=== PATIENT | female | born 1960 | race Caucasian/White ===

== ENCOUNTER 2020-09-12 10:58 | Outpatient (REF) | payer OTHER, SELFPAY | END 2020-09-12 10:59 | disposition home or self-care (01) | LOC: HO.LAB 10:58 | PROVIDERS: Visit Provider Internal Medicine | DX: Z20.828 Contact with and (suspected) exposure to other viral communicable diseases (principal) | CPT/HCPCS: C9803; U0003 ==

== ENCOUNTER 2020-09-26 13:41 | Outpatient (REF) | payer OTHER, SELFPAY | END 2020-09-26 13:42 | disposition home or self-care (01) | LOC: HO.LAB 13:41 | PROVIDERS: Visit Provider Internal Medicine | DX: Z20.828 Contact with and (suspected) exposure to other viral communicable diseases (principal) | CPT/HCPCS: C9803; U0003 ==

== ENCOUNTER 2020-10-09 17:27 | Outpatient (REF) | payer OTHER, SELFPAY | END 2020-10-09 17:28 | disposition home or self-care (01) | LOC: HO.LAB 17:27 | PROVIDERS: Visit Provider Internal Medicine | DX: Z20.822 Contact with and (suspected) exposure to COVID-19 (principal) | CPT/HCPCS: 36415; C9803; U0003 ==

== ENCOUNTER 2020-10-30 10:47 | Outpatient (REF) | payer OTHER, SELFPAY | END 2020-10-30 10:48 | disposition home or self-care (01) | LOC: HO.LAB 10:47 | PROVIDERS: Visit Provider Internal Medicine | DX: Z20.822 Contact with and (suspected) exposure to COVID-19 (principal) | CPT/HCPCS: 36415; C9803; U0003; U0005 ==

== ENCOUNTER 2020-11-17 10:07 | Outpatient (REF) | payer OTHER, SELFPAY | END 2020-11-17 10:08 | disposition home or self-care (01) | LOC: HO.LAB 10:07 | PROVIDERS: Visit Provider Internal Medicine | DX: Z20.822 Contact with and (suspected) exposure to COVID-19 (principal) | CPT/HCPCS: 36415; C9803; U0003; U0005 ==

== ENCOUNTER 2020-12-07 10:21 | Outpatient (REF) | payer OTHER, SELFPAY | END 2020-12-07 10:22 | disposition home or self-care (01) | LOC: HO.LAB 10:21 | PROVIDERS: Visit Provider Internal Medicine | DX: Z20.822 Contact with and (suspected) exposure to COVID-19 (principal) | CPT/HCPCS: 36415; C9803; U0003; U0005 ==

== ENCOUNTER 2021-01-11 13:22 | Outpatient (REF) | payer OTHER, SELFPAY ==
[2021-01-11 14:26] LABS: COVID-19 Test Negative (Negative)
== END 2021-01-11 13:23 | disposition home or self-care (01) ==
LOC: HO.LAB 13:22
PROVIDERS: Visit Provider Internal Medicine
DX: Z20.822 Contact with and (suspected) exposure to COVID-19 (principal)
CPT/HCPCS: 36415; 87635; C9803

== ENCOUNTER 2021-01-23 11:52 | Outpatient (REF) | payer OTHER, SELFPAY ==
[2021-01-23 12:12] LABS: COVID-19 Test Negative (Negative)
== END 2021-01-23 11:53 | disposition home or self-care (01) ==
LOC: HO.LAB 11:52
PROVIDERS: Visit Provider Internal Medicine
DX: Z20.822 Contact with and (suspected) exposure to COVID-19 (principal)
CPT/HCPCS: 36415; 87635; C9803

== ENCOUNTER 2021-01-29 10:30 | Outpatient (REF) | payer OTHER, SELFPAY | END 2021-01-29 10:31 | disposition home or self-care (01) | LOC: HO.LAB 10:30 | PROVIDERS: Visit Provider Internal Medicine | DX: Z20.822 Contact with and (suspected) exposure to COVID-19 (principal) | CPT/HCPCS: C9803; U0003; U0005 ==

== ENCOUNTER 2021-02-22 08:28 | Outpatient (REF) | payer OTHER, SELFPAY ==
[2021-02-22 08:48] LABS: COVID-19 Test Negative (Negative)
== END 2021-02-22 08:29 | disposition home or self-care (01) ==
LOC: HO.LAB 08:28
PROVIDERS: Visit Provider Internal Medicine
DX: Z20.822 Contact with and (suspected) exposure to COVID-19 (principal)
CPT/HCPCS: 36415; 87635; C9803

== ENCOUNTER 2021-07-06 11:14 | Outpatient (REF) | payer MEDICAID, SELFPAY ==
[2021-07-06 11:39] LABS: COVID-19 Test Negative (Negative)
== END 2021-07-06 11:15 | disposition home or self-care (01) ==
LOC: HO.LAB 11:14
PROVIDERS: PCP Internal Medicine Geriatric Medicine; Visit Provider Internal Medicine
DX: Z20.822 Contact with and (suspected) exposure to COVID-19 (principal)
CPT/HCPCS: 36415; 87635; C9803

== ENCOUNTER 2021-08-09 14:43 | Outpatient (REF) | payer MEDICAID, SELFPAY | END 2021-08-09 14:44 | disposition home or self-care (01) | LOC: HO.LAB 14:43 | PROVIDERS: PCP Internal Medicine Geriatric Medicine; Visit Provider Internal Medicine | DX: Z20.822 Contact with and (suspected) exposure to COVID-19 (principal) | CPT/HCPCS: C9803; U0003; U0005 ==

== ENCOUNTER 2021-08-10 08:12 | Emergency (ER) | payer MEDICAID, SELFPAY ==
[2021-08-10 08:15] VITALS: BP 173/75; PULSE 85; RESP 18; TEMP 36.8; O2SAT 97; BMI 38.1
--- NOTE | 2021-08-10 08:41 | ED_ITS ---
HPI - Female Genitourinary General Chief complaint: Urogenital-Female Stated complaint: ?uti Time Seen by Provider: 08/10/21 08:41 Source: patient Mode of arrival: ambulatory Limitations: no limitations History of Present Illness HPI Narrative: Dysuria starting yesterday, has frequency, with pain MD elicited complaint: dysuria and UTI Pertinent past history: recurrent UTIs and pyelonephritis Onset (ago): day(s) Severity: mild Quality of pain: sharp Consistency: intermittent Urinary symptoms: Dysuria, Urgency and Frequency Associated symptoms: denies other symptoms Related Data Previous Rx's Medication Instructions Recorded nitrofurantoin 100 mg PO BID #10 cap 08/10/21 monohydrate/macrocrystals 100 mg capsule (Macrobid) phenazopyridine 100 mg tablet 100 mg PO TID #6 tab 08/10/21 (Pyridium) Allergies Allergy/AdvReac Type Severity Reaction Status Date / Time No Known Allergies Allergy Unverified 06/15/20 14:57 [No Known Allergies*] Review of Systems Constitutional: Constitutional: Reports no additional constitutional complaints Eyes: Eyes: Reports no additional eye complaints ENT: Denies dizziness Cardiovascular: Cardiovascular: Reports no additional cardiovascular complaints Respiratory: Respiratory: Reports as per HPI Gastrointestinal: Gastrointestinal: Reports no additional gastrointestinal complaints Genitourinary: Genitourinary: Reports no additional female genitourinary complaints Musculoskeletal: Musculoskeletal: Reports no additional musculoskeletal complaints Integumentary/Breasts: Skin/Breast: Denies rash Neurologic: Reports system reviewed and no additional complaints, except as documented, Denies dizziness and Denies Sensory deficit (Neuro) Psychiatric: Psychiatric: Denies anxiety [facility] Social History Social History Advance Directives: No Physical Exam Vital Signs: Vital Signs: Last Vital Signs Temp 98.2 F 08/10/21 08:15 Pulse 85 08/10/21 08:15 Resp 18 08/10/21 08:15 BP 173/75 H 08/10/21 08:15 Pulse Ox 97 08/10/21 08:15 Body Mass Index 38.1 Const: General: healthy appearing Nutritional Appearance: obese Orientation/consciousness: oriented to person and patient oriented x3 Limitations: no limitations HENMT: Head: Yes normal to inspection Ears: external ears normal General nose exam: Normal external nose present Mouth: Normal oral and palatal mucosa present and oropharynx normal Throat: Yes posterior oropharynx normal Eyes: General: appearance normal, both eyes and all related structures Neck: Other: supple Neck: Yes normal visual inspection Chest: Chest palpation & inspection: normal inspection of the chest Resp: Auscultation: clear to auscultation bilaterally Cardio: Jugular venous distension: no JVD Rate: regular rate Rhythm: regular rhythm Heart sounds: S1 normal heart sound present and S2 normal heart sound present GI: Inspection: Yes normal to inspection Palpation (GI): Soft to palpation, nontender and No hepatosplenomegaly present Auscultation: normal bowel sounds : General: Yes no CVA tenderness Back/Spine/Pelvis: Back: no CVA tenderness Skin: General skin exam: no rashes or lesions noted Neuro: General: oriented to person and patient oriented x3 Cranial nerves: Yes CN's II-XII intact bilaterally Motor exam (neuro): 5/5 motor strength present throughout Sensory Exam: No Sensory deficit (Neuro) Extrem: General: Yes normal to inspection Psych: Appearance: grossly normal Course Reevaluation(s) Reevaluation #1: Patient with UTI will start macrobid and pyridium Time: 09:25 [facility] - Female Genitourinary Lab Data Labs: Lab Results 08/10/21 Range/Units 08:48 Urine Color YELLOW Urine Appearance CLOUDY Urine pH 6.0 (5.0-8.0) Ur Specific [place] >= 1.030 H (1.005-1.025) Urine Protein 2+ H (NEG-TRACE) MG/DL Urine Glucose (UA) NEG (NEG) MG/DL Urine Ketones NEG (NEG) MG/DL Urine Blood 3+ H (NEG) Urine Nitrite NEG (NEG) Ur Leukocyte Esterase 2+ H (NEG) Urine RBC 10-14 H (0) /HPF Urine WBC 50-75 H (0-4) /HPF Ur Squamous Epith Cells TRACE /LPF Urine Bacteria TRACE /LPF Discharge Plan Discharge Clinical Impression: Urinary tract infection Patient Disposition: Home, Self-Care Instructions: Urinary Tract Infection in Women (ED) Prescriptions: New nitrofurantoin monohyd/m-cryst [Macrobid] 100 mg capsule 100 mg PO BID Qty: 10 RF: 0 phenazopyridine [Pyridium] 100 mg tablet 100 mg PO TID Qty: 6 RF: 0 Referrals: Fausto Bangura MD [Primary Care Provider] - 1 week
[2021-08-10 08:58] LABS: Appearance Urine CLOUDY; Color Urine YELLOW; Glucose Urine UA NEG (NEG); Leukocyte Esterase Urine 2+ (NEG); Nitrite Urine NEG (NEG); Specific Gravity - Urine >= 1.030 (1.005-1.025); UACC Culture Trigger YES; Urine Blood 3+ (NEG); Urine Ketones NEG (NEG); Urine Protein 2+ MG/DL (NEG-TRACE)
[2021-08-10 09:12] LABS: Bacteria Urine TRACE /LPF; Squamous Epithelial Cell Urine TRACE /LPF; UACC CULT YES; WBC Urine 50-75 /HPF (0-4)
[2021-08-10] MEDS: Nitrofurantoin Monohyd/M-Cryst 100 MG CAPSULE PO (09:34)
[2021-08-10] MEDS: Phenazopyridine HCL 100 MG TABLET PO (09:34)
== END 2021-08-10 09:39 | disposition home or self-care (01) ==
PROVIDERS: Emergency Provider Emergency Medicine; PCP Internal Medicine Geriatric Medicine
DX: N39.0 Urinary tract infection, site not specified (principal)
CPT/HCPCS: 81001; 87086; 99283; 99284

== ENCOUNTER 2021-08-25 06:37 | Emergency (ER) | payer MEDICAID, SELFPAY ==
[2021-08-25 06:55] VITALS: BP 144/53; PULSE 72; RESP 16; TEMP 36.7; O2SAT 99; BMI 36.6
--- NOTE | 2021-08-25 06:57 | ED.URI ---
HPI - URI/Sore Throat General Chief Complaint: Upper Respiratory Symptoms Stated Complaint: body pain, nausea Time Seen by Provider: 08/25/21 06:57 Source: patient Mode of arrival: ambulatory Limitations: no limitations History of Present Illness HPI Narrative: she is vaccinated MD elicited complaint: cough and rhinorrhea Onset (ago): day(s) (3) Consistency: constant Severity: mild Description of mucous: clear Able to tolerate fluids by mouth: Yes Exacerbating factors: nothing Relieving factors: nothing Context: sick contacts (neighbor has COVID) Associated symptoms: myalgias and rhinorrhea Treatments prior to arrival: none Related Data Previous Rx's Medication Instructions Recorded nitrofurantoin 100 mg PO BID #10 cap 08/10/21 monohydrate/macrocrystals 100 mg capsule (Macrobid) phenazopyridine 100 mg tablet 100 mg PO TID #6 tab 08/10/21 (Pyridium) Allergies Allergy/AdvReac Type Severity Reaction Status Date / Time No Known Allergies Allergy Unverified 06/15/20 14:57 [No Known Allergies*] Review of Systems Review of Systems: Constitutional : no Fever, positive Chills, positive fatigue, positive Malaise ENT/Mouth : no sore throat, positive runny nose Eyes: No Discharge Cardiovascular : No Chest Pain, No SOB Respiratory : pos Cough, No Sputum Gastrointestinal : No Nausea, No Vomiting, No Diarrhea Genitourinary : No Dysuria, No Urinary Frequency Musculoskeletal : positive Myalgia Skin : No rash Neuro : No Headache PMFSH Past Medical History Attestation statement: The following information was validated with the patient. Medical History Diabetes HTN (hypertension) Social History Social History (Updated 08/25/21 @ 07:01 by Maggie Sepulveda DO) Patient Tobacco Use Status: Never used Tobacco Advance Directives: No Advance Directives Information Provided: No Patient : No Physical Exam Vital Signs: Vital Signs: Last Vital Signs Temp 98.1 F 08/25/21 06:55 Pulse 72 08/25/21 06:55 Resp 16 08/25/21 06:55 BP 144/53 H 08/25/21 06:55 Pulse Ox 99 08/25/21 06:55 Body Mass Index 36.6 Appearance: Alert. Oriented X3. No acute distress. Eyes: Pupils equal, round and reactive to light. ENT: Pharynx normal. Neck: Normal inspection. Neck supple. CVS: Normal heart rate and rhythm. Pulses normal. Respiratory: No respiratory distress. Breath sounds normal. Abdomen: Soft and non-tender. Skin: Skin warm and dry. Normal skin color. Normal skin turgor. Extremities: No lower extremity edema. Neuro: Oriented X 3. No motor deficit. No sensory deficit. MDM - URI/Sore Throat MDM Narrative Medical decision making narrative: 61 yo female with URI symptoms no hypoxia clear lungs not toxic appearing - vaccinated at this time will test for COVID I do not suspect pneumonia Lab Data Labs: Lab Results 08/25/21 Range/Units 07:11 COVID-19 (ANTHONY) Negative (Negative) COVID-19 Clin Com See Note Discharge Plan Discharge Clinical Impression: Viral infection Patient Disposition: Home, Self-Care Instructions: Viral Syndrome (ED) Additional Instructions: return to ED for any worsening symptoms or concerns NEGATIVE FOR COVID Prescriptions: No Action nitrofurantoin monohyd/m-cryst [Macrobid] 100 mg capsule 100 mg PO BID Qty: 10 RF: 0 phenazopyridine [Pyridium] 100 mg tablet 100 mg PO TID Qty: 6 RF: 0 Referrals: [facility] [Primary Care Provider] - 3 days (IF NOT BETTER) Print Language: Tanzanian
[2021-08-25 07:33] LABS: COVID-19 Test Negative (Negative)
== END 2021-08-25 07:49 | disposition home or self-care (01) ==
PROVIDERS: Emergency Provider Emergency Medicine
DX: B34.9 Viral infection, unspecified (principal); I10 Essential (primary) hypertension; E11.9 Type 2 diabetes mellitus without complications; Z20.822 Contact with and (suspected) exposure to COVID-19
CPT/HCPCS: 36415; 87635; 99282; 99283

== ENCOUNTER 2021-09-10 10:47 | Outpatient (REF) | payer MEDICAID, SELFPAY ==
[2021-09-10 11:24] LABS: COVID-19 Test Negative (Negative); IDNOW Serial# 16C4AD1C
== END 2021-09-10 10:48 | disposition home or self-care (01) ==
LOC: HO.LAB 10:47
PROVIDERS: Visit Provider Internal Medicine
DX: Z20.822 Contact with and (suspected) exposure to COVID-19 (principal)
CPT/HCPCS: 36415; 87635; C9803

== ENCOUNTER 2021-09-18 12:16 | Outpatient (REF) | payer MEDICAID, SELFPAY | END 2021-09-18 12:17 | disposition home or self-care (01) | LOC: HO.LAB 12:16 | PROVIDERS: Visit Provider Internal Medicine | DX: Z20.822 Contact with and (suspected) exposure to COVID-19 (principal) | CPT/HCPCS: C9803; U0003; U0005 ==

== ENCOUNTER → 2021-10-10 08:15 | Outpatient (BNVA) | payer MEDICAID, SELFPAY | PROVIDERS: Visit Provider Nurse Practitioner Family | DX: M47.27 Other spondylosis with radiculopathy, lumbosacral region (principal); E11.9 Type 2 diabetes mellitus without complications | CPT/HCPCS: 99202 ==

== ENCOUNTER → 2021-12-04 13:07 | Outpatient (BNVA) | payer MEDICAID, SELFPAY | PROVIDERS: PCP Pediatrics; Visit Provider Nurse Practitioner Family | DX: R40.0 Somnolence (principal); R06.83 Snoring; R06.81 Apnea, not elsewhere classified | CPT/HCPCS: 99202 ==

== ENCOUNTER 2021-12-24 04:33 | Emergency (ER) | payer MEDICAID, SELFPAY ==
[2021-12-24 04:44] VITALS: BP 187/85; PULSE 89; RESP 16; TEMP 36.8; O2SAT 95; BMI 38.6
[2021-12-24 05:56] VITALS: BP 180/80; PULSE 102; RESP 14; TEMP 37.3; O2SAT 96
--- NOTE | 2021-12-24 06:48 | ED_ITS ---
HPI - Dental/Oral General Chief complaint: Dental/Oral Stated complaint: migraine, dental pain Time Seen by Provider: 12/24/21 06:42 Source: patient and family Mode of arrival: ambulatory Limitations: no limitations History of Present Illness MD Complaint: tooth pain Teeth map: 1. Onset (ago): day(s) (2) Duration: constant Severity: moderate Relieving factors: nothing Exacerbating factors: chewing, drinking fluids and swallowing Context: history of dental caries Associated symptoms: gum swelling and pain with swallowing Treatment prior to arrival: none Related Data Home Medications Medication Instructions Recorded Confirmed albuterol sulfate 90 mcg/actuation 1 - 2 puff PO Q4-6H PRN 10/10/21 12/04/21 aerosol inhaler (ProAir HFA) buspirone 5 mg tablet 5 mg PO TID 10/10/21 12/04/21 estradiol 1 g VAGINAL QWEEK 10/10/21 12/04/21 gabapentin 300 mg capsule 0 mg PO 10/10/21 12/04/21 oxycodone 10 mg tablet 10 mg PO TID 10/10/21 12/04/21 zolpidem 10 mg tablet 10 mg PO BEDTIME 10/10/21 12/04/21 levothyroxine 125 mcg capsule 125 mcg PO DAILY 12/04/21 12/04/21 lisinopril 5 mg tablet 5 mg PO DAILY 12/04/21 12/04/21 lovastatin 40 mg tablet 40 mg PO DAILY 12/04/21 12/04/21 Previous Rx's Medication Instructions Recorded nitrofurantoin 100 mg PO BID #10 cap 08/10/21 monohydrate/macrocrystals 100 mg capsule (Macrobid) phenazopyridine 100 mg tablet 100 mg PO TID #6 tab 08/10/21 (Pyridium) amoxicillin 500 mg tablet 500 mg PO TID 7 Days #21 tab 12/24/21 oxycodone 5 mg tablet 5 mg PO Q6H PRN #10 tab 12/24/21 Allergies Allergy/AdvReac Type Severity Reaction Status Date / Time No Known Allergies Allergy Unverified 06/15/20 14:57 [No Known Allergies*] Review of Systems Review of Systems: Constitutional : No Fever, No Chills ENT/Mouth : No swallowing difficulty, no change in voice, positive dental pain, positive jaw pain, positive facial swelling Eyes: No Eye Pain, No Swelling Cardiovascular : No Chest Pain, No SOB Respiratory : No Cough, No Sputum Gastrointestinal : No Nausea, No Vomiting, No Diarrhea Genitourinary : No Dysuria Musculoskeletal : No Myalgias Skin : No rash Neuro : No Weakness, No Numbness, No Headache PMF Past Medical History Attestation statement: The following information was validated with the patient. Medical History Diabetes HTN (hypertension) Social History Social History Alcohol intake: never Patient Tobacco Use Status: Never used Tobacco Use of substances other than those prescribed or required for medical reasons: No Advance Directives: No Advance Directives Information Provided: Yes Physical Exam Vital Signs: Vital Signs: Last Vital Signs Temp 99.1 F 12/24/21 05:56 Pulse 102 H 12/24/21 05:56 Resp 14 12/24/21 05:56 BP 180/80 H 12/24/21 05:56 Pulse Ox 96 12/24/21 05:56 BMI result Body Mass Index 38.6 Appearance: Alert. Oriented X3. No acute distress. Eyes: Pupils equal, round and reactive to light. ENT: R upper tooth 1st molar area mild fluctuance no abscess felt, gum erythema mild, no trismus tooth intact, no deeper infections noted, mild swelling over R cheek area but very mild no other swelling noted under tongue or submandibular Neck: Normal inspection. Neck supple. CVS: Normal heart rate and rhythm. Pulses normal. Respiratory: No respiratory distress. Breath sounds normal. Abdomen: Soft and nontender. Skin: Skin warm and dry. Normal skin color. Normal skin turgor. Extremities: No lower extremity edema. No calf ttp Neuro: Oriented X 3. No motor deficit. No sensory deficit. Course Course Course Narrative: called by pharmacy already on scheduled oxycodone - new Rx stopped MDM - Dental/Oral MDM Narrative Medical decision making narrative: 61 yo female with DM, HTN here with c/o dental pain with erythema and gingiva inflammation at this time will need pain medications and oral antibiotics, overall not toxic, no signs of deeper space infection - plans to see her dentist. Discharge Plan Discharge Clinical Impression: Toothache Patient Disposition: Home, Self-Care Instructions: Toothache (ED) Additional Instructions: return to ED for any worsening symptoms or concerns see dentist in 3 days Prescriptions: New amoxicillin 500 mg tablet 500 mg PO TID 7 Days Qty: 21 0RF oxycodone 5 mg tablet 5 mg PO Q6H PRN (Reason: pain) Qty: 10 0RF No Action nitrofurantoin monohyd/m-cryst [Macrobid] 100 mg capsule 100 mg PO BID Qty: 10 0RF Rx Instructions: must administer with a meal/food phenazopyridine [Pyridium] 100 mg tablet 100 mg PO TID Qty: 6 0RF levothyroxine 125 mcg capsule 125 mcg PO DAILY 0RF lisinopril 5 mg tablet 5 mg PO DAILY 0RF lovastatin 40 mg tablet 40 mg PO DAILY 0RF oxycodone 10 mg tablet 10 mg PO TID 0RF albuterol sulfate [ProAir HFA] 90 mcg/actuation HFA aerosol inhaler 1 - 2 puff PO Q4-6H PRN0RF zolpidem 10 mg tablet 10 mg PO BEDTIME 0RF gabapentin 300 mg capsule 0 mg PO 0RF buspirone 5 mg tablet 5 mg PO TID 0RF estradiol 0.01 % (0.1 mg/gram) cream 1 g vaginal QWEEK 0RF Interventions: ED Discharge Assessment Last Done: 12/24/21 07:09 Discharge Date/Time: 12/24/21 07:09 Print Language: Citizen [place]
[2021-12-24] MEDS: oxyCODONE HCl Immed Release 5 MG TABLET 10 MG PO (06:56)
[2021-12-24] MEDS: Amoxicillin 500 MG CAPSULE PO (06:56)
== END 2021-12-24 07:09 | disposition home or self-care (01) ==
PROVIDERS: Emergency Provider Emergency Medicine
DX: K08.89 Other specified disorders of teeth and supporting structures (principal); E11.9 Type 2 diabetes mellitus without complications; I10 Essential (primary) hypertension; Z79.899 Other long term (current) drug therapy
CPT/HCPCS: 99283; 99284

== ENCOUNTER → 2022-01-15 11:05 | Outpatient (REF) | payer MEDICAID, SELFPAY | LOC: HO.SL 11:05 | PROVIDERS: PCP Nurse Practitioner Family; Visit Provider Nurse Practitioner Family | DX: G47.00 Insomnia, unspecified (principal); R06.83 Snoring; R40.0 Somnolence; R06.81 Apnea, not elsewhere classified | CPT/HCPCS: 95806 ==

== ENCOUNTER → 2022-01-29 13:13 | Outpatient (BNVA) | payer MEDICAID, SELFPAY | PROVIDERS: PCP Nurse Practitioner Family; Visit Provider Nurse Practitioner Family | DX: R40.0 Somnolence (principal); R06.81 Apnea, not elsewhere classified; R06.83 Snoring | CPT/HCPCS: 99212 ==

== ENCOUNTER → 2022-05-17 08:24 | Outpatient (BNVA) | payer MEDICAID, SELFPAY | PROVIDERS: PCP Nurse Practitioner Family; Visit Provider Nurse Practitioner Family | DX: E66.9 Obesity, unspecified (principal); R40.0 Somnolence; R06.81 Apnea, not elsewhere classified; R06.83 Snoring; Z68.38 Body mass index [BMI] 38.0-38.9, adult | CPT/HCPCS: 99212 ==

== ENCOUNTER 2022-06-28 11:58 | Outpatient (REF) | payer MEDICAID, SELFPAY ==
[2022-06-28 13:18] LABS: Alanine Aminotransferase 48 U/L (0-31); Albumin Level 4.3 g/dL (3.5-5.0); Alkaline Phosphatase 74 U/L (39-117); Anion Gap 13 (12-20); Aspartate Amino Transferase 37 U/L (5-31); Bilirubin Total 0.3 mg/dL (0.0-1.0); Blood Urea Nitrogen 12 mg/dL (9-16); Calcium 9.8 mg/dL (8.4-10.2); Carbon Dioxide 30 mmol/L (22-29); Chloride 99 mmol/L (96-108); Estimated Glomerular Filt Rate > 60; Glucose Random 122 mg/dL (60-115); Potassium 4.3 mmol/L (3.3-5.1); Sodium 138 mmol/L (135-145); Total Protein 7.2 g/dL (6.5-8.0)
[2022-06-28 13:39] LABS: TSH reflex Free T4 0.14 uIU/mL (0.32-4.0)
[2022-06-28 14:16] LABS: Free T4 (Free Thyroxine) 1.28 ng/dL (0.71-1.85)
== END 2022-06-28 11:59 | disposition home or self-care (01) ==
LOC: HO.LAB 11:58
PROVIDERS: PCP Nurse Practitioner Family; Visit Provider Nurse Practitioner Family
DX: K59.04 Chronic idiopathic constipation (principal); K21.9 Gastro-esophageal reflux disease without esophagitis; R14.0 Abdominal distension (gaseous); Z79.899 Other long term (current) drug therapy
CPT/HCPCS: 36415; 80053; 84439; 84443; 99202

== ENCOUNTER 2022-07-21 02:10 | Emergency (ER) | payer MEDICAID, SELFPAY ==
[2022-07-21 02:30] VITALS: BP 155/75; PULSE 73; RESP 16; TEMP 36.6; O2SAT 95; BMI 39.2
[2022-07-21 02:57] LABS: Appearance Urine Clear; Color Urine Yellow; Glucose Urine UA Negative (Negative); Leukocyte Esterase Urine Large (3+) (Negative); Nitrite Urine Negative (Negative); Specific Gravity - Urine <= 1.005 (1.005-1.025); UMIC TRIGGER UACC YES; Urine Blood Moderate (2+) (Negative); Urine Ketones Negative (Negative); Urine Protein Negative (Neg-Trace)
[2022-07-21 03:15] LABS: Bacteria Urine None Seen (None Seen); Hyaline Casts Urine 0-2 /LPF (0-2); RBC Urine 0-2 /HPF (0-2); UACC Culture Trigger YES; WBC Urine >50 /HPF (0-5)
[2022-07-21 06:15] VITALS: BP 112/76; PULSE 67; RESP 16; O2SAT 97
[2022-07-21 06:16] LABS: MANUAL DIFF FLAG NO
[2022-07-21 06:31] LABS: Basophils Absolute Auto 0.1 X10*3/uL (0.0-0.2); Basophils Percent Auto 0.8 % (0-2); Eosinophils Absolute Auto 0.4 X10*3/uL (0.0-0.4); Eosinophils Percent Auto 4.3 % (0-4); Hematocrit 39.4 % (37.0-47.0); Hemoglobin 13.1 g/dl (12.0-16.0); Imm Gran Abs Auto 0.05 X10*3/uL (0.00-0.03); Imm Gran Pct Auto 0.6 % (0.0-0.4); Lymphocytes Percent Auto 33.9 % (20-40); Mean Corpuscular HGB Conc 33.2 g/dl (31.0-35.0); Mean Corpuscular Hemoglobin 28.8 pg (27.0-33.0); Mean Corpuscular Volume 86.6 fL (80.0-98.0); Mean Platelet Volume 9.4 fL (9.4-12.3); Monocytes Absolute Auto 0.7 X10*3/uL (0.1-1.2); Monocytes Percent Auto 7.8 % (2-11); Neutrophils Absolute Auto 4.7 x10*3/uL (2.0-8.3); Neutrophils Percent Auto 52.6 % (45-73); Platelet Count 316 X10*3/uL (160-400); Red Blood Count 4.55 X10*6/uL (4.20-5.50); Red Cell Distribution Width 13.2 % (11.0-16.0)
[2022-07-21 06:37] LABS: Alanine Aminotransferase 41 U/L (0-31); Albumin Level 4.5 g/dL (3.5-5.0); Alkaline Phosphatase 82 U/L (39-117); Anion Gap 18 (12-20); Aspartate Amino Transferase 35 U/L (5-31); Bilirubin Total 0.3 mg/dL (0.0-1.0); Blood Urea Nitrogen 9 mg/dL (9-16); Calcium 9.6 mg/dL (8.4-10.2); Carbon Dioxide 24 mmol/L (22-29); Chloride 101 mmol/L (96-108); Creatinine Clr Calc Pharmacy 81.3; Estimated Glomerular Filt Rate > 60; Glucose Random 147 mg/dL (60-115); Potassium 4.1 mmol/L (3.3-5.1); Sodium 139 mmol/L (135-145); Total Protein 7.9 g/dL (6.5-8.0)
--- NOTE | 2022-07-21 07:56 | ED_ITS ---
HPI - Female Genitourinary General Chief complaint: Urogenital-Female Stated complaint: pain in lower abd, cannot urinate Time Seen by Provider: 07/21/22 07:52 Source: patient and translator interpreter Mode of arrival: ambulatory Limitations: no limitations History of Present Illness MD elicited complaint: dysuria and UTI Pertinent past history: recurrent UTIs Onset (ago): day(s) (3) Location of symptoms: suprapubic Severity: mild Quality of pain: burning Consistency: intermittent Vaginal discharge: none Vaginal bleeding: none Urinary symptoms: Dysuria, Urgency, Frequency and Foul Smelling Urine Exacerbating factors: urination Relieving factors: none Associated symptoms: denies other symptoms Treatment prior to arrival: none Related Data Home Medications Medication Instructions Recorded Confirmed albuterol sulfate 90 mcg/actuation 1 - 2 puff PO Q4-6H PRN 10/10/21 01/29/22 aerosol inhaler (ProAir HFA) estradiol 0.01% (0.1 mg/gram) 1 g vaginal QWEEK 10/10/21 01/29/22 vaginal cream gabapentin 300 mg capsule 0 mg PO 10/10/21 01/29/22 oxycodone 10 mg tablet 10 mg PO TID 10/10/21 01/29/22 zolpidem 10 mg tablet 10 mg PO BEDTIME 10/10/21 01/29/22 levothyroxine 125 mcg capsule 125 mcg PO DAILY 12/04/21 01/29/22 lisinopril 5 mg tablet 5 mg PO DAILY 12/04/21 01/29/22 lovastatin 40 mg tablet 40 mg PO DAILY 12/04/21 01/29/22 metformin 500 mg tablet 500 mg PO BID 01/29/22 01/29/22 paroxetine HCl 10 mg tablet 10 mg PO DAILY 01/29/22 01/29/22 Previous Rx's Medication Instructions Recorded docusate sodium 100 mg capsule 100 mg PO BEDTIME #90 caps 06/28/22 sennosides 8.6 mg tablet (Natural 17.2 mg PO BEDTIME constipation 06/28/22 Senna Laxative) #180 tabs cefuroxime axetil 250 mg tablet 250 mg PO BID 7 days #14 tabs 07/21/22 fluconazole 150 mg tablet 150 mg PO Q3D 2 doses #2 tabs 07/21/22 (Diflucan) Allergies Allergy/AdvReac Type Severity Reaction Status Date / Time No Known Allergies Allergy Verified 07/21/22 02:30 [No Known Allergies*] Review of Systems Review of Systems: Constitutional : No Weight loss, No Fever, No Chills ENT/Mouth : No sore throat, No Rhinorrhea Eyes: No Swelling, No Redness Cardiovascular : No Chest Pain, No SOB, NoEdema Respiratory : No Cough, No Sputum, No Wheezing Gastrointestinal : no Nausea, no Vomiting, no Diarrhea, positive abdominal Pain, No Hematochezia, No Melena Genitourinary : pos Dysuria, pos Urinary Frequency, No Hematuria, pos Urgency Musculoskeletal : No joint pain, No Myalgias, No Joint Swelling Skin : No Skin Lesions, No rash Neuro : No Weakness, No Numbness, No Dizziness, No Headache Psych : No Anxiety/Panic, No Depression Heme/Lymph: No Bruising, No Lymphadenopathy Endocrine : No Polyuria, No Polydipsia All other systems reviewed and are negative. [facility] Past Medical History Attestation statement: The following information was validated with the patient. Medical History Diabetes HTN (hypertension) Surgical History Hx of tubal ligation Family History Family History (Updated 06/28/22 @ 11:18 by Dave George) Mother HTN (hypertension) Diabetes High cholesterol Father Heart disease Social History Social History Household Members: Significant Other Alcohol intake: never Patient Tobacco Use Status: Never used Tobacco Physical Exam Vital Signs: Vital Signs: Last Vital Signs Temp 97.9 F 07/21/22 02:30 Pulse 67 07/21/22 06:15 Resp 16 07/21/22 06:15 BP 112/76 07/21/22 06:15 Pulse Ox 97 07/21/22 06:15 O2 Del Method 07/21/22 06:15 BMI result Body Mass Index 39.2 Appearance: Alert. Oriented X3. No acute distress. Eyes: Pupils equal, round and reactive to light. ENT: Pharynx normal. Neck: Normal inspection. Neck supple. CVS: Normal heart rate and rhythm. Pulses normal. Respiratory: No respiratory distress. Breath sounds normal. Abdomen: Soft and nontender. Back: no CVA ttp Skin: Skin warm and dry. Normal skin color. Normal skin turgor. Extremities: No lower extremity edema. No calf ttp Neuro: Oriented X 3. No motor deficit. No sensory deficit. MDM - Female Genitourinary MDM Narrative Medical decision making narrative: 62 yo female with hx of UTI, hypothyroidism, back pain, DM here with 3 days of dysuria but no flank pain, fevers, vomiting - at this time will start on cefuroxime and send home with precautions. No prior kidney stones. not toxic. stable for DC Lab Data Result diagrams: 07/21/22 06:01 07/21/22 06:01 Labs: Lab Results 07/21/22 07/21/22 07/21/22 Range/Units 02:49 06:01 06:01 WBC 9.0 (4.8-10.8) X10*3/uL RBC 4.55 (4.20-5.50) X10*6/uL Hgb 13.1 (12.0-16.0) g/dl Hct 39.4 (37.0-47.0) % MCV 86.6 (80.0-98.0) fL MCH 28.8 (27.0-33.0) pg MCHC 33.2 (31.0-35.0) g/dl RDW 13.2 (11.0-16.0) % Plt Count 316 (160-400) X10*3/uL MPV 9.4 (9.4-12.3) fL Immature Gran % (Auto) 0.6 H (0.0-0.4) % Neut % (Auto) 52.6 (45-73) % Lymph % (Auto) 33.9 (20-40) % [place] % (Auto) 7.8 (2-11) % Eos % (Auto) 4.3 H (0-4) % Baso % (Auto) 0.8 (0-2) % Lymph # (Auto) 3.0 (1.2-4.9) X10*3/uL [place] # (Auto) 0.7 (0.1-1.2) X10*3/uL Eos # (Auto) 0.4 (0.0-0.4) X10*3/uL Baso # (Auto) 0.1 (0.0-0.2) X10*3/uL Abs Immat Gran (auto) 0.05 H (0.00-0.03) X10*3/uL Absolute Neuts (auto) 4.7 (2.0-8.3) x10*3/uL Absolute Nucleated RBC 0.000 (0.0-0.012) X10*3/uL Nucleated RBC % (auto) 0.0 (0.0-0.2) /100WBC Sodium 139 (135-145) mmol/L Potassium 4.1 (3.3-5.1) mmol/L Chloride 101 (96-108) mmol/L Carbon Dioxide 24 (22-29) mmol/L Anion Gap 18 (12-20) BUN 9 (9-16) mg/dL Creatinine 0.82 (0.5-1.4) mg/dL Estim Creat Clear Calc 81.3 Estimated GFR > 60 Random Glucose 147 H (60-115) mg/dL Calcium 9.6 (8.4-10.2) mg/dL Total Bilirubin 0.3 (0.0-1.0) mg/dL AST 35 H (5-31) U/L ALT 41 H (0-31) U/L Alkaline Phosphatase 82 (39-117) U/L Total Protein 7.9 (6.5-8.0) g/dL Albumin 4.5 (3.5-5.0) g/dL Urine Color Yellow Urine Appearance Clear Urine pH 6.0 (5.0-9.0) Ur Specific [place] <= 1.005 (1.005-1.025) Urine Protein Negative (Neg-Trace) mg/dL Urine Glucose (UA) Negative (Negative) mg/dL Urine Ketones Negative (Negative) mg/dL Urine Blood Moderate (2+) H (Negative) Urine Nitrite Negative (Negative) Ur Leukocyte Esterase Large (3+) H (Negative) Urine RBC 0-2 (0-2) /HPF Urine WBC >50 H (0-5) /HPF Ur Squamous Epith Cells 3-5 (0-2) /HPF Urine Bacteria None Seen (None Seen) Hyaline Casts 0-2 (0-2) /LPF Discharge Plan Discharge Clinical Impression: Acute UTI Patient Disposition: Home, Self-Care Instructions: Urinary Tract Infection in Women (ED) Additional Instructions: return to ED for any worsening symptoms or concerns Prescriptions: New cefuroxime axetil 250 mg tablet 250 mg PO BID 7 Days Qty: 14 0RF fluconazole [Diflucan] 150 mg tablet 150 mg PO Q3D Qty: 2 0RF Rx Instructions: may repeat second dose 72 hrs after first dose if symptoms persist No Action levothyroxine 125 mcg capsule 125 mcg PO DAILY lisinopril 5 mg tablet 5 mg PO DAILY lovastatin 40 mg tablet 40 mg PO DAILY metformin 500 mg tablet 500 mg PO BID paroxetine HCl 10 mg tablet 10 mg PO DAILY docusate sodium 100 mg capsule 100 mg PO BEDTIME Qty: 90 3RF sennosides [Natural Senna Laxative] 8.6 mg tablet 17.2 mg PO BEDTIME Qty: 180 3RF oxycodone 10 mg tablet 10 mg PO TID albuterol sulfate [ProAir HFA] 90 mcg/actuation HFA aerosol inhaler 1 - 2 puff PO Q4-6H PRN zolpidem 10 mg tablet 10 mg PO BEDTIME gabapentin 300 mg capsule 0 mg PO estradiol 0.01 % (0.1 mg/gram) cream 1 g vaginal QWEEK Referrals: Physician,Unknown J [Primary Care Provider] - (PCP 3 days if not better) Print Language: Burmese
--- OUTSIDE RECORDS SUMMARY | 2022-07-21 08:10 | XMS_ITS | Continuity of Care Document ---
:1960 Author Organization [facility] Address [address] [place] [address], [address] [place] [address]- Care Team Providers Name Role Phone Daryn Luong MD Primary Care Phys[id number] - [facility]07/21 [facility] [address] [place] [address], [address] [place] [id number] Attending Physician: Delia Deluca MD Admitting Physician: Delia Deluca MD Referring Physician: Daryn Luong MD Allergies, Adverse Reactions, Alerts Substance Reaction Severity Status NKA Active Medications Acidophilus Probiotic Blend oral capsule 1 capsule, By Mouth, Daily, # 30 capsule, 11 Refills, Maintenance, 12/04/20 9:52:00 EST, [facility]/pharmacy #[id number], Partial fill upon patient request if the prescription is for a schedule II opioid drug., 1 capsule By Mouth Daily, 161, cm, 12/04/20 9:26:00 E... Start Date: 12/04/20 Status: OrderedAlbuterol 0.083% Inhalation Solution Refills 0, Maintenance, 12/04/20 9:30:00 EST Start Date: 12/04/20 Status: OrderedAmbien 10 mg oral tablet 1 tablet = 10 mg, By Mouth, Daily at bedtime, PRN for sleep, 0 Refills, Maintenance, 12/30/17 15:18:04 EDT, Tablet Start Date: 12/30/17 Status: OrderedclonazePAM 0.5 mg oral tablet = 0.5 mg, By Mouth, 2 times a day, 0 Refills, Maintenance, 05/29/16 8:39:21, Tablet Start Date: 05/29/16 Status: Ordereddocusate sodium 0 Refills, Maintenance, 08/12/19 10:00:40 EST Start Date: 08/12/19 Status: Orderedestradiol 0.1 mg/g vaginal cream = 1 Gm, Vaginally, Daily at bedtime, take every night for two weeks then twice weekly, # 30 Gm, 11 Refills, Maintenance, 12/04/20 9:51:00 EST, [facility]/pharmacy #[id number], Partial fill upon patient request if the prescription is for a schedule II opioid drug.,... Start Date: 12/04/20 Status: Orderedhydrochlorothiazide 25 mg oral tablet 12.5 mg, By Mouth, Daily, Refills 0, Maintenance, 05/29/16 8:39:26 Start Date: 05/29/16 Status: Orderedlevothyroxine 0.125 mg oral tablet 0 Refills, Maintenance, 08/12/19 9:59:35 EST Start Date: 08/12/19 Status: Orderedlisinopril 10 mg oral tablet 1 tablet = 10 mg, By Mouth, Daily, 0 Refills, Maintenance, 05/15/15 8:47:39 Start Date: 05/15/15 Status: Orderedloratadine 10 mg oral tablet 10 mg, 1, tablet, By Mouth, Daily, # 30 tablet, Refills 0, Maintenance, 12/30/17 15:16:29 EDT Start Date: 12/30/17 Status: Orderedlovastatin 20 mg oral tablet 1 tablet = 20 mg, By Mouth, Daily, 0 Refills, Maintenance, 12/04/20 9:29:00 EST, Partial fill upon patient request if the prescription is for a schedule II opioid drug. Start Date: 12/04/20 Status: OrderedMovantik 25 mg oral tablet 1 tablet = 25 mg, By Mouth, Daily in AM, 0 Refills, Maintenance, 12/04/20 9:30:00 EST, Partial fill upon patient request if the prescription is for a schedule II opioid drug. Start Date: 12/04/20 Status: OrderedoxyCODONE 10 mg oral tablet 1 tablet = 10 mg, By Mouth, Every 4 hours, 0 Refills, Maintenance, 08/12/19 10:01:20 EST, Tablet, Partial fill upon patient request Start Date: 08/12/19 Status: OrderedPARoxetine 20 mg oral tablet 20 mg, 1, tablet, By Mouth, Daily, # 30 tablet, Refills 0, Maintenance, 08/12/19 10:00:22 EST Start Date: 08/12/19 Status: Orderedtrimethoprim 100 mg oral tablet 1 tablet = 100 mg, By Mouth, Daily, For daily suppression of frequent UTIs. Start taking after finishing course of treatment for acute UTI, # 28 tablet, 5 Refills, Maintenance, 10/05/20 9:11:00 EST, [id number], 162.5, cm, 08/12/19 9:50:00 EST,... Start Date: 10/05/20 Status: OrderedVitamin C 500 mg oral tablet, chewable 1 tablet = 500 mg, By Mouth, 2 times a day, # 60 tablet, 9 Refills, Maintenance, 12/04/20 9:51:00 EST, [id number], Partial fill upon patient request if the prescription is for a schedule II opioid drug., 161, cm, 12/04/20 9:26:00 EST, Height,... Start Date: 12/04/20 Status: Ordered Problem List Condition Effective Dates Status Health Status Informant Anxiety(Confirmed) Active Atrophic vaginitis(Confirmed) Active Last pap smear 05/09/16 negative with Active negative HPV(Confirmed) Depression(Confirmed) Active Diabetes - patient denies it but Active multiple hemoglobin A1c levels have been above the cutoff(Confirmed) Dyspareunia, female(Confirmed) Active Hyperlipidemia - high total Active cholesterol and triglycerides(Confirmed) Chronic hypertension(Confirmed) Active Hypothyroid. Last TSH 05/15/2018 Active elevated at 4.82 mIU/mL. 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
--- OUTSIDE RECORDS SUMMARY | 2022-07-21 08:10 | XMS_ITS | Continuity of Care Document ---
:1960 Author Organization [facility] Address [address] [place] [address]- Care Team Providers Name Role Phone Daryn Luong MD Primary Care Physician [phone] [facility] Date(s): 10/12/21 - 10/19/21 [facility] [address] [place] [address]- Encounter Diagnosis Acute cystitis (Discharge Diagnosis) - 10/12/21 Attending Physician: Chelle Hummel MD Referring Physician: Daryn Luong MD Allergies, Adverse Reactions, Alerts No Known Allergies Medications Acidophilus Probiotic Blend oral capsule 1 capsule, By Mouth, Daily, # 30 capsule, 11 Refills, Maintenance, 12/04/20 9:52:00 EST, [facility]/pharmacy #[id number], Partial fill upon patient request if [...] Gm, 11 Refills, Maintenance, 12/04/20 9:51:00 EST, [facility]/pharmacy #[id number], Partial fill upon patient request if [...] II opioid drug. Start Date: 12/04/20 Status: Orderedmirabegron 25 mg oral tablet, extended release 1 tablet = 25 mg, By Mouth, Daily, # 30 tablet, 11 Refills, Maintenance, 05/07/21 11:06:00 EDT, [facility]/pharmacy #[id number], Partial fill upon patient request if the prescription is for a schedule II opioid drug., 161, cm, 12/04/20 9:26:00 EST, Height, 100.7,... Start Date: 05/07/21 Status: OrderedMovantik 25 mg oral tablet 1 [...] tablet = 100 mg, By Mouth, Daily, for 30 days, # 30 tablet, 11 Refills, Acute 10/12/22 13:50:00 EST, 10/17/21 13:50:00 EST, Tablet, [facility]/pharmacy #[id number], Partial fill upon patient request if the prescription is for a schedule II opioid drug., 161, cm,... Start Date: 10/17/21 Stop Date: 10/12/22 Status: Orderedtrimethoprim 100 mg oral tablet 1 tablet = 100 mg, By Mouth, Daily, For daily suppression of frequent UTIs. Start taking after finishing course of treatment for acute UTI, # 28 tablet, 5 Refills, Maintenance, 10/05/20 9:11:00 EST, [id number], 162.5, cm, 08/12/19 9:50:00 EST,... Start Date: 10/05/20 Status: OrderedVitamin C 500 mg oral tablet, chewable 1 tablet = 500 mg, Chew, 2 times a day, # 60 tablet, 11 Refills, Maintenance, 10/17/21 13:50:00 EST,[id number], Partial fill upon patient request if the prescription is for a schedule II opioid drug., 161, cm, 10/17/21 13:43:00 EST, Height, 1... Start Date: 10/17/21 Status: OrderedVitamin C 500 mg oral tablet, [...] mIU/mL. 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) Does not have regular dental Active care(Confirmed) Obese class II(Confirmed) Active Obesity(Confirmed) Active Poor historian(Confirmed) Active Frequent UTI(Confirmed) Active Urinary tract infections(Confirmed) Active Diagnosis Diagnosis Type Effective Dates Health Status Clinical In formant Service Acute cystitis Discharge 10/12/21 Diagnosis Vital Signs Most recent to oldest [Reference Range]: 1 Height 161.0 cm (10/12/21 6:19 PM) Oxygen Saturation [94-100 %] 99 % (10/12/21 6:19 PM) Pulse Rate [55-90 bpm] 81 bpm (10/12/21 6:19 PM) Blood Pressure [90-138/55-84 mm Hg] 131/60 mm Hg (10/12/21 6:19 PM) Respiratory Rate [16-30 br/min] 20 br/min (10/12/21 6:19 PM) Temperature [96.8-100.4 DegF] 97.2 DegF (10/12/21 6:19 PM) Mode of Delivery (Oxygen) Room air (10/12/21 6:19 PM) Blood pressure sites Arm, left (10/12/21 6:19 PM) Temperature Route Temporal (10/12/21 6:19 PM) Social History Social History Type Response Smoking Status Former smoker; Tobacco user in household: No; Other: Quit 36 years ago; entered on: 04/14/18 Sex
--- OUTSIDE RECORDS SUMMARY | 2022-07-21 08:10 | XMS_ITS | Continuity of Care Document ---
:1960 Author Organization [facility] Address [address] [place] [address]- Care Team Providers Name Role Phone Daryn Luong MD Primary Care Physician Encounter [facility] [facility] Date(s): 01/28/22 - 03/22/[address] [address] Attending Physician: Delia Deluca MD Admitting Physician: Delia Deluca MD Referring Physician: Delia Deluca MD Allergies, Adverse Reactions, Alerts No Known Allergies Medications Acidophilus Probiotic Blend oral capsule 1 capsule, By Mouth, Daily, # 30 capsule, 11 Refills, Maintenance, 12/04/20 9:52:00 EST, [facility]/pharmacy #[id number], Partial fill upon patient request if [...] weekly, # 30 Gm, 11 Refills, Maintenance, 01/25/22 11:50:00 EDT, [facility]/pharmacy #[id number], Partial fill upon patient request if the prescription is for a schedule II opioid drug.... Start Date: 01/25/22 Status: Orderedestradiol 0.1 mg/g vaginal cream = 1 Gm, Vaginally, Daily at bedtime, take every night for two weeks then twice weekly, # 30 Gm, 11 Refills, Maintenance, 12/04/20 9:51:00 EST, [facility]/pharmacy #[id number], Partial fill upon patient request if [...] tablet, 11 Refills, Maintenance, 05/07/21 11:06:00 EDT, [facility]/pharmacy #[id number], Partial fill upon patient request if the prescription is for a schedule II opioid drug., 161, cm, 12/04/20 9:26:00 EST, Height, 100.7,... Start Date: 05/07/21 Status: Orderedmirabegron 25 mg oral tablet, extended release 1 tablet = 25 mg, By Mouth, Daily at bedtime, # 30 tablet, 11 Refills, Maintenance, 01/25/22 11:50:00 EDT, [facility]/pharmacy #[id number], Partial fill upon patient request if the prescription is for a schedule IIopioid drug., 161, cm, 01/25/22 11:07:00 EDT, Hei... Start Date: 01/25/22 Status: OrderedMovantik 25 mg oral tablet 1 [...] 10/12/22 13:50:00 EST, 10/17/21 13:50:00 EST, Tablet, [facility]/pharmacy #[id number], Partial fill upon patient request if [...] 60 tablet, 11 Refills, Maintenance, 10/17/21 13:50:00 EST,[facility]/pharmacy #[id number], Partial fill upon patient request if the prescription is for a schedule II opioid drug., 161, cm, 10/17/21 13:43:00 EST, Height, 1... Start Date: 10/17/21 Status: OrderedVitamin C 500 mg oral tablet, chewable 1 tablet = 500 mg, By Mouth, 2 times a day, # 60 tablet, 9 Refills, Maintenance, 12/04/20 9:51:00 EST, [facility]/pharmacy #[id number], Partial fill upon patient request if [...] mIU/mL. 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
--- OUTSIDE RECORDS SUMMARY | 2022-07-21 08:10 | XMS_ITS | Continuity of Care Document ---
:1960 Author Organization [facility] Address [address] [place] [address]- Care Team Providers Name Role Phone Daryn Luong MD Primary Care Physician [place] [facility] 02/27/20 - 03/28/20 [facility] [address] [place] [address]- [facility] Attending Physician: Julissa Castillo Admitting Physician: Admtr, Julissa Referring Physician: Admtr, Ar8 Allergies, Adverse Reactions, Alerts Substance Reaction Severity Status NKA Active Medications Ambien 10 mg oral tablet 1 tablet = [...] 08/12/19 10:00:40 EST Start Date: 08/12/19 Status: Orderedhydrochlorothiazide 25 mg oral tablet 12.5 [...] 12/30/17 15:16:29 EDT Start Date: 12/30/17 Status: OrderedoxyCODONE 10 mg oral tablet 1 [...] Mouth, Daily, For daily suppression of frequent UTIs, # 28 tablet, 5 Refills, Maintenance, 03/07/20 10:38:00 EDT, [facility]/pharmacy #[id number], 162.5, cm, 08/12/19 9:50:00 EST, Height Start Date: 03/07/20 Status: Ordered Problem List Condition Effective Dates [...] mIU/mL. 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
--- OUTSIDE RECORDS SUMMARY | 2022-07-21 08:10 | XMS_ITS | Continuity of Care Document ---
:1960 Author Organization [facility] Address [address] [place] [address], [address] [place] [address]- Care Team Providers Name Role Phone Ag VEGAS, Daryn John Primary Care Physician En[place] [facility] [place] [place] Date(s): 10/04/20 - 11/03/20 [facility] [place] [facility] [address] [place] [address], [address] [place] [id number] Allergies, Adverse Reactions, Alerts Substance Reaction Severity [...] tablet, 5 Refills, Maintenance, 10/05/20 9:11:00 EST, [facility]/pharmacy #[id number], 162.5, cm, 08/12/19 9:50:00 EST,... Start Date: 10/05/20 Status: Ordered Problem List Condition Effective Dates [...] mIU/mL. 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
--- OUTSIDE RECORDS SUMMARY | 2022-07-21 08:10 | XMS_ITS | Continuity of Care Document ---
:1960 Author [facility] Address [address] [place] [address], [address] [place] [address]- Care Team Providers Name Role Phone Ag VEGAS, Daryn John Primary Care Physician Encounter [facility] [place] Date(s): 10/17/21 - 02/06/22 [facility] [address] [place] [address], [address] [place] [id number] Attending Physician: Delia Deluca MD Admitting Physician: Delia Deluca MD Referring Physician: Daryn Luong MD Allergies, Adverse Reactions, Alerts No Known Allergies Medications Acidophilus Probiotic Blend oral capsule 1 capsule, By Mouth, Daily, # 30 capsule, 11 Refills, Maintenance, 12/04/20 9:52:00 EST, [facility]/pharmacy #[id number], Partial fill upon patient request if [...] Gm, 11 Refills, Maintenance, 01/25/22 11:50:00 EDT, [facility]/pharmacy #[id number], Partial fill upon patient request if the prescription is for a schedule II opioid drug.... Start Date: 01/25/22 Status: Orderedestradiol 0.1 mg/g vaginal cream = 1 Gm, Vaginally, Daily at bedtime, take every night for two weeks then twice weekly, # 30 Gm, 11 Refills, Maintenance, 12/04/20 9:51:00 EST, [facility]/pharmacy #[id number], Partial fill upon patient request if [...] tablet, 11 Refills, Maintenance, 05/07/21 11:06:00 EDT, [facility]/pharmacy #[id number], Partial fill upon patient request if the prescription is for a schedule II opioid drug., 161, cm, 12/04/20 9:26:00 EST, Height, 100.7,... Start Date: 05/07/21 Status: Orderedmirabegron 25 mg oral tablet, extended release 1 tablet = 25 mg, By Mouth, Daily at bedtime, # 30 tablet, 11 Refills, Maintenance, 01/25/22 11:50:00 EDT, [facility]/pharmacy #[id number], Partial fill upon patient request if [...] 10/12/22 13:50:00 EST, 10/17/21 13:50:00 EST, Tablet, [id number], Partial fill upon patient request [...] 60 tablet, 11 Refills, Maintenance, 10/17/21 13:50:00 EST,[facility]/pharmacy #[id number], Partial fill upon patient request if the prescription is for a schedule II opioid drug., 161, cm, 10/17/21 13:43:00 EST, Height, 1... Start Date: 10/17/21 Status: OrderedVitamin C 500 mg oral tablet, chewable 1 tablet = 500 mg, By Mouth, 2 times a day, # 60 tablet, 9 Refills, Maintenance, 12/04/20 9:51:00 EST, [facility]/pharmacy #[id number], Partial fill upon patient request if [...] mIU/mL. 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
--- OUTSIDE RECORDS SUMMARY | 2022-07-21 08:10 | XMS_ITS | Continuity of Care Document ---
:1960 Author Organization [facility] [employer] [facility] Address [address] [place] [address], [address] [place] [address]- Care Team Providers Name Role Phone Daryn Luong MD Primary Care Physician [phone] [id number] Date(s): 12/04/20 - 02/21/21 [facility] [address] [facility], [address] [place] [id number] [[email or web address]] Attending Physician: Delia Deluca MD Admitting Physician: Delia Deluca MD Referring Physician: Daryn Luong MD Allergies, Adverse Reactions, Alerts Substance Reaction Severity Status NKA Active Medications Acidophilus Probiotic Blend oral capsule 1 capsule, By Mouth, Daily, # 30 capsule, 11 Refills, Maintenance, 12/04/20 9:52:00 EST, [facility]/pharmacy #[id number], Partial fill upon patient request [...] Gm, 11 Refills, Maintenance, 12/04/20 9:51:00 EST, [facility]/pharmacy #[id number], Partial fill upon patient request [...] mIU/mL. Normal free T3 and total T3(Confirmed) Upper Sorbian speaking patient - japanese interpreter Active required(Confirmed) Menopausal state, LMP was [...]
--- OUTSIDE RECORDS SUMMARY | 2022-07-21 08:10 | XMS_ITS | Continuity of Care Document ---
:1960 Author Organization [facility] Address [address] [place] [address], [address] [place] [address]- Care Team Providers Name Role Phone Ag VEGAS, Daryn John Primary Care Physician En[place] [facility] [place] Date(s): 03/07/20 - 03/14/20 [facility] [employer] [address], [address] [place] [address] [facility] Attending Physician: Aric Jones MD Allergies, Adverse Reactions, Alerts Substance Reaction [...] tablet, 5 Refills, Maintenance, 03/07/20 10:38:00 EDT, [facility]/pharmacy #[id number], 162.5, cm, 08/12/19 9:50:00 EST, Height [...] mIU/mL. 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
--- OUTSIDE RECORDS SUMMARY | 2022-07-21 08:10 | XMS_ITS | Continuity of Care Document ---
:1960 Author Organization [facility] Address [address] [place] [address], [address] [place] [address]- Care Team Providers Name Role Phone Daryn Luong MD Primary Care Physician [id number] Date(s): 04/22/22 - 05/22/22 [facility] [address] [facility], [address] [place] [id number] Attending Physician: Julissa Castillo Admitting Physician: AdmJulissa ibanez Referring Physician: AdmtrJulissa Allergies, Adverse Reactions, Alerts No Known Allergies Medications Acidophilus Probiotic Blend oral capsule 1 capsule, By Mouth, Daily, # 30 capsule, 11 Refills, Maintenance, 12/04/20 9:52:00 EST, [facility]/pharmacy #[id number], Partial fill upon patient request [...] Gm, 11 Refills, Maintenance, 01/25/22 11:50:00 EDT, [facility]/pharmacy #[id number], Partial fill upon patient request if the prescription is for a schedule II opioid drug.... Start Date: 01/25/22 Status: Orderedestradiol 0.1 mg/g vaginal cream = 1 Gm, Vaginally, Daily at bedtime, take every night for two weeks then twice weekly, # 30 Gm, 11 Refills, Maintenance, 12/04/20 9:51:00 EST, [facility]/pharmacy #[id number], Partial fill upon patient request [...] tablet, 11 Refills, Maintenance, 05/07/21 11:06:00 EDT, [facility]/pharmacy #[id number], Partial fill upon patient request if the prescription is for a schedule II opioid drug., 161, cm, 12/04/20 9:26:00 EST, Height, 100.7,... Start Date: 05/07/21 Status: Orderedmirabegron 25 mg oral tablet, extended release 1 tablet = 25 mg, By Mouth, Daily at bedtime, # 30 tablet, 11 Refills, Maintenance, 01/25/22 11:50:00 EDT, [facility]/pharmacy #[id number], Partial fill upon patient request [...] 10/12/22 13:50:00 EST, 10/17/21 13:50:00 EST, Tablet, [facility]/pharmacy #[id number], Partial fill upon patient request [...] tablet, 9 Refills, Maintenance, 12/04/20 9:51:00 EST, [facility]/pharmacy #[id number], Partial fill upon patient request [...] mIU/mL. 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
--- OUTSIDE RECORDS SUMMARY | 2022-07-21 08:10 | XMS_ITS | Continuity of Care Document ---
:1960 Author Organization [facility] Address [address] [place] [address], [address] [place] [address]- Care Team Providers Name Role Phone Ag VEGAS, Daryn John Primary Care Physician Encounter [facility] [place] Date(s): 10/05/20 - 11/04/20 [facility] [address] [place] [address], [address] [place] [id number] Allergies, Adverse Reactions, Alerts Substance [...] tablet, 5 Refills, Maintenance, 10/05/20 9:11:00 EST, [facility]/pharmacy #[id number], 162.5, cm, 08/12/19 9:50:00 EST,... Start [...] mIU/mL. 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
--- OUTSIDE RECORDS SUMMARY | 2022-07-21 08:10 | XMS_ITS | Continuity of Care Document ---
:1960 Author Organization [facility] Address [address] [place] [address], [address] [place] [address]- Care Team Providers Name Role Phone Daryn Luong MD Primary Care Physician Encounter [facility] [place] Date(s): 03/07/20 - 04/06/20 [facility] [address] [place] [address], [address] [place] [address] [facility] Attending Physician: Julissa Castillo Admitting Physician: Julissa Castillo Referring Physician: AdmtrJulissa Allergies, Adverse Reactions, Alerts Substance Reaction Severity [...] tablet, 5 Refills, Maintenance, 03/07/20 10:38:00 EDT, [facility]/pharmacy #[id number], 162.5, cm, 08/12/19 9:50:00 [...] mIU/mL. 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
--- OUTSIDE RECORDS SUMMARY | 2022-07-21 08:10 | XMS_ITS | Continuity of Care Document ---
:1960 Author Organization [facility] [employer] [facility] Address [address] [place] [address], [address] [place] [address]- Care Team Providers Name Role Phone Ag VEGAS, Daryn John Primary Care Physician [phone] [place] [facility] [place]): 10[place]16/21 - 11/15/21 [facility] [facility] [address] [place] [address], [address] [place] [id number] Allergies, Adverse Reactions, Alerts No Known Allergies Medications Acidophilus Probiotic Blend oral capsule 1 capsule, By Mouth, Daily, # 30 capsule, 11 Refills, Maintenance, 12/04/20 9:52:00 EST, [facility]/pharmacy #[id number], Partial fill upon patient request [...] Gm, 11 Refills, Maintenance, 12/04/20 9:51:00 EST, [facility]/pharmacy #[id number], Partial fill upon patient request [...] tablet, 11 Refills, Maintenance, 05/07/21 11:06:00 EDT, [facility]/pharmacy #[id number], Partial fill upon patient request [...] 10/12/22 13:50:00 EST, 10/17/21 13:50:00 EST, Tablet, [facility]/pharmacy #[id number], Partial fill upon patient request [...] mIU/mL. 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
--- OUTSIDE RECORDS SUMMARY | 2022-07-21 08:10 | XMS_ITS | Continuity of Care Document ---
:1960 Author Organization [facility] [employer] [facility] Address [address] [place] [address], [address] [place] [id number]- Care Team Providers Name Role Phone Daryn Luong MD Primary Care Physician [phone] [id number] Date[facility]s): 02/06/21 - 06/06/21 [facility] [employer] [facility] [address] [facility], [address] [place] [id number] Attending Physician: Delia Deluca MD Admitting Physician: Delia Deluca MD Referring Physician: Job VEGAS , Fallon Allergies, Adverse Reactions, Alerts Substance Reaction Severity Status NKA Active Medications Acidophilus Probiotic Blend oral capsule 1 capsule, By Mouth, Daily, # 30 capsule, 11 Refills, Maintenance, 12/04/20 9:52:00 EST, [facility]/pharmacy #[id number], Partial fill upon patient request [...] Gm, 11 Refills, Maintenance, 12/04/20 9:51:00 EST, [facility]/pharmacy #[id number], Partial fill upon patient request [...] tablet, 11 Refills, Maintenance, 05/07/21 11:06:00 EDT, [facility]/pharmacy #[id number], Partial fill upon patient request [...] mIU/mL. 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
--- OUTSIDE RECORDS SUMMARY | 2022-07-21 08:10 | XMS_ITS | Continuity of Care Document ---
:1960 Author Organization [facility] [employer] [facility] Address [address] [place] [address], [address] [place] [address]- Care Team Providers Name Role Phone Daryn Luong MD Primary Care Physician [id number] Date(s): 05/07/21 - 06/06/21 [facility] [employer] [facility] [address] [facility], [address] [place] [id number] Attending Physician: Julissa Castillo Admitting Physician: Julissa Castillo Referring Physician: AdmtrJulissa Allergies, Adverse Reactions, Alerts Substance Reaction Severity Status NKA Active Medications Acidophilus Probiotic Blend oral capsule 1 capsule, By Mouth, Daily, # 30 capsule, 11 Refills, Maintenance, 12/04/20 9:52:00 EST, [facility]/pharmacy #[id number], Partial fill upon patient request [...] Gm, 11 Refills, Maintenance, 12/04/20 9:51:00 EST, [facility]/pharmacy #[id number], Partial fill upon patient request [...] tablet, 11 Refills, Maintenance, 05/07/21 11:06:00 EDT, 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
--- OUTSIDE RECORDS SUMMARY | 2022-07-21 08:10 | XMS_ITS | Continuity of Care Document ---
:1960 Author Organization [facility] Address [address] [place] [id number]- Care Team Providers Name Role Phone Daryn Luong MD Primary Care Physician [place] [facility] [place] Date(s): 02/14/20 - 03/18/20 [facility] [address] [address] [facility] Attending Physician: Aric Jones MD Referring Physician: Daryn Luong MD Allergies, [...] tablet, 5 Refills, Maintenance, 03/07/20 10:38:00 EDT, [facility]/pharmacy #[id number], 162.5, cm, 08/12/19 9:50:00 [...] mIU/mL. 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
--- OUTSIDE RECORDS SUMMARY | 2022-07-21 08:10 | XMS_ITS | Continuity of Care Document ---
:1960 Author Organization [facility] [employer] [facility] Address [address] [place] [address], [address] [place] [address]- Care Team Providers Name Role Phone Ag VEGAS, Daryn John Primary Care Physician [id number] Date[facility]s): 12/04/20 - 02/17/21 [facility] [place] [employer] [facility] [address] [facility], [address] [place] [id number] Attending Physician: Delia Deluca MD Admitting Physician: Delia Deluca MD Referring Physician: Daryn Luong MD Allergies, Adverse Reactions, Alerts Substance Reaction Severity Status NKA Active Medications Acidophilus Probiotic Blend oral capsule 1 capsule, By Mouth, Daily, # 30 capsule, 11 Refills, Maintenance, 12/04/20 9:52:00 EST, [facility]/pharmacy #[id number], Partial fill upon patient request [...] Gm, 11 Refills, Maintenance, 12/04/20 9:51:00 EST, [facility]/pharmacy #[id number], Partial fill upon patient request [...] tablet, 5 Refills, Maintenance, 10/05/20 9:11:00 EST, [facility]/pharmacy #[id number], 162.5, cm, 08/12/19 9:50:00 EST,... Start Date: 10/05/20 Status: OrderedVitamin C 500 mg oral tablet, chewable 1 tablet = 500 mg, By Mouth, 2 times a day, # 60 tablet, 9 Refills, Maintenance, 12/04/20 9:51:00 EST, [facility]/pharmacy #[id number], Partial fill upon patient request [...] mIU/mL. 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
--- OUTSIDE RECORDS SUMMARY | 2022-07-21 08:10 | XMS_ITS | Continuity of Care Document ---
:1960 Author Organization [facility] Address [address] [place] [address]- Care Team Providers Name Role Phone Daryn Luong MD Primary Care Physician [phone] [id number] Date(s): 11/05/19 - 11/05/[address] [address]- [facility] Attending Physician: Daryn Luong MD Allergies, Adverse Reactions, [...] 08/12/19 10:00:22 EST Start Date: 08/12/19 Status: Ordered Problem List Condition Effective Dates [...] mIU/mL. 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
--- OUTSIDE RECORDS SUMMARY | 2022-07-21 08:11 | XMS_ITS | Continuity of Care Document ---
:1960 Author Organization [facility] Address [address] [place] [address]- Care Team Providers Name Role Phone Daryn Luong MD Primary Care Physician [phone] Encounter [facility] Date(s): 10/12/21 - 11/11/21 [facility] [address] [place] [address]- Attending Physician: Julissa Castillo Admitting Physician: AdmJulissa ibanez Referring Physician: Admtr, Julissa Allergies, Adverse Reactions, Alerts No Known Allergies Medications Acidophilus Probiotic Blend oral capsule 1 capsule, By Mouth, Daily, # 30 capsule, 11 Refills, Maintenance, 12/04/20 9:52:00 EST, [facility]/pharmacy #[id number], Partial fill upon patient request [...] Gm, 11 Refills, Maintenance, 12/04/20 9:51:00 EST, [facility]/pharmacy #[id number], Partial fill upon patient request [...] tablet, 11 Refills, Maintenance, 05/07/21 11:06:00 EDT, [facility]/pharmacy #[id number], Partial fill upon patient request [...] 10/12/22 13:50:00 EST, 10/17/21 13:50:00 EST, Tablet, [facility]/pharmacy #[id number], Partial fill upon patient request [...] mIU/mL. 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
--- OUTSIDE RECORDS SUMMARY | 2022-07-21 08:11 | XMS_ITS | Continuity of Care Document ---
:1960 Author Organization [facility] [employer] [facility] Address [address] [place] [address], [address] [place] [address]- Care Team Providers Name Role Phone Daryn Luong MD Primary Care Physician [phone] [id number] Date(s): 01/25/22 - 05/22/22 [facility] [employer] [facility] [address] [place] [address], [address] [place] [id number] Attending Physician: Delia Deluca MD Admitting [...] Gm, 11 Refills, Maintenance, 01/25/22 11:50:00 EDT, [facility]/pharmacy #[id number], [...] tablet, 11 Refills, Maintenance, 01/25/22 11:50:00 EDT, [facility]/pharmacy #[id number], [...] 10/12/22 13:50:00 EST, 10/17/21 13:50:00 EST, Tablet, [facility]/pharmacy #[id number], Partial [...] 60 tablet, 11 Refills, Maintenance, 10/17/21 13:50:00 EST,[facility]/pharmacy #[id number], Partial fill upon patient request if the prescription is for a schedule II opioid drug., 161, cm, 10/17/21 13:43:00 EST, Height, 1... Start Date: 10/17/21 Status: OrderedVitamin C 500 mg oral tablet, chewable 1 tablet = 500 mg, By Mouth, 2 times a day, # 60 tablet, 9 Refills, Maintenance, 12/04/20 [facility]00 [facility] mIU/mL. 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
== END 2022-07-21 08:30 | disposition home or self-care (01) ==
LOC: HO.ED 08:08
PROVIDERS: Emergency Provider Emergency Medicine
DX: N39.0 Urinary tract infection, site not specified (principal); R30.0 Dysuria; R35.0 Frequency of micturition; Z79.899 Other long term (current) drug therapy
CPT/HCPCS: 36415; 80053; 81001; 81003; 85025; 87086; 99282; 99284

== ENCOUNTER → 2022-08-08 09:34 | Outpatient (BNVA) | payer MEDICAID, SELFPAY | PROVIDERS: PCP Internal Medicine; Visit Provider Nurse Practitioner Family | DX: Z12.11 Encounter for screening for malignant neoplasm of colon (principal); K58.1 Irritable bowel syndrome with constipation; K59.01 Slow transit constipation | CPT/HCPCS: 99212 ==

== ENCOUNTER 2022-09-25 21:11 | Emergency (ER) | payer MEDICAID, SELFPAY ==
--- NOTE | ~2022-09-25 | CT_ITS ---
EXAMINATION: CT ABDOMEN AND PELVIS WITHOUT CONTRAST CLINICAL INFORMATION: Bilateral flank pain COMPARISON: None TECHNIQUE: Multidetector volumetric imaging was performed from the superior aspect of the liver through the pubic symphysis. Sagittal and coronal reformatted images were obtained on the technologist's workstation. This CT examination was performed using dose optimization techniques as appropriate, variously including the following: *Automated exposure control *Adjustment of mA and/or kV according to patient size (this includes techniques or standardized protocols for targeted exams where dose is matched to indication/reason for exam; i.e. extremities or head) *Use of iterative reconstruction technique DLP: 841 mGy-cm FINDINGS: LUNG BASES: The visualized lung bases are unremarkable. LIVER, GALLBLADDER, AND BILIARY TREE: Mild hepatomegaly. Right liver lobe measures 18.3 cm in craniocaudal length. Mild hepatic hypoattenuation consistent with steatosis. Small areas of fatty sparing in the left liver lobe and about the gallbladder. No liver lesion. No biliary ductal dilation. The gallbladder is unremarkable with no evidence of radiopaque gallstones, gallbladder wall thickening, or obvious pericholecystic inflammatory changes. PANCREAS: Unremarkable. SPLEEN: Unremarkable. ADRENAL GLANDS: Unremarkable. KIDNEYS AND URETERS: The kidneys are normal in size, shape, and attenuation. No hydronephrosis, hydroureter, or calculi seen. No perinephric stranding. BLADDER: Unremarkable. GASTROINTESTINAL TRACT: Mild sigmoid diverticulosis. No evidence of acute diverticulitis. No dilated bowel loops. No bowel thickening. Normal appendix. No ascites or free air. ABDOMINAL WALL: Small fat-containing umbilical hernia. LYMPH NODES: No lymphadenopathy. VASCULAR: Normal caliber abdominal aorta. Mild scattered vascular calcifications. PELVIC VISCERA: 1.6 cm left cervical region low-density probable nabothian cyst. Gynecologic structures otherwise unremarkable. No free pelvic fluid. OSSEOUS STRUCTURES: No acute fracture or suspicious osseous lesion. Multilevel degenerative disc disease most advanced at L5-S1 with lower lumbar facet arthrosis. 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 CT/CT abdomen pelvis wo IV con IMPRESSION: 1. No renal or ureteral calculi. No hydronephrosis. 2. Mild hepatomegaly and hepatic steatosis. 3. Mild sigmoid diverticulosis. No evidence of acute diverticulitis.
[2022-09-25 21:22] VITALS: BP 148/67; PULSE 74; RESP 18; TEMP 36.6; O2SAT 97; BMI 39.8
[2022-09-25 22:04] LABS: MANUAL DIFF FLAG NO
[2022-09-25 22:05] LABS: Basophils Absolute Auto 0.1 X10*3/uL (0.0-0.2); Basophils Percent Auto 0.6 % (0-2); Eosinophils Absolute Auto 0.2 X10*3/uL (0.0-0.4); Eosinophils Percent Auto 2.3 % (0-4); Hematocrit 37.5 % (37.0-47.0); Hemoglobin 12.6 g/dl (12.0-16.0); Imm Gran Abs Auto 0.02 X10*3/uL (0.00-0.03); Imm Gran Pct Auto 0.2 % (0.0-0.4); Lymphocytes Absolute Auto 3.6 X10*3/uL (1.2-4.9); Lymphocytes Percent Auto 35.9 % (20-40); Mean Corpuscular HGB Conc 33.6 g/dl (31.0-35.0); Mean Corpuscular Hemoglobin 28.8 pg (27.0-33.0); Mean Corpuscular Volume 85.6 fL (80.0-98.0); Mean Platelet Volume 9.3 fL (9.4-12.3); Monocytes Absolute Auto 0.8 X10*3/uL (0.1-1.2); Monocytes Percent Auto 7.9 % (2-11); Neutrophils Absolute Auto 5.3 x10*3/uL (2.0-8.3); Neutrophils Percent Auto 53.1 % (45-73); Platelet Count 310 X10*3/uL (160-400); Red Blood Count 4.38 X10*6/uL (4.20-5.50); Red Cell Distribution Width 13.2 % (11.0-16.0); White Blood Count 9.9 X10*3/uL (4.8-10.8)
[2022-09-25 22:06] LABS: Appearance Urine Clear; Color Urine Yellow; Glucose Urine UA Negative (Negative); Leukocyte Esterase Urine Negative (Negative); Nitrite Urine Negative (Negative); Specific Gravity - Urine 1.025 (1.005-1.025); Urine Blood Negative (Negative); Urine Ketones Trace mg/dL (Negative); Urine Protein Negative (Neg-Trace)
[2022-09-25 22:24] LABS: Alanine Aminotransferase 38 U/L (0-31); Albumin Level 4.3 g/dL (3.5-5.0); Alkaline Phosphatase 75 U/L (39-117); Anion Gap 12 (12-20); Aspartate Amino Transferase 35 U/L (5-31); Bilirubin Direct < 0.2 mg/dL (0.0-0.5); Bilirubin Total 0.3 mg/dL (0.0-1.0); Blood Urea Nitrogen 15 mg/dL (9-16); Calcium 9.5 mg/dL (8.4-10.2); Carbon Dioxide 30 mmol/L (22-29); Chloride 101 mmol/L (96-108); Creatinine Clr Calc Pharmacy 56.4; Estimated Glomerular Filt Rate 48; Glucose Random 201 mg/dL (60-115); Lipase 50 U/L (8-78); Potassium 3.6 mmol/L (3.3-5.1); Sodium 139 mmol/L (135-145); Total Protein 7.4 g/dL (6.5-8.0)
--- NOTE | 2022-09-25 23:38 | ED.ABDPAIN ---
HPI - Abdominal Pain General Chief Complaint: Abdominal Pain Stated Complaint: Flank pain Time Seen by Provider: 09/25/22 23:27 Source: patient Mode of arrival: ambulatory Limitations: no limitations History of Present Illness HPI narrative: This is a 62-year-old female presenting to the emergency department complaints of right upper abdominal pain that radiates into right flank. Patient tells me that pain is worse with certain at patient reports pain started suddenly. She tells me the pain is intermittent sharp in nature, she tells me that the pain was so strong once that she fell out of breath. She denies any trauma to the area. Denies any previous back issues. Patient denies chest pain, shortness of breath, lower extremity swelling, fevers, chills, nausea, vomiting, abdominal pain, headache, vision changes, dizziness, weakness, urinary or bowel symptoms, numbness, tingling, saddle paresthesias. Related Data Home Medications Medication Instructions Recorded Confirmed albuterol sulfate 90 mcg/actuation 1 - 2 puff PO Q4-6H PRN 10/10/21 01/29/22 aerosol inhaler (ProAir HFA) estradiol 0.01% (0.1 mg/gram) 1 g vaginal QWEEK 10/10/21 01/29/22 vaginal cream gabapentin 300 mg capsule 0 mg PO 10/10/21 01/29/22 oxycodone 10 mg tablet 10 mg PO TID 10/10/21 01/29/22 zolpidem 10 mg tablet 10 mg PO BEDTIME 10/10/21 01/29/22 levothyroxine 125 mcg capsule 125 mcg PO DAILY 12/04/21 01/29/22 lisinopril 5 mg tablet 5 mg PO DAILY 12/04/21 01/29/22 lovastatin 40 mg tablet 40 mg PO DAILY 12/04/21 01/29/22 metformin 500 mg tablet 500 mg PO BID 01/29/22 01/29/22 paroxetine HCl 10 mg tablet 10 mg PO DAILY 01/29/22 01/29/22 Previous Rx's Medication Instructions Recorded docusate sodium 100 mg capsule 100 mg PO BEDTIME #90 caps 06/28/22 sennosides 8.6 mg tablet (Natural 17.2 mg PO BEDTIME constipation 06/28/22 Senna Laxative) #180 tabs cefuroxime axetil 250 mg tablet 250 mg PO BID 7 days #14 tabs 07/21/22 fluconazole 150 mg tablet 150 mg PO Q3D 2 doses #2 tabs 07/21/22 (Diflucan) bisacodyl 5 mg tablet,delayed 10 mg PO ONCE 1 day #2 tabs 08/08/22 release (Dulcolax (bisacodyl)) polyethylene glycol 3350 17 238 g PO ONCE #238 grams 08/08/22 gram/dose oral powder (Miralax) cyclobenzaprine 10 mg tablet 10 mg PO BEDTIME PRN muscle spasm 09/25/22 #7 tabs lidocaine 5 % topical patch 1 patch topical DAILY PRN pain #15 09/25/22 ea Allergies Allergy/AdvReac Type Severity Reaction Status Date / Time No Known Allergies Allergy Verified 08/08/22 09:55 [No Known Allergies*] Review of Systems Review of Systems Constitutional : No Weight loss, No Fever, No Chills, No Fatigue, No Malaise ENT/Mouth : No sore throat, No Rhinorrhea Eyes: No Eye Pain, No Swelling, No Redness Cardiovascular : No Chest Pain, No SOB, No Dyspnea on Exertion, No Orthopnea, No Edema, No Palpitations Respiratory : No Cough, No Sputum, No Wheezing Gastrointestinal : No Nausea, No Vomiting, No Diarrhea, No Constipation, + abdominal Pain, No Hematochezia, No Melena Genitourinary : No Dysuria, No Urinary Frequency, No Hematuria, Musculoskeletal : No joint pain, No Myalgias, No Joint Swelling, + flank pain Skin : No Skin Lesions, No rash Neuro : No Weakness, No Numbness, No Dizziness, No Headache Psych : No Anxiety/Panic, No Depression All other systems reviewed and are negative Yes all other systems are reviewed and are negative [facility] Past Medical History Attestation statement: The following information was validated with the patient. Source: old records reviewed and nursing notes reviewed Medical History Diabetes HTN (hypertension) Surgical History Hx of tubal ligation Family History Family History Mother HTN (hypertension) Diabetes High cholesterol Father Heart disease Social History Social History Household Members: Significant Other Alcohol intake: never Patient Tobacco Use Status: Never used Tobacco Smoked in Last 30 Days: No Use of substances other than those prescribed or required for medical reasons: No Advance Directives: No Advance Directives Information Provided: Yes Physical Exam ED Vital Signs: Vital Signs - 24 hr 09/25/22 21:22 Temperature 97.9 F Pulse Rate 74 Respiratory Rate 18 Blood Pressure 148/67 H Pulse Oximetry 97 Oxygen Delivery Method Room Air BMI result Body Mass Index 39.8 Vital signs stable Appearance: Alert.? Oriented X3.? No acute distress.? Head: Normocephalic, atraumatic, no step-offs or deformities Eyes: Pupils equal, round and reactive to light.? ENT: Pharynx normal.? Neck: Normal inspection.? Neck supple.? CVS: Normal heart rate and rhythm.? Pulses normal.? Respiratory: No respiratory distress.? Breath sounds normal.? Abdomen: Soft and nontender.? Negative Villalpando's, Rovsing, McBurney's point. Skin: Skin warm and dry.? Normal skin color.? Normal skin turgor.? Extremities: No lower extremity edema.? No calf ttp. 5/5 strength to bilateral upper and lower extremities Back: No CVA tenderness bilaterally + pain with palpation of right lumbar paraspinous muscle/right flank area. No midline tenderness. Neuro: Oriented X 3.? No motor deficit.? No sensory deficit. CN 2-12 intact Course Reevaluation(s) Reevaluation #1: CBC appears to be within normal limits. Chemistry with no acute electrolyte abnormalities requiring intervention. Patient's lipase within normal limits. Urine clean without infection. CT of the abdomen and pelvis with no renal or ureteral calculi. No hydronephrosis. Mild hepatomegaly and hepatic steatosis. Mild sigmoid diverticulosis however no signs of diverticulitis. Normal appendix. Patient will be given Toradol for symptoms. Explained to her that if pain continues or persists then she should return for re-evaluation, gave her strict return precautions pertaining to appendicitis. Patient tolerating p.o. at time of discharge. Educated patient on diagnosis and treatment plan, answered all question, patient verbalizes understanding. At this time patient will be discharged home, advised to return with new or worsening symptoms. Educated on worrisome signs and symptoms and when to return. At this time I feel comfortable discharge home. Time: 23:41 Medical Decision Making Medical Decision Making [facility] Narrative: [id number] 62-year-old female presents with right lower quadrant pain that started suddenly. Denies urinary symptoms, nausea vomiting, fevers and chills. Physical examination with pain with palpation of right lumbar paraspinous muscle/right flank area. Concerns for possible kidney stones, urinary tract infection or musle strain or spasm. Unlikely pyelo or appendicitis/cholecystitis. No signs of acute abdomen. History and physical exam not consistent with AAA, cauda equina, epidural abscess. Plan imaging, urine, basic labs Lab Data Result Diagrams: 09/25/22 21:58 09/25/22 21:58 Labs: Lab Results 09/25/22 09/25/22 09/25/22 Range/Units 21:58 21:58 21:58 WBC 9.9 (4.8-10.8) X10*3/uL RBC 4.38 (4.20-5.50) X10*6/uL Hgb 12.6 (12.0-16.0) g/dl Hct 37.5 (37.0-47.0) % MCV 85.6 (80.0-98.0) fL MCH 28.8 (27.0-33.0) pg MCHC 33.6 (31.0-35.0) g/dl RDW 13.2 (11.0-16.0) % Plt Count 310 (160-400) X10*3/uL MPV 9.3 L (9.4-12.3) fL Immature Gran % (Auto) 0.2 (0.0-0.4) % Neut % (Auto) 53.1 (45-73) % Lymph % (Auto) 35.9 (20-40) % Coos % (Auto) 7.9 (2-11) % Eos % (Auto) 2.3 (0-4) % Baso % (Auto) 0.6 (0-2) % Lymph # (Auto) 3.6 (1.2-4.9) X10*3/uL [place] # (Auto) 0.8 (0.1-1.2) X10*3/uL Eos # (Auto) 0.2 (0.0-0.4) X10*3/uL Baso # (Auto) 0.1 (0.0-0.2) X10*3/uL Abs Immat Gran (auto) 0.02 (0.00-0.03) X10*3/uL Absolute Neuts (auto) 5.3 (2.0-8.3) x10*3/uL Absolute Nucleated RBC 0.000 (0.0-0.012) X10*3/uL Nucleated RBC % (auto) 0.0 (0.0-0.2) /100WBC Sodium 139 (135-145) mmol/L Potassium 3.6 (3.3-5.1) mmol/L Chloride 101 (96-108) mmol/L Carbon Dioxide 30 H (22-29) mmol/L Anion Gap 12 (12-20) BUN 15 D (9-16) mg/dL Creatinine 1.15 (0.5-1.4) mg/dL Estim Creat Clear Calc 56.4 Estimated GFR 48 Random Glucose 201 H (60-115) mg/dL Calcium 9.5 (8.4-10.2) mg/dL Total Bilirubin 0.3 (0.0-1.0) mg/dL Direct Bilirubin < 0.2 (0.0-0.5) mg/dL AST 35 H (5-31) U/L ALT 38 H (0-31) U/L Alkaline Phosphatase 75 (39-117) U/L Total Protein 7.4 (6.5-8.0) g/dL Albumin 4.3 (3.5-5.0) g/dL Lipase 50 (8-78) U/L Urine Color Yellow Urine Appearance Clear Urine pH 7.0 (5.0-9.0) Ur Specific [place] 1.025 (1.005-1.025) Urine Protein Negative (Neg-Trace) mg/dL Urine Glucose (UA) Negative (Negative) mg/dL Urine Ketones Trace (Negative) mg/dL Urine Blood Negative (Negative) Urine Nitrite Negative (Negative) Ur Leukocyte Esterase Negative (Negative) Critical Care Time Critical Care Time Critical Care Time: No Discharge Plan Discharge Clinical Impression: Abdominal pain, Lumbar paraspinal muscle spasm Patient Disposition: Home, Self-Care Instructions: Abdominal Pain (ED) Additional Instructions: Take your medications as prescribed. If you were prescribed antibiotics today, it is important that you take your medication to their entirety, do not skip any doses, do not finish them early. Follow-up with your primary care provider this week. Follow-up with gastroenterology if pain persists Return to the emergency department with new or worsening symptoms. Such as fevers, chills, chest pain, shortness of breath, nausea, vomiting, dizziness, headache, vision changes, lethargy In case of emergency call 911 You can take ibuprofen every 6 hours, Tylenol every 4 hours as needed for pain or discomfort. Kennedy danita medicamentos seg?n lo prescrito. Si le recetaron antibi?ticos hoy, es importante que tome kay medicamento en kay totalidad, no se salte ninguna dosis, no los termine antes de tiempo. Seguimiento con kay proveedor de atenci?n primaria esta semana. Seguimiento con gastroenterolog?a si el dolor persiste Regrese al departamento de emergencias con s?ntomas nuevos o que empeoran. Mode fiebre, escalofr?os, dolor de pecho, dificultad para respirar, n?useas, v?mitos, mareos, dolor de sandhya, cambios en la visi?n, letargo En graciela de emergencia llama al 911 Puede thiago ibuprofeno cada 6 horas, Tylenol cada 4 horas seg?n sea necesario para el dolor o la incomodidad. CT/CT abdomen pelvis wo IV con IMPRESSION: 1.? No renal or ureteral calculi. No hydronephrosis. 2.? Mild hepatomegaly and hepatic steatosis. 3.? Mild sigmoid diverticulosis. No evidence of acute diverticulitis. Prescriptions: New cyclobenzaprine 10 mg tablet 10 mg PO BEDTIME PRN (Reason: muscle spasm) Qty: 7 0RF lidocaine 5 % adhesive patch,medicated 1 patch topical DAILY PRN (Reason: pain) Qty: 15 0RF Rx Instructions: leave on most painful area for up to 12 hrs No Action cefuroxime axetil 250 mg tablet 250 mg PO BID 7 Days Qty: 14 0RF fluconazole [Diflucan] 150 mg tablet 150 mg PO Q3D Qty: 2 0RF Rx Instructions: may repeat second dose 72 hrs after first dose if symptoms persist levothyroxine 125 mcg capsule 125 mcg PO DAILY lisinopril 5 mg tablet 5 mg PO DAILY lovastatin 40 mg tablet 40 mg PO DAILY metformin 500 mg tablet 500 mg PO BID paroxetine HCl 10 mg tablet 10 mg PO DAILY docusate sodium 100 mg capsule 100 mg PO BEDTIME Qty: 90 3RF sennosides [Natural Senna Laxative] 8.6 mg tablet 17.2 mg PO BEDTIME Qty: 180 3RF bisacodyl [Dulcolax (bisacodyl)] 5 mg tablet,delayed release (DR/EC) 10 mg PO ONCE 1 Days Qty: 2 0RF Rx Instructions: take 2 tabs at noon the day before your colonoscopy polyethylene glycol 3350 [Miralax] 17 gram/dose powder 238 g PO ONCE Qty: 238 0RF Rx Instructions: As directed by gastroenterology department at [facility] oxycodone 10 mg tablet 10 mg PO TID albuterol sulfate [ProAir HFA] 90 mcg/actuation HFA aerosol inhaler 1 - 2 puff PO Q4-6H PRN zolpidem 10 mg tablet 10 mg PO BEDTIME gabapentin 300 mg capsule 0 mg PO estradiol 0.01 % (0.1 mg/gram) cream 1 g vaginal QWEEK Ref[place] [facility] [place] [facility] [Provider Group] - 1 week ED [facility] [Emergency Provider] - 2 days [facility] [Primary Care Provider] - Stand Alone Forms: Work/School Release
[2022-09-25 23:41] VITALS: BP 130/70; PULSE 72; RESP 18; TEMP 36.6; O2SAT 96
[2022-09-25] MEDS: Ketorolac Tromethamine 30 MG/ML VIAL IM (23:48)
== END 2022-09-26 00:01 | disposition home or self-care (01) ==
PROVIDERS: Emergency Provider Emergency Medicine
DX: R10.11 Right upper quadrant pain (principal); R06.02 Shortness of breath; M62.838 Other muscle spasm; Z79.899 Other long term (current) drug therapy
CPT/HCPCS: 36415; 74176; 80048; 80076; 81003; 83690; 85025; 96372; 99284; J1885

== ENCOUNTER 2023-05-14 11:19 | Outpatient (REF) | payer MEDICAID, SELFPAY ==
[2023-05-14 13:45] LABS: Alanine Aminotransferase 32 U/L (0-31); Alkaline Phosphatase 69 U/L (39-117); Anion Gap 11 (12-20); Aspartate Amino Transferase 28 U/L (5-31); Bilirubin Total 0.3 mg/dL (0.0-1.0); Blood Urea Nitrogen 11 mg/dL (9-16); Calcium 9.6 mg/dL (8.4-10.2); Carbon Dioxide 30 mmol/L (22-29); Chloride 102 mmol/L (96-108); Estimated Glomerular Filt Rate > 60; Glucose Random 140 mg/dL (60-115); Potassium 3.7 mmol/L (3.3-5.1); Sodium 139 mmol/L (135-145); Total Protein 7.3 g/dL (6.5-8.0)
[2023-05-14 14:03] LABS: TSH reflex Free T4 0.28 uIU/mL (0.32-4.0)
[2023-05-14 14:55] LABS: Free T4 (Free Thyroxine) 1.22 ng/dL (0.71-1.85)
== END 2023-05-14 11:20 | disposition home or self-care (01) ==
LOC: HO.HHCL 11:19
PROVIDERS: Visit Provider Internal Medicine
DX: E11.65 Type 2 diabetes mellitus with hyperglycemia (principal); E03.9 Hypothyroidism, unspecified
CPT/HCPCS: 36415; 80053; 84439; 84443

== ENCOUNTER 2023-06-25 10:25 | Outpatient (REF) | payer MEDICAID, SELFPAY ==
--- NOTE | ~2023-06-25 | MM_ITS ---
EXAMINATION: MM SCREENING DIGITAL BREAST TOMOSYNTHESIS, BILATERAL CLINICAL INFORMATION: Screening. Asymptomatic. COMPARISON: Mammography: This study is compared with prior exams dating back to 2009. TECHNIQUE: Digital breast tomosynthesis is performed in both the craniocaudal and mediolateral oblique views along with computer-aided detection (CAD). Synthesized 2D images are generated from the tomosynthesis. FINDINGS: There are scattered areas of fibroglandular density (ACR BI-RADS breast composition Category b). There are no significant masses, abnormal calcifications, or other abnormalities. MM/MM tomosynthesis screening BI IMPRESSION: No mammographic evidence of malignancy. ASSESSMENT: BI-RADS BI-RADS 1 - Negative RECOMMENDATION: Routine annual mammography screening. 1 year F/U This examination should not preclude the clinical evaluation of a suspicious palpable abnormality. This patient's information was entered into a reminder system with a target due date for their next mammogram.
== END 2023-06-25 10:26 | disposition home or self-care (01) ==
LOC: HO.MAMMO 10:25
PROVIDERS: Visit Provider Internal Medicine
DX: Z12.31 Encounter for screening mammogram for malignant neoplasm of breast (principal)
CPT/HCPCS: 77063; 77067

== ENCOUNTER → 2023-06-25 11:15 | Outpatient (BNV) | payer MEDICAID, SELFPAY | PROVIDERS: Visit Provider Radiology Diagnostic Radiology | DX: Z12.31 Encounter for screening mammogram for malignant neoplasm of breast (principal) | CPT/HCPCS: 77063; 77067 ==

== ENCOUNTER 2023-08-08 11:33 | Emergency (ER) | payer OTHER, SELFPAY ==
--- NOTE | ~2023-08-08 | XR_ITS ---
EXAMINATION: XR CHEST CLINICAL INFORMATION: Shortness of breath COMPARISON: None available. TECHNIQUE: 2 views of the chest were obtained. FINDINGS: No significant abnormality is noted involving the heart, lungs, mediastinum, or soft tissues. Multilevel flowing osteophytes. XR/XR chest 2V IMPRESSION: No acute cardiopulmonary disease.
--- NOTE | ~2023-08-08 | XR_ITS ---
EXAMINATION: XR LUMBOSACRAL SPINE CLINICAL INFORMATION: Left SI and sciatic pain COMPARISON: None available. TECHNIQUE: Three views of the lumbosacral spine. FINDINGS: The vertebral bodies and posterior elements are normal. The disc spaces are preserved and the vertebral 5 lumbar type vertebral bodies are identified. Only mild loss of L5 otherwise vertebral body heights are maintained. Multilevel spurring. Moderately severe to severe L5-S1 disc space narrowing, sclerosis and spurring. L5 pedicles are obscured, remaining pedicles are intact. SI joints within normal limits. Left hip joint narrowing and acetabular spurring with possible impingement. Patient only partially visualized. XR/XR lumbar spine 2-3V IMPRESSION: Degenerative type changes, most pronounced L5-S1.
--- NOTE | 2023-08-08 11:37 | ED_ITS ---
HPI - Back Pain/Injury General Chief Complaint: Abdominal Pain Stated Complaint: back pain going down leg Time Seen by Provider: 08/08/23 12:29 Source: patient Mode of arrival: ambulatory History of Present Illness HPI Narrative: Patient with left sided low abdominal pain radiating down her leg, she also describes cough and shortness of breath MD elicited complaint: back pain Pertinent past history: prior back pain Onset (ago): day(s) Timing: intermittent Quality: sharp Related Data Home Medications Medication Instructions Recorded Confirmed albuterol sulfate 90 mcg/actuation 1 - 2 puff PO Q4-6H PRN 10/10/21 01/29/22 aerosol inhaler (ProAir HFA) estradiol 0.01% (0.1 mg/gram) 1 g vaginal QWEEK 10/10/21 01/29/22 vaginal cream gabapentin 300 mg capsule 0 mg PO 10/10/21 01/29/22 oxycodone 10 mg tablet 10 mg PO TID 10/10/21 01/29/22 zolpidem 10 mg tablet 10 mg PO BEDTIME 10/10/21 01/29/22 levothyroxine 125 mcg capsule 125 mcg PO DAILY 12/04/21 01/29/22 lisinopril 5 mg tablet 5 mg PO DAILY 12/04/21 01/29/22 lovastatin 40 mg tablet 40 mg PO DAILY 12/04/21 01/29/22 metformin 500 mg tablet 500 mg PO BID 01/29/22 01/29/22 paroxetine HCl 10 mg tablet 10 mg PO DAILY 01/29/22 01/29/22 Previous Rx's Medication Instructions Recorded docusate sodium 100 mg capsule 100 mg PO BEDTIME #90 caps 06/28/22 sennosides 8.6 mg tablet (Natural 17.2 mg (2 x 8.6 mg) PO BEDTIME 06/28/22 Senna Laxative) constipation #180 tabs cefuroxime axetil 250 mg tablet 250 mg PO BID 7 days #14 tabs 07/21/22 fluconazole 150 mg tablet 150 mg PO Q3D 2 doses #2 tabs 07/21/22 (Diflucan) bisacodyl 5 mg tablet,delayed 10 mg (2 x 5 mg) PO ONCE 1 day #2 08/08/22 release (Dulcolax (bisacodyl)) tabs polyethylene glycol 3350 17 238 g PO ONCE #238 grams 08/08/22 gram/dose oral powder (Miralax) cyclobenzaprine 10 mg tablet 10 mg PO BEDTIME PRN muscle spasm 09/25/22 #7 tabs lidocaine 5 % topical patch 1 patch topical DAILY PRN pain #15 09/25/22 ea cyclobenzaprine 10 mg tablet 10 mg PO TID #10 tabs 08/08/23 naproxen 500 mg tablet (Naprosyn) 500 mg PO BID #20 tabs 08/08/23 Allergies Allergy/AdvReac Type Severity Reaction Status Date / Time No Known Allergies Allergy Verified 08/08/23 11:40 [No Known Allergies*] Review of Systems 2 Review of Systems: Yes all other systems are reviewed and are negative Neurologic: Denies Sensory deficit (Neuro) [facility] Past Medical History Medical History HTN (hypertension) Diabetes Surgical History Hx of tubal ligation Family History Family History Mother HTN (hypertension) Diabetes High cholesterol Father Heart disease Social History Social History Household Members: Significant Other Alcohol intake: never Patient Tobacco Use Status: Never used Tobacco Smoked in Last 30 Days: No Use of substances other than those prescribed or required for medical reasons: No Advance Directives: No Physical Exam 2 Vital Signs: Vital Signs: Last Vital Signs Temp 97.8 F 08/08/23 12:46 Pulse 62 08/08/23 14:00 Resp 18 08/08/23 14:00 BP 144/60 H 08/08/23 14:00 Pulse Ox 95 08/08/23 14:00 O2 Del Method Room Air 08/08/23 14:00 BMI result Body Mass Index 38.6 Const: Nutritional Appearance: obese Orientation/consciousness: oriented to person and patient oriented x3 Limitations: no limitations HEENT: Head: Yes normal to inspection Ears: external ears normal General nose exam: Normal external nose present Mouth: Normal oral and palatal mucosa present and oropharynx normal Throat: Yes posterior oropharynx normal Eyes: General: appearance normal, both eyes and all related structures Neck: Other: supple Neck: Yes normal visual inspection Chest: Chest palpation & inspection: normal inspection of the chest Resp: Auscultation: clear to auscultation bilaterally Cardio: Jugular venous distension: no JVD Rate: regular rate Rhythm: r egular rhythm Heart sounds: S1 normal heart sound present and S2 normal heart sound present GI: Inspection: Yes normal to inspection Palpation (GI): Soft to palpation, nontender and No hepatosplenomegaly present Auscultation: normal bowel sounds Back/Spine/Pelvis: Other: left lumbar, left SI joint, left sciatic pain Skin: General skin exam: no rashes or lesions noted Neuro: General: oriented to person and patient oriented x3 Cranial nerves: Yes CN's II-XII intact bilaterally Motor exam (neuro): 5/5 motor strength present throughout Sensory Exam: No Sensory deficit (Neuro) Extrem: General: Yes normal to inspection Psych: Appearance: grossly normal Course Course Course Narrative: This is an RME: Additional HPI, ROS, PE not included below will be deferred to primary provider. Patient is a 63-year-old male presents to the evaluation of pain. Awoke at 10:00 with left lung pain , cough, without CP. Also having left lower back pain radiating into the left leg and left lower abdomen. Normal BM this morning. Denies symptoms. Denies bladder or bowel dysfunction. Plan: labs, EKG, CXR Reevaluation(s) Reevaluation #1: Course patient with radicular back pain with djd on xray, CXR negative no infiltrate patient has covid will dc on Nsaids and flexeril Time: 15:14 Medications Administered Discontinued Medications Generic Name Dose Route Start Last Admin Trade Name Freq PRN Reason Stop Dose Admin Ketorolac Tromethamine 30 mg 08/08/23 12:34 08/08/23 12:43 Ketorolac Tromethamine 30 Mg/Ml Vial IVPUSH 08/08/23 12:35 30 mg ONCE ONE Administration Medical Decision Making Differential Diagnosis Differential Diagnoses: The differential diagnosis associated with the presentation includes (pyelonephritis, UTI, diverticulitis, radicular back pain, sciatica, pneumonia, covid were all considered) Admission/Observation Consideration of admission/observation: Escalation of care including admission/observation considered (upon arrival patient considered for admission) Lab Data MDM Lab Attestation statement: I reviewed the patient's lab results. (normal labs except for positive covid) 08/08/23 12:30 08/08/23 12:30 Labs: Lab Results 08/08/23 08/08/23 08/08/23 Range/Units 12:30 15:11 16:02 WBC 7.2 (4.8-10.8) X10*3/uL RBC 4.41 (4.20-5.50) X10*6/uL Hgb 12.8 (12.0-16.0) g/dl Hct 39.0 (37.0-47.0) % MCV 88.4 (80.0-98.0) fL MCH 29.0 (27.0-33.0) pg MCHC 32.8 (31.0-35.0) g/dl RDW 13.7 (11.0-16.0) % Plt Count 287 (160-400) X10*3/uL MPV 9.3 L (9.4-12.3) fL Immature Gran % (Auto) 0.4 (0.0-0.4) % Neut % (Auto) 57.6 (45-73) % Lymph % (Auto) 31.1 (20-40) % [place] % (Auto) 7.7 (2-11) % Eos % (Auto) 2.4 (0-4) % Baso % (Auto) 0.8 (0-2) % Lymph # (Auto) 2.3 (1.2-4.9) X10*3/uL [place] # (Auto) 0.6 (0.1-1.2) X10*3/uL Eos # (Auto) 0.2 (0.0-0.4) X10*3/uL Baso # (Auto) 0.1 (0.0-0.2) X10*3/uL Abs Immat Gran (auto) 0.03 (0.00-0.03) X10*3/uL Absolute Neuts (auto) 4.2 (2.0-8.3) x10*3/uL Absolute Nucleated RBC 0.000 (0.0-0.012) X10*3/uL Nucleated RBC % (auto) 0.0 (0.0-0.2) /100WBC PT 11.3 (11.1-13.3) SEC INR 0.9 (0.9-1.1) Sodium 141 (135-145) mmol/L Potassium 4.2 (3.3-5.1) mmol/L Chloride 103 (96-108) mmol/L Carbon Dioxide 33 H (22-29) mmol/L Anion Gap 9 L (12-20) BUN 10 (9-16) mg/dL Creatinine 0.78 (0.5-1.4) mg/dL Estim Creat Clear Calc 83.6 Estimated GFR > 60 POC Glucose 94 (60-115) mg/dL Random Glucose 111 (60-115) mg/dL Calcium 9.6 (8.4-10.2) mg/dL Total Bilirubin 0.5 (0.0-1.0) mg/dL AST 32 H (5-31) U/L ALT 30 (0-31) U/L Alkaline Phosphatase 73 (39-117) U/L Troponin I High Sens < 2.7 (<3.5-17.0) ng/L Total Protein 7.4 (6.5-8.0) g/dL Albumin 4.1 (3.5-5.0) g/dL Lipase 14 (8-78) U/L Urine Color Yellow Urine Appearance Clear Urine pH 8.5 (5.0-9.0) Ur Specific [place] 1.020 (1.005-1.025) Urine Protein Trace (Neg-Trace) mg/dL Urine Glucose (UA) Negative (Negative) mg/dL Urine Ketones Negative (Negative) mg/dL Urine Blood Negative (Negative) Urine Nitrite Negative (Negative) Ur Leukocyte Esterase Trace H (Negative) Urine RBC 0-2 (0-2) /HPF Urine WBC 0-5 (0-5) /HPF Ur Squamous Epith Cells 0-2 (0-2) /HPF Urine Bacteria None Seen (None Seen) Hyaline Casts 0-2 (0-2) /LPF COVID-19 (ANTHONY) Positive A (Negative) COVID-19 Clin Com See Note Influenza Type A (ISABEL) Negative (Negative) Influenza Type B (ISABEL) Negative (Negative) Influenza A & B Note See Note Independent Interpretation I performed an independent interpretation of an: EKG (sinus [address] or twave changes) and Plain X-Ray (CXR no infiltrate, Lumbar moderate DJD) Independent Historian Clinical information obtained from an independent historian. History obtained from or confirmed by: Spouse Tests considered The following testing was considered but not selected: CT of abd/pelvis were considered but patient with point tenderness to SI and sciatica area Prescription Management I considered prescription management with: Pain Medication (Narcotics considered but patient with radicular pain will place on NSAIDs and flexeril) Chronic Conditions Patient?s care impacted by: Hypertension Discharge Plan Discharge Clinical Impression: Spondylosis of lumbosacral spine with radiculopathy, Lumbar back pain, COVID-19 Patient Disposition: Home, Self-Care Instructions: Acute Low Back Pain (ED) Prescriptions: New cyclobenzaprine 10 mg tablet 10 mg PO TID Qty: 10 0RF naproxen [Naprosyn] 500 mg tablet 500 mg PO BID Qty: 20 0RF No Action cefuroxime axetil 250 mg tablet 250 mg PO BID 7 Days Qty: 14 0RF fluconazole [Diflucan] 150 mg tablet 150 mg PO Q3D Qty: 2 0RF Rx Instructions: may repeat second dose 72 hrs after first dose if symptoms persist cyclobenzaprine 10 mg tablet 10 mg PO BEDTIME PRN (Reason: muscle spasm) Qty: 7 0RF lidocaine 5 % adhesive patch,medicated 1 patch topical DAILY PRN (Reason: pain) Qty: 15 0RF Rx Instructions: leave on most painful area for up to 12 hrs levothyroxine 125 mcg capsule 125 mcg PO DAILY lisinopril 5 mg tablet 5 mg PO DAILY lovastatin 40 mg tablet 40 mg PO DAILY metformin 500 mg tablet 500 mg PO BID paroxetine HCl 10 mg tablet 10 mg PO DAILY docusate sodium 100 mg capsule 100 mg PO BEDTIME Qty: 90 3RF sennosides [Natural Senna Laxative] 8.6 mg tablet 17.2 mg PO BEDTIME Qty: 180 3RF bisacodyl [Dulcolax (bisacodyl)] 5 mg tablet,delayed release (DR/EC) 10 mg PO ONCE 1 Days Qty: 2 0RF Rx Instructions: take 2 tabs at noon the day before your colonoscopy polyethylene glycol 3350 [Miralax] 17 gram/dose powder 238 g PO ONCE Qty: 238 0RF Rx Instructions: As directed by gastroenterology department at [facility] oxycodone 10 mg tablet 10 mg PO TID albuterol sulfate [ProAir HFA] 90 mcg/actuation HFA aerosol inhaler 1 - 2 puff PO Q4-6H PRN zolpidem 10 mg tablet 10 mg PO BEDTIME gabapentin 300 mg capsule 0 mg PO estradiol 0.01 % (0.1 mg/gram) cream 1 g vaginal QWEEK Referrals: Physician,Unknown J [Primary Care Provider] - 5 days
[2023-08-08 11:40] VITALS: BP 152/74; PULSE 69; RESP 18; TEMP 36.3; O2SAT 97; BMI 38.6
--- NOTE | 2023-08-08 11:44 | ECG_ITS ---
Test Reason : SOB Blood Pressure : / mmHG Vent. Rate : 065 BPM Atrial Rate : 065 BPM P-R Int : 142 ms QRS Dur : 082 ms QT Int : 404 ms P-R-T Axes : 027 064 071 degrees QTc Int : 420 ms Normal sinus rhythm Normal ECG Heart rate has decreased Referred By: Edilia Chau Electronically Signed By:REN TAY MD
--- NOTE | 2023-08-08 11:57 | MHC.EDTECH ---
wrong time documented on EKG 1151
[2023-08-08 12:38] LABS: MANUAL DIFF FLAG NO
[2023-08-08 12:41] LABS: Basophils Absolute Auto 0.1 X10*3/uL (0.0-0.2); Basophils Percent Auto 0.8 % (0-2); Eosinophils Absolute Auto 0.2 X10*3/uL (0.0-0.4); Eosinophils Percent Auto 2.4 % (0-4); Hemoglobin 12.8 g/dl (12.0-16.0); Imm Gran Abs Auto 0.03 X10*3/uL (0.00-0.03); Imm Gran Pct Auto 0.4 % (0.0-0.4); Lymphocytes Absolute Auto 2.3 X10*3/uL (1.2-4.9); Lymphocytes Percent Auto 31.1 % (20-40); Mean Corpuscular HGB Conc 32.8 g/dl (31.0-35.0); Mean Corpuscular Volume 88.4 fL (80.0-98.0); Mean Platelet Volume 9.3 fL (9.4-12.3); Monocytes Absolute Auto 0.6 X10*3/uL (0.1-1.2); Monocytes Percent Auto 7.7 % (2-11); Neutrophils Absolute Auto 4.2 x10*3/uL (2.0-8.3); Neutrophils Percent Auto 57.6 % (45-73); Platelet Count 287 X10*3/uL (160-400); Red Blood Count 4.41 X10*6/uL (4.20-5.50); Red Cell Distribution Width 13.7 % (11.0-16.0); White Blood Count 7.2 X10*3/uL (4.8-10.8)
[2023-08-08] MEDS: Ketorolac Tromethamine 30 MG/ML VIAL IVPUSH (12:43)
[2023-08-08 12:46] VITALS: BP 142/62; PULSE 60; RESP 15; TEMP 36.6; O2SAT 97
[2023-08-08 12:46] LABS: INTERNATIONAL NORM RATIO 0.9 (0.9-1.1); Prothrombin Time 11.3 SEC (11.1-13.3)
[2023-08-08 12:55] LABS: Alanine Aminotransferase 30 U/L (0-31); Albumin Level 4.1 g/dL (3.5-5.0); Alkaline Phosphatase 73 U/L (39-117); Anion Gap 9 (12-20); Aspartate Amino Transferase 32 U/L (5-31); Bilirubin Total 0.5 mg/dL (0.0-1.0); Blood Urea Nitrogen 10 mg/dL (9-16); Calcium 9.6 mg/dL (8.4-10.2); Carbon Dioxide 33 mmol/L (22-29); Chloride 103 mmol/L (96-108); Creatinine Clr Calc Pharmacy 83.6; Estimated Glomerular Filt Rate > 60; Glucose Random 111 mg/dL (60-115); Lipase 14 U/L (8-78); Potassium 4.2 mmol/L (3.3-5.1); Sodium 141 mmol/L (135-145); Total Protein 7.4 g/dL (6.5-8.0)
[2023-08-08 13:00] LABS: IDNOW Serial# 6674DD1D
[2023-08-08 13:01] LABS: COVID-19 Test Positive (Negative); IDNOW Serial# 08D9AD1C; Influenza A Negative (Negative); Influenza B2 Negative (Negative)
[2023-08-08 13:02] LABS: Troponin-I High Sensitivity < 2.7 ng/L (<3.5-17.0)
[2023-08-08 14:00] VITALS: BP 144/60; PULSE 62; RESP 18; O2SAT 95
[2023-08-08 15:22] LABS: Appearance Urine Clear; Color Urine Yellow; Glucose Urine UA Negative (Negative); Leukocyte Esterase Urine Trace (Negative); Nitrite Urine Negative (Negative); PH 8.5 (5.0-9.0); UMIC TRIGGER UACC YES; Urine Blood Negative (Negative); Urine Ketones Negative (Negative); Urine Protein Trace mg/dL (Neg-Trace)
[2023-08-08 16:00] VITALS: RESP 18
[2023-08-08 16:01] LABS: Bacteria Urine None Seen (None Seen); Hyaline Casts Urine 0-2 /LPF (0-2); RBC Urine 0-2 /HPF (0-2); Squamous Epithelial Cell Urine 0-2 /HPF (0-2); WBC Urine 0-5 /HPF (0-5)
[2023-08-08 16:10] LABS: Glucose, Whole Blood 94 mg/dL (60-115)
[2023-08-08 17:25] VITALS: BP 139/51; PULSE 68; RESP 16; TEMP 36.6; O2SAT 97
== END 2023-08-08 18:15 | disposition home or self-care (01) ==
PROVIDERS: Nurse Practitioner Family; Emergency Provider Emergency Medicine
DX: M47.27 Other spondylosis with radiculopathy, lumbosacral region (principal); U07.1 COVID-19; M54.50 Low back pain, unspecified; R05.9 Cough, unspecified; R06.02 Shortness of breath; Z79.899 Other long term (current) drug therapy
CPT/HCPCS: 71046; 72100; 80053; 81001; 82947; 83690; 84484; 85025; 85610; 87502; 87635; 93005; 96374; 99284; 99285; J1885

== ENCOUNTER 2023-09-30 11:26 | Outpatient (AMB) | payer MEDICARE, MEDICAID, SELFPAY ==
--- NOTE | 2023-09-30 11:33 | A.OFFVIS_ITS ---
Intake Vital Signs 09/30/23 11:41 Height 5 ft 5 in Weight 211 lb 10.3 oz BMI 35.2 BP 112/49 L Blood Pressure Location Lt radial Position Sitting Pulse 74 Intake Visit Reasons: pt req appointment Intake Note: abhilash presents in the office today as a follow up. cc: She is here today because she wants to know if she can do both the egd and colo. She is having pains in her stomach and in her back. They were going to do the colonoscopy but they are not sure what happened. 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 Continue low FODMAP diet. Avoid dietary triggers. Constipation Continued Colace and Senokot. Patient was encouraged to take it every day in order for her to move her bowels better. Screen for colon cancer Discussed with patient to prep for colonoscopy. What to expect before during and after the procedure. The importance of good bowel prep and clear liquid diet day before procedure discussed with patient. Patient denies any ill effects from anesthesia in the past. No history of sleep apnea. Not on any anticoagulation medication. Patient denies any infectious diseases in the past or present. History of abdominal bloating postprandially and constipation. Patient was encouraged to continue taking Senokot and Colace. I will see patient after the procedure, sooner on as needed basis. She is agreeable to plan of care and verbalizes understanding of instructions. She was given the opportunity to ask questions and all questions answered. ? Thank you for allowing me to participate in her care Plan Medications New bisacodyl (Dulcolax (bisacodyl)) take 2 tabs at noon the day before your colonoscopy 10 mg (2 x 5 mg) PO ONCE 2 tabs 0RF 1 day Z12.11 polyethylene glycol 3350 (Miralax) As directed by gastroenterology department at [facility] 238 grams PO ONCE 238 grams 0RF Z12.11 TODAY'S VISIT Patient is here today for follow-up and for request visit. Patient was seen last year and was supposed to be scheduled for colonoscopy. Patient reports that she never received phone call. Patient continues to have constipation despite taking Senokot. Patient states that she is unable to move her bowels daily and if she does she feels like she does not empty them completely. Sometimes no bowel movements for 2-3 days. Patient also reports left upper quadrant discomfort. Feels like there is a bowel and left upper quadrant. Patient denies any nausea or vomiting. Denies any melena, hematochezia, unintentional weight loss or ribbon like stools. Patient denies any diarrhea. Reports dyspepsia postprandially without dysphagia or odynophagia. Patient also reports epigastric discomfort and postprandial abdominal bloating. [facility] Medical History HTN (hypertension) Diabetes Surgical History Hx of tubal ligation Family History Mother HTN (hypertension) Diabetes High cholesterol Father Heart disease Social History Household Members: Significant Other Alcohol intake: never Patient Tobacco Use Status: Never used Tobacco Review of Systems Const Denies weight gain and Denies weight loss ENT Reports no additional complaints, Denies dysphagia and Denies odynophagia Card Reports no additional complaints Resp Reports no additional complaints GI Reports abdominal pain (LUQ), Denies belching, Denies melena, Reports bloating, Reports constipation, Denies dysphagia, Denies excessive flatus, Denies dyspepsia, Reports heartburn, Denies diarrhea, Denies loose stools, Denies nausea, Denies odynophagia and Denies vomiting Reports no additional complaints Musc Reports no additional complaints Neuro Reports no additional complaints Psych Reports no additional complaints Endo Reports no additional complaints Physical Exam Vital Signs: Last Vital Signs Pulse 74 09/30/23 11:41 BP 112/49 L 09/30/23 11:41 BMI result Body Mass Index 35.2 Const General: healthy appearing, no acute distress and well developed Nutritional Appearance: obese Orientation/consciousness: patient oriented x3 HEENT Head: Yes normal to inspection, Yes normocephalic and Yes atraumatic Face and sinus: Yes normal facial exam Mouth: Normal oral and palatal mucosa present Throat: Yes posterior oropharynx normal, Yes tonsils normal and Yes uvula midline Eyes General: appearance normal, both eyes and all related structures Neck Neck: Yes normal visual inspection, Yes full ROM and Yes trachea midline Thyroid: Thyroid normal Resp Effort & Inspection: normal respiratory effort, able to speak in complete sentences, no tracheal deviation and symmetric chest movement Auscultation: clear to auscultation bilaterally Cardio Rate: regular rate GI Inspection: Yes normal to inspection, No distended and Yes obesity Palpation (GI): Soft to palpation, not firm, nontender and No hepatosplenomegaly present Auscultation: normal bowel sounds General: Yes no CVA tenderness Back/Spine/Pelvis Back: no CVA tenderness Skin General skin exam: elasticity normal, turgor normal and dry skin Neuro General: patient oriented x3 Psych Appearance: grossly normal Mental Status: mental status grossly normal Assessment & Plan Assessment & Plan (1) IBS (irritable bowel syndrome): Code(s): K58.9 - Irritable bowel syndrome without diarrhea Qualifiers: Irritable bowel syndrome type: without diarrhea Qualified Code(s): K58.9 - Irritable bowel syndrome without diarrhea (2) Constipation: Code(s): K59.00 - Constipation, unspecified Qualifiers: Constipation type: slow transit constipation Qualified Code(s): K59.01 - Slow transit constipation (3) Screen for colon cancer: Code(s): Z12.11 - Encounter for screening for malignant neoplasm of colon (4) LUQ abdominal pain: Code(s): R10.12 - Left upper quadrant pain Plan Patient will continue taking Senokot daily and will start taking MiraLax in the morning. Patient reports that she is not emptying her bowels completely and sometimes still feels constipated.. Discussed with patient increasing fluid intake and activity to promote better bowel motility. Patient reports dyspepsia postprandially, will start her on omeprazole. Discussed with patient avoiding dietary triggers and like and snacking. Staying upright for a minimum 3 hours after meals discussed with patient. Patient reports left upper quadrant pain mild tenderness to left upper quadrant no significant hernias found on exam in left upper quadrant. Will send patient for CT scan to rule out diverticulitis, pancreatitis. Patient will return in 5 weeks we will discuss going for colonoscopy and possible upper endoscopy if her symptoms are still present. Both patient and her house from our agreeable to plan of care and verbalizes understanding of instructions for mg the opportunity to ask questions and all questions answered. Thank you for allowing me to participate in her care Orders: Orders CT abdomen pelvis w IV con Today R10.9 - Unspecified abdominal pain Creatinine Today R10.11 - Right upper quadrant pain Blood Urea Nitrogen Today R10.11 - Right upper quadrant pain Medications: New polyethylene glycol 3350 (Miralax) 17 grams PO DAILY 510 grams 2RF omeprazole 40 mg PO DAILY 90 caps 3RF K21.9 - Gastro-esophageal reflux disease without esophagitis Refilled sennosides (Natural Senna Laxative) 17.2 mg (2 x 8.6 mg) PO BEDTIME 180 tabs 3RF constipation K59.00 - Constipation, unspecified Discontinued cefuroxime axetil Discontinued Reason: Patient Completed Course 250 mg PO BID 7 days 14 tabs 0RF lidocaine 5% leave on most painful area for up to 12 hrs Discontinued Reason: Patient Completed Course 1 patch topical DAILY PRN 15 ea 0RF pain cyclobenzaprine Discontinued Reason: Patient Completed Course 10 mg PO TID 10 tabs 0RF Coding Level of Care Code Est Pt Level 4 (94307) Diagnoses Irritable bowel syndrome without diarrhea K58.9 Irritable bowel syndrome type: without diarrhea Slow transit constipation K59.01 Constipation type: slow transit constipation Screen for colon cancer Z12.11 LUQ abdominal pain R10.12 Time Spent (min) 35 Comment 25 minutes spent with patient and additional 10 minutes spent reviewing her records
[2023-09-30 11:41] VITALS: BP 112/49; PULSE 74; BMI 35.2
== END 2023-09-30 14:07 | disposition home or self-care (01) ==
PROVIDERS: Visit Provider Nurse Practitioner Family
DX: K58.9 Irritable bowel syndrome, unspecified (principal); K59.01 Slow transit constipation; Z12.11 Encounter for screening for malignant neoplasm of colon; R10.12 Left upper quadrant pain
CPT/HCPCS: 99214

== ENCOUNTER → 2023-09-30 11:26 | Outpatient (BNVA) | payer MEDICARE, MEDICAID, SELFPAY | PROVIDERS: Visit Provider Nurse Practitioner Family | DX: K58.9 Irritable bowel syndrome, unspecified (principal); K59.01 Slow transit constipation; R10.12 Left upper quadrant pain; Z79.899 Other long term (current) drug therapy | CPT/HCPCS: 99212 ==

== ENCOUNTER 2023-11-04 10:38 | Outpatient (AMB) | payer MEDICARE, MEDICAID, SELFPAY ==
--- NOTE | 2023-11-04 10:45 | MHC.OFFVIS ---
Intake Vital Signs 11/04/23 10:52 Height 5 ft 5 in Weight 208 lb BMI 34.6 BP 131/63 Blood Pressure Location Lt brachial Position Sitting Pulse 77 Intake Visit Reasons: S/P f/u Intake Note: Patient follow up for abdominal pain. Patient cc: abdominal pain with bloating, acid reflex with constipation. Lead Relay Tester Required: No Lead Relay Tester [place] [facility] [place] Accompanied by: Spouse Allergies No Known Allergies [No Known Allergies*] Allergy (Verified 11/04/23 10:48) HPI S/P f/u HPI Details LAST VISIT: IBS (irritable bowel syndrome) Constipation Screen for colon cancer LUQ abdominal pain Plan Patient will continue taking Senokot daily and will start taking MiraLax in the morning. Patient reports that she is not emptying her bowels completely and sometimes still feels constipated.. Discussed with patient increasing fluid intake and activity to promote better bowel motility. Patient reports dyspepsia postprandially, will start her on omeprazole. Discussed with patient avoiding dietary triggers and like and snacking. Staying upright for a minimum 3 hours after meals discussed with patient. Patient reports left upper quadrant pain mild tenderness to left upper quadrant no significant hernias found on exam in left upper quadrant. Will send patient for CT scan to rule out diverticulitis, pancreatitis. Patient will return in 5 weeks we will discuss going for colonoscopy and possible upper endoscopy if her symptoms are still present. Both patient and her house from our agreeable to plan of care and verbalizes understanding of instructions for mg the opportunity to ask questions and all questions answered. ? Thank you for allowing me to participate in her care Orders Medications New polyethylene glycol 3350 (Miralax) 17 grams PO DAILY 510 grams 2RF omeprazole 40 mg PO DAILY 90 caps 3RF K21.9 Refilled sennosides (Natural Senna Laxative) 17.2 mg (2 x 8.6 mg) PO BEDTIME 180 tabs 3RF constipation K59.00 TODAY'S VISIT Patient is here today for follow-up. Patient reports that she is moving her bowels better now that she is taking Senokot. Patient is not taking MiraLax as she states that often she forgets to take it. Patient is on oxycodone 10 mg 3 times a day for sciatica. Continues with left upper quadrant discomfort despite moving her bowels better. Patient does admit that she does not feel like she and eliminates them completely. Patient is not taking stool softeners anymore. Patient is scheduled for CT scan on the of this month. Patient never had colonoscopy as mentioned above and she will be booked for the procedure today. Patient denies any dyspepsia, dysphagia or odynophagia. Patient is taking omeprazole daily and her symptoms are suppressed. Patient denies any nausea or vomiting. Patient denies melena,, unintentional weight loss or ribbon like stools. Patient reports postprandial abdominal bloating. [facility] Medical History HTN (hypertension) Diabetes Surgical History (Updated 11/04/23 @ 11:12 by Rosanne Fuller) Hx of tubal ligation Family History Mother HTN (hypertension) Diabetes High cholesterol Father Heart disease Social History Household Members: Significant Other Alcohol intake: never Patient Tobacco Use Status: Never used Tobacco Review of Systems Const Denies weight gain and Denies weight loss ENT Reports no additional complaints, Denies dysphagia and Denies odynophagia Card Reports no additional complaints Resp Reports no additional complaints GI Denies abdominal pain, Denies belching, Denies melena, Reports bloating, Denies change in bowel habits, Reports constipation, Denies dysphagia, Denies excessive flatus, Denies dyspepsia, Reports heartburn (occasional), Denies diarrhea, Denies loose stools, Denies nausea, Denies odynophagia and Denies vomiting Reports no additional complaints Musc Reports no additional complaints Neuro Reports no additional complaints Psych Reports no additional complaints Endo Reports no additional complaints Physical Exam Vital Signs: Last Vital Signs Pulse 77 11/04/23 10:52 BP 131/63 11/04/23 10:52 BMI result Body Mass Index 34.6 Const General: healthy appearing, no acute distress and well developed Nutritional Appearance: obese Orientation/consciousness: patient oriented x3 Resp Effort & Inspection: normal respiratory effort, able to speak in complete sentences, no tracheal deviation and symmetric chest movement Auscultation: clear to auscultation bilaterally Cardio Rate: regular rate GI Inspection: Yes normal to inspection, No distended and Yes obesity Palpation (GI): Soft to palpation, not firm, nontender and No hepatosplenomegaly present Auscultation: normal bowel sounds General: Yes no CVA tenderness Back/Spine/Pelvis Back: no CVA tenderness Skin General skin exam: elasticity normal, turgor normal and dry skin Neuro General: patient oriented x3 Psych Appearance: grossly normal Mental Status: mental status grossly normal Assessment & Plan Assessment & Plan (1) IBS (irritable bowel syndrome): Code(s): K58.9 - Irritable bowel syndrome without diarrhea Qualifiers: Irritable bowel syndrome type: with constipation Qualified Code(s): K58.1 - Irritable bowel syndrome with constipation (2) Constipation: Code(s): K59.00 - Constipation, unspecified Qualifiers: Constipation type: drug induced constipation Qualified Code(s): K59.03 - Drug induced constipation (3) LUQ abdominal pain: Code(s): R10.12 - Left upper quadrant pain Plan Patient will add stool softener, continue Senokot. Patient was encouraged to increase fluid intake and activity to promote better bowel motility. CT scan scheduled for the 14 of this month will review it. Patient will return in 5 weeks to go over results and to discuss prep before going for colonoscopy. Patient is agreeable to this plan and verbalizes understanding of instructions. She was given the opportunity to ask questions and all questions answered. Thank you for allowing me to participate in her care Medications: Changed From docusate sodium 100 mg PO BEDTIME 90 caps 3RF K59.00 - Constipation, unspecified To docusate sodium 200 mg (2 x 100 mg) PO BEDTIME 180 caps 3RF K59.00 - Constipation, unspecified Discontinued naproxen (Naprosyn) Discontinued Reason: Patient no longer taking 500 mg PO BID 20 tabs 0RF Coding Level of Care Code Est Pt Level 3 (62777) Diagnoses Irritable bowel syndrome with constipation K58.1 Irritable bowel syndrome type: with constipation Drug-induced constipation K59.03 Constipation type: drug induced constipation LUQ abdominal pain R10.12 Time Spent (min) 30 Comment 20 minutes spent with patient and additional 10 minutes spent reviewing her records
[2023-11-04 10:52] VITALS: BP 131/63; PULSE 77; BMI 34.6
== END 2023-11-04 12:44 | disposition home or self-care (01) ==
PROVIDERS: Visit Provider Nurse Practitioner Family
DX: K58.1 Irritable bowel syndrome with constipation (principal); K59.03 Drug induced constipation; R10.12 Left upper quadrant pain
CPT/HCPCS: 99213

== ENCOUNTER → 2023-11-04 10:38 | Outpatient (BNVA) | payer MEDICARE, MEDICAID, SELFPAY | PROVIDERS: Visit Provider Nurse Practitioner Family | DX: K58.1 Irritable bowel syndrome with constipation (principal); K59.03 Drug induced constipation; R10.12 Left upper quadrant pain | CPT/HCPCS: 99212 ==

== ENCOUNTER 2023-11-12 11:01 | Outpatient (REF) | payer MEDICARE, MEDICAID, SELFPAY ==
--- NOTE | ~2023-11-12 | CT_ITS ---
EXAMINATION: CT ABDOMEN AND PELVIS WITH CONTRAST CLINICAL INFORMATION: Abdominal pain COMPARISON: Previous CT August 2022 TECHNIQUE: Multidetector volumetric images were obtained from the superior aspect of the liver through the pubic symphysis following administration 85 mL of Omnipaque 350 intravenous contrast. Sagittal and coronal reformatted images were obtained on the technologist's workstation. Oral contrast: Yes This CT examination was performed using dose optimization techniques as appropriate, variously including the following: *Automated exposure control *Adjustment of mA and/or kV according to patient size (this includes techniques or standardized protocols for targeted exams where dose is matched to indication/reason for exam; i.e. extremities or head) *Use of iterative reconstruction technique DLP: 758 mGy-cm FINDINGS: LUNG BASES: The visualized lung bases are unremarkable. LIVER, GALLBLADDER, AND BILIARY TREE: Slightly enlarged fatty liver.. No focal hepatic lesion or biliary ductal dilatation is present. The gallbladder is unremarkable with no evidence of radiopaque gallstones, gallbladder wall thickening, or obvious pericholecystic inflammatory changes. PANCREAS: Mild fatty infiltration of the uncinate process of the head of the pancreas and small calcification. Pancreas is otherwise unremarkable. SPLEEN: Unremarkable. ADRENAL GLANDS: Unremarkable. KIDNEYS AND URETERS: The kidneys are normal in size, shape, and attenuation. No hydronephrosis, hydroureter, or calculi seen. No perinephric stranding. BLADDER: Unremarkable. GASTROINTESTINAL TRACT: The small and large bowel are unremarkable. The appendix is not seen. No inflammatory changes right lower quadrant. ABDOMINAL WALL: Small umbilical LYMPH NODES: Normal. VASCULAR: Unremarkable. PELVIC VISCERA: Stable 1 cm low-attenuation cystic structure in the left lower uterine segment or cervix probably representing a fibroid or nabothian cyst. Uterus and adnexa are otherwise unremarkable. OSSEOUS STRUCTURES: Degenerative changes of the spine and hip joints. CT/CT abdomen pelvis w IV con IMPRESSION: No acute findings. Slightly enlarged fatty liver. Small umbilical hernia containing fat. Fleischner guidelines were followed.
[2023-11-12] MEDS: iohexoL 350 MG/ML 100 ML INFUS..BTL IV (11:35)
[2023-11-13 08:54] LABS: Creatinine POC 0.6 mg/dL (0.5-1.4); GFR POC > 60
== END 2023-11-12 11:02 | disposition home or self-care (01) ==
LOC: HO.CT 11:01
PROVIDERS: PCP Internal Medicine; Visit Provider Nurse Practitioner Family
DX: R10.9 Unspecified abdominal pain (principal)
CPT/HCPCS: 74177; 82565; Q9967

== ENCOUNTER 2024-02-16 09:19 | Outpatient (REF) | payer MEDICARE, MEDICAID, SELFPAY ==
--- NOTE | ~2024-02-16 | XR_ITS ---
EXAMINATION: Right knee: Left knee: CLINICAL INFORMATION: Pain in left knee COMPARISON: None available. TECHNIQUE: AP upright views of both knees. Lateral and patellofemoral view of the left knee. FINDINGS: Left knee: The bones and joints are normal. Small joint effusion. Right knee limited AP upright: The medial lateral compartments are normal. Bone normal. XR/XR knee LT 3V IMPRESSION: Left knee Small joint effusion. Otherwise unremarkable. Right knee limited: Normal.
== END 2024-02-16 09:20 | disposition home or self-care (01) ==
LOC: HO.HOSX 09:19
PROVIDERS: Visit Provider Orthopaedic Surgery
DX: M17.12 Unilateral primary osteoarthritis, left knee (principal)
CPT/HCPCS: 20610; 73562; 99202; J0665; J1100

== ENCOUNTER 2024-02-16 10:14 | Outpatient (AMB) | payer MEDICARE, MEDICAID, SELFPAY ==
[2024-02-16 10:36] VITALS: BMI 34.6
--- NOTE | 2024-02-16 10:36 | MHC.OFFVIS ---
Vital Signs 02/16/24 10:36 Height 5 ft 5 in Weight 208 lb BMI 34.6 Intake Visit Reasons: New Pt - Left Knee Pain Allergies No Known Allergies [No Known Allergies*] Allergy (Verified 02/16/24 10:52) HPI HPI New Pt - Left Knee Pain: Details: Stephanie is a 63 year old female who presents today as a new patient with complaints of left knee pain. Patient reports that she had pain in the left knee for about 3-4 years now, she was being seen in [place] - they no longer were able to treat her due to insurance eligibility. She has received injections in the right knee, the most recent done about May of 2023. Injections were helpful. [facility] Medical History HTN (hypertension) Diabetes Surgical History Hx of tubal ligation Family History Mother HTN (hypertension) Diabetes High cholesterol Father Heart disease Social History Household Members: Significant Other Alcohol intake: never Patient Tobacco Use Status: Never used Tobacco Physical Exam Vital Signs: BMI result Body Mass Index 34.6 Extrem Other: TTP medial and lateral joint line mild effusion lateral retropatellar ttp Office Procedures Joint Injection/Drain Joint Injection/Drain Details: Injected 1 mL of Decadron and 3 mL 1% lidocaine and 3 mL of 0.25% Marcaine. Site was prepped using aseptic technique. Patient tolerated the procedure well. Primary Site: left knee Approach Used: anterolateral Coding 04989 - Large joint Procedure code (CPT) selection complete Results Reviewed Results Reviewed: I personally reviewed relevant radiographs. moderate left knee tricompartmental OA Assessment & Plan Assessment & Plan (1) Localized osteoarthritis of left knee: Code(s): M17.12 - Unilateral primary osteoarthritis, left knee Category: Medical Plan: 63 yo with left knee OA. I discussed treatment options. She has benefitted from injections in the past and I injected her left knee today. Orders: Orders XR knee LT 3V 02/16/24 M25.562 - Pain in left knee Coding Level of Care Code New Pt Level 3 (37328) Diagnoses Localized osteoarthritis of left knee M17.12 CPT Codes Coding - 08230 Large joint: 57190 - Large joint ([id number])
== END 2024-02-16 11:30 | disposition home or self-care (01) ==
PROVIDERS: PCP Internal Medicine; Visit Provider Orthopaedic Surgery
DX: M17.12 Unilateral primary osteoarthritis, left knee (principal)
CPT/HCPCS: 20610; 99203

== ENCOUNTER 2024-03-01 11:11 | Day surgery (SDC) | payer OTHER, SELFPAY ==
--- NOTE | 2024-03-01 09:25 | HO.ANESPROP2 ---
[facility] Active Problems Active Problems: All Active Problems Localized osteoarthritis of left knee (Acute) COVID-19 (Acute) Obese (Acute) Daytime sleepiness (Acute) Witnessed episode of apnea (Acute) Snoring (Acute) Spondylosis of lumbosacral spine with radiculopathy (Acute) Past Medical History Medical History HTN (hypertension) Diabetes Family History Family History Mother HTN (hypertension) Diabetes High cholesterol Father Heart disease Family history of problems with anesthesia: No Surgical History Surgical History Hx of tubal ligation History of Problems with Anesthesia: No Social History Social History Household Members: Significant Other Alcohol intake: never Patient Tobacco Use Status: Never used Tobacco Use of substances other than those prescribed or required for medical reasons: No Are you DNR?: No Advance Directives: No Advance Directives Information Provided: Yes Meds Allergies Allergy/AdvReac Type Severity Reaction Status Date / Time No Known Allergies Allergy Verified 02/16/24 10:52 [No Known Allergies*] Home Medications ?Medication ?Instructions ?Recorded ?Confirmed ?Last Taken ?Type albuterol sulfate 90 mcg/actuation 1 - 2 puff PO Q4-6H PRN shortness 10/10/21 03/01/24 Unknown History aerosol inhaler (ProAir HFA) of breath or wheeze estradiol 0.01% (0.1 mg/gram) 1 g vaginal QWEEK 10/10/21 03/01/24 Unknown History vaginal cream oxycodone 10 mg tablet 10 mg PO TID 10/10/21 03/01/24 Unknown History lisinopril 5 mg tablet 5 mg PO DAILY 12/04/21 03/01/24 Unknown History lovastatin 40 mg tablet 40 mg PO DAILY 12/04/21 03/01/24 Unknown History metformin 500 mg tablet 500 mg PO BID 01/29/22 03/01/24 Unknown History alpha lipoic acid 100 mg capsule 100 mg PO DAILY 09/30/23 03/01/24 Unknown History gabapentin 600 mg tablet 600 mg PO TID 09/30/23 03/01/24 Unknown History hydrochlorothiazide 25 mg tablet 25 mg PO DAILY 09/30/23 03/01/24 Unknown History levothyroxine 125 mcg tablet 125 mcg PO QAM 09/30/23 03/01/24 Unknown History mirabegron 50 mg tablet,extended 50 mg PO DAILY 09/30/23 03/01/24 Unknown History release 24 hr (Myrbetriq) paroxetine HCl 40 mg tablet (Paxil) 40 mg PO DAILY 09/30/23 03/01/24 Unknown History trazodone 50 mg tablet 50 mg PO BEDTIME PRN Insomnia 09/30/23 03/01/24 Unknown History Exam Airway Mallampati Class: II (missing a couple) TM Dist: >3cm Neck ROM: Full Heart: rrr Lungs: cta Assessment and Plan Assessment Anesthesia Assessment: Anesthesia Plan Discussed and Chart Reviewed Final Anesthetic Review Family History of Problems with Anesthesia: No History of Problems with Anesthesia: No NPO: Yes ASA Class: III Final Preanesthetic Review: No Changes in Pt Med Stat, Meds/Allgs Chart Reviewed and Consent Obtained/Reviewed Patient Risk: Low Procedure Risk: Low Anesthetic Plan Anesthetic Plan: MAC: Disposition: Standard PACU
[2024-03-01 12:03] VITALS: BMI 35.8
[2024-03-01 12:06] VITALS: BP 166/78; PULSE 77; RESP 18; TEMP 36.1; O2SAT 95
--- NOTE | 2024-03-01 12:10 | P.HPSUR_ITS ---
Pre-Procedural Eval Section A - 24 Hr Update-Section A only Date of Service: 03/01/24 Section B - Complete if H&P > 30 days Chief Complaint: Constipation, unspecified Relevant Family History (Specify if Yes): No Relevant Social History: None Present Medications: see Short Stay Collaborative assessment Medical History: Significant History (HTN (hypertension) Diabetes) History of Previous Operations: Relevant previous surgery/procedure and date(s) (tubal ligation ) Allergies: Allergies Allergy/AdvReac Type Severity Reaction Status Date / Time No Known Allergies Allergy Verified 02/16/24 10:52 [No Known Allergies*] Review of Systems Sugical H&P ROS: Negative: Constitution, Cardiovascular, Respiratory, Neurological, Psychiatric, Hem-Onc, Allergic/Immunologic, Gastrointestinal, Genitourinary, Musculoskeletal, Integumentary, Endocrine and Eyes/Ear s/Nose/Throat Exam Surgical H&P Exam: Normal: HEENT, Normal: Heart, Normal: Lungs, Normal: Extremities, Normal: Abdomen, Normal: Skin and Normal: Neurological Plan Diagnosis/Plan: Unchanged I have reviewed the history and physical and performed a pertinent physical examination on my patient. No changes have occurred unless specified. Time Spent With Patient Time: Total time managing care of this patient today ____ minutes.
--- NOTE | 2024-03-01 12:11 | HO.OPN-COLON ---
Colonoscopy Operative Note Operative Note Date of Service: 03/01/24 Narrative: Operative Information Procedure Description: Colonoscopy Indication: screening Anesthesia: MAC COLONOSCOPY Instrument: Olympus variable stiffness pediatric scope 190L Colonoscopy Monitoring: Vital signs and clinical assessment, continuous EKG monitoring, Pulse oximetry, Carbon Dioxide monitoring and blood pressure monitoring were done throughout the procedure. Colon withdrawal time was 9 minutes. Procedure: The patient was placed in the left lateral decubitis position and pre-procedure medications were administered. After a digital rectal examination of the ano-rectum, the video colonoscope was inserted into the rectum and advanced through the colon to the cecum/TI. The colonoscope was slowly withdrawn in a retrograde panoramic fashion and the colon mucosa was carefully examined including a retroflexed view of the rectum. Findings and interventions are described below. Procedure Difficulty: moderate, pressure applied Findings: Terminal Ileum-normal Cecum:normal Ascending Colon: 6-7 mm sessile polyp removed with cold sanre Transverse Colon -normal Descending Colon:normal Sigmoid Colon: moderate diverticulosis Rectum: Retroflexion with medium sized internal hemorrhoids seen, grade I Anorectum - normal Intervention: cold snare Colon preparation: [place] Bowel Preparation Scale Right colon; 2 Transverse colon: 2 Left colon; 2 (0 = Unprepared colon segment with mucosa not seen due to solid stool that cannot be cleared. 1 = Portion of mucosa of the colon segment seen, but other areas of the colon segment not well seen due to staining, residual stool and/or opaque liquid. 2 = Minor amount of residual staining, small fragments of stool and/or opaque liquid, but mucosa of colon segment seen well. 3 = Entire mucosa of colon segment seen well with no residual staining, small fragments of stool or opaque liquid) Impression and Post Procedure Diagnosis: diverticulosis colon polyp internal hemorrhoids Plan: High fiber diet leaflet Avoid straining at stool, epsom salts and sitz bath, anusol supps or cream Repeat Colonoscopy in 5-7 years if adenomatous polyp, 10 yrs if hyperplastic or earlier if clinically indicated Above findings were reviewed with the patient and relevant handouts were provided if indicated.
[2024-03-01] MEDS: Lactated Ringers 1,000 ML 50 ML IVCONT (12:22)
[2024-03-01 12:38] LABS: Glucose, Whole Blood 135 mg/dL (60-115)
[2024-03-01 12:50] VITALS: BP 120/67; PULSE 71; RESP 16; TEMP 36.7; O2SAT 96
[2024-03-01 13:05] VITALS: BP 126/71; PULSE 65; RESP 18; O2SAT 96
[2024-03-01 13:20] VITALS: BP 140/80; PULSE 59; RESP 18; TEMP 36.8; O2SAT 97
--- OUTSIDE RECORDS SUMMARY | 2024-03-05 09:21 | XMS_ITS | Continuity of Care Document ---
Author Organization [facility] Address [address], [address] [place] [address]- Care Team Providers Care Quick Service Technician Name Role Phone Ag VEGAS, Daryn John Primary Care Physicia n Encounter [facility] Date(s): 03/11/23 - 04/10/23 [facility] [address], [address] [place] [address]- Allergies, Adverse Reactions, Alerts No Known Allergies Medications Acidophilus Probiotic Blend oral capsule 1 capsule, By Mouth, Daily, # 30 capsule, 11 Refills, Maintenance, 07/29/22 14:21:00 EDT, [facility]/pharmacy #[id number], Partial fill upon patient request if the prescription is for a schedule II opioid drug., 1 capsule By Mouth Daily, 161, cm, 07/29/22 14:17:00... Start Date: 07/29/22 Status: Ordered Albuterol 0.083% Inhalation Solution Refills 0, Maintenance, 12/04/20 9:30:00 EST Start Date: 12/04/20 Status: Ordered Ambien 10 mg oral tablet 1 tablet = 10 mg, By Mouth, Daily at bedtime, PRN for sleep, 0 Refills, Maintenance, 12/30/17 15:18:04 EDT, Tablet Start Date: 12/30/17 Status: Ordered clonazePAM 0.5 mg oral tablet = 0.5 mg, By Mouth, 2 times a day, 0 Refills, Maintenance, 05/29/16 8:39:21, Tablet Start Date: 05/29/16 Status: Ordered docusate sodium 0 Refills, Maintenance, 08/12/19 10:00:40 EST Start Date: 08/12/19 Status: Ordered estradiol 0.1 mg/g vaginal cream = 1 Gm, Vaginally, Daily at bedtime, take every night for two weeks then twice weekly, # 42.5 Gm, 11 Refills, Maintenance, 07/29/22 14:20:00 EDT, [facility]/pharmacy #[id number], Partial fill upon patient requestif the prescription is for a schedule II opioid kitty... Start Date: 07/29/22 Status: Ordered estradiol 0.1 mg/g vaginal cream = 1 Gm, Vaginally, Daily at bedtime, take every night for two weeks then twice weekly, # 30 Gm, 11 Refills, Maintenance, 01/25/22 11:50:00 EDT, [facility]/pharmacy #[id number], Partial fill upon patient request if the prescription is for a schedule II opioid drug.... Start Date: 01/25/22 Status: Ordered hydrochlorothiazide 25 mg oral tablet 12.5 mg, By Mouth, Daily, Refills 0, Maintenance, 05/29/16 8:39:26 Start Date: 05/29/16 Status: Ordered levothyroxine 0.125 mg oral tablet 0 Refills, Maintenance, 08/12/19 9:59:35 EST Start Date: 08/12/19 Status: Ordered lisinopril 10 mg oral tablet 1 tablet = 10 mg, By Mouth, Daily, 0 Refills, Maintenance, 05/15/15 8:47:39 Start Date: 05/15/15 Status: Ordered loratadine 10 mg oral tablet 10 mg, 1, tablet, By Mouth, Daily, # 30 tablet, Refills 0, Maintenance, 12/30/17 15:16:29 EDT Start Date: 12/30/17 Status: Ordered lovastatin 20 mg oral tablet 1 tablet = 20 mg, By Mouth, Daily, 0 Refills, Maintenance, 12/04/20 9:29:00 EST, Partial fill upon patient request if the prescription is for a schedule II opioid drug. Start Date: 12/04/20 Status: Ordered mirabegron 25 mg oral tablet, extended release 1 tablet = 25 mg, By Mouth, Daily, # 30 tablet, 11 Refills, Maintenance, 05/07/21 11:06:00 EDT, [facility]/pharmacy #[id number], Partial fill upon patient request if the prescription is for a schedule II opioid drug., 161, cm, 12/04/20 9:26:00 EST, Height, 100.7,... Start Date: 05/07/21 Status: Ordered mirabegron 25 mg oral tablet, extended release 1 tablet = 25 mg, By Mouth, Daily at bedtime, # 30 tablet, 11 Refills, Maintenance, 01/25/22 11:50:00 EDT, [facility]/pharmacy #[id number], Partial fill upon patient request if the prescription is for a schedule II opioid drug., 161, cm, 01/25/22 11:07:00 EDT, [facility]... Start Date: 01/25/22 Status: Ordered mirabegron 50 mg oral tablet, extended release 1 tablet = 50 mg, By Mouth, Daily, # 30 tablet, 11 Refills, Maintenance, 07/29/22 14:21:00 EDT, [facility]/pharmacy #[id number], Partial fill upon patient request if the prescription is for a schedule II opioid drug., 161, cm, 07/29/22 14:17:00 EDT, Height, 102.5,... Start Date: 07/29/22 Status: Ordered Movantik 25 mg oral tablet 1 tablet = 25 mg, By Mouth, Daily in AM, 0 Refills, Maintenance, 12/04/20 9:30:00 EST, Partial fillupon patient request if the prescription is for a schedule II opioid drug. Start Date: 12/04/20 Status: Ordered oxyCODONE 10 mg oral tablet 1 tablet = 10 mg, By Mouth, Every 4 hours, 0 Refills, Maintenance, 08/12/19 10:01:20 EST, Tablet, Partial fill upon patient request Start Date: 08/12/19 Status: Ordered PARoxetine 20 mg oral tablet 20 mg, 1, tablet, By Mouth, Daily, # 30 tablet, Refills 0, Maintenance, 08/12/19 10:00:22 EST Start Date: 08/12/19 Status: Ordered trimethoprim 100 mg oral tablet 1 tablet = 100 mg, By Mouth, Daily, For daily suppression of frequent UTIs. Start taking after finishing course of treatment for acute UTI, # 28 tablet, 5 Refills, Maintenance, 10/05/20 9:11:00 EST, [facility]/pharmacy #[id number], 162.5, cm, 08/12/19 9:50:00 EST,... Start Date: 10/05/20 Status: Ordered Vitamin C 500 mg oral tablet, chewable 1 tablet = 500 mg, Chew, 2 times a day, # 60 tablet, 11 Refills, Maintenance, 07/29/22 14:20:00 EDT, [facility]/pharmacy #[id number], Partial fill upon patient request if the prescription is for a schedule II opioid drug., 161, cm, 07/29/22 14:17:00 EDT, Height, 1... Start Date: 07/29/22 Status: Ordered Vitamin C 500 mg oral tablet, chewable 1 tablet = 500 mg, By Mouth, 2 times a day, # 60 tablet, 9 Refills, Maintenance, 12/04/20 9:51:00 EST, [facility]/pharmacy #[id number], Partial fill upon patient request if the prescription is for a schedule II opioid drug., 161, cm, 12/04/20 9:26:00 EST, Height,... Start Date: 12/04/20 Status: Ordered Problem List Condition Confirmation Course Effective Dates Status H ealth Status Informant Anxiety Confirmed Active Atrophic vaginitis Confirmed Active Last pap smear 05/09/16 negative with negative HPV Confirmed Active Depression Confirmed Active Diabetes - patient denies it but multiple hemoglobin A1c levels have been above the cutoff Confirmed Active Dyspareunia, female Confirmed Active Hyperlipidemia - high total cholesterol and triglycerides Confirmed Active Chronic hypertension Confirmed Active Hypothyroid. Last TSH 05/15/2018 elevated at 4.82 mIU/mL. 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 Active Does not have regular dental care Confirmed Active Obese class II Confirmed Active Obesity Confirmed Active Poor historian Confirmed Active Frequent UTI Confirmed Active Urinary tract infections Confirmed Active Social History Social History Type Response Smoking Status Former smoker; Tobac co user in household: No; Other: Quit 36 years ago; entered on: 04/14/18 Sex Patient Care team information Care Team Personnel Name: Daryn Luong MD Position: Reference Physician Member Role: PCP Address: Address: [address] [place] [address] [place] [address]- Care Team Related Persons Name: NE JONES Name: MARLA ENG Address: home [address] [place] [id number] Name: MYRIAM CULVERIX Address: home [address] [place] [address]
--- OUTSIDE RECORDS SUMMARY | 2024-03-05 09:21 | XMS_ITS | Continuity of Care Document ---
[facility] Address [address], [address] [place] [address]- Care Team Providers Care Judicial Administrative Assistant Name Role Phone Ag VEGAS, Daryn John Primary Care Physicia n Encounter [facility] R [id number] Date(s): 07/29/22 - [facility] [address], [address] [place] [address]- Attending Physician: Julissa Castillo Admitting Physician: AdmtrJulissa Referring Physician: Admtr, ArRenny Allergies, Adverse Reactions, Alerts No Known Allergies Medications Acidophilus Probiotic Blend oral capsule 1 capsule, By Mouth, Daily, # 30 capsule, 11 Refills, Maintenance, 07/29/22 14:21:00 EDT, [facility]/pharmacy #[id number], Partial fill upon patient request if the [...] Gm, 11 Refills, Maintenance, 07/29/22 14:20:00 EDT, [facility]/pharmacy #[id number], Partial fill upon patient requestif the prescription is for a schedule II opioid kitty... Start Date: 07/29/22 Status: Ordered estradiol 0.1 mg/g vaginal cream = 1 Gm, Vaginally, Daily at bedtime, take every night for two weeks then twice weekly, # 30 Gm, 11 Refills, Maintenance, 01/25/22 11:50:00 EDT, [facility]/pharmacy #[id number], Partial fill upon patient request if [...] tablet, 11 Refills, Maintenance, 05/07/21 11:06:00 EDT, [facility]/pharmacy #[id number], Partial fill upon patient request if the prescription is for a schedule II opioid drug., 161, cm, 12/04/20 9:26:00 EST, Height, 100.7,... Start Date: 05/07/21 Status: Ordered mirabegron 25 mg oral tablet, extended release 1 tablet = 25 mg, By Mouth, Daily at bedtime, # 30 tablet, 11 Refills, Maintenance, 01/25/22 11:50:00 EDT, [facility]/pharmacy #[id number], Partial fill upon patient request if the prescription is for a schedule II opioid drug., 161, cm, 01/25/22 11:07:00 EDT, Hei... Start Date: 01/25/22 Status: Ordered mirabegron 50 mg oral tablet, extended release 1 tablet = 50 mg, By Mouth, Daily, # 30 tablet, 11 Refills, Maintenance, 07/29/22 14:21:00 EDT, [facility]/pharmacy #[id number], Partial fill upon patient request if [...] 10/12/22 13:50:00 EST, 10/17/21 13:50:00 EST, Tablet, [facility]/pharmacy #[id number], Partial fill upon patient request if the prescription is for a schedule II opioid drug., 161, cm,... 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
--- OUTSIDE RECORDS SUMMARY | 2024-03-05 09:22 | XMS_ITS | Continuity of Care Document ---
Author Organization [facility] Address [address], [address] [place] [address]- Care Team Providers Care Mri Technician Name Role Phone Ag VEGAS, Daryn John Primary Care Physicia n Encounter [facility] Date(s): 02/21/23 - [facility] [address] [place] [address]- Allergies, Adverse Reactions, Alerts No Known Allergies Medications Acidophilus Probiotic Blend oral capsule 1 capsule, By Mouth, Daily, # 30 capsule, 11 Refills, Maintenance, 07/29/22 14:21:00 EDT, [facility]/pharmacy #[id number], Partial fill upon patient request if the [...] Gm, 11 Refills, Maintenance, 07/29/22 14:20:00 EDT, [facility]/pharmacy #[id number], Partial fill upon patient requestif the prescription is for a schedule II opioid kitty... Start Date: 07/29/22 Status: Ordered estradiol 0.1 mg/g vaginal cream = 1 Gm, Vaginally, Daily at bedtime, take every night for two weeks then twice weekly, # 30 Gm, 11 Refills, Maintenance, 01/25/22 11:50:00 EDT, [facility]/pharmacy #[id number], Partial fill upon patient request [...] tablet, 11 Refills, Maintenance, 05/07/21 11:06:00 EDT, [facility]/pharmacy #[id number], Partial fill upon patient request if the prescription is for a schedule II opioid drug., 161, cm, 12/04/20 9:26:00 EST, Height, 100.7,... Start Date: 05/07/21 Status: Ordered mirabegron 25 mg oral tablet, extended release 1 tablet = 25 mg, By Mouth, Daily at bedtime, # 30 tablet, 11 Refills, Maintenance, 01/25/22 11:50:00 EDT, [facility]/pharmacy #[id number], Partial fill upon patient request if the prescription is for a schedule II opioid drug., 161, cm, 01/25/22 11:07:00 EDT, Hei... Start Date: 01/25/22 Status: Ordered mirabegron 50 mg oral tablet, extended release 1 tablet = 50 mg, By Mouth, Daily, # 30 tablet, 11 Refills, Maintenance, 07/29/22 14:21:00 EDT, [facility]/pharmacy #[id number], Partial fill upon patient request [...] tablet, 11 Refills, Maintenance, 07/29/22 14:20:00 EDT, [facility]/pharmacy #[id number], Partial fill upon patient request if the prescription is for a schedule II opioid drug., 161, cm, 07/29/22 14:17:00 EDT, Height, 1... Start Date: 07/29/22 Status: Ordered Vitamin C 500 mg oral tablet, chewable 1 tablet = 500 mg, By Mouth, 2 times a day, # 60 tablet, 9 Refills, Maintenance, 12/04/20 9:51:00 EST, [facility]/pharmacy #[id number], Partial fill upon patient request [...] free T3 and total T3 Confirmed Active Italian speaking patient - parts interpreter required Confirmed Active Menopausal state, LMP was [...] Physician Member Role: PCP Address: Address: [address] [place] [address] [place] [address]- Care Team Related Persons Name: NE JONES Name: MARLA ENG Address: home [address] [place] [id number] Name: MYRIAM CULVERIX Address: home [address] [place] [address]
== END 2024-03-01 13:55 | disposition home or self-care (01) ==
PROVIDERS: PCP Internal Medicine; Visit Provider Internal Medicine Gastroenterology
PROC: 0DJD8ZZ Inspection of Lower Intestinal Tract, Via Natural or Artificial Opening Endoscopic (ICD-10-PCS; CPT 45378; principal; 2024-03-01 14:00)
DX: Z12.11 Encounter for screening for malignant neoplasm of colon (principal); K63.5 Polyp of colon; K57.30 Diverticulosis of large intestine without perforation or abscess without bleeding; K64.0 First degree hemorrhoids; I10 Essential (primary) hypertension; E11.9 Type 2 diabetes mellitus without complications
CPT/HCPCS: 45385; 82947; 88305; J2704

== ENCOUNTER → 2024-03-01 11:11 | Outpatient (BNV) | payer OTHER, SELFPAY | PROVIDERS: PCP Internal Medicine; Visit Provider Internal Medicine Gastroenterology | DX: Z12.11 Encounter for screening for malignant neoplasm of colon (principal); K63.5 Polyp of colon; K57.90 Diverticulosis of intestine, part unspecified, without perforation or abscess without bleeding; K64.0 First degree hemorrhoids | CPT/HCPCS: 45385 ==

== ENCOUNTER 2024-03-16 10:50 | Outpatient (AMB) | payer OTHER, SELFPAY ==
--- NOTE | 2024-03-16 10:51 | MHC.OFFVIS ---
Vital Signs 03/16/24 11:00 Height 5 ft 5 in Weight 214 lb 4.629 oz BMI 35.7 BP 132/68 Blood Pressure Location Lt brachial Position Sitting Pulse 76 Pulse Source Pulse Oximeter Pulse Oximetry (%) 95 Oxygen Delivery Method Room Air Intake Visit Reasons: S/P [place]; Dr. Macias Intake Note: Stephanie presents in office today for a scheduled post colo FUV. CC: Pt denies any post op complications. Pt does report still having LLQ abd pain which they had pre op. Transaction Advisory Services Manager Required: Yes Transaction Advisory Services Manager Name: [id number] Pacheco Allergies No Known Allergies [No Known Allergies*] Allergy (Verified 03/16/24 10:59) HPI HPI S/P [place]; Dr. Macias: Details: LAST VISIT IBS (irritable bowel syndrome) Constipation LUQ abdominal pain Plan Patient will add stool softener, continue Senokot. Patient was encouraged to increase fluid intake and activity to promote better bowel motility. CT scan scheduled for the of this month will review it. Patient will return in 5 weeks to go over results and to discuss prep before going for colonoscopy. Patient is agreeable to this plan and verbalizes understanding of instructions. She was given the opportunity to ask questions and all questions answered. ? Thank you for allowing me to participate in her care Medications Changed Changed From docusate sodium 100 mg PO BEDTIME 90 caps 3RF K59.00 Changed To docusate sodium 200 mg (2 x 100 mg) PO BEDTIME 180 caps 3RF K59.00 Discontinued naproxen (Naprosyn) Discontinued Reason: Patient no longer taking 500 mg PO BID 20 tabs 0RF COLONOSCOPY Findings: Terminal Ileum-normal Cecum:normal Ascending Colon: 6-7 mm sessile polyp removed with cold sanre Transverse Colon -normal Descending Colon:normal Sigmoid Colon: moderate diverticulosis Rectum: Retroflexion with medium sized internal hemorrhoids seen, grade I Anorectum - normal Intervention: cold snare Colon preparation: [place] Bowel Preparation Scale Right colon; 2 Transverse colon: 2 Left colon; 2 (0 = Unprepared colon segment with mucosa not seen due to solid stool that cannot be cleared. 1 = Portion of mucosa of the colon segment seen, but other areas of the colon segment not well seen due to staining, residual stool and/or opaque liquid. 2 = Minor amount of residual staining, small fragments of stool and/or opaque liquid, but mucosa of colon segment seen well. 3 = Entire mucosa of colon segment seen well with no residual staining, small fragments of stool or opaque liquid) Impression and Post Procedure Diagnosis: diverticulosis colon polyp internal hemorrhoids Plan: High fiber diet leaflet Avoid straining at stool, epsom salts and sitz bath, anusol supps or cream Repeat Colonoscopy in 5-7 years if adenomatous polyp, 10 yrs if hyperplastic or earlier if clinically indicated PATHOLOGY RESULTS Diagnosis Colon, ascending polyp, biopsy: Polypoid colonic mucosa within normal limits; negative for a hyperplastic or neoplastic process TODAY'S VISIT Patient is here today for follow-up and to discuss colonoscopy results. Patient denies any ill effects from the prep, anesthesia or procedure itself. Patient had 1 polyp that showed polypoid colonic mucosa within normal limits negative for hyperplastic or neoplastic processes. Patient reports that she has been doing well. Continues with abdominal cramping on the right and left lower quadrant. Patient does admit that she is constipated. Is not using senna or docusate sodium on a daily basis. Patient was also diagnosed with moderate diverticulosis to sigmoid colon. Patient denies melena, hematochezia. Patient denies dyspepsia, dysphagia or odynophagia. Patient denies acid reflux. No longer is using omeprazole. FORMERLY [facility], 1928–1983 Medical History (Updated 03/16/24 @ 11:25 by Vania Perez [facility]) Transaminitis HTN (hypertension) Diabetes Surgical History (Updated 03/16/24 @ 10:59 by TANNER Kay) H/O colonoscopy Hx of tubal ligation Family History Mother HTN (hypertension) Diabetes High cholesterol Father Heart disease Social History Household Members: Significant Other Alcohol intake: never Patient Tobacco Use Status: Never used Tobacco Physical Exam Const General: healthy appearing and no acute distress Nutritional Appearance: obese Orientation/consciousness: patient oriented x3 Resp Effort & Inspection: normal respiratory effort, able to speak in complete sentences, no tracheal deviation and symmetric chest movement Auscultation: clear to auscultation bilaterally Cardio Rate: regular rate GI Inspection: Yes normal to inspection, No distended and Yes obesity Palpation (GI): Soft to palpation, not firm, nontender and No hepatosplenomegaly present Auscultation: normal bowel sounds General: Yes no CVA tenderness Back/Spine/Pelvis Back: no CVA tenderness Skin General skin exam: elasticity normal, turgor normal and dry skin Neuro General: patient oriented x3 Psych Appearance: grossly normal Mental Status: mental status grossly normal Assessment & Plan Assessment & Plan (1) Transaminitis: Code(s): R74.01 - Elevation of levels of liver transaminase levels Category: Medical (2) Status post colonoscopy: Code(s): Z98.890 - Other specified postprocedural states (3) Diverticulosis: Code(s): K57.90 - Diverticulosis of intestine, part unspecified, without perforation or abscess without bleeding Plan Increase fluid intake and activity to promote better bowel motility. Patient will continue taking stool softeners and senna daily. High-fiber diet encouraged. Patient was found to have a moderate diverticulosis in sigmoid colon. Colonoscopy in 10 years, sooner if clinically necessary. Continue avoiding dietary triggers in late night snacking. Staying upright for minimal 3 hours after meals discussed with patient. Liver enzymes elevated last year, will repeat liver enzymes today. Patient was encouraged to lose weight. Eat food low in fat, increase protein intake, avoid carbs. Patient will follow-up in 6 months, sooner on as needed basis. She is agreeable to this plan and verbalizes understanding of instructions. She was given the opportunity to ask questions and all questions answered. Thank you for allowing me to participate in her care Orders: Orders Liver Panel Today R74.01 - Elevation of levels of liver transaminase levels Medications: Refilled sennosides (Natural Senna Laxative) 17.2 mg (2 x 8.6 mg) PO BEDTIME 180 tabs 3RF constipation K59.00 - Constipation, unspecified docusate sodium 200 mg (2 x 100 mg) PO BEDTIME 180 caps 3RF K59.00 - Constipation, unspecified Discontinued omeprazole Discontinued Reason: Doctor's Order 40 mg PO DAILY 90 caps 3RF K21.9 - Gastro-esophageal reflux disease without esophagitis Coding Level of Care Code Est Pt Level 3 (06315) Diagnoses Transaminitis R74.01 Status post colonoscopy Z98.890 Diverticulosis K57.90 Time Spent (min) 30 Comment 20 minutes spent with patient and additional 10 minutes spent reviewing her records
[2024-03-16 11:00] VITALS: BP 132/68; PULSE 76; O2SAT 95; BMI 35.7
== END 2024-03-16 11:19 | disposition home or self-care (01) ==
PROVIDERS: PCP Internal Medicine; Visit Provider Nurse Practitioner Family
DX: R74.01 Elevation of levels of liver transaminase levels (principal); Z98.890 Other specified postprocedural states; K57.90 Diverticulosis of intestine, part unspecified, without perforation or abscess without bleeding
CPT/HCPCS: 99213

== ENCOUNTER 2024-03-16 10:50 | Outpatient (REF) | payer OTHER, SELFPAY ==
[2024-03-16 12:56] LABS: Alanine Aminotransferase 46 U/L (0-31); Albumin Level 4.1 g/dL (3.5-5.0); Alkaline Phosphatase 64 U/L (39-117); Aspartate Amino Transferase 44 U/L (5-31); Bilirubin Direct 0.2 mg/dL (0.0-0.5); Bilirubin Total 0.5 mg/dL (0.0-1.0); Blood Urea Nitrogen 10 mg/dL (9-16); Estimated Glomerular Filt Rate > 60
== END 2024-03-16 10:51 | disposition home or self-care (01) ==
LOC: HO.LAB 10:50
PROVIDERS: PCP Internal Medicine; Visit Provider Nurse Practitioner Family
DX: K57.90 Diverticulosis of intestine, part unspecified, without perforation or abscess without bleeding (principal); K21.9 Gastro-esophageal reflux disease without esophagitis; K58.1 Irritable bowel syndrome with constipation; R10.32 Left lower quadrant pain; R10.31 Right lower quadrant pain; R74.01 Elevation of levels of liver transaminase levels; Z98.890 Other specified postprocedural states
CPT/HCPCS: 36415; 80076; 82565; 84520; 99212

== ENCOUNTER 2024-04-06 16:03 | Outpatient (REF) | payer OTHER, SELFPAY ==
[2024-04-06 18:25] LABS: Anion Gap 13 (12-20); Blood Urea Nitrogen 8 mg/dL (9-16); Calcium 9.9 mg/dL (8.4-10.2); Carbon Dioxide 30 mmol/L (22-29); Chloride 102 mmol/L (96-108); Estimated Glomerular Filt Rate > 60; Glucose Random 97 mg/dL (60-115); Potassium 3.5 mmol/L (3.3-5.1); Sodium 141 mmol/L (135-145)
[2024-04-06 18:36] LABS: TSH reflex Free T4 2.75 uIU/mL (0.32-4.0)
[2024-04-06 18:38] LABS: Creatinine Urine 350.09 mg/dL; Microalbum/Creatinine Ratio Ur 8.2 ug/mg cr (<30)
== END 2024-04-06 16:04 | disposition home or self-care (01) ==
LOC: HO.HHCL 16:03
PROVIDERS: Visit Provider Internal Medicine Geriatric Medicine
DX: E11.65 Type 2 diabetes mellitus with hyperglycemia (principal); E03.9 Hypothyroidism, unspecified
CPT/HCPCS: 36415; 80048; 82043; 82570; 84443

== ENCOUNTER 2024-04-20 12:27 | Outpatient (REF) | payer OTHER, SELFPAY ==
--- NOTE | ~2024-04-20 | XR_ITS ---
EXAMINATION: XR SACRUM AND COCCYX CLINICAL INFORMATION: Fell on 6 coccyx/sacrum 4 days ago. Persistent pain. COMPARISON: None available. TECHNIQUE: 2 views of the sacrum and 2 views of the coccyx were obtained. FINDINGS: No fracture is identified. No lytic or sclerotic bony lesion is seen. Degenerative changes of the lower lumbar spine and hips. Soft tissues appear unremarkable. XR/XR sacrum coccyx min 2V IMPRESSION: No acute finding.
== END 2024-04-20 12:28 | disposition home or self-care (01) ==
LOC: HO.HHCX 12:27
PROVIDERS: Visit Provider Emergency Medicine
DX: S39.92XA Unspecified injury of lower back, initial encounter (principal); R30.0 Dysuria
CPT/HCPCS: 72220; 87086; 87088; 87186

== ENCOUNTER 2024-05-13 14:17 | Outpatient (REF) | payer OTHER, SELFPAY ==
[2024-05-13 16:20] LABS: Anion Gap 13 (12-20); Blood Urea Nitrogen 11 mg/dL (9-16); Calcium 10.1 mg/dL (8.4-10.2); Carbon Dioxide 27 mmol/L (22-29); Chloride 100 mmol/L (96-108); Estimated Glomerular Filt Rate > 60; Glucose Random 128 mg/dL (60-115); Potassium 3.3 mmol/L (3.3-5.1); Sodium 137 mmol/L (135-145)
[2024-05-13 16:24] LABS: Appearance Urine Turbid; Color Urine Yellow; Glucose Urine UA Negative (Negative); Leukocyte Esterase Urine Large (3+) (Negative); Nitrite Urine Negative (Negative); PH 5.5 (5.0-9.0); UMIC TRIGGER UACC YES; Urine Blood Large (3+) (Negative); Urine Ketones Negative (Negative); Urine Protein 30 (1+) mg/dL (Neg-Trace)
[2024-05-13 16:27] LABS: Bacteria Urine 1+ (None Seen); Hyaline Casts Urine 0-2 /LPF (0-2); UACC Culture Trigger YES; WBC Urine >50 /HPF (0-5)
== END 2024-05-13 14:18 | disposition home or self-care (01) ==
LOC: HO.HHCL 14:17
PROVIDERS: Student in an Organized Health Care Education/Training Program; Visit Provider Internal Medicine Geriatric Medicine
DX: I10 Essential (primary) hypertension (principal); R39.9 Unspecified symptoms and signs involving the genitourinary system; J02.9 Acute pharyngitis, unspecified
CPT/HCPCS: 36415; 80048; 81001; 87086

== ENCOUNTER 2024-05-17 09:54 | Outpatient (AMB) | payer MEDICARE, MEDICAID, SELFPAY ==
--- NOTE | 2024-05-17 10:06 | A.OFFVIS_ITS ---
Vital Signs 05/17/24 10:31 Height 5 ft 5 in Weight 214 lb BMI 35.6 Intake Visit Reasons: OV- Left Knee Pain-follow up Intake Note: Stephanie is a 63 year old female who presents today for a follow up of her left knee OA. Last Injection was administered on 02/16/24 Allergies No Known Allergies [No Known Allergies*] Allergy (Verified 05/17/24 10:23) HPI HPI OV- Left Knee Pain-follow up: Details: Stephanie is a 63 year old female who presents today for a follow up of her left knee OA. Last Injection was administered on 02/16/24. This injection was helpful for a few weeks but her pain has returned. She limps when she walks and she has done so for years. She would like to be more active and be able to walk comfortably but she can not. She has losing weight and is frustrated by her current condition as she feels quality of her life is diminished. PENDING SALE TO [facility] Medical History Transaminitis HTN (hypertension) Diabetes Surgical History H/O colonoscopy Hx of tubal ligation Family History Mother HTN (hypertension) Diabetes High cholesterol Father Heart disease Social History Household Members: Significant Other Alcohol intake: never Patient Tobacco Use Status: Never used Tobacco Physical Exam Vital Signs: BMI result Body Mass Index 35.6 Extrem Other: TTP medial and lateral joint line mild effusion lateral retropatellar ttp Valgus malalignment left greater than right Results Reviewed Results Reviewed: I personally reviewed relevant radiographs. Valgus left knee with [id number] arthritic changes Assessment & Plan Assessment & Plan (1) Localized osteoarthritis of left knee: Code(s): M17.12 - Unilateral primary osteoarthritis, left knee Category: Medical Plan: This is a 63-year-old woman that I have been seeing for about a year. She has a valgus gait and lateral knee pain consistent with osteoarthritis. I reviewed treatment options with her. She is unable to walk comfortably at all and limps while she walks. She is diabetic and does not want more injections and I think her moderate arthritis in conjunction with her valgus alignment and poor mechanics result in a inability to ambulate comfortably. I therefore recommend total knee replacement on the left. I had a long discussion with her and her regarding treatment options as well as the risks, benefits and alternatives to arthroplasty. I explained the procedure in detail and the expected recovery time. I explained the risk of infection, stiffness as well as potential medical complications. She states her diabetes is well controlled and she is trying to lose weight wants to be more active. I think she is a good candidate for the surgery. She will speak with our nurse navigator and begin the preoperative clearance process. (2) Valgus deformity, not elsewhere classified, left knee: Code(s): M21.062 - Valgus deformity, not elsewhere classified, left knee Category: Medical Plan: Coding Level of Care Code Est Pt Level 4 (43470) Diagnoses Localized osteoarthritis of left knee M17.12 Valgus deformity, not elsewhere classified, left knee M21.062
[2024-05-17 10:31] VITALS: BMI 35.6
== END 2024-05-17 11:04 | disposition home or self-care (01) ==
PROVIDERS: PCP Internal Medicine; Visit Provider Orthopaedic Surgery
DX: M17.12 Unilateral primary osteoarthritis, left knee (principal); M21.062 Valgus deformity, not elsewhere classified, left knee; E11.9 Type 2 diabetes mellitus without complications
CPT/HCPCS: 99214

== ENCOUNTER → 2024-05-17 09:54 | Outpatient (BNVA) | payer MEDICARE, MEDICAID, SELFPAY | PROVIDERS: PCP Internal Medicine; Visit Provider Orthopaedic Surgery | DX: Z13.89 Encounter for screening for other disorder (principal) | CPT/HCPCS: 99212 ==

== ENCOUNTER 2024-05-17 16:16 | Outpatient (REF) | payer MEDICARE, MEDICAID, SELFPAY | END 2024-05-17 16:17 | disposition home or self-care (01) | LOC: HO.HHCLNP 16:16 | PROVIDERS: Visit Provider Internal Medicine | DX: M17.12 Unilateral primary osteoarthritis, left knee (principal); M21.062 Valgus deformity, not elsewhere classified, left knee; R39.9 Unspecified symptoms and signs involving the genitourinary system | CPT/HCPCS: 87070; 99212 ==

== ENCOUNTER 2024-06-30 10:17 | Outpatient (REF) | payer OTHER, SELFPAY ==
--- NOTE | ~2024-06-30 | MM_ITS ---
EXAMINATION: MM SCREENING DIGITAL BREAST TOMOSYNTHESIS, BILATERAL CLINICAL INFORMATION: Screening. Asymptomatic. COMPARISON: Mammography: Comparison is made with available priors TECHNIQUE: Digital breast mammography with tomosynthesis is performed in both the craniocaudal and mediolateral oblique views along with computer-aided detection (CAD). FINDINGS: There are scattered areas of fibroglandular density (ACR BI-RADS breast composition Category b). There are no significant masses, abnormal calcifications, or other abnormalities. MM/MM tomosynthesis screening BI IMPRESSION: No mammographic evidence of malignancy. Patient describes intermittent bilateral breast pain. Patient had no pain today of screening exam. Recommend clinical evaluation and if there is focal pain or if deemed clinically significant a diagnostic workup can be ordered and performed. ASSESSMENT: BI-RADS BI-RADS 1 - Negative RECOMMENDATION: Routine annual mammography screening. 1 year F/U This examination should not preclude the clinical evaluation of a suspicious palpable abnormality. This patient's information was entered into a reminder system with a target due date for their next mammogram. Electronically signed by: Magaly Parks DO 07/12/2024 12:42 PM EDT
== END 2024-06-30 10:18 | disposition home or self-care (01) ==
LOC: HO.MAMMO 10:17
PROVIDERS: PCP Internal Medicine Geriatric Medicine; Visit Provider Internal Medicine
DX: Z12.31 Encounter for screening mammogram for malignant neoplasm of breast (principal)
CPT/HCPCS: 77063; 77067

== ENCOUNTER → 2024-06-30 10:45 | Outpatient (BNV) | payer OTHER, SELFPAY | PROVIDERS: PCP Internal Medicine Geriatric Medicine; Visit Provider Internal Medicine | DX: Z12.31 Encounter for screening mammogram for malignant neoplasm of breast (principal) | CPT/HCPCS: 77063; 77067 ==

== ENCOUNTER → 2024-07-02 08:58 | Outpatient (BNVA) | payer OTHER, SELFPAY | PROVIDERS: PCP Internal Medicine | DX: Z01.818 Encounter for other preprocedural examination (principal) ==

== ENCOUNTER 2024-07-30 08:43 | Outpatient (REF) | payer OTHER, SELFPAY ==
[2024-07-30 11:36] LABS: Hematocrit 35.5 % (37.0-47.0); Hemoglobin 11.9 g/dl (12.0-16.0)
[2024-07-30 11:39] LABS: INTERNATIONAL NORM RATIO 0.9 (0.9-1.1); Prothrombin Time 10.7 SEC (10.9-12.4)
[2024-07-30 12:21] LABS: Anion Gap 15 (12-20); Blood Urea Nitrogen 10 mg/dL (9-16); Calcium 9.5 mg/dL (8.4-10.2); Carbon Dioxide 27 mmol/L (22-29); Chloride 101 mmol/L (96-108); Estimated Glomerular Filt Rate > 60; Glucose Random 180 mg/dL (60-115); Potassium 3.7 mmol/L (3.3-5.1); Sodium 139 mmol/L (135-145)
== END 2024-07-30 08:44 | disposition home or self-care (01) ==
LOC: HO.HHCL 08:43
PROVIDERS: Visit Provider Nurse Practitioner Primary Care
DX: Z01.818 Encounter for other preprocedural examination (principal)
CPT/HCPCS: 36415; 80048; 85014; 85018; 85610; 85730

== ENCOUNTER 2024-08-24 08:22 | Outpatient (AMB) | payer OTHER, SELFPAY ==
[2024-08-24 08:27] VITALS: BMI 35.6
--- NOTE | 2024-08-24 08:27 | MHC.OFFVIS ---
Vital Signs 08/24/24 08:27 Height 5 ft 5 in Weight 214 lb BMI 35.6 Intake Visit Reasons: Pre-Op: L TKA w/NE 08/31/24 Intake Note: Stephanie a 64 year old female who presents today for a preoperative left TKA, DOS:08/31/24. Pain management agreement reviewed and signed. Dna Sequencing Associate Required: Yes Dna Sequencing Associate Services: Dna Sequencing Associate Offered & Declined Accompanied by: Spouse Allergies egg Allergy (Intermediate, Verified 08/24/24 08:54) Vomiting Medication List - Last Reconciled 08/24/24 by Rashida Mccormick PA-C albuterol sulfate 90 mcg/actuation (ProAir HFA) 1 - 2 puffs PO Q4-6H PRN amlodipine 2.5 mg PO DAILY docusate sodium 200 mg (2 x 100 mg) PO BEDTIME fluticasone furoate 100 mcg/actuation (Arnuity Ellipta) 1 inh inhalation DAILY gabapentin 600 mg PO TID levothyroxine 125 mcg PO QAM lisinopril-hydrochlorothiazide 20-25 mg 1 tab PO DAILY lovastatin 40 mg PO DAILY metformin 500 mg PO BID omeprazole 40 mg PO DAILY PRN oxycodone 10 mg PO QID paroxetine HCl (Paxil) 40 mg PO DAILY polyethylene glycol 3350 (Miralax) 17 grams PO DAILY sennosides (Natural Senna Laxative) 17.2 mg (2 x 8.6 mg) PO BEDTIME trazodone 50 mg PO BEDTIME PRN walker Folding Front wheeled walker HPI Comments Details: Ms Dodd presents to the office today for preop visit. She is scheduled for left total knee arthroplasty with Dr. Garcia. She continues to have ongoing pain and difficulty with ambulation in the left knee, which is affecting her quality of life; therefore, she has elected to move forward with surgery. Of note, she does take 40mg Oxycodoge daily due to sciatica PFSH Medical History (Updated 07/30/24 @ 12:27 by Elly Garcia RN) GERD (gastroesophageal reflux disease) Depression Asthma Osteoarthritis Hypothyroid Transaminitis HTN (hypertension) Diabetes Surgical History H/O colonoscopy Hx of tubal ligation Family History Mother HTN (hypertension) Diabetes High cholesterol Father Heart disease Social History (Reviewed 08/24/24 @ 08:55 by Deborah Pedro [facility]) Household Members: Significant Other Household Members Other:: son hetal Are you a primary livestock caretaker to a significant other at home: No Do you presently have visiting nurse or other home services: Yes (STREET CAR [employer]CH[employer]IC-son Hetal) Alcohol intake: never Patient Tobacco Use Status: Former Tobacco user Tobacco use type: Cigarette Years Smoked: 10 Review of Systems Const All systems reviewed & are unremarkable except as noted in HPI and below Physical Exam Vital Signs: BMI result Body Mass Index 35.6 Const General: cooperative and no acute distress Orientation/consciousness: patient oriented x3 Neck Neck: Yes normal visual inspection and Yes no lymphadenopathy Resp Effort & Inspection: normal respiratory effort and able to speak in complete sentences Cardio Peripheral pulses: Peripheral pulses 2+ throughout GI Inspection: Yes normal to inspection Palpation (GI): Soft to palpation Skin General skin exam: no rashes or lesions noted Neuro General: patient oriented x3 Extrem Other: Skin intact, no open wounds. TTP medial and lateral joint line mild effusion lateral retropatellar ttp Valgus malalignment left greater than right Results Reviewed Results Reviewed: Xrays were obtained in the office today and personally reviewed by me of the left knee for pre op planning Assessment & Plan Assessment & Plan (1) Localized osteoarthritis of left knee: Code(s): M17.12 - Unilateral primary osteoarthritis, left knee Category: Medical (2) Valgus deformity, not elsewhere classified, left knee: Code(s): M21.062 - Valgus deformity, not elsewhere classified, left knee Category: Medical Plan I discussed in detail the procedure and what to expect pre and post operatively. We discussed the risks, benefits and alternatives to the surgery as well as the rehabilitation course. The risks; which include, but are not limited to infection, bleeding, nerve injury, ongoing pain, swelling, and stiffness, perioperative risk of injury to bones and soft tissues, and blood clots. I?ve answered all questions and with their understanding they have consented to move forward with Left total knee arthroplasty with Dr. Garcia PT order placed - [facility] Orders: Orders XR knee LT 3V Today M25.562 - Pain in left knee XR knee RT 1V Today M25.561 - Pain in right knee Type and Screen Today Z01.818 - Encounter for other preprocedural examination PT Evaluation and Treatment Today Z96.652 - Presence of left artificial knee joint UA ClnCatch+Micro w/rflx Cult Today R30.0 - Dysuria Patient Instructions: Scribed for Rashida Mccormick PA-C, by Perez Wang emergency medicine medical director, on 08/24/2024 at 8:30 AM EST.? I, Rashida Mccormick PA-C, have personally reviewed and agree with the information entered by the scribe. Coding Level of Care Code Est Pt Level 3 (70641) Complex EM visit Add On G2211 Diagnoses Localized osteoarthritis of left knee M17.12 Valgus deformity, not elsewhere classified, left knee M21.062
== END 2024-08-24 10:31 | disposition home or self-care (01) ==
PROVIDERS: PCP Internal Medicine Geriatric Medicine; Visit Provider Physician Assistant
DX: M17.12 Unilateral primary osteoarthritis, left knee (principal); M21.062 Valgus deformity, not elsewhere classified, left knee
CPT/HCPCS: 99213; G2211

== ENCOUNTER 2024-08-24 08:39 | Outpatient (REF) | payer OTHER, SELFPAY ==
--- NOTE | ~2024-08-24 | XR_ITS ---
EXAMINATION: 3 views of the left knee. Single view right knee CLINICAL INFORMATION: Pain in left knee. Preop COMPARISON: Bilateral knee series January 2024 TECHNIQUE: 3 views of left knee including AP upright. Single AP view of the right knee FINDINGS: Left knee: The bones joints and soft tissues are normal. No effusion. Right knee: The bone and visualized joints are normal. XR/XR knee LT 3V IMPRESSION: Normal x-ray series of both knees Electronically signed by: Juan A Art MD 08/28/2024 10:33 PM EST
--- NOTE | ~2024-08-24 | XR_ITS ---
EXAMINATION: 3 views of the left knee. Single view right knee CLINICAL INFORMATION: Pain in left knee. Preop COMPARISON: Bilateral knee series January 2024 TECHNIQUE: 3 views of left knee including AP upright. Single AP view of the right knee FINDINGS: Left knee: The bones joints and soft tissues are normal. No effusion. Right knee: The bone and visualized joints are normal. XR/XR knee RT 1V IMPRESSION: Normal x-ray series of both knees Electronically signed by: Juan A Art MD 08/28/2024 10:33 PM EST
== END 2024-08-24 08:40 | disposition home or self-care (01) ==
LOC: HO.HOSX 08:39
PROVIDERS: Visit Provider Physician Assistant
DX: M25.512 Pain in left shoulder (principal); M25.561 Pain in right knee; M17.12 Unilateral primary osteoarthritis, left knee; M21.062 Valgus deformity, not elsewhere classified, left knee
CPT/HCPCS: 73560; 73562; 99212

== ENCOUNTER 2024-08-31 09:27 | Day surgery (SDC) | payer OTHER, SELFPAY ==
[2024-07-30 12:28] VITALS: BP 121/56; PULSE 69; RESP 20; O2SAT 98; BMI 35.4
[2024-07-30 14:59] LABS: MRSA Nasal PCR NEGATIVE (Negative); SA Nasal PCR NEGATIVE (Negative)
--- NOTE | 2024-08-04 14:32 | P.CONAN_ITS ---
Documented by User: Daksha Rubio NP 08/17/24 13:30 HPI - Anesthesia Eval Consult details Narrative: 64yo F for Left Knee Replacement Total, 08/31/24 PAT 07/30/[address] Albert Medically optimized PMFSH Active Problems Active Problems: All Active Problems Valgus deformity, not elsewhere classified, left knee (Acute) Localized osteoarthritis of left knee (Acute) COVID-19 (Acute) Obese (Acute) Daytime sleepiness (Acute) Witnessed episode of apnea (Acute) Snoring (Acute) Spondylosis of lumbosacral spine with radiculopathy (Acute) Transaminitis (Acute) Past Medical History Medical History GERD (gastroesophageal reflux disease) Depression Asthma Osteoarthritis Hypothyroid Transaminitis HTN (hypertension) Diabetes Family History Family History Mother HTN (hypertension) Diabetes High cholesterol Father Heart disease Family history of problems with anesthesia: No Surgical History Surgical History H/O colonoscopy Hx of tubal ligation History of Problems with Anesthesia: No Social History Social History Household Members: Significant Other Household Members Other:: jenifer agarwal Are you a primary caretaker resort to a significant other at home: No Do you presently have visiting nurse or other home services: Yes ([employer]-jenifer Agarwal) Alcohol intake: never Patient Tobacco Use Status: Former Tobacco user Tobacco use type: Cigarette Years Smoked: 10 Use of substances other than those prescribed or required for medical reasons: No Have you been hit, kicked, punched, or otherwise hurt by someone within the past year? If so, by whom?: No Spiritual Healthcare Practices: none Sabianist Healthcare Practices: Faith Cultural Healthcare Practices: none Are you DNR?: No Advance Directives: No (son is primary contact) Advance Directives Information Provided: Yes (as above noted) Advance Directives on File: No Recently lost weight without trying: No Eating poorly because of decreased appetite: No Nutrition Risks: No Nutritional Risk Patient : No FDLMP: n/a Poor oral hygiene: No Meds Allergies Allergy/AdvReac Type Severity Reaction Status Date / Time egg Allergy Intermediate Vomiting Verified 08/24/24 08:54 Home Medications ?Medication ?Instructions ?Recorded ?Confirmed ?Last Taken ?Type albuterol sulfate 90 mcg/actuation 1 - 2 puff PO Q4-6H PRN shortness 10/10/21 08/24/24 Unknown History aerosol inhaler (ProAir HFA) of breath or wheeze oxycodone 10 mg tablet 10 mg PO QID 10/10/21 08/24/24 Unknown History lovastatin 40 mg tablet 40 mg PO DAILY 12/04/21 08/24/24 Unknown History metformin 500 mg tablet 500 mg PO BID 01/29/22 08/24/24 Unknown History gabapentin 600 mg tablet 600 mg PO TID 09/30/23 08/24/24 Unknown History levothyroxine 125 mcg tablet 125 mcg PO QAM 09/30/23 08/24/24 08/31/24 History paroxetine HCl 40 mg tablet (Paxil) 40 mg PO DAILY 09/30/23 08/24/24 Unknown History trazodone 50 mg tablet 50 mg PO BEDTIME PRN Insomnia 09/30/23 08/24/24 Unknown History fluticasone furoate 100 1 inh inhalation DAILY 03/16/24 08/24/24 Unknown History mcg/actuation blister powder for inhalation (Arnuity Ellipta) amlodipine 2.5 mg tablet 2.5 mg PO DAILY 07/30/24 08/24/24 08/31/24 History lisinopril 20 1 tab PO DAILY 07/30/24 08/24/24 Unknown History mg-hydrochlorothiazide 25 mg tablet omeprazole 40 mg capsule,delayed 40 mg PO DAILY PRN Acid Reflux 07/30/24 08/24/24 Unknown History release Exam Height,Weight and Vital Signs: Height 5 ft 5 in Weight 96.615 kg Last Vital Signs Pulse 69 07/30/24 12:28 Resp 20 07/30/24 12:28 BP 121/56 L 07/30/24 12:28 Pulse Ox 98 07/30/24 12:28 O2 Del Method Room Air 07/30/24 12:28 Pertinent Lab Results Pertinent Lab Results: Laboratory Tests 07/30/24 07/30/24 12:45 13:10 Nasal Screen MRSA (PCR) NEGATIVE Nasal S. aureus Screen NEGATIVE Nasal MRSA/S.aureus Interp SEE NOTE Blood Type A Positive Antibody Screen NEGATIVE CBC and BMP 07/29/2024 from outside facility [place], but H&H mild low Narrative Narrative: EKG 07/29/24 NSR @ 72 Assessment and Plan Assessment Anesthesia Assessment: Chart Reviewed Final Anesthetic Review Family History of Problems with Anesthesia: No History of Problems with Anesthesia: No Documented by User: Sasha Stoddard MD 08/31/24 10:33 [facility] Past Medical History Medical History GERD (gastroesophageal reflux disease) Depression Asthma Osteoarthritis Hypothyroid Transaminitis HTN (hypertension) Diabetes Family History Family History Mother HTN (hypertension) Diabetes High cholesterol Father Heart disease Surgical History Surgical History H/O colonoscopy Hx of tubal ligation Social History Social History Household Members: Significant Other Household Members Other:: jenifer agarwal Are you a primary caretaker resort to a significant other at home: No Do you presently have visiting nurse or other home services: Yes ([employer]-jenifer Agarwal) Alcohol intake: never Patient Tobacco Use Status: Former Tobacco user Tobacco use type: Cigarette Years Smoked: 10 Use of substances other than those prescribed or required for medical reasons: No Have you been hit, kicked, punched, or otherwise hurt by someone within the past year? If so, by whom?: No Spiritual Healthcare Practices: none Sabianist Healthcare Practices: Faith Cultural Healthcare Practices: none Are you DNR?: No Advance Directives: No (son is primary contact) Advance Directives Information Provided: Yes (as above noted) Advance Directives on File: No Recently lost weight without trying: No Eating poorly because of decreased appetite: No Nutrition Risks: No Nutritional Risk Patient : No FDLMP: n/a Poor oral hygiene: No Meds Allergies Allergy/AdvReac Type Severity Reaction Status Date / Time egg Allergy Intermediate Vomiting Verified 08/24/24 08:54 Home Medications ?Medication ?Instructions ?Recorded ?Confirmed ?Last Taken ?Type albuterol sulfate 90 mcg/actuation 1 - 2 puff PO Q4-6H PRN shortness 10/10/21 08/24/24 Unknown History aerosol inhaler (ProAir HFA) of breath or wheeze oxycodone 10 mg tablet 10 mg PO QID 10/10/21 08/24/24 Unknown History lovastatin 40 mg tablet 40 mg PO DAILY 12/04/21 08/24/24 Unknown History metformin 500 mg tablet 500 mg PO BID 01/29/22 08/24/24 Unknown History gabapentin 600 mg tablet 600 mg PO TID 09/30/23 08/24/24 Unknown History levothyroxine 125 mcg tablet 125 mcg PO QAM 09/30/23 08/24/24 08/31/24 History paroxetine HCl 40 mg tablet (Paxil) 40 mg PO DAILY 09/30/23 08/24/24 Unknown History trazodone 50 mg tablet 50 mg PO BEDTIME PRN Insomnia 09/30/23 08/24/24 Unknown History fluticasone furoate 100 1 inh inhalation DAILY 03/16/24 08/24/24 Unknown History mcg/actuation blister powder for inhalation (Arnuity Ellipta) amlodipine 2.5 mg tablet 2.5 mg PO DAILY 07/30/24 08/24/24 08/31/24 History lisinopril 20 1 tab PO DAILY 07/30/24 08/24/24 Unknown History mg-hydrochlorothiazide 25 mg tablet omeprazole 40 mg capsule,delayed 40 mg PO DAILY PRN Acid Reflux 07/30/24 08/24/24 Unknown History release Exam Airway Mallampati Class: II TM Dist: >3cm Neck ROM: Full Heart: rrr Lungs: cta Assessment and Plan Assessment Anesthesia Assessment: Anesthesia Plan Discussed Final Anesthetic Review NPO: Yes ASA Class: III Final Preanesthetic Review: No Changes in Pt Med Stat (took amlodepine and levithyroxine), Meds/Allgs Chart Reviewed, Consent Obtained/Reviewed and Anes Risks/Benef Reviewed Patient Risk: Intermediate Procedure Risk: Intermediate Anesthetic Plan Anesthetic Plan: MAC:, Spinal and Regional Block Disposition: Standard PACU
[2024-08-24 11:44] LABS: Appearance Urine Clear; Color Urine Yellow; Glucose Urine UA Negative (Negative); Leukocyte Esterase Urine Moderate (2+) (Negative); Nitrite Urine Negative (Negative); UMIC TRIGGER UACC YES; Urine Blood Negative (Negative); Urine Ketones Negative (Negative); Urine Protein Negative (Neg-Trace)
[2024-08-24 11:51] LABS: Bacteria Urine 1+ (None Seen); Hyaline Casts Urine 0-2 /LPF (0-2); RBC Urine 0-2 /HPF (0-2); UACC Culture Trigger YES
[2024-08-31] VITALS (25 sets, daily range): BP systolic 120–175; BP diastolic 61–94; PULSE 68–87; RESP 14–20; TEMP 36–36.6; O2SAT 94–99; BMI 34.8
--- NOTE | ~2024-08-31 | XR_ITS ---
EXAMINATION: XR KNEE, LEFT CLINICAL INFORMATION: LT TKA COMPARISON: 08/24/2024 TECHNIQUE: 3 views of the left knee. FINDINGS: Status post total knee arthroplasty. Hardware appears intact. Joint effusion with soft tissue swelling, anterior surgical jose and lucencies characteristic of postoperative air. There is an ossific fragment along the inferior posterior aspect of the patella, possibly postoperative change versus fracture. Tiny ring-shaped radiodensities inferior to patella of uncertain significance. XR/XR knee LT 2V IMPRESSION: 1. Status post total knee arthroplasty. Hardware appears intact. 2. Ossific fragment along the inferior posterior aspect of the patella, possibly postoperative change versus fracture. This study was presented today September 01, 2024 for interpretation. Stat results provided at this time as requested by referring provider. Electronically signed by: Patito Peter MD 09/01/2024 08:01 AM ABDOULAYE YOUNG
--- NOTE | 2024-08-31 09:43 | MHC.SHP ---
Pre-Procedural Eval Section A - 24 Hr Update-Section A only Date of Service: 08/31/24 The patient is an INPATIENT: No Changes since office visit: No Cold of Flu in the past 2 weeks, No New Medical Problems, No Changes in Medication and No Patient answered all questions The patient has been examined within 24 hours of the surgical procedure. The History & Physical has been completed within 30 days and I have reviewed it.: Yes Section B - Complete if H&P > 30 days Chief Complaint: LT TKA Allergies: Allergies Allergy/AdvReac Type Severity Reaction Status Date / Time egg Allergy Intermediate Vomiting Verified 08/24/24 08:54 Plan I have reviewed the history and physical and performed a pertinent physical examination on my patient. No changes have occurred unless specified. Time Spent With Patient Time: Total time managing care of this patient today ____ minutes.
[2024-08-31 09:47] LABS: Hematocrit 36.2 % (37.0-47.0); Hemoglobin 12.2 g/dl (12.0-16.0)
[2024-08-31 10:25] LABS: Glucose, Whole Blood 152 mg/dL (60-115)
[2024-08-31] MEDS: Lactated Ringers 1,000 ML 100 ML IVCONT ×2 (10:30→16:53)
--- NOTE | 2024-08-31 12:34 | PM.DS ---
DS: Providers Provider Date of Service: 09/02/24 Primary care physician: Fausto Bangura MD DS: Summary Hospital Course Hospital Course: The patient underwent a successful right total knee arthroplasty, they were transferred to PACU and then to the floor to recover. During their stay, their vitals were stable, afebrile at 97.1. Labs were unremarkable, H/H 11.3/32.9. POD 1 they were started on Aspirin 325mg po bid for DVT ppx, they also received Physical Therapy services twice a day. Prior to discharge, their dressing was clean dry and intact, and the plan was to be discharged home with VNA services. Time Attestation Discharge Coordination Time (in mins): 30 Quality: Safe Use of Opioids Does Pt have an Active Cancer Diagnosis on the Problem List?: No Quality: Stroke Does the patient have a stroke diagnosis?: No Physical Exam Vital Signs: Vital Signs: Last Vital Signs Temp 97.9 F 08/31/24 10:07 Pulse 80 08/31/24 10:07 Resp 16 08/31/24 10:07 BP 128/78 08/31/24 10:07 Pulse Ox 98 08/31/24 10:07 O2 Del Method Room Air 08/31/24 10:07 BMI result Body Mass Index 34.8 Const: General: cooperative, healthy appearing and no acute distress Resp: Effort & Inspection: normal respiratory effort and able to speak in complete sentences Cardio: Rate: regular rate Peripheral pulses: Peripheral pulses 2+ throughout GI: Palpation (GI): Soft to palpation Skin: Lesions: no lesions Rashes: no rashes Extrem: Other: right knee dressing is c/d/i. Able to dorsi/plantar flex. Calf is supple and nontender. Sensation intact. Pedal pulse intact. DS: Data Data Completed and Pending Pending studies at discharge: Pending at discharge 08/31/24 11:44 Surgical [PTH] Routine Labs on day of discharge: Laboratory Results - last 24 hr 08/31/24 08/31/24 09:39 10:21 Hgb 12.2 Hct 36.2 L POC Glucose 152 H Discharge Plan Discharge Patient Disposition: Home, Self-Care Referrals: Rashida Mccormick PA-C [Physician Locomotive Repairer [employer]el] - 09/16/24 12:45 pm Discharge Medications: New celecoxib 200 mg Capsule 200 mg PO BID 30 Days Qty: 60 0RF acetaminophen 325 mg Tablet 325 mg PO Q4H PRN (Reason: Pain, Moderate(Pain Scale 4-6)) 30 Days Qty: 240 0RF enoxaparin 40 mg/0.4 mL Syringe 40 mg subcut Q24H 42 Days Qty: 16.8 0RF oxycodone 10 mg tablet 10 mg PO Q4H PRN (Reason: Pain, Moderate(Pain Scale 4-6)) 7 Days Qty: 42 0RF Rx Instructions: Partial Fill upon patient request. Continued amlodipine 2.5 mg tablet 2.5 mg PO DAILY lisinopril-hydrochlorothiazide 20-25 mg tablet 1 tab PO DAILY omeprazole 40 mg capsule,delayed release(DR/EC) 40 mg PO DAILY@0630 ammonium lactate 12 % cream 1 appl topical BID PRN (Reason: Rash) estradiol 0.01 % (0.1 mg/gram) cream 1 g vaginal MO albuterol sulfate 90 mcg/actuation HFA aerosol inhaler 1 - 2 puff inhalation Q4-6H PRN (Reason: Shortness Of Breath Or Wheezing) lovastatin 40 mg tablet 40 mg PO DAILY metformin 500 mg tablet 1,000 mg PO BIDWM oxycodone 10 mg tablet 10 mg PO QID PRN (Reason: Pain (Scale Score 4-6)) gabapentin 600 mg tablet 600 mg PO BID paroxetine HCl [Paxil] 40 mg tablet 40 mg PO DAILY levothyroxine 125 mcg tablet 125 mcg PO QAM trazodone 50 mg tablet 100 mg PO BEDTIME PRN (Reason: Insomnia) polyethylene glycol 3350 [Miralax] 17 gram/dose powder 17 g PO DAILY Qty: 510 2RF (DME) walker Misc See Rx Instructions .MEDSUPPLY Qty: 1 0RF Rx Instructions: Folding Front wheeled walker Arnuity Ellipta 100 mcg/actuation blister with device 1 inh inhalation DAILY sennosides [Natural Senna Laxative] 8.6 mg tablet 17.2 mg PO BEDTIME Qty: 180 3RF docusate sodium 100 mg capsule 200 mg PO BEDTIME Qty: 180 3RF Discharge Orders: Discharge Order (Routine); Ordered 09/02/24 Ordered By: Cherelle River Diet: Advance to usual diet Activity on Discharge: Use cane or walker Activity Restrictions/Additional Instructions: Physical Therapy for ROM 0-120, quad strength, gait training. Use walker for ambulation Limit stair climbing, No shower, No tub bath, No driving Continue anticoagulant x 6 weeks Keep Aquacel dressing clean, dry and intact. Follow up with orthopedics in 2 weeks Print Language: Mohawk
--- NOTE | 2024-08-31 12:35 | P.F2F_ITS ---
Service Date Service Date: 08/31/24 Encounter Date of encounter: 09/01/24 Reasons for Services Signs and symptoms assessed: s/p RTKA Pt. is considered homebound due to recent surgery. Unable to drive, poor balance, poor gait mechanics. Reason for physical therapy: home safety and mobility, therapeutic exercises, restore joint function, gait/transfer training and ADL training Homebound: Leaving the home is medically contraindicated at this time without the asist of a device and/or another person due th the listed conditions above and below. Reason homebound: unsteady gait / fall risk, leg weakness, pain with ambulation, pain with transfers, poor balance / fall risk and unable to drive Certification: Based on the above findings, I certify that this patient is confined to the home and needs intermittent long-term care, physical therapy and/or speech th erapy, or continues to need occupational therapy. The patient is under my care, and I have initiated the establishment of the plan of care. The patient will be followed by a physician who will periodically review the plan of care. Time Spent With Patient Time: Total time managing care of this patient today ____ minutes.
--- NOTE | 2024-08-31 13:06 | P.OP_ITS ---
Operative Note Operative Note Date of Service: 08/31/24 Narrative: Date of Service: 08/31/24 Pre-op diagnosis: Left Knee OA Post-op diagnosis: same Procedure: Left TKA Implants: Triathlon cemented posterior stabilzed 10/31/12 Surgeon: Mike Garcia MD Anesthesia: GETA Was an Medical Sales Associate used for this Procedure?: Yes Medical Sales Associate: Rashida Mccormick Estimated blood loss (mL): 50 Tourniquet time (min): 83 IV fluids (mL): 1,000 Pathology: other Condition: stable Disposition: PACU Procedure in detail: The patient was brought to the operating room and prepped and draped in standard sterile fashion. A time-out was called to identify proper site proper procedure proper surgeon and IV antibiotics were administered. 1 g of IV tranexamic acid was administered. I began by making a midline incision to the retinaculum and performed a medial parapatellar arthrotomy. The patella was translated laterally and the knee was flexed up. brad anterior and medial compartment were normal. I performed a small medial peel and resected the infrapatellar fat pad. Arlington's line was then used to drill my intramedullary femoral guide and my distal femur cut of 10mm was made in 5 degrees of valgus while protecting the soft tissues. I then measured a # 2 femur and placed my cutting guide and made my anterior posterior and chamfer cuts protecting the soft tissues at all times. I then made my box but removing the PCL. Once I was satisfied with my cuts I turned my attention to the tibia. I removed the meniscus medially and laterally. There was a focal area of depressed and eburnated bone in the anterior half of the lateral tibial plateua. This bone was necrotic. I placed the external cutting in line with the tibial crest and the third ray, I made my distal tibial cut in 0 deg slope of while protecting the posterior soft tissues at all times. An extension block was used to confirm appropriate amount of bony resection. I then sized a # 2 tibia and once I was satisfied that there was complete tibial coverage I placed my trial and with the trial femur in place took the knee through range of motion. The lateral capsule was tight and so I pie crusted the lateral capsule with a 15 blade and then releasee it with a andrade elevator. I re-trialed with a 13 and was satisfied with the extension and flexion as well as the balance at 0, 30 and 90 degrees. I then turned my attention to the patella where I removed 1 cm from the undersurface of the patella and then trialed a 2a patellar button. Again the knee was taken through range of motion I was satisfied with the tracking. I then prepared the tibia with a drill and punch. A femoral bone plug was placed and the knee was irrigated copiously. I then cemented the patella, tibia and femur in standard fashion. Axial compression adn a clamp were used while the cement dried. Once the cement was hard on the back table all excess cement was removed and I trialed different inserts until I selected a #13TS insert. The final insert was placed and local TXA was administered. The knee was then closed with a running Quill suture, a 3 0 Vicryl and jose on the skin. Patient was then placed in sterile dressing and brought to recovery room in stable condition there were no known complications.
[2024-08-31] MEDS: HYDROmorphone HCl 0.5 MG/0.5 ML SYRINGE 0.25 MG IVPUSH ×5 (14:53→23:39)
--- NOTE | 2024-08-31 16:22 | P.CONHOSP_ITS ---
History of Present Illness Data of Consult Service Date: 08/31/24 Primary Care Provider: Fausto Bangura MD HPI 64-year-old woman with a history of hypertension, diabetes mellitus type 2, osteoarthritis admitted by Orthopedic surgeon and is status post left total knee arthroplasty. Surgery was unremarkable. The patient denies any nausea or vomiting. She just report a moderate amount pain. She is currently hemodynamically stable. Review of Systems 2 Review of Systems: Denies any recent fever chills or decrease in appetite respiratory denies any shortness of breath or cough cardiovascular denies chest pain gastrointestinal denies any dysphagia abdominal pain nausea vomiting or diarrhea genitourinary denies any dysuria frequency or hematuria musculoskeletal see HPI neuropsych denies any weakness or seizures all other systems reviewed are negative [facility] Medical History GERD (gastroesophageal reflux disease) Depression Asthma Osteoarthritis Hypothyroid Transaminitis HTN (hypertension) Diabetes Family History Mother HTN (hypertension) Diabetes High cholesterol Father Heart disease Surgical History H/O colonoscopy Hx of tubal ligation Social History Household Members: Children Household Members Other:: jenifer fong Are you a primary director day care center to a significant other at home: No Do you presently have visiting nurse or other home services: Yes (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 If so, by whom?: No Do you feel safe in your current relationship?: No Current Relationship Is there a partner from a previous relationship who is making you feel unsafe now?: No Are you made to feel afraid or neglected: No Spiritual Healthcare Practices: none Oriental Orthodox Healthcare Practices: Scientologist Cultural Healthcare Practices: none Are you DNR?: No Advance Directives: No (son is primary contact) Advance Directives Information Provided: Yes (as above noted) Advance Directives on File: No Do you have a plan to hurt others: No Plan Recently lost weight without trying: No How much weight loss: Unsure Eating poorly because of decreased appetite: No Nutrition screen score: 2 Nutrition Risks: No Nutritional Risk Patient : No FDLMP: n/a : No Poor oral hygiene: No Meds Allergies Allergy/AdvReac Type Severity Reaction Status Date / Time egg Allergy Intermediate Vomiting Verified 08/24/24 08:54 Active Medications: Current Medications Albuterol Sulfate (Albuterol Sulfate 90 Mcg 8 Gm Inhaler) 2 puff INHALE Q4H PRN PRN Reason: shortness of breath or wheeze Celecoxib (Celecoxib 200 Mg Capsule) 200 mg PO BID VIKI Docusate Sodium (Docusate Sodium 100 Mg Capsule) 100 mg PO BID VIKI Enoxaparin Sodium (Enoxaparin Sodium 40 Mg/0.4 Ml Syringe) 40 mg SUBCUT Q24H VIKI Fluticasone Propionate (Fluticasone Propionate 100 Mcg Blst.W.Dev) 1 puff INHALE RBID VIKI Gabapentin (Gabapentin 600 Mg Tablet) 600 mg PO TID VIKI Hydromorphone HCl (Hydromorphone Hcl 0.5 Mg/0.5 Ml Syringe) 0.25 mg IVPUSH Q4H PRN; Protocol PRN Reason: Pain, Severe (Pain Scale 7-10) Lactated Ringer's (Lr) 1,000 mls @ 100 mls/hr IVCONT .Q10H VIKI Stop: 09/01/24 10:28 Cefazolin Sodium/Dextrose (Ancef) 2 gm in 50 mls @ 100 mls/hr IV POSTOP ONE Stop: 08/31/24 16:37 Acetaminophen (Ofirmev) 1,000 mg in 100 mls @ 400 mls/hr IV Q6H VIKI Stop: 09/01/24 10:22 Levothyroxine Sodium (Levothyroxine Sodium 125 Mcg Tablet) 125 mcg PO DAILY@0600 [facility] Omeprazole (Omeprazole 40 Mg Capsule.Dr) 40 mg PO DAILY PRN PRN Reason: Acid Reflux Ondansetron HCl (Ondansetron Hcl 4 Mg/2 Ml Vial) 4 mg IVPUSH Q8H PRN PRN Reason: Nausea and Vomiting Oxycodone HCl (Oxycodone Hcl Immed Release 5 Mg Tablet) 10 mg PO Q4H PRN PRN Reason: Pain, Moderate(Pain Scale 4-6) Oxycodone HCl (Oxycodone Hcl Er 10 Mg Tab.Er.12h) 10 mg PO BID VIKI Paroxetine HCl (Paroxetine Hcl 40 Mg Tablet) 40 mg PO DAILY VIKI Sodium Chloride (0.9 % Sodium Chloride Flush 3 Ml Syringe) 3 ml IVFLUSH QSHIFT VIKI Trazodone HCl (Trazodone Hcl 50 Mg Tablet) 50 mg PO BEDTIME PRN PRN Reason: Insomnia Home Medications ?Medication ?Instructions ?Recorded ?Confirmed ?Last Taken ?Type oxycodone 10 mg tablet 10 mg PO QID PRN Pain (Scale Score 10/10/21 08/24/24 Unknown History 4-6) lovastatin 40 mg tablet 40 mg PO DAILY 12/04/21 08/24/24 Unknown History metformin 500 mg tablet 1,000 mg PO BIDWM 01/29/22 08/31/24 Unknown History gabapentin 600 mg tablet 600 mg PO BID 09/30/23 08/31/24 Unknown History levothyroxine 125 mcg tablet 125 mcg PO QAM 09/30/23 08/24/24 08/31/24 History paroxetine HCl 40 mg tablet (Paxil) 40 mg PO DAILY 09/30/23 08/24/24 Unknown History trazodone 50 mg tablet 100 mg PO BEDTIME PRN Insomnia 09/30/23 08/31/24 Unknown History fluticasone furoate 100 1 inh inhalation DAILY 03/16/24 08/24/24 Unknown History mcg/actuation blister powder for inhalation (Arnuity Ellipta) amlodipine 2.5 mg tablet 2.5 mg PO DAILY 07/30/24 08/24/24 08/31/24 History lisinopril 20 1 tab PO DAILY 07/30/24 08/24/24 Unknown History mg-hydrochlorothiazide 25 mg tablet omeprazole 40 mg capsule,delayed 40 mg PO DAILY@0630 07/30/24 08/31/24 Unknown History release albuterol sulfate 90 mcg/actuation 1 - 2 puff inhalation Q4-6H PRN 08/31/24 08/31/24 Unknown History aerosol inhaler Shortness Of Breath Or Wheezing ammonium lactate 12 % topical cream 1 appl topical BID PRN Rash 08/31/24 08/31/24 Unknown History estradiol 0.01% (0.1 mg/gram) 1 g vaginal MO 08/31/24 08/31/24 08/30/24 History vaginal cream Physical Exam 2 Vital Signs and Narrative: Vital Signs: Last Vital Signs Temp 97.1 F 08/31/24 16:04 Pulse 73 08/31/24 16:04 Resp 20 08/31/24 16:04 BP 151/84 H 08/31/24 16:04 Pulse Ox 94 08/31/24 16:04 O2 Del Method Room Air 08/31/24 16:04 O2 Flow Rate 2 08/31/24 13:35 BMI result Body Mass Index 34.8 Appearing in no acute distress head is normocephalic atraumatic eyes pupils are PERRLA sclera is anicteric mouth throat mucous membranes are intact and moist neck is supple no lymphadenopathy, no JVD noted lung sounds are clear to auscultation heart regular rate rhythm, clear S1, S2 positive bowel sounds, abdomen is soft, nontender neuro patient is alert x3, no focal deficits Surgical dressing to left knee intact, surgical incision not visualized Results Labs 09/01/24 05:29 09/01/24 05:29 Labs: Laboratory Results - last 24 hr 08/31/24 10:21 POC Glucose 152 H Assessment and Plan (1) Transaminitis: Status: Acute Plan 64-year-old woman status post left total knee arthroplasty Left total knee arthroplasty Management as per surgical team Pain management Diabetes mellitus type 2 Sliding scale, ADA diet Hypertension Stable blood pressure Continue amlodipine Obesity class 1. BMI 34.8 Discussed importance of weight management as this may be contributing to worsening of other comorbidities Hypothyroidism Continue levothyroxine Hyperlipidemia Hold statin for now GERD Continue PPI Asthma No exacerbation Inhalers as needed Mental health Continue home medications DVT prophylaxis as per surgical team Full code Medical consultation complete. Will sign off
--- NOTE | 2024-08-31 16:37 | PHA.MEDREC ---
Pharmacy Consult ? Medication Reconciliation Pharmacy has reviewed the medication reconciliation done by nursing. Spoke to patient to confirm med list. Patient states she no longer takes Vitamin C 500 mg. Patient confirm she uses Estradiol 1 Gm Vag cream every Mondays even though she should be using twice a week. Patient states she take Trazadone 100 mg at bedtime.
[2024-08-31 16:38] LABS: Glucose, Whole Blood 177 mg/dL (60-115)
[2024-08-31] MEDS: 0.9 % Sodium Chloride Flush 3 ML SYRINGE IVFLUSH (16:53)
[2024-08-31] MEDS: Gabapentin 600 MG TABLET PO ×2 (16:53→21:49)
[2024-08-31] MEDS: oxyCODONE HCl Immed Release 5 MG TABLET 10 MG PO (16:57)
[2024-08-31] MEDS: ceFAZolin Sodium/Dextrose,Iso 2 GM/50 ML PIGGYBACK IV (17:06)
[2024-08-31] MEDS: Acetaminophen 1,000 MG/100 ML PIGGYBACK 400 MG IV (18:05)
[2024-08-31 20:31] LABS: Glucose, Whole Blood 262 mg/dL (60-115)
[2024-08-31] MEDS: Fluticasone Propionate 100 MCG BLST.W.DEV 1 PUFF INHALE (20:55)
[2024-08-31] MEDS: Sennosides 8.6 MG TABLET 17.2 MG PO (21:48)
[2024-08-31] MEDS: oxyCODONE HCl ER 10 MG TAB.ER.12H PO (21:48)
[2024-08-31] MEDS: Docusate Sodium 100 MG CAPSULE PO (21:49)
--- NOTE | 2024-08-31 21:52 | PC.NURSE ---
patients bedtime POC was 262 but she is declining insulin
[2024-09-01] VITALS (9 sets, daily range): BP systolic 133–177; BP diastolic 63–91; PULSE 81–104; RESP 12–20; TEMP 36.1–36.6; O2SAT 93–97
[2024-09-01] MEDS: Acetaminophen 1,000 MG/100 ML PIGGYBACK 400 MG IV ×3 (01:01→12:32)
[2024-09-01] MEDS: oxyCODONE HCl Immed Release 5 MG TABLET 10 MG PO ×4 (04:09→17:18)
[2024-09-01] MEDS: Levothyroxine Sodium 125 MCG TABLET PO (06:17)
[2024-09-01 06:35] LABS: MANUAL DIFF FLAG NO
[2024-09-01 06:49] LABS: Basophils Percent Auto 0.2 % (0-2); Hematocrit 35.9 % (37.0-47.0); Hemoglobin 12.2 g/dl (12.0-16.0); Imm Gran Abs Auto 0.08 X10*3/uL (0.00-0.03); Imm Gran Pct Auto 0.6 % (0.0-0.4); Lymphocytes Absolute Auto 2.1 X10*3/uL (1.2-4.9); Lymphocytes Percent Auto 14.8 % (20-40); Mean Corpuscular Hemoglobin 29.5 pg (27.0-33.0); Mean Corpuscular Volume 86.9 fL (80.0-98.0); Mean Platelet Volume 9.5 fL (9.4-12.3); Monocytes Absolute Auto 1.2 X10*3/uL (0.1-1.2); Monocytes Percent Auto 8.1 % (2-11); Neutrophils Absolute Auto 10.9 x10*3/uL (2.0-8.3); Neutrophils Percent Auto 76.3 % (45-73); Platelet Count 325 X10*3/uL (160-400); Red Blood Count 4.13 X10*6/uL (4.20-5.50); Red Cell Distribution Width 13.1 % (11.0-16.0); White Blood Count 14.3 X10*3/uL (4.8-10.8)
[2024-09-01 07:01] LABS: Anion Gap 13 (12-20); Blood Urea Nitrogen 11 mg/dL (9-16); Calcium 9.4 mg/dL (8.4-10.2); Carbon Dioxide 28 mmol/L (22-29); Chloride 100 mmol/L (96-108); Estimated Glomerular Filt Rate > 60; Glucose Fasting 153 mg/dL (60-99); Potassium 4.1 mmol/L (3.3-5.1); Sodium 137 mmol/L (135-145)
[2024-09-01 07:27] LABS: Glucose, Whole Blood 156 mg/dL (60-115)
[2024-09-01] MEDS: oxyCODONE HCl ER 10 MG TAB.ER.12H PO ×2 (07:39→20:26)
[2024-09-01] MEDS: Docusate Sodium 100 MG CAPSULE PO ×2 (07:39→20:27)
[2024-09-01] MEDS: amLODIPine Besylate 2.5 MG TABLET PO (07:39)
[2024-09-01] MEDS: Gabapentin 600 MG TABLET PO ×3 (07:40→20:26)
[2024-09-01] MEDS: Celecoxib 200 MG CAPSULE PO ×2 (07:40→20:26)
[2024-09-01] MEDS: PARoxetine HCL 40 MG TABLET PO (07:40)
--- NOTE | 2024-09-01 07:52 | PM.PNORT ---
Subjective Subjective Date of Service: 09/01/24 Interval history: POD1 s/p LTKA Patient is resting in bed comfortably No overnight events Pain is reportedly poorly managed No additional complaints Physical Exam Vital Signs: Vital Signs: Last Vital Signs Temp 97.8 F 09/01/24 07:15 Pulse 93 09/01/24 07:15 Resp 16 09/01/24 07:15 BP 177/82 H 09/01/24 07:15 Pulse Ox 93 09/01/24 07:15 O2 Del Method Room Air 09/01/24 07:15 O2 Flow Rate 2 08/31/24 13:35 BMI result Body Mass Index 34.8 Const: General: cooperative, healthy appearing and no acute distress Resp: Effort & Inspection: normal respiratory effort and able to speak in complete sentences Cardio: Rate: regular rate Peripheral pulses: Peripheral pulses 2+ throughout GI: Palpation (GI): Soft to palpation Skin: Lesions: no lesions Rashes: no rashes Extrem: Other: left knee dressing is c/d/i. Able to dorsi/plantar flex. Calf is supple and nontender. Sensation intact. Pedal pulse intact. Procedures Date of Service Date of Service: 09/01/24 Progress Note: A&P Assessment and plan (1) Status post total knee replacement, left: Status: Acute Plan Continue pain mgmnt Begin Lovenox for dvt ppx begin PT for LTKA Dispo planning-Pending PT eval, pain mgmnt Patient needs ongoing admission for pain management. Time Spent With Patient Time: Total time managing care of this patient today ____ minutes. Quality Stroke Does the patient have a stroke diagnosis?: No VTE Prior VTE?: No VTE Risk Level:: Medical - moderate - high VTE Device Contraindication: N/A - Device Ordered VTE Drug Contraindication: N/A - Med Ordered
[2024-09-01] MEDS: Fluticasone Propionate 100 MCG BLST.W.DEV 1 PUFF INHALE ×2 (07:57→20:13)
--- NOTE | 2024-09-01 09:38 | HO.POSTANES ---
Post Anesthesia Evaluation Post Anesthesia Evaluation Date of Service: 09/01/24 Vital Signs: Vital Signs Temp Pulse Resp BP Pulse Ox O2 Del Method 09/01/24 07:58 93 16 09/01/24 07:15 97.8 F 93 16 177/82 H 93 Room Air 09/01/24 03:30 97.0 F 81 16 154/71 H 95 Room Air 08/31/24 23:30 96.8 F 87 16 148/67 H 94 Room Air Anesthesia: Spinal Mental Status: Awake Pain Control: Satisfactory Nausea/Vomiting: None Hydration: Adequate Anesthesia-Related Issues: No Anes. Related Issues
[2024-09-01] MEDS: lisinopriL 20 MG TABLET PO (10:24)
--- NOTE | 2024-09-01 10:46 | MHC.CM.PN ---
PT LIVES WITH SON WHO IS ALSO HER ANIMAL CARETAKER PT HAS OWN RIDE HOME DC PLAN HOME WITH FAMILY AND A VNA
[2024-09-01] MEDS: HYDROmorphone HCl 0.5 MG/0.5 ML SYRINGE 0.25 MG IVPUSH (11:05)
[2024-09-01 11:55] LABS: Glucose, Whole Blood 210 mg/dL (60-115)
[2024-09-01] MEDS: Enoxaparin Sodium 40 MG/0.4 ML SYRINGE SUBCUT (12:32)
[2024-09-01 16:16] LABS: Glucose, Whole Blood 163 mg/dL (60-115)
[2024-09-01 19:30] LABS: Glucose, Whole Blood 201 mg/dL (60-115)
[2024-09-01] MEDS: Sennosides 8.6 MG TABLET 17.2 MG PO (20:27)
[2024-09-01] MEDS: 0.9 % Sodium Chloride Flush 3 ML SYRINGE IVFLUSH (20:27)
[2024-09-02 03:11] VITALS: BP 160/69; PULSE 92; RESP 16; TEMP 36.3; O2SAT 93
[2024-09-02] MEDS: Levothyroxine Sodium 125 MCG TABLET PO (06:08)
[2024-09-02 07:13] VITALS: BP 140/68; PULSE 95; RESP 18; TEMP 36.2; O2SAT 93
[2024-09-02 07:30] LABS: Glucose, Whole Blood 182 mg/dL (60-115)
[2024-09-02 07:38] LABS: MANUAL DIFF FLAG NO
[2024-09-02 07:58] LABS: Basophils Absolute Auto 0.1 X10*3/uL (0.0-0.2); Basophils Percent Auto 0.5 % (0-2); Eosinophils Absolute Auto 0.2 X10*3/uL (0.0-0.4); Eosinophils Percent Auto 1.6 % (0-4); Hematocrit 32.9 % (37.0-47.0); Hemoglobin 11.3 g/dl (12.0-16.0); Imm Gran Abs Auto 0.08 X10*3/uL (0.00-0.03); Imm Gran Pct Auto 0.6 % (0.0-0.4); Lymphocytes Absolute Auto 2.3 X10*3/uL (1.2-4.9); Lymphocytes Percent Auto 18.8 % (20-40); Mean Corpuscular HGB Conc 34.3 g/dl (31.0-35.0); Mean Corpuscular Hemoglobin 29.9 pg (27.0-33.0); Mean Platelet Volume 9.5 fL (9.4-12.3); Monocytes Absolute Auto 1.2 X10*3/uL (0.1-1.2); Neutrophils Absolute Auto 8.5 x10*3/uL (2.0-8.3); Neutrophils Percent Auto 68.5 % (45-73); Platelet Count 267 X10*3/uL (160-400); Red Blood Count 3.78 X10*6/uL (4.20-5.50); Red Cell Distribution Width 13.3 % (11.0-16.0); White Blood Count 12.4 X10*3/uL (4.8-10.8)
[2024-09-02 08:17] LABS: Anion Gap 12 (12-20); Blood Urea Nitrogen 7 mg/dL (9-16); Calcium 9.2 mg/dL (8.4-10.2); Carbon Dioxide 27 mmol/L (22-29); Chloride 100 mmol/L (96-108); Estimated Glomerular Filt Rate > 60; Glucose Fasting 172 mg/dL (60-99); Potassium 3.7 mmol/L (3.3-5.1); Sodium 135 mmol/L (135-145)
[2024-09-02] MEDS: Celecoxib 200 MG CAPSULE PO (09:24)
[2024-09-02] MEDS: Docusate Sodium 100 MG CAPSULE PO (09:24)
[2024-09-02 09:25] VITALS: BP 164/72
[2024-09-02] MEDS: 0.9 % Sodium Chloride Flush 3 ML SYRINGE IVFLUSH (09:25)
[2024-09-02] MEDS: amLODIPine Besylate 2.5 MG TABLET PO (09:25)
[2024-09-02] MEDS: PARoxetine HCL 40 MG TABLET PO ×2 (09:26)
[2024-09-02] MEDS: oxyCODONE HCl ER 10 MG TAB.ER.12H PO (09:26)
[2024-09-02] MEDS: Gabapentin 600 MG TABLET PO (09:26)
[2024-09-02] MEDS: lisinopriL 20 MG TABLET PO (09:27)
[2024-09-02] MEDS: oxyCODONE HCl Immed Release 5 MG TABLET 10 MG PO (09:39)
--- NOTE | 2024-09-02 10:10 | MHC.CM.PN ---
Addendum entered by Joslyn Gilbert 09/02/24 13:08: PT WILL ALSO HAVE SERVICES FROM [facility] Original Note: PT WILL DC HOME TODAY WITH [facility]UMPTION OF [employer] VIA PRIVATE TRANSPORT
== END 2024-09-02 11:45 | disposition home health service (06) ==
LOC: HO.SSS 12:33 → HO.S3 15:07
PROVIDERS: Orthopaedic Surgery; PCP Internal Medicine Geriatric Medicine; Visit Provider Physician Assistant
PROC: (CPT 27447; principal; 2024-08-31 10:50)
DX: M17.12 Unilateral primary osteoarthritis, left knee (principal); M25.562 Pain in left knee; R26.2 Difficulty in walking, not elsewhere classified; M54.30 Sciatica, unspecified side; M21.062 Valgus deformity, not elsewhere classified, left knee; G89.29 Other chronic pain; M54.50 Low back pain, unspecified; J45.40 Moderate persistent asthma, uncomplicated; I10 Essential (primary) hypertension; E11.9 Type 2 diabetes mellitus without complications; E78.5 Hyperlipidemia, unspecified; E03.9 Hypothyroidism, unspecified; R30.0 Dysuria; R74.01 Elevation of levels of liver transaminase levels; K21.9 Gastro-esophageal reflux disease without esophagitis; Z79.84 Long term (current) use of oral hypoglycemic drugs; Z79.51 Long term (current) use of inhaled steroids; Z79.899 Other long term (current) drug therapy; Z91.012 Allergy to eggs; Z87.891 Personal history of nicotine dependence
CPT/HCPCS: 27447; 36415; 73560; 80048; 81001; 82947; 85014; 85018; 85025; 86850; 86900; 86901; 87086; 87640; 87641; 88305; 88311; 94640; 97110; 97116; 97161; C1713; C1776; J0131; J0665; J0690; J1100; J1171; J1650; J2003; J2250; J2704; J7120

== ENCOUNTER → 2024-08-31 09:27 | Outpatient (BNV) | payer OTHER, SELFPAY | PROVIDERS: PCP Internal Medicine Geriatric Medicine; Visit Provider Orthopaedic Surgery | DX: Z47.1 Aftercare following joint replacement surgery (principal); Z96.651 Presence of right artificial knee joint | CPT/HCPCS: 27447; 99024; G0180 ==

== ENCOUNTER → 2024-08-31 09:27 | Outpatient (BNV) | payer OTHER, SELFPAY | PROVIDERS: PCP Internal Medicine Geriatric Medicine; Visit Provider Nurse Practitioner Acute Care | DX: R74.01 Elevation of levels of liver transaminase levels (principal) | CPT/HCPCS: 99203 ==

== ENCOUNTER 2024-09-09 17:56 | Outpatient (REF) | payer OTHER, SELFPAY ==
--- OUTSIDE RECORDS SUMMARY | 2024-09-09 17:58 | XMS_ITS | Continuity of Care Document ---
Author Organization [employer] Address [address] [place] [address] Care Team Providers Care Director Of Public Health Name Role Phone HIM [facility] OTHER NAME, KALEE Primary Care Provider [facility] OTHER Assessment Encounter Date Assessment Date Assessment LastModified by Organization Details LastModified Time 09/07/2024 09/07/2024 I provided real -time medical direction via phone for this encounter, and was available for additional phone based assistance as needed. I have reviewed and agree with the Assessment and Plan as documented by the Modeling Instructor. We discussed the diagnostic uncertainty of home visits and the risk associated with this. The patient given the opportunity to ask questions. Advised patient I do not know what is causing her dyspnea and although she is on enoxaparin-canno t rule out a PE. Also the upper lip numbness is concerning for neurologic event although she has no other symptoms. Advised the need for imaging, lab work which we cannot do in the home to rule out potentially life-threatening causes of her symptoms. 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 Risks of avoiding workup explained and she verbalized understanding of the risks. She said she would go to the emergency room if her symptoms worsened I also advised close follow-up with her PCP as soon as possible as well as her orthopedic surgeon. We reviewed the red flags and advised if develops CP/severe SOB/turning blue/uncontrolle d n/v/d or black/bloody emesis or stool/ AMS/ syncope/severe headache/visual or speech changes or focal new numbness or weakness/hi fever unresponsive to APAP to call 911- verbalized understanding of instruction [email or web address] Not available 09/07/2024 19:03:29 Plan of Treatment Reminders Order Date Submit Date Provider Last Modified By Organization Details Last Modified Time Details Appointments Urgent Care 2023 12:50P M Hayden Huggins MD Not available Not available Not available Lab culture, urine 2023 [place] [facility], [address], [place], [address], 09/08/2024 18:05:48 urinalysi s, dipstick 2023 024 [email or web address] [facility], [address] [place] [address], [phone], 09/07/2024 13:27:08 glucose, fingersti ck, blood 2023 024 [email or web address] [facility], [address] [place] [address], [phone], 09/07/2024 19:02:51 Referral None recorded. Procedures None recorded. Surgeries None recorded. Imaging electroca rdiogram 2023 024 [email or web address] [facility], [address] [place] [address], [phone], 09/07/2024 19:02:51 Medication Orders None recorded. Patient TargetsNo targets recorded. Patient InstructionsNo instructions recorded. Reason for Referral None Reported. Results Created Date Observation Date Name Description Value Unit Range Abnormal Flag Note LastModifiedBy Organization Detail LastModifiedTime 09/07/2009/07/2024 gluco se, finge rstic k, blood Blood Glucose: mg/dl 256 Not Available [facility] [address] [place] [address], [phone], 09/07/2024 13:28:28 09/07/20 24 09/07/2024 urina lysis , dipst ick Appearance clear Not Available [facility] [address] [place] [address], [phone], 09/07/2024 13:21:44 09/07/20 24 09/07/2024 urina lysis , dipst ick Color yellow Not Available [facility] [address] [place] [address], [phone], 09/07/2024 13:21:44 09/07/20 24 09/07/2024 alex espinoza am No observ ation record ed. [email or web address] [facility] [address] [place] [address], [phone], 09/07/2024 19:02:30 Result Notes None recorded. Procedures Surgical History None recorded. Imaging Results Imaging Date Name Status LastModified by Organization Details LastModified Time 09/07/2024 electrocardiogram completed [email or web address] [facility] [address] [place] [address], [phone], 09/07/2024 19:02:30 Procedure Notes None recorded. Medical Equipment None Reported. Allergies No known drug allergies Medications Name Sig Start Date Stop Date Status Note LastModified by Organization Details LastModified Time celecoxib 200 mg capsule TAKE 1 CAPSULE BY MOUTH TWICE A DAY FOR 30 DAYS active Not Available Not Available No t Available metformin 500 mg tablet TAKE 2 TABLETS BY MOUTH WITH BREAKFAST AND EVENING MEAL active Not Available Not Available No t Available acetaminophe n 325 mg tablet TAKE 1 TABLET BY MOUTH EVERY 4 HOURS NEEDED FOR PAIN FOR PAIN 4 TO 6 ON PAIN SCALE FOR 30 DAYS active Not Available Not Available No t Available gabapentin 600 mg tablet TAKE 1 TABLET BY MOUTH TWICE A DAY active Not Available Not Available No t Available albuterol sulfate 2.5 mg/3 mL (0.083 %) solution for nebulization INHALE 3 ML BY NEBULIZATIO N ROUTE EVERY 6 HOURS NEEDED active Not Available Not Available No t Available trazodone 50 mg tablet TAKE 2 TABLETS BY MOUTH AT BEDTIME NEEDED active Not Available Not Available No t Available senna 8.6 mg tablet TAKE 2 TABLETS BY MOUTH AT BEDTIME FOR CONSTIPATIO N active Not Available Not Available No t Available phenazopyrid ine 200 mg tablet TAKE 1 TAB BY MOUTH IF NEEDED IN THE MORNING, AT NOON, AND AT BEDTIME FOR BLADDER SPASMS FOR 4 DAYS active Not Available Not Available No t Available polyvinyl alcohol 1.4 % eye drops INSTILL 1 DROP IN EACH EYE THREE TIMES DAILY IN THE MORNING, AT NOON, AND AT BEDTIME NEEDED FOR DRY EYES active Not Available Not Available No t Available lovastatin 40 mg tablet TAKE 1 TABLET BY MOUTH EVERY DAY WITH EVENING MEAL active Not Available Not Available No t Available amlodipine 2.5 mg tablet TAKE 1 TABLET (2.5 MG) BY MOUTH ONCE PER DAY. active Not Available Not Available No t Available Vitamin C 500 mg chewable tablet CHEW 1 TABLET BY MOUTH TWICE A DAY FOR 30 DAYS active Not Available Not Available No t Available omeprazole 40 mg capsule,aminata yed release TAKE 1 CAPSULE BY MOUTH EVERY DAY active Not Available Not Available No t Available acetaminophe n 500 mg tablet PLEASE SEE ATTACHED FOR DETAILED DIRECTIONS active Not Available Not Available N ot Available cefadroxil 500 mg capsule TAKE 1 CAPSULE BY MOUTH 2 TIMES DAILY FOR 7 DAYS. active Not Available Not Available Not Available hydrocortiso ne-acetic acid 1 %-2 % ear drops ADMINISTER 3 DROPS INTO THE LEFT EAR 3 TIMES DAILY FOR 5 DAYS. active Not Available Not Available Not Available levothyroxin e 125 mcg tablet TAKE 1 TABLET BY MOUTH EVERY DAY BEFORE BREAKFAST active Not Available Not Available No t Available nitrofuranto in macrocrystal 100 mg capsule Take 1 capsule every 12 hours by oral route for 5 days. 2023 active Not Available Not Available Not Avai lable lidocaine 5 % topical patch APPLY 1 PATCH TOPICALLY ONCE PER DAY. REMOVE & DISCARD PATCH WITHIN 12 HOURS OR DIRECTED BY MD. active Not Available Not Available No t Available methenamine mandelate 1 gram tablet TAKE 1 TABLET BYMOUTH 2 TIMES A DAY FOR 30 DAYS. TAKE WITH 500 MG VITAMIN C active Not Available Not Available No t Available docusate sodium 100 mg capsule TAKE 2 CAPSULES BY MOUTH AT BEDTIME active Not Available Not Available No t Available lisinopril 20 mg-hydrochlo rothiazide 25 mg tablet TAKE 1 TABLET BY MOUTH EVERY DAY active Not Available Not Available No t Available hydroxyzine HCl 25 mg tablet TAKE 1 TABLET (25 MG) BY MOUTH IF NEEDED IN THE MORNING, AT NOON, AND AT BEDTIME FOR ITCHING. active Not Available Not Available No t Available ammonium lactate 12 % topical cream APPLY THIN LAYER TO PLANTAR SURFACE OF FEET DAILY active Not Available Not Available N ot Available lisinopril 5 mg tablet TAKE 1 TABLET BY MOUTH EVERY DAY active Not Available Not Available No t Available hydrochlorot hiazide 25 mg tablet TAKE 1 TABLET BY MOUTH EVERY DAY active Not Available Not Available No t Available lisinopril 10 mg-hydrochlo rothiazide 12.5 mg tablet TAKE 1 TABLET BY MOUTH EVERY DAY active Not Available Not Available No t Available estradiol 0.01% (0.1 mg/gram) vaginal cream USE 1 GRAM VAGINALLY DAILY AT BEDTIME FOR TWO WEEKS THEN TWICE WEEKLY active Not Available Not Available No t Available albuterol sulfate HFA 90 mcg/actuatio n aerosol inhaler INHALE 1 TO 2 PUFFS BY MOUTH EVERY 4 TO 6 HOURS NEEDED active Not Available Not Available No t Available paroxetine 40 mg tablet TAKE 1 TABLET BY MOUTH EVERY DAY active Not Available Not Available No t Available fluticasone propionate 110 mcg/actuatio n HFA aerosol inhaler PLEASE SEE ATTACHED FOR DETAILED DIRECTIONS active Not Available Not Available N ot Available amoxicillin 875 mg-potassium clavulanate 125 mg tablet TAKE 1 TABLET BY MOUTH TWICE A DAY FOR 7 DAYS active Not Available Not Available No t Available enoxaparin 40 mg/0.4 mL subcutaneous syringe INJECT 1 SYRINGE (40 MG) SUBCUTANEOU SLY EVERY 24 HOURS FOR 42 DAYS active Not Available Not Available Not Available nitrofuranto in monohydrate/ macrocrystal s 100 mg capsule TAKE 1 CAPSULE BY MOUTH TWICE A DAY FOR 7 DAYS active Not Available Not Available No t Available fluocinolone acetonide oil 0.01 % ear drops INSTILL 3 TO 4 DROPS IN BOTH EARS EVERY DAY active Not Available Not Available No t Available oxycodone 10 mg tablet TAKE 1 TABLET (10 MG) BY MOUTH EVERY 6 (SIX) HOURS IF NEEDED FOR SEVERE PAIN FOR UP TO 28 DAYS. active Not Available Not Available No t Available Gavilax 17 gram/dose oral powder 17 G BY MOUTH DAILY active Not Available Not Available Not Available mirabegron ER 50 mg tablet,exten ded release 24 hr TAKE 1 TABLET BY MOUTH EVERY DAY active Not Available Not Available No t Available TRUEplus Lancets 33 gauge USE TO TEST BLOOD SUGAR ONCE A DAY active Not Available Not Available N ot Available Arnuity Ellipta 100 mcg/actuatio n powder for inhalation INHALE 1 PUFF BY MOUTH EVERY DAY active Not Available Not Available No t Available naloxone 4 mg/actuation nasal spray PLEASE SEE ATTACHED FOR DETAILED DIRECTIONS active Not Available Not Available N ot Available Vitals Date Recorded Respiratory rate Body temperature Body weight Body height Oxygen saturation Oxygen saturation in Arterial blood by Pulse oximetry Heart rate Systolic blood pressure Diastolic blood pressure Provider Name and Address Organization Details Last Updated DateTime 4 18 /min 98.7 [degF] 72725.1 76 g 165.1 cm 98 % 98 % 97 /min 168 mm[Hg] 98 mm[Hg] Not Available [facility] - production 13:09:53 Social History None recorded. Functional Status None recorded. Mental Status None recorded. Family History Nothing Reported. Medical History No medical history recorded. Gynecological HistoryNo gynecological history recorded. Obstetrics History GPAL:G 0 P 0 0 0 0 Past Encounters Encounter ID Performer Location Encounter Start Date Encounter Closed Date Diagnosis/Indication Diagnosis SNOMED-CT Code Diagnosis ICD10 Code [id number] Whitney Prescott MD [facility] [address] [place] [address] 09/07/2024 13:09:49 09/07/2024 19:21:21 Urinary symptoms 257116665 R39.9 Dyspnea on exertion 6084 5006 R06.09 Health Concerns Section Related Observation LastModified by Organization Detai ls LastModified Time None Recorded Concern Status LastModified by Organization Details LastModified Time None Recorded Payers Encounter Date Sequence Insurance Name Policy Number Policy Mcgrath Covered Member ID Mcgrath Member ID Guarantor Name 09/07/2024 1 [facility] - DOS ON OR AFTER 2022 - DUAL ELIGIBLE - HALF-WAY OPTIONS AND ONE CARE (MEDICARE REPLACEMENT/ADV ANTAGE - HMO) Stephanie Dodd [id number] Stephanie Dodd Notes Date Note Type Note Provider Name and Address Organization Details Recorded Time 09/07/2024 text/html HPI: 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 She had a total knee replacement a week ago. She is immobile at this time. She woke up this am with abd pain with burning urination and decreased stream. She possibly had a solano during her admission. She denies any fever/ chills/ nausea or vomiting. She may need a straight cath to get a sample. PMH degenerated disc / hashimotos .................. .................. .................. .................. .................. .................. .................. ............... [facility] Nurse Triage Notes (Parul Thapa): Reason For Request: Patient woke up with stomach pain, and it collier when the patient urinates, hx of knee surgery 1 week ago. Chief Complaints: Urinary symptoms PMH: Asthma, Hypertension, Diabetes Mellitus Type 2 Modeling Instructor Organization Information for [facility] Business Legal Name: [employer]? ? Address: [address] [place] [address], Warehouse Shift Supervisor: David Carter MD CLIA No.: [id number] Modeling Instructor POC Test Results from [facility] Urine Dipstick (13:11:21) Urine leukocytes: - RACHAEL Urine nitrites: - NIT Urine urobilinogen: 0.3-3.5 URO Urine protein: 15+-15 PRO Urine pH: 6.0 pH Urine blood: - BLO Urine specific gravity: 1.020 SG Urine ketones: - KET Urine bilirubin: - DUYEN Urine glucose: 250+15 GLU Attachments uploaded as part of this test result can be found under Documents section. EKG (13:43:17) EKG test performed. Attachments uploaded as part of this test result can be found under Documents section. Blood Glucose Measurement (14:07:06) Blood Glucose: 256 mg/dL .................. .................. .................. .................. .................. .................. .................. ............... Modeling Instructor Note From [facility]: [facility] makes pt contact after being admitted to the apartment where the pt is staying under the care of her son, who is her DISPLAY AND BANNER DESIGNER. She is conscious and alert and standing w/ her walker. She is well-appearing, not in acute distress. No facial droop or one-sided weakness are noted, no stridor or sonorous respirations are present, and she is not bleeding anywhere. Pt's son assists w/ translation. Pt is endorsing a feeling of pressure, burning sensation, and decreased flow of urine for the past day. She had a total knee replacement x7 days ago and a previous UTI about two weeks prior for s=which she was placed on a sulfa medication. She denies having a solano placed for surgery. She is concerned she may be starting another infection. Son informs [facility] the nurse and PT involved w/ pt's at home care are pleased w/ her progress and the condition of the surgical sight itself. She is denying cp, [place], n/v/d, fever/chills, cough and sore throat at this time. She does endorse some mild sob and lip numbness. She describes it as though her upper lip is asleep . She does not sleep propped up and she denies exertional sob. Pt consents to evaluation and treatment today.[facility] gathers pt consent, vital signs, and provides castile soap and urinary cup for clean catch urine sample. After collecting urine sample, pt is assessed. Nothing remarkable is noted upon physical exam. [facility] contacts [facility] and discusses the above findings and pt complaint. [facility] is concerned about the pt's c/o sob and orders a 12-lead EKG. [facility] performs EKG and uploads findings for [facility] evaluation. [facility] and [facility] find EKG to be unremarkable at this time. [facility] orders urine be sent for culture and instructs [facility] to perform Eli's test, which [facility] finds negative. [facility] is concerned for PE since pt is post-surgical and recommends pt be transported via ambulance to the ED for further workup. [facility] informs pt and son and pt decides she will monitor her s&s and call 911 if she gets worse or feels she needs to go in. [facility] and [facility] inform pt of red flags including severe sob, lip cyanosis, severe cp, n/v/d that is uncontrollable, focal weakness, AMS, and syncope and advises immediate call to 911 if they occur. Pt and son both state they understand and thank [facility] for coming.[facility] is clear. Report completed by KEMAR Ann [id number]. [facility] Lab Orders: culture, urine: Performed .................. .................. .................. .................. .................. .................. .................. ............... [facility] Consulted: Whitney Prescott .................. .................. .................. .................. .................. .................. .................. ............... Disposition: Fulfilled Whitney Prescott MD [address] [facility], [place], [address], [employer] 09/07/2024 19:03:38 OBGyn Episode No OBEpisode recorded.
--- OUTSIDE RECORDS SUMMARY | 2024-09-09 17:58 | XMS_ITS | Data Portability ---
Author Organization [employer] [employer] Address [address] [place] [address] Care Team Providers Care Direct Sales Professional Name Role Phone HIM CCA OTHER NAME, KALEE Primary Care Provider [facility] OTHER [phone] Assessment Encounter Date Assessment Date Assessment LastModified by Organization Details LastModified Time 09/07/2024 09/07/2024 I provided real -time medical direction via phone for this encounter, and was available for additional phone based assistance as needed. I have reviewed and agree with the Assessment and Plan as documented by the Shop Clerk. We discussed the diagnostic uncertainty of home [...] her symptoms. Patient verbalizes understanding, via the home energy auditor but states she feels okay and is [...] to call 911- verbalized understanding of instruction Not available 09/07/2024 19:03:29 Plan of Treatment Reminders Order Date Submit Date Provider Last Modified By Organization Details Last Modified Time Details Appointments Urgent Care 2023 12:50P M Hayden Huggins MD Not available Not available Not available Lab culture, urine 2023 [facility], [address] [facility], [place], [address], 09/08/2024 18:05:48 urinalysi s, dipstick 2023 024 [email or web address] [facility], [address] [place] [address], [phone], 09/07/2024 13:27:08 glucose, fingersti ck, blood [email or web address] [facility], [address] [place] [address], [phone], 09/07/2024 19:02:51 Referral None recorded. Procedures None recorded. Surgeries None recorded. Imaging electroca rdiogram [email or web address] [facility], [address] [place] [address], [phone], 09/07/2024 19:02:51 Medication Orders None recorded. Patient TargetsNo targets recorded. Patient InstructionsNo instructions recorded. Reason for Referral None Reported. Results Created Date Observation Date Name Description Value Unit Range Abnormal Flag Note LastModifiedBy Organization Detail LastModifiedTime 09/07/2009/09/2024 URINE CULTU RE,CO MPREH ENSIV E urine culture,comp rehensive Final report abnormal Not Available [facility] ([facility]) [address] [facility], [place], [address], 09/09/2024 10:06:04 09/07/2009/09/2024 URINE CULTU RE,CO MPREH ENSIV E result 1 Escher ichia coli abnormal 25,00 0-50, 000 colon y formi ng units per mL Cefaz walker <=4 ug/mL Cefaz walker with an LEO <=16 predi cts susce ptibi lity to the oral agent s cefac hernan, cefdi mikael, cefpo doxim e, cefpr ozil, cefur oxime , cepha lexin , and lorac arbef when used for thera py of uncom plica disha urina ry tract infec tions due to E. coli, Klebs iella pneum oniae , and Prote us mirab ilis. Not Available [facility] ([facility]) [address] [facility], [place], [address], 09/09/2024 10:06:04 09/07/20 24 09/09/2024 URINE CULTU RE,CO MPREH ENSIV E result 2 Entero coccus faecal is abnormal 50,00 0-100 ,000 colon y formi ng units per mL For Enter ococc us speci es, amino glyco sides (exce pt for high- level resis tance scree fatoumata) , cepha lospo rins, clind amyci n, and trime thopr im-daniel lfame thoxa zole are not effec tive clini rickey . (CLSI , M100- S26, 2016) Not Available [facility] ([facility]) [address] [facility], [place], [address], 09/09/2024 10:06:04 09/07/20 24 09/09/2024 URINE CULTU RE,CO MPREH ENSIV E antimicrobia l susceptibili ty Commen t S = Susce ptibl e; I = Inter media te; R = Resis tant P = Posit lisandro; N = Negat lisandro MICS are expre ssed in micro grams per mL Antib iotic RSLT# 1 RSLT# 2 RSLT# 3 RSLT# 4 Amoxi cilli n/Cla vulan ic Acid S Ampic illin S Cefep gucci S Ceftr iaxon e S Cefur oxime S Cipro floxa serjio S S Ertap enem S Genta micin S Imipe nem S Levof loxac in S S Merop enem S Nitro furan toin S S Penic illin S Piper acill in/Ta zobac chavez S Tetra cycli ne S R Tobra mycin S Trime thopr im/Daniel lfa S Vanco mycin S Not Available [facility] ([facility]) [address] [facility], [place], [address], 09/09/2024 10:06:04 09/07/2009/07/2024 gluco sevon rstic k, blood Blood Glucose: mg/dl 256 Not Available [facility] - [facility] [address] [place] [address], [phone], 09/07/2024 13:28:28 09/07/20 24 09/07/2024 urina lysis , dipst ick Appearance clear Not Available [facility] - [facility] [address] [place] [address], [phone], 09/07/2024 13:21:44 09/07/20 24 09/07/2024 urina lysis , dipst ick Color yellow Not Available [facility] - [facility] [address] [place] [address], [phone], 09/07/2024 13:21:44 09/07/20 24 09/07/2024 elect an espinoza am No observ ation record ed. [email or web address] [facility] [address] [place] [address], [phone], 09/07/2024 19:02:30 Result Notes None recorded. Procedures Surgical History None recorded. Imaging Results Imaging Date Name Status LastModified by Organization Details LastModified Time 09/07/2024 electrocardiogram completed [email or web address] [facility] [address] [place] [address], [phone], 09/07/2024 19:02:30 Procedure Notes None recorded. Medical [...] mandelate 1 gram tablet TAKE 1 TABLET BYMSUTH 2 TIMES A DAY FOR 30 DAYS. [...] Updated DateTime 4 18 /min 98.7 [degF] 75985.1 76 g 165.1 cm 98 % 98 % 97 /min 168 mm[Hg] 98 mm[Hg] Not Available [facility] - production 4 13:09:53 Social History None recorded. Functional Status None recorded. Mental Status None recorded. Family History Nothing Reported. Medical History No medical history recorded. Gynecological HistoryNo gynecological history recorded. Obstetrics History GPAL:G 0 P 0 0 0 0 Past Encounters Encounter ID Performer Location Encounter Start Date Encounter Closed Date Diagnosis/Indication Diagnosis SNOMED-CT Code Diagnosis ICD10 Code [id number] Whitney Prescott MD Main - [facility] [address] [place] [phone] 09/07/2024 13:09:49 09/07/2024 19:21:21 Urinary symptoms 342344062 R39.9 Dyspnea on exertion 6084 5006 R06.09 Health Concerns Section Related Observation LastModified by Organization Detai ls LastModified Time None Recorded Concern Status LastModified by Organization Details LastModified Time None Recorded Advance Directives Directive None Recorded Payers Encounter Date Sequence Insurance Name Policy Number Policy Mcgrath Covered Member ID Mcgrath Member ID Guarantor Name 09/07/2024 1 [facility] - DOS ON OR AFTER 2022 - DUAL ELIGIBLE - USP OPTIONS AND ONE CARE (MEDICARE REPLACEMENT/ADV ANTAGE - HMO) Stephanie Dodd [id number] Stephanie Dodd Notes Date Note Type Note Provider Name and Address Organization Details Recorded Time 09/07/2024 text/html HPI: RN calling from [facility] . She had a total knee replacement [...] PMH: Asthma, Hypertension, Diabetes Mellitus Type 2 Shop Clerk Organization Information for [employer] Business Legal Name: [employer]? ? Address: [address] [place] [address], Electric Blasting Cap Assembler: David Carter MD CLIA No.: [id number] Shop Clerk POC Test Results from [employer] Urine Dipstick (13:11:21) Urine leukocytes: - RACHAEL [...] .................. .................. .................. .................. .................. .................. ............... Shop Clerk Note From Pilar Ann: [facility] makes pt contact after being admitted to the apartment where the pt is staying under the care of her son, who is her ENTRY LEVEL WEB DEVELOPER. She is conscious and alert and standing [...] may be starting another infection. Son informs [facility] the nurse and PT involved w/ pt's [...] sob. Pt consents to evaluation and treatment today.[facility] gathers pt consent, vital signs, and provides castile soap and urinary cup for clean catch urine sample. After collecting urine sample, pt is assessed. Nothing remarkable is noted upon physical exam. [facility] contacts [facility] and discusses the above findings and pt complaint. [facility] is concerned about the pt's c/o sob and orders a 12-lead EKG. [facility] performs EKG and uploads findings for [facility] evaluation. [facility] and [facility] find EKG to be unremarkable at this time. [facility] orders urine be sent for culture and instructs [facility] to perform Eli's test, which [facility] finds negative. [facility] is concerned for PE since pt is post-surgical and recommends pt be transported via ambulance to the ED for further workup. [facility] informs pt and son and pt decides she will monitor her s&s and call 911 if she gets worse or feels she needs to go in. [facility] and [facility] inform pt of red flags including severe sob, lip cyanosis, severe cp, n/v/d that is uncontrollable, focal weakness, AMS, and syncope and advises immediate call to 911 if they occur. Pt and son both state they understand and thank [facility] for coming.[facility] is clear. Report completed by KEMAR Ann [id number]. [facility] Lab Orders: culture, urine: Performed .................. .................. .................. .................. .................. .................. .................. ............... [facility] Consulted: Whitney Prescott .................. .................. .................. .................. .................. .................. .................. ............... Disposition: Fulfilled Whitney Prescott MD [address] [place] [address],[address] [facility], [place], [phone], [employer] 09/07/2024 19:03:38 OBGyn Episode No OBEpisode recorded.
== END 2024-09-09 17:57 | disposition home or self-care (01) ==
LOC: HO.HHCLNP 17:56
PROVIDERS: Visit Provider Family Medicine
DX: N39.0 Urinary tract infection, site not specified (principal)
CPT/HCPCS: 87086

== ENCOUNTER 2024-09-16 12:37 | Outpatient (AMB) | payer OTHER, SELFPAY ==
--- OUTSIDE RECORDS SUMMARY | 2024-09-16 12:39 | XMS_ITS | Data Portability ---
Author Organization [employer] Address [address] [place] [address] Care Team Providers Care Foundation Drill Operator Helper Name Role Phone HIM CCA OTHER NAME, KALEE Primary Care Provider [facility] OTHER Assessment Encounter Date Assessment Date Assessment LastModified by Organization Details LastModified Time 09/07/2024 09/07/2024 I provided real -time medical direction via phone for this encounter, and was available for additional phone based assistance as needed. I have reviewed and agree with the Assessment and Plan as documented by the Estate And Trust Tax Principal. We discussed the diagnostic uncertainty of home [...] her symptoms. Patient verbalizes understanding, via the seismic interpreter but states she feels okay and is [...] to call 911- verbalized understanding of instruction [email or web address] Not available 09/07/2024 19:03:29 Plan of Treatment Reminders Order Date Submit Date Provider Last Modified By Organization Details Last Modified Time Details Appointments None recorded. Lab culture, urine 12/10/ 2024 12/10/2 024 [facility], [address] [facility], [place], [address], 18:05:48 urinalysis, dipstick 2023 [email or web address] 0 [facility] - [facility], [address] [place] [address], [phone], 4 13:27:08 glucose, fingerstick , blood 2023 [email or web address] [facility] - [facility], [address] [place] [address], [phone], 4 19:02:51 Referral None recorded. Procedures None recorded. Surgeries None recorded. Imaging electrocard iogram 2023 [email or web address] 0 [facility] - [facility], [address] [place] [address], [phone], 4 19:02:51 Medication Orders nitrofurant oin macrocrysta l 100 mg capsule 2023 [id number], [address] [place], [address], 12:52:08 Patient TargetsNo targets recorded. Patient InstructionsNo instructions recorded. Reason for Referral None Reported. Results Created Date Observation Date Name Description Value Unit Range Abnormal Flag Note LastModifiedBy Organization Detail LastModifiedTime 09/07/20 24 09/09/2024 URINE CULTU RE,CO MPREH ENSIV E urine culture,comp rehensive Final report abnormal Not Available [facility] ([facility]) [address] [facility], [place], [address], 09/09/2024 10:06:04 09/07/20 24 09/09/2024 URINE CULTU [...] Prote us mirab ilis. Not Available [facility] ([facility]) [address] [facility], [place], [address], 09/09/2024 10:06:04 09/07/20 24 09/09/2024 URINE CULTU [...] , M100- S26, 2016) Not Available [facility] ([facility]) [address] [facility], [place], [address], 09/09/2024 10:06:04 09/07/20 24 09/09/2024 URINE CULTU [...] S Vanco mycin S Not Available [facility] ([facility]) [address], [place], [address], 09/09/2024 10:06:04 09/07/20 24 09/07/2024 gluco se, finge rstic k, blood Blood Glucose: mg/dl 256 Not Available [facility] - [facility] [address] [place] [address], [phone], 09/07/2024 13:28:28 09/07/2009/07/2024 urina lysis , dipst ick Appearance clear Not Available [facility] - [facility] [address] [place] [address], [phone], 09/07/2024 13:21:44 09/07/20 24 09/07/2024 urina lysis , dipst ick Color yellow Not Available [facility] - [facility] [address] [place] [address], [phone], 09/07/2024 13:21:44 09/07/20 24 09/07/2024 alex espinoza am No observ ation record ed. [email or web address] [facility] [address] [place] [address], [phone], 09/07/2024 19:02:30 Result Notes None recorded. Procedures Surgical History None recorded. Imaging Results Imaging Date Name Status LastModified by Organization Details LastModified Time 09/07/2024 electrocardiogram completed [email or web address] [facility] - [facility] [address] [place] [address], [phone], 09/07/2024 19:02:30 Procedure Notes None recorded. Medical [...] Updated DateTime 4 18 /min 98.7 [degF] 12948.1 76 g 165.1 cm 98 % 98 [...] Diagnosis/Indication Diagnosis SNOMED-CT Code Diagnosis ICD10 Code [id number] Whitney Prescott MD Main - [facility] [address] [place] [phone] 09/07/2024 13:09:49 09/07/2024 19:21:21 Urinary symptoms 768308159 R39.9 Dyspnea on exertion 6084 5006 R06.09 [id number] Hayden Huggins MD Main - [facility] [address] [place] [phone] 09/09/2024 12:50:55 09/13/2024 11:30:56 Urinary symptoms 133959206 R39.9 Health Concerns Section Related Observation LastModified by Organization Detai ls LastModified Time None Recorded Concern Status LastModified by Organization Details LastModified Time None Recorded Advance Directives Directive None Recorded Payers Encounter Date Sequence Insurance Name Policy Number Policy Mcgrath Covered Member ID Mcgrath Member ID Guarantor Name 09/07/2024 1 [facility] - DOS ON OR AFTER 2022 - DUAL ELIGIBLE - [facility] OPTIONS AND ONE CARE (MEDICARE REPLACEMENT/ADV ANTAGE - HMO) Stephanie Dodd [id number] Stephanie Dodd 09/09/2024 1 [facility] - DOS ON OR AFTER 2022 - DUAL ELIGIBLE - [facility] OPTIONS AND ONE CARE (MEDICARE REPLACEMENT/ADV ANTAGE - HMO) Stephanie Dodd [id number] Stephanie Dodd Notes Date Note Type Note Provider Name and Address Organization Details Recorded Time 09/07/2024 text/html 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 She had a total knee replacement [...] PMH: Asthma, Hypertension, Diabetes Mellitus Type 2 Estate And Trust Tax Principal Organization Information for Pilar Ann Business Legal Name: [employer]? ? Address: [address] [place] [address], [place] [address], Subwarehouse Supervisor: David TEJADA No.: [id number] Estate And Trust Tax Principal POC Test Results from Pilar Ann - ALS Urine Dipstick (13:11:21) Urine leukocytes: - RACHAEL [...] .................. .................. .................. .................. .................. .................. ............... Estate And Trust Tax Principal Note From Pliar Ann: [facility] makes pt contact after being admitted to the apartment where the pt is staying under the care of her son, who is her SHEET METAL ASSEMBLER AND RIVETER. She is conscious and alert and standing [...] may be starting another infection. Son informs [facility] the nurse and PT involved w/ [...] sob. Pt consents to evaluation and treatment today.[facility] gathers pt consent, vital signs, and provides castile soap and urinary cup for clean catch urine sample. After collecting urine sample, pt is assessed. Nothing remarkable is noted upon physical exam. [facility] contacts [facility] and discusses the above findings and pt complaint. [facility] is concerned about the pt's c/o sob and orders a 12-lead EKG. [facility] performs EKG and uploads findings for [facility] evaluation. [facility] and [facility] find EKG to be unremarkable at this time. [facility] orders urine be sent for culture and instructs [facility] to perform Eli's test, which [facility] finds negative. [facility] is concerned for PE since pt is post-surgical and recommends pt be transported via ambulance to the ED for further workup. [facility] informs pt and son and pt decides she will monitor her s&s and call 911 if she gets worse or feels she needs to go in. [facility] and [facility] inform pt of red flags including severe sob, lip cyanosis, severe cp, n/v/d that is uncontrollable, focal weakness, AMS, and syncope and advises immediate call to 911 if they occur. Pt and son both state they understand and thank [facility] for coming.[facility] is clear. Report completed by KEMAR Ann [id number]. [facility] Lab Orders: culture, urine: Performed .................. .................. .................. .................. .................. .................. .................. ............... [facility] Consulted: Whitney Prescott .................. .................. .................. .................. .................. .................. .................. ............... Disposition: Fulfilled Whitney Prescott MD [address] [facility], [place], [phone], [employer] 09/07/2024 19:03:38 OBGyn Episode No OBEpisode recorded.
--- OUTSIDE RECORDS SUMMARY | 2024-09-16 12:39 | XMS_ITS | Continuity of Care Document ---
Author Organization [employer], [employer] [facility] - [employer] Address [address] [place] [address] Care Team Providers Care Restaurant Maintenance Technician Name Role Phone HIM CCA OTHER NAME, KALEE Primary Care Provider [phone] [facility] OTHER [phone] Assessment Encounter Date Assessment Date Assessment LastModified by Organization Details LastModified Time 09/07/2024 09/07/2024 I provided real -time medical direction via phone for this encounter, and was available for additional phone based assistance as needed. I have reviewed and agree with the Assessment and Plan as documented by the Freelance Writer. We discussed the diagnostic uncertainty of home [...] her symptoms. Patient verbalizes understanding, via the attacher but states she feels okay and is [...] to call 911- verbalized understanding of instruction [email or web address] Not available 09/07/2024 19:03:29 Plan of Treatment Reminders Order Date Submit Date Provider Last Modified By Organization Details Last Modified Time Details Appointments None recorded. Lab culture, urine 2023 [place] [facility], [address] [facility], [place], [address], 18:05:48 urinalysis, dipstick 2023 [email or web address] [facility], [address] [place] [address], [phone], 13:27:08 glucose, fingerstick , blood 2023 024 [email or web address] 0 [facility], [address] [place] [address], [phone], 19:02:51 Referral None recorded. Procedures None recorded. Surgeries None recorded. Imaging electrocard iogram 2023 [email or web address] 0 [facility], [address] [place] [address], [phone], 19:02:51 Medication Orders None recorded. Patient TargetsNo targets recorded. Patient InstructionsNo instructions recorded. Reason for Referral None Reported. Results Created Date Observation Date Name Description Value Unit Range Abnormal Flag Note LastModifiedBy Organization Detail LastModifiedTime 09/07/2009/07/2024 gluco se, finge rstic k, blood Blood Glucose: mg/dl 256 Not Available [facility] [address] [place] [address], [address], 09/07/2024 13:28:28 09/07/2009/07/2024 urina lysis , dipst ick Appearance clear Not Available [facility] [address] [place] [address], [address], 09/07/2024 13:21:44 09/07/2009/07/2024 urina lysis , dipst ick Color yellow Not Available [facility] [address] [place] [address], [address], 09/07/2024 13:21:44 12/10/20 24 09/07/2024 alex espinoza am No observ ation record ed. [email or web address] [facility] [address] [place] [address], [address], 09/07/2024 19:02:30 Result Notes None recorded. Procedures Surgical History None recorded. Imaging Results Imaging Date Name Status LastModified by Organization Details LastModified Time 09/07/2024 electrocardiogram completed [email or web address] [facility] [address] [place] [address], [address], 09/07/2024 19:02:30 Procedure Notes None recorded. Medical [...] Updated DateTime 4 18 /min 98.7 [degF] 74738.1 76 g 165.1 cm 98 % 98 [...] Diagnosis/Indication Diagnosis SNOMED-CT Code Diagnosis ICD10 Code [id number] Whitney Prescott MD [facility] [address] [place] [phone] 09/07/2024 13:09:49 09/07/2024 19:21:21 Urinary symptoms 058855498 R39.9 Dyspnea on exertion 6084 5006 R06.09 Health Concerns Section Related Observation LastModified by Organization Detai ls LastModified Time None Recorded Concern Status LastModified by Organization Details LastModified Time None Recorded Payers Encounter Date Sequence Insurance Name Policy Number Policy Mcgrath Covered Member ID Mcgrath Member ID Guarantor Name 09/07/2024 1 [facility] - DOS ON OR AFTER 2022 - DUAL ELIGIBLE - HALFWAY OPTIONS AND ONE CARE (MEDICARE REPLACEMENT/ADV ANTAGE - HMO) Stephanie Dodd [id number] Stephanie Dodd Notes Date Note Type Note Provider Name and Address Organization Details Recorded Time 09/07/2024 text/html HPI: RN 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 She had a total knee replacement [...] PMH: Asthma, Hypertension, Diabetes Mellitus Type 2 Freelance Writer Organization Information for Pilar Ann Business Legal Name: [employer]? ? Address: [address] [place] [address], Belt Sander Stone: David NAQVIIA No.: [id number] Freelance Writer POC Test Results from [facility] Urine [...] .................. .................. .................. .................. .................. .................. ............... Freelance Writer Note From Pilar Ann: [facility] makes pt contact after being admitted to the apartment where the pt is staying under the care of her son, who is her MIXER OPERATOR RAW [employer]ALT. She is conscious and alert and standing [...] may be starting another infection. Son informs [facility] the nurse and PT involved w/ [...] sob. Pt consents to evaluation and treatment today.[facility] gathers pt consent, vital signs, and provides castile soap and urinary cup for clean catch urine sample. After collecting urine sample, pt is assessed. Nothing remarkable is noted upon physical exam. [facility] contacts [facility] and discusses the above findings and pt complaint. [facility] is concerned about the pt's c/o sob and orders a 12-lead EKG. [facility] performs EKG and uploads findings for [facility] evaluation. [facility] and [facility] find EKG to be unremarkable at this time. [facility] orders urine be sent for culture and instructs [facility] to perform Eli's test, which [facility] finds negative. [facility] is concerned for PE since pt is post-surgical and recommends pt be transported via ambulance to the ED for further workup. [facility] informs pt and son and pt decides she will monitor her s&s and call 911 if she gets worse or feels she needs to go in. [facility] and [facility] inform pt of red flags including severe sob, lip cyanosis, severe cp, n/v/d that is uncontrollable, focal weakness, AMS, and syncope and advises immediate call to 911 if they occur. Pt and son both state they understand and thank [facility] for coming.[facility] is clear. Report completed by KEMAR Ann [id number]. [facility] Lab Orders: culture, urine: Performed .................. .................. .................. .................. .................. .................. .................. ............... [facility] Consulted: Whitney Prescott .................. .................. .................. .................. .................. .................. .................. ............... Disposition: Fulfilled Whitney Prescott MD [address] [place] [address],[address], [place], [address], [email or web address] [facility] [facility] 09/07/2024 19:03:38 OBGyn Episode No OBEpisode recorded.
--- OUTSIDE RECORDS SUMMARY | 2024-09-16 12:39 | XMS_ITS | Continuity of Care Document ---
Author Organization [facility] [employer], [place] - [facility] Address [address] [place] [address] Care Team Providers Care Staffing Executive Name Role Phone HIM CCA OTHER NAME, KALEE Primary Care Provider [facility] OTHER Assessment No assessment recorded. Plan of Treatment Reminders Order Date Submit Date Provider Last Modified By Organization Details Last Modified Time Details Appointments None recorded. Lab None recorded. Referral None recorded. Procedures None recorded. Surgeries None recorded. Imaging None recorded. Medication Orders nitrofurant oin macrocrysta l 100 mg capsule 2023 024 [facility] #[id number], [address] [place], [address], 12:52:08 Patient TargetsNo targets recorded. Patient InstructionsNo instructions recorded. Reason for Referral None Reported. Results Created Date Observation Date Name Description Value Unit Range Abnormal Flag Note LastModifiedBy Organization Detail LastModifiedTime 09/07/20 24 09/07/2024 elect an [email or web address] am No observ ation record ed. [email or web address] [address], [address], 09/07/2024 19:02:30 Result Notes None recorded. Medical Equipment None Reported. [...] Available Not Available N ot Available Vitals None Recorded Social History None recorded. Functional Status None recorded. Mental Status None recorded. Family History Nothing Reported. Medical History No medical history recorded. Gynecological HistoryNo gynecological history recorded. Obstetrics History GPAL:G 0 P 0 0 0 0 Past Encounters Encounter ID Performer Location Encounter Start Date Encounter Closed Date Diagnosis/Indication Diagnosis SNOMED-CT Code Diagnosis ICD10 Code [id number] Whitney Prescott MD [facility] [address] [place] [phone] 09/07/2024 13:09:49 09/07/2024 19:21:21 Urinary symptoms 814676060 R39.9 Dyspnea on exertion 6084 5006 R06.09 [id number] Hayden Huggins MD [facility] [address] [place] [address] 09/09/2024 12:50:55 09/13/2024 11:30:56 Urinary symptoms 590148338 R39.9 Health Concerns Section Related Observation LastModified by Organization Detai ls LastModified Time None Recorded Concern Status LastModified by Organization Details LastModified Time None Recorded Payers Encounter Date Sequence Insurance Name Policy Number Policy Mcgarth Covered Member ID Mcgrath Member ID Guarantor Name 09/09/[address] [facility] - DOS ON OR AFTER 2022 - DUAL ELIGIBLE - LONG TERM OPTIONS AND ONE CARE (MEDICARE REPLACEMENT/ADV ANTAGE - HMO) Stephanie Dodd [id number] Stephanie Dodd OBGyn Episode No OBEpisode recorded.
--- NOTE | 2024-09-16 12:47 | MHC.OFFVIS ---
Intake Visit Reasons: 2WK PO: L TKA w/NE 08/31/24 Intake Note: Stephanie a 64 year old female who presents today for a post operative left TKA, DOS:08/31/24. Patient reports she is doing well, states mild swelling beneath kneecap. She continues to work with PT at home. Promotions Team Leader Required: Yes Promotions Team Leader Services: Promotions Team Leader Present Promotions Team Leader Name: Ivette ID#[id number] Accompanied by: Spouse Allergies egg Allergy (Intermediate, Verified 09/16/24 12:50) Vomiting Medication List - Last Reconciled 09/16/24 by Rashida Mccormick PA-C acetaminophen 325 mg PO Q4H PRN 30 days albuterol sulfate 90 mcg/actuation 1 - 2 puffs inhalation Q4-6H PRN amlodipine 2.5 mg PO DAILY ammonium lactate 12% 1 appl topical BID PRN celecoxib 200 mg PO BID 30 days docusate sodium 200 mg (2 x 100 mg) PO BEDTIME enoxaparin 40 mg (0.4 mL) subcut Q24H 42 days estradiol 0.01%(0.1mg/gram) 1 g vaginal MO fluticasone furoate 100 mcg/actuation (Arnuity Ellipta) 1 inh inhalation DAILY gabapentin 600 mg PO BID levothyroxine 125 mcg PO QAM lisinopril-hydrochlorothiazide 20-25 mg 1 tab PO DAILY lovastatin 40 mg PO DAILY metformin 1,000 mg PO BIDWM omeprazole 40 mg PO DAILY@0630 oxycodone 10 mg PO Q4H PRN 7 days oxycodone 10 mg PO QID PRN paroxetine HCl (Paxil) 40 mg PO DAILY polyethylene glycol 3350 (Miralax) 17 grams PO DAILY sennosides (Natural Senna Laxative) 17.2 mg (2 x 8.6 mg) PO BEDTIME trazodone 100 mg PO BEDTIME PRN walker Folding Front wheeled walker HPI HPI 2WK PO: L TKA w/NE 08/31/24: Details: 64-year-old female who returns to the office today with an sound person for post-op left TKA, 08/31/[address] Garcia. She continues to have mild swelling beneath her kneecap however she is doing well otherwise. She has been working on home physical therapy as instructed. She has no other concerns today. [facility] Medical History GERD (gastroesophageal reflux disease) Depression Asthma Osteoarthritis Hypothyroid Transaminitis HTN (hypertension) Diabetes Surgical History H/O colonoscopy Hx of tubal ligation Family History Mother HTN (hypertension) Diabetes High cholesterol Father Heart disease Social History Household Members: Children Household Members Other:: son hetal Are you a primary residential care facility manager to a significant other at home: No Do you presently have visiting nurse or other home services: Yes ([facility]ANK [facility]CHER) Alcohol intake: never Patient Tobacco Use Status: Former Tobacco user Tobacco use type: Cigarette Years Smoked: 10 service: No Review of Systems Const All systems reviewed & are unremarkable except as noted in HPI and below Physical Exam Extrem Other: Left knee: Incision clean, dry and intact. No redness or drainage. ROM is 0-95 degrees. Calf supple, nontender. NVI. Assessment & Plan Assessment & Plan (1) Status post total knee replacement, left: Code(s): Z96.652 - Presence of left artificial knee joint Category: Surgical Plan Bryan removed, steri strips applied. She will begin to transition to Outpatient PT to continue working on Gait training, ROM and quad strength. No driving for another 4 weeks. She will require ppx abx for dental procedures. She will f/u in 4 weeks, sooner if needed. Patient Instructions: Scribed for Rashida Mccormick PA-C, by Perez Wang medical office representative, on 09/16/2024 at 12:45 PM EST.? I, Rashida Mccormick PA-C, have personally reviewed and agree with the information entered by the scribe. Coding Level of Care Code Global (49276) Diagnoses Status post total knee replacement, left Z96.652
== END 2024-09-16 14:02 | disposition home or self-care (01) ==
PROVIDERS: PCP Internal Medicine; Visit Provider Physician Assistant
DX: Z96.652 Presence of left artificial knee joint (principal)
CPT/HCPCS: 99024

== ENCOUNTER → 2024-09-16 12:37 | Outpatient (BNVA) | payer OTHER, SELFPAY | PROVIDERS: PCP Internal Medicine; Visit Provider Physician Assistant | DX: Z47.1 Aftercare following joint replacement surgery (principal); Z96.652 Presence of left artificial knee joint | CPT/HCPCS: 99212 ==

== ENCOUNTER 2024-10-07 13:19 | Outpatient (AMB) | payer OTHER, SELFPAY ==
--- NOTE | 2024-10-07 13:31 | MHC.OFFVIS ---
Intake Visit Reasons: PO-L TKA w/NE 08/31/24 Intake Note: Stephanie is a 64 year old female who presents today for a post operative visit s/p Left Knee Arthroplasty 08/31/2024 Allergies egg Allergy (Intermediate, Verified 09/16/24 12:50) Vomiting HPI HPI PO-L TKA w/NE 08/31/24: Details: Stephanie is a 64 year old female who presents today for a post operative visit s/p Left Knee Arthroplasty 08/31/2024 PFSH Medical History GERD (gastroesophageal reflux disease) Depression Asthma Osteoarthritis Hypothyroid Transaminitis HTN (hypertension) Diabetes Surgical History H/O colonoscopy Hx of tubal ligation Family History Mother HTN (hypertension) Diabetes High cholesterol Father Heart disease Social History Household Members: Children Household Members Other:: son hetal Are you a primary family day care worker to a significant other at home: No Do you presently have visiting nurse or other home services: Yes ([facility]) Alcohol intake: never Patient Tobacco Use Status: Former Tobacco user Tobacco use type: Cigarette Years Smoked: 10 service: No Physical Exam Extrem Other: 5-105 no effusion inc c/d/i Assessment & Plan Assessment & Plan (1) Status post total knee replacement, left: Code(s): Z96.652 - Presence of left artificial knee joint Category: Surgical Plan: Six weeks postop doing fairly well with some mild stiffness.. May DC aspirin. Progressive outpatient physical therapy. Discussed the importance of obtaining improved motion. Refilled and decreased narcotics. Medications: Changed From oxycodone Partial Fill upon patient request. 10 mg PO Q6H 7 days PRN 28 tabs 0RF Pain, Moderate(Pain Scale 4-6) To oxycodone Partial Fill upon patient request. 10 mg PO BID 21 days PRN 42 tabs 0RF Pain, Moderate(Pain Scale 4-6) Coding Level of Care Code Global (22658) Diagnoses Status post total knee replacement, left Z96.652
--- OUTSIDE RECORDS SUMMARY | 2024-10-07 14:38 | XMS_ITS | Continuity of Care Document ---
Author Organization [facility] [employer] [facility], [place] - [facility] Address [address] [place] [address] Care Team Providers Care Director Data Name Role Phone HIM CCA OTHER NAME, KALEE Primary Care Provider [phone] [facility] OTHER Assessment No assessment recorded. Plan of Treatment Reminders Order Date Submit Date Provider Last Modified By Organization Details Last Modified Time Details Appointments None recorded. Lab None recorded. Referral None recorded. Procedures None recorded. Surgeries None recorded. Imaging None recorded. Medication Orders nitrofurant oin macrocrysta l 100 mg capsule 2023 024 [facility]/Ph[facility]acy #[id number], [address] [place], [address], 12:52:08 Patient TargetsNo targets recorded. Patient InstructionsNo instructions recorded. Reason for Referral None Reported. Results Created Date Observation Date Name Description Value Unit Range Abnormal Flag Note LastModifiedBy Organization Detail LastModifiedTime 09/07/20 24 09/07/2024 elect an velasquezgr am No observ ation record ed. [address], [address], 09/07/2024 19:02:30 Result Notes None recorded. Medical [...] hours by oral route for 5 days. active Not Available Not Available Not Available lidocaine 5 % topical patch APPLY 1 [...] Diagnosis/Indication Diagnosis SNOMED-CT Code Diagnosis ICD10 Code Diagnosis Note [id number] Whitney Prescott MD [facility] [address] [place] [address] 09/07/2024 13:09:49 09/07/2024 19:21:21 Urinary symptoms 417220366 R39.9 Urine is not indicative of infection at this point we will send urine culture-ad vised patient we will call if urine culture is positive and can call in a prescripti on. I advised she should call us if she feels her symptoms are worsening prior to the culture being back. Dyspnea on exertion 6084 5006 R06.09 Lungs clear, patient in no distress/i s on enoxaparin for DVT prophylaxi s and has no cords and Homans is negative thus lower suspicion for DVT but cannot rule it out completely [id number] Hayden Huggins MD [facility] [address] [place] [phone] 09/09/2024 12:50:55 09/13/2024 11:30:56 Urinary symptoms 069438648 R39.9 Health Concerns Section Related Observation LastModified by Organization Detai ls LastModified Time None Recorded Concern Status LastModified by Organization Details LastModified Time None Recorded Payers Encounter Date Sequence Insurance Name Policy Number Policy Mcgrath Covered Member ID Mcgrath Member ID Guarantor Name 09/09/2024 1 [facility] - DOS ON OR AFTER 2022 - DUAL ELIGIBLE - PENITENTIARY OPTIONS AND ONE CARE (MEDICARE REPLACEMENT/ADV ANTAGE - HMO) Stephanie Dodd [id number] Stephanie Dodd OBGyharika Episode No OBEpisode recorded.
--- OUTSIDE RECORDS SUMMARY | 2024-10-07 14:38 | XMS_ITS | Data Portability ---
Author Organization [employer] Address [address] [place] [address] Care Team Providers Care Control Tower Operator Name Role Phone HIM CCA OTHER NAME, KALEE Primary Care Provider [facility] OTHER [phone] Assessment Encounter Date Assessment Date Assessment LastModified by Organization Details LastModified Time 09/07/2024 09/07/2024 I provided real -time medical direction via phone for this encounter, and was available for additional phone based assistance as needed. I have reviewed and agree with the Assessment and Plan as documented by the Bar Roller. We discussed the diagnostic uncertainty of home [...] her symptoms. Patient verbalizes understanding, via the director corporate sales but states she feels okay and is [...] to call 911- verbalized understanding of instruction [email or web address] Not available 09/07/2024 19:03:29 Plan of Treatment Reminders Order Date Submit Date Provider Last Modified By Organization Details Last Modified Time Details Appointments None recorded. Lab culture, urine 12/10/ 2024 12/10/2 024 [facility], [address], [place], [address], 18:05:48 urinalysis, dipstick 2023 [email or web address] [facility] - [facility], [address] [place] [address], [phone], 4 13:27:08 glucose, fingerstick , blood 2023 [email or web address] [facility] - [facility], [address] [place] [address], [phone], 4 19:02:51 Referral None recorded. Procedures None recorded. Surgeries None recorded. Imaging electrocard iogram 2023 [email or web address] [facility], [address] [place] [address], [phone], 4 19:02:51 Medication Orders nitrofurant oin macrocrysta l 100 mg capsule 2023 [id number], [address] [place], [address], 12:52:08 Patient TargetsNo targets recorded. Patient InstructionsNo instructions recorded. Reason for Referral None Reported. Results Created Date Observation Date Name Description Value Unit Range Abnormal Flag Note LastModifiedBy Organization Detail LastModifiedTime 09/07/20 24 09/09/2024 URINE CULTU RE,CO MPREH ENSIV E urine culture,comp rehensive Final report abnormal Not Available [facility] ([facility]) [address], [place], [address], 09/09/2024 10:06:04 09/07/20 24 09/09/2024 URINE CULTU [...] Prote us mirab ilis. Not Available [facility] ([facility]) [address], [place], [address], 09/09/2024 10:06:04 09/07/20 24 09/09/2024 URINE CULTU [...] , M100- S26, 2016) Not Available [facility] ([facility]) [address], [place], [address], 09/09/2024 10:06:04 09/07/20 24 09/09/2024 URINE CULTU [...] S Vanco mycin S Not Available [facility] ([facility]) [address], [place], [address], 09/09/2024 10:06:04 09/07/20 24 09/07/2024 gluco se, finge rstic k, blood Blood Glucose: mg/dl 256 Not Available [facility] [address] [place] [address], [phone], 09/07/2024 13:28:28 09/07/2009/07/2024 urina lysis , dipst ick Appearance clear Not Available [facility] [address] [place] [address], [id number], 09/07/2024 13:21:44 09/07/20 24 09/07/2024 urina lysis , dipst ick Color yellow Not Available [facility] [address] [place] [address], [phone], 09/07/2024 13:21:44 09/07/20 24 09/07/2024 alex espinoza am No observ ation record ed. [email or web address] [facility] [address] [place] [address], [phone], 09/07/2024 19:02:30 Result Notes None recorded. Procedures Surgical History None recorded. Imaging Results Imaging Date Name Status LastModified by Organization Details LastModified Time 09/07/2024 electrocardiogram completed Main - [facility] [address] [place] [address], [phone], 09/07/2024 19:02:30 Procedure Notes None recorded. Medical [...] Updated DateTime 4 18 /min 98.7 [degF] 55069.1 76 g 165.1 cm 98 % 98 [...] SNOMED-CT Code Diagnosis ICD10 Code Diagnosis Note [id number] Whitney Prescott MD [facility] [address] [place] [address] 09/07/2024 13:09:49 09/07/2024 19:21:21 Urinary symptoms 794807778 R39.9 Urine is not indicative of infection [...] DVT but cannot rule it out completely 11755 Hayden Huggins MD [facility] - [facility] [address] [place] [phone] 09/09/2024 12:50:55 09/13/2024 11:30:56 Urinary symptoms 195234409 R39.9 Health Concerns Section Related Observation LastModified by Organization Detai ls LastModified Time None Recorded Concern Status LastModified by Organization Details LastModified Time None Recorded Advance Directives Directive None Recorded Payers Encounter Date Sequence Insurance Name Policy Number Policy Mcgrath Covered Member ID Mcgrath Member ID Guarantor Name 09/07/2024 1 [facility] - DOS ON OR AFTER 2022 - DUAL ELIGIBLE - LONG-TERM OPTIONS AND ONE CARE (MEDICARE REPLACEMENT/ADV ANTAGE - HMO) Stephanie Dodd [id number] Stephanie Dodd 09/09/2024 1 [facility] - DOS ON OR AFTER 2022 - DUAL ELIGIBLE - LONG-TERM OPTIONS AND ONE CARE (MEDICARE REPLACEMENT/ADV ANTAGE - HMO) Stephanie Dodd [id number] Stephanie Dodd Notes Date Note Type Note Provider Name and Address Organization Details Recorded Time 09/07/2024 text/html HPI: RN calling from [place] . She had a total knee replacement [...] PMH: Asthma, Hypertension, Diabetes Mellitus Type 2 Bar Roller Organization Information for [employer] Business Legal Name: [employer]? ? Address: [address] [place] [address], Aeronautical Inspector: David Carter MD CLIA No.: [id number] Bar Roller POC Test Results from [employer]ilar [employer] Urine [...] .................. .................. .................. .................. .................. .................. ............... Bar Roller Note From [employer]ilar [employer]: [facility] makes pt contact after being admitted to the apartment where the pt is staying under the care of her son, who is her TRAVEL PROFESSIONAL. She is conscious and alert and standing [...] may be starting another infection. Son informs [facility] the nurse and PT involved w/ [...] sob. Pt consents to evaluation and treatment today.[facility] gathers pt consent, vital signs, and provides castile soap and urinary cup for clean catch urine sample. After collecting urine sample, pt is assessed. Nothing remarkable is noted upon physical exam. [facility] contacts [facility] and discusses the above findings and pt complaint. [facility] is concerned about the pt's c/o sob and orders a 12-lead EKG. [facility] performs EKG and uploads findings for [facility] evaluation. [facility] and [facility] find EKG to be unremarkable at this time. [facility] orders urine be sent for culture and instructs [facility] to perform Eli's test, which [facility] finds negative[facility] is concerned for PE since pt is post-surgical and recommends pt be transported via ambulance to the ED for further workup. [facility] informs pt and son and pt decides she will monitor her s&s and call 911 if she gets worse or feels she needs to go in. [facility] and [facility] inform pt of red flags including severe sob, lip cyanosis, severe cp, n/v/d that is uncontrollable, focal weakness, AMS, and syncope and advises immediate call to 911 if they occur. Pt and son both state they understand and thank [facility] for coming.[facility] is clear. Report completed by KEMAR Ann [id number]. [facility] Lab Orders: culture, urine: Performed .................. .................. .................. .................. .................. .................. .................. ............... [facility] Consulted: Whitney Prescott .................. .................. .................. .................. .................. .................. .................. ............... Disposition: Fulfilled Whitney Prescott MD [address] [facility],[address] [facility], [place], [address], [place] - NIKOLAY ROTHMAN 09/07/2024 19:03:38 OBGyn Episode No OBEpisode recorded.
--- OUTSIDE RECORDS SUMMARY | 2024-10-07 14:38 | XMS_ITS | Continuity of Care Document ---
Author Organization [employer] Address [address] [place] [address] Care Team Providers Care Security Project Manager Name Role Phone HIM CCA OTHER NAME, KALEE Primary Care Provider [facility] OTHER Assessment Encounter Date Assessment Date Assessment LastModified by Organization Details LastModified Time 09/07/2024 09/07/2024 I provided real -time medical direction via phone for this encounter, and was available for additional phone based assistance as needed. I have reviewed and agree with the Assessment and Plan as documented by the Telecasting Engineer. We discussed the diagnostic uncertainty of home [...] her symptoms. Patient verbalizes understanding, via the sewing machine repairer but states she feels okay and is [...] to call 911- verbalized understanding of instruction [email or web address] Not available 09/07/2024 19:03:29 Plan of Treatment Reminders Order Date Submit Date Provider Last Modified By Organization Details Last Modified Time Details Appointments None recorded. Lab culture, urine 2023 [place] [facility], [address] [facility], [place], [address], 18:05:48 urinalysis, dipstick 2023 [email or web address] 0 Main - [facility], [address] [place] [address], [phone], 13:27:08 glucose, fingerstick , blood 2023 024 [email or web address] 0 Main - [facility], [address] [place] [address], [address], 19:02:51 Referral None recorded. Procedures None recorded. Surgeries None recorded. Imaging electrocard iogram 2023 [email or web address] 0 Main - [facility], [address] [place] [address], [phone], 19:02:51 Medication Orders None recorded. Patient TargetsNo targets recorded. Patient InstructionsNo instructions recorded. Reason for Referral None Reported. Results Created Date Observation Date Name Description Value Unit Range Abnormal Flag Note LastModifiedBy Organization Detail LastModifiedTime 09/07/2009/07/2024 gluco se, finge rstic k, blood Blood Glucose: mg/dl 256 Not Available [facility] [address] [place] [address], [phone], 09/07/2024 13:28:28 09/07/2009/07/2024 urina lysis , dipst ick Appearance clear Not Available [facility] - [facility] [address] [place] [address], [address], 09/07/2024 13:21:44 09/07/2009/07/2024 urina lysis , dipst ick Color yellow Not Available [facility] - [facility] [address] [place] [address], [phone], 09/07/2024 13:21:44 12/10/20 24 09/07/2024 alex espinoza am No observ ation record ed. [email or web address] Main - [facility] [address] [place] [address], [phone], 09/07/2024 19:02:30 Result Notes None recorded. Procedures Surgical History None recorded. Imaging Results Imaging Date Name Status LastModified by Organization Details LastModified Time 09/07/2024 electrocardiogram completed [email or web address] [facility] - [facility] [address] [place] [address], [address], 09/07/2024 19:02:30 Procedure Notes None recorded. Medical [...] Updated DateTime 4 18 /min 98.7 [degF] 94197.1 76 g 165.1 cm 98 % 98 [...] SNOMED-CT Code Diagnosis ICD10 Code Diagnosis Note 09901 Whitney Prescott MD Main - [facility] [address] [place] [phone] 09/07/2024 13:09:49 09/07/2024 19:21:21 Urinary symptoms [id number] R39.9 Urine is not indicative of infection [...] DVT but cannot rule it out completely Health Concerns Section Related Observation LastModified by Organization Detai ls LastModified Time None Recorded Concern Status LastModified by Organization Details LastModified Time None Recorded Payers Encounter Date Sequence Insurance Name Policy Number Policy Mcgrath Covered Member ID Mcgrath Member ID Guarantor Name 09/07/2024 1 [facility] - DOS ON OR AFTER 2022 - DUAL ELIGIBLE - LONG-TERM OPTIONS AND ONE CARE (MEDICARE REPLACEMENT/ADV ANTAGE - HMO) Stephanie Dodd [id number] Stephanie Dodd Notes Date Note Type Note Provider Name and Address Organization Details Recorded Time 09/07/2024 text/html HPI: RN calling from [place] . She had a total knee replacement [...] PMH: Asthma, Hypertension, Diabetes Mellitus Type 2 Telecasting Engineer Organization Information for [employer] Legal Name: [employer] ? Address: [address] [place] [address], Manager Power: David Carter MD IA No.: [id number] Telecasting Engineer POC Test Results from Pilar Ann [employer] KETURAH Urine Dipstick (13:11:21) Urine leukocytes: - ARCHAEL Urine nitrites: - NIT Urine urobilinogen: 0.3-3.5 [...] .................. .................. .................. .................. .................. .................. ............... Telecasting Engineer Note From Pilar Ann: [facility] makes pt contact after being admitted to the apartment where the pt is staying under the care of her son, who is her VICE PRESIDENT TAX. She is conscious and alert and standing [...] may be starting another infection. Son informs [facility] the nurse and PT involved [...] sob. Pt consents to evaluation and treatment today.[facility] gathers pt consent, vital signs, and provides castile soap and urinary cup for clean catch urine sample. After collecting urine sample, pt is assessed. Nothing remarkable is noted upon physical exam. [facility] contacts [facility] and discusses the above findings and pt complaint. [facility] is concerned about the pt's c/o sob and orders a 12-lead EKG. [facility] performs EKG and uploads findings for [facility] evaluation. [facility] and [facility] find EKG to be unremarkable at this time. [facility] orders urine be sent for culture and instructs [facility] to perform Eli's test, which [facility] finds negative. [facility] is concerned for PE since pt is post-surgical and recommends pt be transported via ambulance to the ED for further workup. [facility] informs pt and son and pt decides she will monitor her s&s and call 911 if she gets worse or feels she needs to go in. [facility] and [facility] inform pt of red flags including severe sob, lip cyanosis, severe cp, n/v/d that is uncontrollable, focal weakness, AMS, and syncope and advises immediate call to 911 if they occur. Pt and son both state they understand and thank [facility] for coming.[facility] is clear. Report completed by KEMAR Ann [id number]. [facility] Lab Orders: culture, urine: Performed .................. .................. .................. .................. .................. .................. .................. ............... [facility] Consulted: Whitney Prescott .................. .................. .................. .................. .................. .................. .................. ............... Disposition: Fulfilled Whitney Prescott MD [address] [facility], [place], [address], [employer] 09/07/2024 19:03:38 OBGyn Episode No OBEpisode recorded.
== END 2024-10-07 13:48 | disposition home or self-care (01) ==
PROVIDERS: PCP Internal Medicine; Visit Provider Orthopaedic Surgery
DX: Z96.652 Presence of left artificial knee joint (principal)
CPT/HCPCS: 99024

== ENCOUNTER → 2024-10-07 13:19 | Outpatient (BNVA) | payer OTHER, SELFPAY | PROVIDERS: PCP Internal Medicine; Visit Provider Orthopaedic Surgery | DX: Z47.1 Aftercare following joint replacement surgery (principal); Z96.652 Presence of left artificial knee joint | CPT/HCPCS: 99212 ==

== ENCOUNTER 2024-11-12 08:50 | Outpatient (REF) | payer OTHER, SELFPAY ==
--- OUTSIDE RECORDS SUMMARY | 2024-11-15 08:54 | XMS_ITS | Encounter Summary ---
Author Organization [employer] Address [address] [facility] [address] [place] [address] Care Team Providers Care Missile Pad Mechanic Name Role Phone Name, Fausto VEGAS Primary Care Provider [phone] Reason for Visit * Reason Onset Date Comments Med Refill 10/25/2024 Encounter Details Date Type Department Care Team ([facility] st Contact Info) Description 10/25/2024 Refill [facility] [address] [place] [address] Name, MD Fausto [address] [place] [address] Arthritis of left knee Social History Tobacco Use Types Packs/Day Years Used Date Smoking Tobacco: Former Cigarettes Q uit: 2002 Smokeless Tobacco: Never Alcohol Use Standard Drinks/Week Comments Never 0 (1 standard drink = 0.6 oz pur e alcohol) Alcohol Answer Date Recorded Frequency of Alcohol Consumption Not on file 04/06/2024 Average Number of Drinks Not on file 024 Frequency of Binge Drinking Not on file 05/2024 Score 0 04/06/2024 Depression Answer Date Recorded Patient Health Questionnaire-9 Score 10 04/06/2024 Patient Health Questionnaire-9 Score 10 04/06/2024 Last PHQ-9: Questionnaire Data Not on file 0 04/06/2024 Housing Stability Answer Date Recorded What is your housing situation today? I have amy daley 03/30/[address] you li ve. Do you have problems with any of the following? None of the above 03/30/2024 Food Insecurity Answer Date Recorded Within the past 12 months, y ou worried that your food would run out before you got money to buy more: Never True 03/30/2024 Within the past 12 months,th e food you bought just didn't last and you didn't have enough money to get more: Never True 10/2023 Transportation Answer Date Recorded In the past 12 months, has l ack of transportation kept you from medical appts, meetings, work or from getting things needed for daily living? No 03/30/2024 Utilities Answer Date Recorded In the past 12 months, has t he electric, gas, oil or water company threatened to shut off services in your home? No 03/30/2024 Depression Answer Date Recorded Patient Health Questionnaire-2 Score 2 04/06/2024 Internet Access Answer Date Recorded Internet Access Q1 Yes 05/28/2024 Internet Access Q2 Not on file 05/28/2024 Comments Unknown Sex and Gender Information Value Date Recorded Sex Assigned at Female 07/29/2022 10:14 AM EDT Legal Sex Female 10:14 AM EDT Gender Identity Female 07/29/2022 10:14 AM EDT Sexual Orientation Choose not to disclose 2021 10:14 AM EDT documented as of this encounter Miscellaneous Notes * Telephone Encounter - Gold Lima - 10/25/2024 11:34 AM EST TC from pt requesting medication refill. Medications needing refill : oxyCODONE (Roxicodone) 10 MG immediate release tablet To be sent to: [facility]/pharmacy #[id number] [place] [address] documented in this encounter Plan of Treatment Upcoming Encounters Date Type Department Care Team (Late st Contact Info) Description 11/17/2024 11:30 AM EST Clinical Support [facility] [address] [place] [address] [phone] Shannan Borrego RN 11/25/2024 11:15 AM EST Office Visit [facility] [address] [place] [phone] Name, MD Fausto [address] [place] [phone] documented as of this encounter Visit Diagnoses Diagnosis Arthritis of left knee documented in this encounter Additional Health Concerns Assessment Noted Time PHQ-9 Depression Total Score: 10 024 10:02 AM EDT documented as of this encounter Care Teams Missile Pad Mechanic Relationship Specialty Start Date End Date Name, MD Fausto [address] [place] [address] PCP - General Internal Medicine 01/23/24 Juan Daniel Satya 09/03/24 documented as of this encounter
--- OUTSIDE RECORDS SUMMARY | 2024-11-15 08:55 | XMS_ITS | Clinical Summary ---
Author Organization [employer] Address [address] [place] [address] Care Team Providers Care Electrocardiograph Operator Name Role Phone Name, Fausto VEGAS Primary Care Provider [phone] Allergies No known active allergies Medications Calcium Carb-Cholecalcife rol (Calcium+D3) 600-20 MG-MCG tablet Take 1 tablet by mouth every 12 (twelve) hours. Active acetaminophen (Tylenol) 500 MG tablet Take 2 tablets by mouth in the morning and 2 tablets at noon and 2 tablets in the evening and 2 tablets before bedtime. Active Alpha-Lipoic Acid 300 MG capsule Take 1 capsule by mouth in the morning. 022 Active naloxone (Narcan) 4 mg/0.1 mL nasal spray PLEASE SEE ATTACHED FOR DETAILED DIRECTIONS Active omega-3 acid ethyl esters (Lovaza) 1 g capsule Take 2 capsules by mouth every 12 (twelve) hours. Active ketoconazole (NIZOral) 2 % creamIndications: Tinea Apply topically in the morning. 30 g 1 023 Active PARoxetine (Paxil) 20 MG tablet Take 1 tablet (20 mg) by mouth in the morning. 90 tablet 1 023 Active docusate sodium (Colace) 100 MG capsuleIndication s:Left upper quadrant abdominal pain,Slow transit constipation TAKE 1 CAPSULE BY MOUTH EVERYDAY AT BEDTIME 90 capsule 3 023 Active fluticasone furoate (Arnuity Ellipta) 100 MCG/ACT inhaler Inhale 1 puff Once per day. 1 each 11 024 2024 Active TRUEplus Lancets 33G [facility] TEST BLOOD SUGAR ONCE A DAY 100 each Active estradiol (Estrace) 0.1 MG/GM vaginal cream PLACE 1 GM VAGINALLY DAILY AT BEDTIME EVERY NIGHT FOR TWO WEEKS THEN TWICE WEEKLY Active naproxen (Naprosyn) 500 MG tablet Take 500 mg by mouth 2 times daily. Active GaviLAX 17 GM/SCOOP powder 17 G BY MOUTH DAILY Active Senna-Time 8.6 MG tablet TAKE 2 TABLETS ORALLY BEDTIME FOR CONSTIPATION Active traZODone (Desyrel) 50 MG tablet Take 50 mg by mouth if needed at bedtime. Active lidocaine (Lidoderm) 5 % patch Apply 1 patch topically Once per day. Remove & discard patch within 12 hours or as directed by MD. 30 patch 3 Active lidocaine (Lidoderm) 5 % patch Apply 1 patch topically Once per day. Remove & discard patch within 12 hours or as directed by MD. 30 patch 2 024 2024 Active lisinopril-hydroC HLOROthiazide 20-25 MG tabletIndications :Hypertension, unspecified type Take 1 tablet by mouth Once per day. 30 tablet 024 2024 Active hydrOXYzine HCl (Atarax) 25 MG tabletIndications :Pruritus Take 1 tablet (25 mg) by mouth if needed in the morning, at noon, and at bedtime for itching. 30 tablet Active gabapentin (Neurontin) 600 MG tabletIndications :Type 2 diabetes mellitus with hyperglycemia, without long-term current use of insulin ([facility]) Take 1 tablet (600 mg) by mouth 3 times daily. 90 tablet 1 Active amLODIPine (Norvasc) 2.5 MG tablet Take 1 tablet (2.5 mg) by mouth Once per day. 30 tablet 024 2024 Active lovastatin (Mevacor) 40 MG tablet TAKE 1 TABLET BY MOUTH EVERY DAY WITH EVENING MEAL 90 tablet 1 Active albuterol (Ventolin HFA) 108 (90 Base) MCG/ACT inhaler TAKE 1 TO 2 PUFFS INHALED BY MOUTH EVERY 4 TO 6 HOURS NEEDED 18 g 3 024 Active albuterol (2.5 MG/3ML) 0.083% nebulizer solution INHALE 3 MILLILITER BY NEBULIZATION ROUTE EVERY 6 HOURS NEEDED 75 mL 2 024 Active acetaminophen (Tylenol) 500 MG tabletIndications :Acute maxillary sinusitis, recurrence not specified,Otitis of left ear Take 2 tablets (1,000 mg) by mouth every 6 (six) hours if needed for moderate pain or fever for up to 25 doses. 50 tablet 024 Active dextran 70-hypromellose (artificial tears) 0.1-0.3 % ophthalmic solutionIndicatio ns:Dry eyes, bilateral Administer 1 drop into both eyes if needed in the morning, at noon, and at bedtime for dry eyes. 15 mL 6 024 2024 Active glucose blood (FREESTYLE LITE) test stripIndications: Type 2 diabetes mellitus with hyperglycemia, without long-term current use of insulin ([facility]) TEST BLOOD SUGAR ONCE A DAY 100 each 5 025 Active metFORMIN (Glucophage) 500 MG tabletIndications :Type 2 diabetes mellitus without complication, without long-term current use of insulin ([facility]) TAKE 2 TABLETS BY MOUTH WITH BREAKFAST AND EVENING MEAL 360 tablet 025 Active levothyroxine (Synthroid, Levoxyl) 125 MCG tabletIndications :Acquired hypothyroidism TAKE 1 TABLET BY MOUTH EVERY DAY BEFORE BREAKFAST 90 tablet 1 025 Active naloxone (Narcan) 4 mg/0.1 mL nasal sprayIndications: Arthritis of left knee Administer 1 spray (4 mg) into affected nostril(s) if needed for opioid reversal. May repeat every 2-3 minutes if needed, alternating nostrils, until medical assistance becomes available. 2 each 3 024 2024 levothyroxine (Synthroid, Levoxyl) 125 MCG tabletIndications :Acquired hypothyroidism TAKE 1 TABLET BY MOUTH EVERY DAY BEFORE BREAKFAST 90 tablet 1 024 2024 Discontinued oxyCODONE (Roxicodone) 10 MG immediate release tabletIndications :Arthritis of left knee Take 1 tablet (10 mg) by mouth every 6 (six) hours if needed for severe pain for up to 28 days. Do not start before September 21, 2024. 112 tablet 024 2024 Discontinued(R eorder (will not trigger notification to Pharmacy)) oxyCODONE (Roxicodone) 10 MG immediate release tabletIndications :Arthritis of left knee Take 1 tablet (10 mg) by mouth every 6 (six) hours if needed for severe pain for up to 7 days. 28 tablet 025 2024 Discontinued(R eorder (will not trigger notification to Pharmacy)) oxyCODONE (Roxicodone) 10 MG immediate release tabletIndications :Arthritis of left knee Take 1 tablet (10 mg) by mouth every 6 (six) hours if needed for severe pain for up to 7 days. Do not start before November 01, 2024. 28 tablet 025 2024 Active Problems Problem Noted Date Diagnosed Date Urinary tract infection without hematuria 2023 Assessment & Plan (09/09/2024 2:59 PM EST): Called pharmacy and pt will go product picker abx. -prescribed Pyridium for pain. -Potential adverse effects of the medication reviewed -Discussed strategies to prevent future infections: Increase fluids. Urinate after sex. Avoid bladder irritants. -Report fever, chills, worsening symptoms or abdominal/flank pain -Advised to seek medical attention if no improvement or worsening of symptoms -ER precautions reviewed. Called pharmacy and confirmed pt is on Macrobid. Acute cystitis with hematuria 08/05/2024 Assessment & Plan (08/05/2024 12:42 PM EST): Rx Macrobid x 7d, I called [facility] orthopedics, spoke with Jyotsna re patient's UTI so that they can fu with her re timing of surgical procedure. Jyotsna will call patient back after she discuss it with Dr Garcia. Rx Pyridium to take prn dysuria, can take it with tylenol prn suprapubic pain or fever. Increased PO fluids. Advised to perform Kegel's exercises regularly, due to hx urinary incontinence. Re consult prn worsening of sxs, severe nausea, change on MS. Acute maxillary sinusitis 07/23/2024 Otitis of left ear 07/23/2024 [facility] current use of opiate analgesic 2023 Overview (08/10/2024): Medication: oxycodone 10mg TID (short term increase to QID while pending TKA Aug 2024, increase started 07/14/24) Indication: Left knee OA, spondylosis of lumbosacral spine with radiculopathy Last EXPEDITER CLERK Agreement signed: 10/27/23 Assessment & Plan (08/10/2024 4:39 PM EST): -Good engagement and participation with Group Medical Visit model -Encouraged multifactorial approach to pain control including pharm and non- pharm modalities -UTOX and pill count WNL Timeline: 10/27/23: EXPEDITER CLERK renewal, sometimes using QID instead of TID 12/18/23: pt forgot medication 02/24/24: UTOX WNL, pill count not completed 03/23/24: pill count less than expected 05/25/24: WNL 07/06/24: UTOX WNL, pill count less than expected 07/14/24: PCP temporary increase of med frequency to QID 08/10/24: EXPEDITER CLERK group, WNL Assessment & Plan (07/06/2024 5:14 PM EDT): -Good engagement and participation with Group Medical Visit model -Encouraged multifactorial approach to pain control including pharm and non- pharm modalities -UTOX WNL, pill count not performed. See clinical engineering director. Timeline: 10/27/23: EXPEDITER CLERK renewal, sometimes using QID instead of TID 12/18/23: pt forgot medication 02/24/24: UTOX WNL, pill count not completed 03/23/24: pill count less than expected 05/25/24: WNL 07/06/24: UTOX WNL, pill count not completed Assessment & Plan (05/25/2024 1:17 PM EDT): - Hx of abnormal: pill count less than expected 03/23/24 -Good engagement and participation with Group Medical Visit model -Encouraged multifactorial approach to pain control including pharm and non- pharm modalities -UTOX and Pill count as expected Daytime sleepiness 04/05/2024 Lumbar paraspinal muscle spasm 04/05/2024 Snoring 04/05/2024 Spondylosis of lumbosacral spine with radiculopa thy 04/05/2024 Overview (05/25/2024): 04/20/24: XR Sacrum & coccyx read: Degenerative changes of the lower lumbar spine and hips Assessment & Plan (05/25/2024 1:17 PM EDT): See below Viral infection 04/05/2024 Witnessed episode of apnea 04/05/2024 Localized osteoarthritis of left knee 04/05/2024 Assessment & Plan (08/10/2024 4:37 PM EST): -Plan for upcoming left TKA in Aug 2024 through [facility] -post-op pain medication through Surgeon Assessment & Plan (07/06/2024 5:05 PM EDT): -Plan for upcoming left TKA in Jul 2024 through [facility] -See HPI for discussion regarding post-op pain medication Lumbar back pain 04/05/2024 Obese 04/05/2024 Depression with anxiety 05/14/2023 Assessment & Plan (05/14/2023 2:00 PM EDT): I explain to patient she should follow with her therapist and psychiatrist, I explain I prefer specialist to continue prescribing her medication to avoid confusions Left upper quadrant abdominal pain 05/14/2023 Slow transit constipation 05/14/2023 Assessment & Plan (05/14/2023 1:55 PM EDT): Drink plenty of water increase fiber on diet Colon cancer screening 05/14/2023 Encounter for screening mamm ogram for malignant neoplasm of breast 05/14/2023 Trigger finger of right thumb 02/26/2023 Dysuria 02/26/2023 Assessment & Plan (08/05/2024 12:43 PM EST): Has UTI/cystitis, see above. Assessment & Plan (05/13/2024 7:08 PM EDT): -04/06/2024 renal function wnl -CT abd/eplvis w contrast 10/2023 The kidneys are normal in size, shape, and attenuation. No hydronephrosis, hydroureter, or calculi seen. No perinephric stranding.Unremarkable bladder -urine dipstick today positive blood, protein + , LE + ,nitrates neg -UA w reflex cx -cefadroxile BID for 7 days -will cover for possible pyelonephritis w questionable CVA? ---- call w result + pyridum x 2 days -tylenol prn -hydration advised -alarm signs symptoms Type 2 diabetes mellitus wit h hyperglycemia, without long-term current use of insulin 12/23/2022 Assessment & Plan (05/14/2023 1:56 PM EDT): Lab Results Component Value Date HGBA1C 6.7 (A) 05/14/2023 HGBA1C 7.9 (A) 02/26/2023 HGBA1C 7.4 (A) 12/23/2022 - Lab Results Component Value Date MICROALBUR 0.7 08/16/2021 CREATININE 0.83 05/14/2023 - Continue lifestyle modifications - Continue current medications Assessment & Plan (02/26/2023 11:15 AM EDT): - Lab Results Component Value Date HGBA1C 7.9 (A) 02/26/2023 HGBA1C 7.4 (A) 12/23/2022 HGBA1C 7.3 (A) 10/28/2022 - Lab Results Component Value Date MICROALBUR 0.7 08/16/2021 CREATININE 1.15 09/25/2022 - Continue lifestyle modifications, extensive counseling done today - Continue current medications 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 12/23/2022 Assessment & Plan (12/23/2022 5:48 PM EDT): Counseled tight control of DM Use clotrimazole cream BID x 1 week and then PRN Arthritis of left knee 09/25/2022 Chronic low back pain 09/25/2022 Assessment & Plan (03/23/2024 2:29 PM EDT): -Good engagement and participation with Group Medical Visit model -Encouraged multifactorial approach to pain control including pharm and non- pharm modalities -UTOX as expected, pill count abnormal (see clinical engineering director) Assessment & Plan (02/27/2024 9:29 AM EDT): Patient participated in first chronic pain group - utox as expected, pill count not performed - lidocaine patches sent per pt request, she knows her PCP may need to complete a PA - followup in 1-2 months for next chronic pain group Assessment & Plan (05/14/2023 2:02 PM EDT): Patient declined pain management referral I explain to patient I can not increase oxycodone dose due to risks including respiratory depression, mental health, increased risk for falls.... Assessment & Plan (02/26/2023 11:19 AM EDT): I will send message EXPEDITER CLERK nurse for her prescription to be renew every 28 days, I extensibly career placement services counselor patient she needs to be complaint with contract otherwise I will have to discontinue medication I also advise patient to f/u with pain management Assessment & Plan (10/28/2022 8:42 PM EST): It is not entirely clear the underlying cause of her pain, but patient has been on opiates for more than 5y now. She's a poor historian and her son Stefano doesn't have full information. Her son is not aware of a recent imaging and she hasn't been to pain clinic in more than 6m. I will discuss with EXPEDITER CLERK team about previous w/u. Discussed with patient in length re compliance with EXPEDITER CLERK and all appts. I handed her and her son the appt card to fu with EXPEDITER CLERK nurse New rx for Oxycodone x 1w this coming 2/2 Continue Gabapentin tid, encouraged to fu closely with MH provider. Counseled to come to acupuncture clinic. Depressive disorder 09/25/2022 Assessment & Plan (10/28/2022 8:43 PM EST): Encouraged re importance of compliance with Paxil and close fu with her MH team. Continue Paxil and Ambien at bedtime. Hyperlipidemia 09/25/2022 Hypertensive disorder 09/25/2022 Assessment & Plan (05/13/2024 7:08 PM EDT): Home BP states lately BP <140/90 Today elevated possible reactive? -has apt already scheduled w PCP -advised to bring home BP readings at apt Assessment & Plan (02/27/2024 9:30 AM EDT): BP not controlled today, she thinks it is due to pain Has upcoming appointment with her new PCP (switching to Dr. Bangura to have the same PCP as her ) - may need titration of Lisinopril - Aerobic exercise to reduce BP. Initial goal of 30 min walk 3-5x/week. Increase as tolerated. - low-sodium diet (goal: <2g/day) and heart healthy diet such as DASH to reduce BP and prevent ASCVD. - Home BP monitoring 1-2 x day with goal of <140/90. - Seek immediate medical attention for chest pain, palpitations, SOB, syncope, or sudden changes in mental status. - Do not change or discontinue current prescriptions without first consulting health care provider Assessment & Plan (05/14/2023 1:55 PM EDT): - Aerobic exercise to reduce BP. Initial goal of 30 min walk 3-5x/week. Increase as tolerated. - low-sodium diet (goal: <2g/day) and heart healthy diet such as DASH to reduce BP and prevent ASCVD. - Home BP monitoring 1-2 x day with goal of <140/90. - Seek immediate medical attention for chest pain, palpitations, SOB, syncope, or sudden changes in mental status. - Do not change or discontinue current prescriptions without first consulting health care provider Assessment & Plan (02/26/2023 11:20 AM EDT): Patient forgot to take her BP medications today I advise to be compliant with her medications Assessment & Plan (10/28/2022 8:26 PM EST): Uncontrolled today. Patient hasn't taken meds today Counseled re importance of med compliance, taking meds at the same time. FU in 2m. Continue hydrochlorothiazide 25mg + lisinopril 5mg Hypothyroidism 09/25/2022 Assessment & Plan (05/14/2023 1:55 PM EDT): TSH will be check with labs Insomnia 09/25/2022 Assessment & Plan (12/23/2022 5:49 PM EDT): Most likely due to underlying depression, needs to FU with psychiatry next month and with counselor every 2 weeks, no medication changes. 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 We have done [employer] education re opiate side effects including dizziness, somnolence, constipation, urinary retention, dependance, etc. Patient is aware of the importance of avoiding any activity that requires vigilance while taking these meds including driving. We have discussed re avoiding diversion of medication, including giving pills to relatives. Patient is to keep medications in a safe place and is aware that rx will not be replaced if lost or stolen. Assessment & Plan (10/28/2022 8:47 PM EST): Chronic rx for 5 + years for LBP. Recent non compliance with EXPEDITER CLERK program. New appt with EXPEDITER CLERK nurse handed today, she's aware that no further rx will be given if she's not fully compliant with contract. She and her son agreed with POC We have done [employer] education re opiate side effects including dizziness, somnolence, constipation, urinary retention, dependance, etc. Patient is aware of the importance of avoiding any activity that requires vigilance while taking these meds including driving. We have discussed re avoiding diversion of medication, including giving pills to relatives. Patient is to keep medications in a safe place and is aware that rx will not be replaced if lost or stolen. Diabetes mellitus 09/25/2022 04/06/2024 Assessment & Plan (12/23/2022 5:51 PM EDT): Fairly controlled, A1C not quite at goal. Continue Metformin Counseled re more frequent low calorie/carb meals. Check fgstk daily Encouraged physical activity as tolerated. Counseled regarding more compliance with meals and referred to dietitian. FU with PCP in 3 months. Assessment & Plan (10/28/2022 8:27 PM EST): Fairly controlled. Counseled re dietary compliance to achieve A1c Of 7. Continue metformin Fu in 3m Encounters Date Type Department Care Team Description 11/12/2024 Refill [facility] [address] [place] [address] Fausto Bangura MD 11/10/2024 Refill [facility] [address] [place] [address] Fausto Bangura MD Acquired hypothyroidism 11/02/2024 Telephone [facility] [address] [place] [address] Isatu Morales RN 11/01/2024 Telephone [facility] [address] [place] [address] Fausto Bangura MD Med Refill; Medication Question 10/26/2024 Refill [facility] [address] [place] [address] Fausto Bangura MD Arthritis of left knee 10/25/2024 Refill [facility] [address] [place] [address] Fausto Bangura MD Arthritis of left knee 10/18/2024 Refill [facility] [address] [place] [address] Khloe Ventura MD Urinary tract infection without hematuria, site unspecified 10/13/[address] [address] Fausto Bangura MD Type 2 diabetes mellitus without complication, without long-term current use of insulin ([facility]) 10/12/[address] [address] Fausto Bangura MD Appointment Request 09/30/[address] [address] Fausto Bangura MD Med Refill 09/30/[address] [address] Fausto Bangura MD Type 2 diabetes mellitus with hyperglycemia, without long-term current use of insulin ([facility]) 09/23/[address] [address] Jose Antonio Velásquez [place] feb recall 09/17/[address] [address] Fausto Bangura MD Arthritis of left knee 09/09/2024 2:00 PM EST Office Visit [facility] [address] [place] [phone] Khloe Ventura MD Urinary tract infection without hematuria, site unspecified (Primary Dx) 09/09/[address] [address] Leeann Solis, RN 09/08/[address] [address] Fausto Bangura MD Nurse Triage 09/07/[address] [address] Fausto Bangura MD Nurse Triage 09/02/2024 Orders Only GENERIC EXTERNAL DATA DEPARTMENT Provider, Generic External Data 09/01/2024 Orders Only GENERIC EXTERNAL DATA DEPARTMENT Provider, Generic External Data 08/31/2024 Orders Only GENERIC EXTERNAL DATA DEPARTMENT Provider, Generic External Data 08/25/2024 Telephone [facility] [address] [place] [phone] Leeann Solis, ALISHA 08/24/2024 Refill [facility] [address] [place] [phone] Fausto Bangura MD Arthritis of left knee 08/23/2024 Telephone [facility] [address] [place] [address] Isatu Morales, ALISHA 08/17/[address] [phone] Fausto Bangura MD from Last 3 Months Immunizations Name Administration Dates Next Due Hep B, adult 04/18/2022 Tdap 02/27/2022 Zoster, Recombinant 05/01/2022,02/27/2022 Social History Tobacco Use Types Packs/Day Years Used Date Smoking Tobacco: Former Cigarettes Q uit: 2002 Smokeless Tobacco: Never Tobacco Cessation:Counseling Given: Not Answered Alcohol Use Standard Drinks/Week Comments Never 0 [...] not to disclose 2021 10:14 AM EDT Last Filed Vital Signs Vital Sign Reading Time Taken Comments Blood Pressure 144/74 09/09/2024 1:41 PM EST Pulse 98 09/09/2024 1:41 PM EST Temperature 36.7 ??C (98.1 ??F) 09/09/2024 1:41 PM ES T Respiratory Rate 17 09/09/2024 1:41 PM EST Oxygen Saturation 96% 09/09/2024 1:41 PM EST Inhaled Oxygen Concentration - - Weight 98.2 kg (216 lb 8 oz) 08/05/2024 10:36 AM EST Height 165.1 cm (5' 5 ) 08/05/2024 10:36 AM EST Body Mass Index 36.03 08/05/2024 10:36 AM EST Plan of Treatment Upcoming Encounters Date Type Department Care Team (Late st Contact Info) Description 11/17/2024 11:30 AM EST Clinical Support [facility] [address] [place] [phone] Shannan Borrego, ALISHA 11/25/2024 11:15 AM EST Office Visit [facility] [address] [place] [phone] Name, MD Fausto [address] [place] [id number] Health Maintenance Due Date Last Done Comments CT Colonography 1958 FIT DNA/Cologuard 1958 FIT 1958 FOBT 1958 Sigmoidoscopy 1958 Diabetes: Foot Exam 1968 Pneumococcal Vaccine: 50+ Years (1 of 2 - PCV) 1977 RSV Patients and Patients Aged 60 years or older (1 - Risk 60-74 years 1-dose series) 2018 Hepatitis B Vaccines (2 of 3 - 19+ 3-dose series) 05/16/2022 04/18/2022 Lipid Panel 03/03/2024 03/03/2023, 08/16/2021 COVID-19 Vaccine ( season) 2024 05/01/2022, 02/01/2021, 01/04/2021 Influenza Vaccine (#1) 2024 Depression Monitoring (PHQ-9) 10/07/2024 04/06/2024, 04/06/2024 Diabetes: Hemoglobin A1C 10/29/2024 024, 04/06/2024, 05/14/2023, Additional history exists SDOH Screening 03/30/2025 03/30/2024 Alcohol/Substance Use Screening 04/06/2025 04/06/2024 Depression Screening 04/06/2025 04/06/2024, 04/06/20 24 Diabetes: Urine Protein Screening 04/06/2025 04/06/2024, 08/16/2021 Mammogram 06/30/2025 06/30/2024, 06/25/2023 Tobacco Screening 09/09/2025 09/09/2024 Eye Exam 08/02/2026 08/02/2024, 12/2023, 08/02/2024, Additional history exists DTaP/Tdap/Td Vaccines (2 - Td or Tdap) 02/28/2032 02/27/2022 Colonoscopy 03/01/2034 03/01/2024 Colorectal Cancer Screening 03/01/2034 Hepatitis C Screening Completed 08/16/2021 Zoster Vaccines Completed 05/01/2022, 02/27/2022 HIB Vaccines Aged Out No longer eligi ble based on patient's age to complete this topic HPV Vaccines Aged Out No longer eligi ble based on patient's age to complete this topic Hepatitis A Vaccines Aged Out No long er eligible based on patient's age to complete this topic IPV Vaccines Aged Out No longer eligi ble based on patient's age to complete this topic Meningococcal Vaccine Aged Out No willy jessy eligible based on patient's age to complete this topic RSV under 20 months Aged Out No longe r eligible based on patient's age to complete this topic Rotavirus Vaccines Aged Out No longer eligible based on patient's age to complete this topic Procedures Procedure Name Priority Date/Time Associated Diagnosis Comments CULTURE, URINE, ROUTINE Routine 09/09/2024 2:00 PM EST Urinary tract infection without hematuria, site unspecified POCT URINALYSIS DIPSTICK Routine 09/09/2024 1:59 PM EST Urinary tract infection without hematuria, site unspecified GLUCOSE, WHOLE BLOOD Routine 09/02/2024 7:13 AM EST BASIC METABOLIC PANEL, FASTING Routine 09/02/2024 5:41 AM EST CBC WITH AUTO DIFFERENTIAL Routine 09/02/2024 5:41 AM EST GLUCOSE, WHOLE BLOOD Routine 09/01/2024 7:19 PM EST GLUCOSE, WHOLE BLOOD Routine 09/01/2024 4:12 PM EST GLUCOSE, WHOLE BLOOD Routine 09/01/2024 11:38 AM EST GLUCOSE, WHOLE BLOOD Routine 09/01/2024 7:14 AM EST BASIC METABOLIC PANEL, FASTING Routine 09/01/2024 5:29 AM EST CBC WITH AUTO DIFFERENTIAL Routine 09/01/2024 5:29 AM EST GLUCOSE, WHOLE BLOOD Routine 08/31/2024 8:28 PM EST GLUCOSE, WHOLE BLOOD Routine 08/31/2024 4:32 PM EST XR KNEE 1-2 VIEWS LEFT Routine 1:30 PM EST GROSS AND MICROSCOPIC LEVEL 4 Routine 08/31/2024 11:43 AM EST POCT GLYCATED HEMOGLOBIN, TOTAL Routine 07/29/2024 11:49 AM EDT Hypertension associated with diabetes (CMS/HCC) (CMS/HCC) BI MAMMOGRAM SCREENING TOMOSYNTHESIS BILATERAL Routine 06/30/2024 10:30 AM EDT ALBUMIN, RANDOM URINE W/CREATININE Routine 04/06/2024 4:07 PM EDT Type 2 diabetes mellitus with hyperglycemia, without long-term current use of insulin (CMS/HCC) HM COLONOSCOPY Routine 03/01/2024 LIPID PANEL, STANDARD Routine 03/03/2023 10:12 AM EDT Type 2 diabetes mellitus with hyperglycemia, without long-term current use of insulin (CMS/HCC) ZZZ HISTORICAL HEPATITIS C AB W/REFL TO HCV RNA, QN, PCR Routine 08/16/2021 11:08 AM EST from Last 3 Months or Most Recently Relevant to Health Maintenance Results * Culture, Urine, Routine (09/09/2024 2:00 PM EST) Urine Urine specimen obtained by clean catch procedure / Unknown 09/09/2024 2:00 PM EST 09/09/2024 5:56 PM EST Comment:[facility] Narrative [facility] - 09/11/2024 11:16 AM EST Urine Culture Report Result Urine Culture 10,000 to 50,000 cfu/ml Urine Culture Mixed bacterial kimberley characteristic of Urine Culture urogenital contamination. Specimen Source: Urine clean catch us Khloe Ventura MD LAB MICROBIOLOGY - GENERAL ORDERABLES Final Result [facility] [address] [place] [phone] * POCT urinalysis dipstick manually resulted (09/09/2024 1:59 PM EST) Color, UA Yellow Clarity, UA Clear Glucose, UA Negative Bilirubin, UA Few 15 Comment:Small Ketones, UA Positive Comment:Trace Spec Grav, UA 1.030 Blood, UA Negative Negative, None Detected pH, UA 5.5 Protein, UA Negative Urobilinogen, UA 0.2 Leukocytes, UA Trace Negative, Rare, Trace Nitrite, UA Negative Negative, None Detected Urine 09/09/2024 1:59 PM EST Khloe Ventura MD POINT OF CARE TEST ENTER/E DIT ORDERABLES Final Result * (ABNORMAL) Glucose, Whole Blood (09/02/2024 7:13 AM EST) Only the most recent of7 resultswithin the time period is included. [facility] Glucose, Whole Blood 182(H) 60 - 115 mg/dL [facility] Comment:METER #: [id number] 09/02/2024 7:13 AM EST 09/02/2024 7:29 AM EST us Generic External Data Provider LAB BLOOD ORDERAB LES Final Result [facility] [address] [place] [address] [phone] * (ABNORMAL) Basic Metabolic Panel, Fasting (09/02/2024 5:41 AM EST) Only the most recent of2 resultswithin the time period is included. [facility] Sodium 135 135 - 145 mmol/L [facility] Potassium 3.7 3.3 - 5.1 mmol/L [facility] Chloride 100 96 - 108 mmol/L [facility] Carbon Dioxide 27 22 - 29 mmol/L [facility] Anion Gap 12 12 - 20 [facility] Urea Nitrogen (BUN) 7(L) 9 - 16 mg/dL [facility] Creatinine, Serum 0.70 0.5 - 1.4 mg/dL [facility] Creatinine Clr Calc Pharmacy 90.0 [facility] Comment:Provided height and weight: 165.1 cm,94.971 kg.eGFR (calculated from the MDRD study equation) and eCrCl(calculated from the Cockcroft-Gault equation) are based ondifferent parameters and may not yield comparable results.If eCrCl result is absurd, please check patient'sheight/weight. Estimated Glomerular Filt Rate >60 [facility] Comment:Chronic Kidney Disea se: Estimated GFR < 60 mL/min/1.13n4Lfehnm Kidney Disease: Estimated GFR < 15 mL/min/1.73m2 Glucose Fasting 172(H) 60 - 99 mg/dL [facility] Comment:A fasting glucose of 126 mg/dl or greater on more than oneoccasion is considered diagnostic of diabetes. Calcium 9.2 8.4 - 10.2 mg/dL [facility] 09/02/2024 5:41 AM EST 09/02/2024 7:34 AM EST us Generic External Data Provider LAB BLOOD ORDERAB LES Final Result [facility] [address] [place] [phone] * (ABNORMAL) CBC auto differential (09/02/2024 5:41 AM EST) Only the most recent of2 resultswithin the time period is included. White Blood Count 12.4(H) 4.8 - 10.8 X10*3/uL [facility] Red Blood Count 3.78(L) 4.20 - 5.50 X10*6/uL [facility] Hemoglobin 11.3(L) 12.0 - 16.0 g/dl [facility] Hematocrit 32.9(L) 37.0 - 47.0 % [facility] Mean Corpuscular Volume 87.0 80.0 - 98.0 fL [facility] Mean Corpuscular Hemoglobin 29.9 27.0 - 33.0 pg [facility] Mean Corpuscular HGB Conc 34.3 31.0 - 35.0 g/dl [facility] Red Cell Distribution Width 13.3 11.0 - 16.0 % [facility] Platelet Count 267 160 - 400 X10*3/uL [facility] Mean Platelet Volume 9.5 9.4 - 12.3 fL [facility] Neutrophils Percent Auto 68.5 45 - 73 % [facility] Imm Gran Pct Auto 0.6(H) 0.0 - 0.4 % [facility] Lymphocytes Percent Auto 18.8(L) 20 - 40 % [facility] Monocytes Percent Auto 10.0 2 - 11 % [facility] Eosinophils Percent Auto 1.6 0 - 4 % [facility] Basophils Percent Auto 0.5 0 - 2 % [facility] NRBC Pct Auto 0.0 0.0 - 0.2 /100WBC [facility] Neutrophils Absolute Auto 8.5(H) 2.0 - 8.3 x10*3/uL [facility] Imm Gran Abs Auto 0.08(H) 0.00 - 0.03 X10*3/uL [facility] Lymphocytes Absolute Auto 2.3 1.2 - 4.9 X10*3/uL [facility] Monocytes Absolute Auto 1.2 0.1 - 1.2 X10*3/uL [facility] Eosinophils Absolute Auto 0.2 0.0 - 0.4 X10*3/uL [facility] Basophils Absolute Auto 0.1 0.0 - 0.2 X10*3/uL [facility] NRBC Abs Auto 0.000 0.0 - 0.012 X10*3/uL [facility] 09/02/2024 5:41 AM EST 09/02/2024 7:34 AM EST us Generic External Data Provider LAB BLOOD ORDERAB LES Final Result [facility] [address] [place] [address] [phone] * XR Knee 1-2 Views Left (08/31/2024 1:30 PM EST) Anatomical Region Laterality Modality Lower Extremities, Knee Left Radiogra phic Imaging 08/31/2024 1:30 PM EST Narrative 09/01/2024 8:04 AM EST ? [facility] ?[address] ?[place] [address] ?XRay Report ? Signed ? Patient: Dodd,Stephanie ?MR#: [id number] ? : 1960 ?Acct:[id number] ? Age/Sex: 64 / F ?ADM Date: 08/31/24 ? Loc: HO.S3 ?344-1 ? Attending Dr: Rashida Mccormick PA-C ? Ordering Physician: Rashida Mccormick PA-C ?? Date of Service: 08/31/24 ?? Procedure(s): XR knee LT 2V ?? Accession Number(s): [id number] ? cc: Rashida Mccormick PA-C; Name,Fausto VEGAS ? EXAMINATION: ?? XR KNEE, LEFT ? CLINICAL INFORMATION: ?? LT TKA ? COMPARISON: ?? 08/24/2024 ? TECHNIQUE: ?? 3 views of the left knee. ? FINDINGS: ?? Status post total knee arthroplasty. Hardware appears intact. Joint ?? effusion with soft tissue swelling, anterior surgical jose and ?? lucencies characteristic of postoperative air. ? There is an ossific fragment along the inferior posterior aspect of the ?? patella, possibly postoperative change versus fracture. Tiny ?? ring-shaped radiodensities inferior to patella of uncertain ?? significance. ? XR/XR knee LT 2V ?? IMPRESSION: ? 1. ??Status post total knee arthroplasty. Hardware appears intact. ? 2. ??Ossific fragment along the inferior posterior aspect of the ?? patella, possibly postoperative change versus fracture. ? This study was presented today September 01, 2024 for interpretation. ?? Stat results provided at this time as requested by referring provider. ? Electronically signed by: ??Patito Peter MD ??09/01/2024 08:01 AM EST ?? RP ? Dictated By: ?Patito Peter MD ? Signed By: ?<Electronically signed by Patito Peter MD in OV> ? 09/01/24 0801 ? DD/ 1330 ? TD/TT: 08/31/24 1531 ? Photocopying Machine Operator: ? Procedure Note Donotuseinterpreter, Image - 09/01/[address] [address] XRay Report Signed Patient: Cony Dodd#: [id number] : 8Acct:[id number] Age/Sex: 64 / FADM Date: 08/31/24 Loc: HO.S3 344-[address]: Rashida Mccormick PA-C Ordering Physician: Rashida Mccormick PA-C Date of Service: 08/31/24 Procedure(s): XR knee LT 2V Accession Number(s): [id number] cc: Rashida Mccormick PA-C; Name,Fausto VEGAS EXAMINATION: XR KNEE, LEFT CLINICAL INFORMATION: LT TKA COMPARISON: 08/24/2024 TECHNIQUE: 3 views of the left knee. FINDINGS: Status post total knee arthroplasty. Hardware appears intact. Joint effusion with soft tissue swelling, anterior surgical jose and lucencies characteristic of postoperative air. There is an ossific fragment along the inferior posterior aspect of the patella, possibly postoperative change versus fracture. Tiny ring-shaped radiodensities inferior to patella of uncertain significance. XR/XR knee LT 2V IMPRESSION: 1. Status post total knee arthroplasty. Hardware appears intact. 2. Ossific fragment along the inferior posterior aspect of the patella, possibly postoperative change versus fracture. This study was presented today September 01, 2024 for interpretation. Stat results provided at this time as requested by referring provider. Electronically signed by: Patito Peter MD 09/01/2024 08:01 AM EST Dictated By: Patito Peter MD Signed By: <Electronically signed by Patito Peter MD in OV> 09/01/24 0801 DD/ 1330 TD/TT: 08/31/24 1531 Photocopying Machine Operator: [facility] External Provider IMG XR PROCEDURES Edited Result - Final * Gross and Microscopic Level 4 (08/31/2024 11:43 AM EST) 08/31/2024 11:4 3 AM EST 08/31/2024 1:45 PM EST Narrative [facility] - 09/02/2024 4:45 PM EST ----- ------- Name: Stephanie Dodd ? Age/Sex: 64/F ? : 1960 Unit#: [id number] ?? Attend Dr: Rashida Mccormick PA-C ?Re08/31/24 ?Status: DEP SDC ? Location: HO.SSS ?Disch: ? ----- ------- SPEC : [id number] ? RECD: 08/31/24-5816 ? STATUS: ??SOUT ? REQ NUM: [id number] ? LIAM: 08/31/24-1143 ? SUBM DR: Mike Garcia MD ? ENTERED: ??08/31/24-3432 ?SP TYPE: Surgical ? OTHR DR: Rashida Mccormick PA-C ?Name,Fausto VEGAS ORDERED: ??Gross Micro L4, Decal ? Diagnosis ?? Left knee, arthroplasty: ??Bone and cartilage with degenerative and regenerative changes ?? (osteoarthritis). ?Clinical History Osteoarthritis left knee ?Microscopic Description Microscopic sections reviewed. ? Material Received ?? Left knee ? Gross Description Received in formalin labeled ?left knee? are multiple irregular fragments and plates of betts, white-pink osteocartilaginous tissue ranging from 3.0 to 6.0 cm in greatest dimension and aggregating 6.0 x 5.0 x 0.3-3.0 cm to include femoral condyles and tibial plateau components. ??The convex and concave articular surfaces are minimally eroded, focally granular, betts-white and betts-red. ??There is no eburnation. ??On sectioning the cartilage ranges from less 0.1-0.2 cm in thickness. ??The subarticular trabecular bone is dense, betts- yellow with wilder-yellow bone marrow. ??Pheresis Specialist sections are submitted in a cassette labeled A1 following decalcification. CEDS Copies To: ?? Mike Garcia MD ?? [facility] ?? [address] [place] [address] [address] ?? [place] [address] ?? [phone] ?? Rashida Mccormick PA-C ?? [facility] ?? [address] ?? [place] [address] ?? [phone] ? CONTINUED ON NEXT PAGE ----- ------- Name: Stephanie Dodd ? Age/Sex: 64/F ? : 1960 Unit#: [id number] ?? Attend Dr: Rashida Mccormick PA-C ?Re08/31/24 ?Status: DEP SDC ? Location: HO.SSS ?Disch: ? ----- ------- SPEC : [id number] ? RECD: 08/31/24-6285 ? STATUS: ??SOUT ? REQ NUM: [id number] ? LIAM: 08/31/24-1143 ? SUBM DR: Mike Garcia MD ? ENTERED: ??08/31/24-1315 ?SP TYPE: Surgical ? OTHR : Rashida Mccormick PA-C ?Name,Fausto VEGAS ORDERED: ??Gross Micro L4, Decal ? Copies To: ??(Continued) ?? Name,Fausto VEGAS ?? [address] [facility] ?? [place] [address] ?? [phone] ----- ------- Signed (signature on file) Wiliam Gasca MD 09/02/24 4495 ? ----- ------- ? END OF REPORT ? us Generic External Data Provider LAB CYTOLOGY ORDAgus RABGILDA Final Result [facility] [address] [place] [address] [phone] * (ABNORMAL) POCT HGB A1C (07/29/2024 11:49 AM EDT) Hemoglobin A1C 6.8(A) 4.0 - 6.0 % QC Media Lot # [id number] Lot# Expiration Date ,026 Blood 07/29/2024 11:4 9 AM EDT us Shelbi Arnold ANP POINT OF CARE TEST ENTER/EDIT OR DERABLES Final Result * BI Mammogram Screening Tomosynthesis Bilateral (06/30/2024 10:30 AM EDT) Anatomical Region Laterality Modality Breast Bilateral Mammography 06/30/2024 10:3 0 AM EDT Narrative 07/12/2024 12:45 PM EDT ? [facility] [place] ? [address] ?[place] [address] ? Mammography Report ? Signed ? Patient: Dodd,Stephanie ?MR#: [id number] ? : 1960 ?Acct:[id number] ? Age/Sex: 63 / F ?ADM Date: //24 ? Loc: HO.MAMMO ? Attending Dr: Rosanne Ortiz MD ? Ordering Physician: Rosanne Lugo MD ?Results: ?? 1Negative ? Date of Service: 06/30/24 ?Follow Up: 1 Year From Orig ?? inal Mammogram ? Procedure(s): MM tomosynthesis screening BI ?? Accession Number(s): [id number] ? cc: Rosanne Lugo MD; Name,Fausto VEGAS ? EXAMINATION: ?? MM SCREENING DIGITAL BREAST TOMOSYNTHESIS, BILATERAL ? CLINICAL INFORMATION: ? Screening. Asymptomatic. ? COMPARISON: ?? Mammography: Comparison is made with available priors ? TECHNIQUE: ?? Digital breast mammography with tomosynthesis is performed in both the ?? craniocaudal and mediolateral oblique views along with computer-aided ?? detection (CAD). ? FINDINGS: ?? There are scattered areas of fibroglandular density (ACR BI-RADS breast ?? composition Category b). ? There are no significant masses, abnormal calcifications, or other ?? abnormalities. ? MM/MM tomosynthesis screening BI ?? IMPRESSION: ?? No mammographic evidence of malignancy. ? Patient describes intermittent bilateral breast pain. Patient had no ?? pain today of screening exam. Recommend clinical evaluation and if ?? there is focal pain or if deemed clinically significant a diagnostic ?? workup can be ordered and performed. ? ASSESSMENT: ? BI-RADS BI-RADS 1 - Negative ? RECOMMENDATION: ?? Routine annual mammography screening. ? 1 year F/U ? This examination should not preclude the clinical evaluation of a ?? suspicious palpable abnormality. ? This patient's information was entered into a reminder system with a ?? target due date for their next mammogram. ? Electronically signed by: ??Magaly Parks DO ??07/12/2024 12:42 PM EDT ?? RP ? Dictated By: ?Magaly Parks DO ? Signed By: ?<Electronically signed by Magaly Parks, DO in OV> ? 07/12/24 1242 ? DD/ 1030 ? TD/TT: 06/30/24 1058 ? Photocopying Machine Operator: ? Procedure Note Donotcelineinterpreter, Image - 07/12/2024 [place] [facility] [address] [place], [place] [address] Mammography Report Signed Patient: Cony Dodd#: [id number] : 8Acct:[id number] Age/Sex: 63 / FADM Date: 06/30/24 Loc: HO.MAMMO Attending Dr: Rosanne Ortiz MD Ordering Physician: Rosanne Lugoesults: 1Negative Date of Service: 06/30/24Follow Up: 1 Year From Orig inal Mammogram Procedure(s): MM tomosynthesis screening BI Accession Number(s): [id number] cc: Rosanne Lugo MD; Name,Fausto VEGAS EXAMINATION: MM SCREENING DIGITAL BREAST TOMOSYNTHESIS, BILATERAL CLINICAL INFORMATION: Screening. Asymptomatic. COMPARISON: Mammography: Comparison is made with available priors TECHNIQUE: Digital breast mammography with tomosynthesis is performed in both the craniocaudal and mediolateral oblique views along with computer-aided detection (CAD). FINDINGS: There are scattered areas of fibroglandular density (ACR BI-RADS breast composition Category b). There are no significant masses, abnormal calcifications, or other abnormalities. MM/MM tomosynthesis screening BI IMPRESSION: No mammographic evidence of malignancy. Patient describes intermittent bilateral breast pain. Patient had no pain today of screening exam. Recommend clinical evaluation and if there is focal pain or if deemed clinically significant a diagnostic workup can be ordered and performed. ASSESSMENT: BI-RADS BI-RADS 1 - Negative RECOMMENDATION: Routine annual mammography screening. 1 year F/U This examination should not preclude the clinical evaluation of a suspicious palpable abnormality. This patient's information was entered into a reminder system with a target due date for their next mammogram. Electronically signed by: Magaly Parks DO 07/12/2024 12:42 PM EDT Dictated By: Magaly Parks DO Signed By: <Electronically signed by Magaly Parks DO in OV> 07/12/24 1242 DD/ 1030 TD/TT: 06/30/24 1058 Photocopying Machine Operator: Rosanne Ortiz MD IMG BI PROCEDURES Fin al Result * Albumin, Random Urine W/Creatinine (04/06/2024 4:07 PM EDT) Creatinine, Urine 350.09 mg/dL [facility] Microalbumin Urine 29.0 mg/L [facility] Microalbum Creatinine Ratio Ur 8.2 <30 ug/mg cr [facility] Comment:Albumin/Creatinine R atio Reference Ranges: Normal: < 30 ug/mg creatinine Microalbuminuria: 30 - 300 ug/mg creatinineClinical Albuminuria: > 300 ug/mg creatinine Urine (Urine, Random) 04/06/2024 4:07 PM EDT 04/06/2024 5:49 PM EDT Fausto Bangura MD LAB URINE ORDERABLES Final Resul t [facility] [address] [place] [phone] * Hm Colonoscopy (03/01/2024) Colonoscopy Normal Normal Rosanne Ortiz MD HEALTH MAINTENANCE nal Result * (ABNORMAL) Lipid Panel, Standard (03/03/2023 10:12 AM EDT) Cholesterol, Total 168 <200 mg/dL [facility] [place] [facility] HDL Cholesterol 54 > OR = 50 mg/dL [facility] [place] [facility] Triglycerides 156(H) <150 mg/dL [facility] [place] [facility] LDL Cholesterol 89 mg/dL (calc) [facility] [place] [facility] Comment: Reference range: <100 Desirable range <100 mg/dL for primary prevention; ?? <70 mg/dL for patients with CHD or diabetic patients with > or = 2 CHD risk factors. LDL-C is now calculated using the Jaime calculation, which is a validated novel method providing better accuracy than the Friedewald equation in the estimation of LDL-C. Anupam EDUARDO et al. TIMMY. 2013;310(19): 3210-0844 (http://DNAnexus/faq/SJL704) Chol/HDLC Ratio 3.1 <5.0 (calc) [facility] [place] [facility] Non-HDL Cholesterol 114 <130 mg/dL (calc) [facility] [place] [facility] Comment: For patients with diabetes plus 1 major ASCVD risk factor, treating to a non-HDL-C goal of <100 mg/dL (LDL-C of <70 mg/dL) is considered a therapeutic option. Blood Venous blood specimen / Unknown 03/03/2023 10:12 AM EDT 03/03/2023 10:12 AM EDT Narrative [facility] - 03/03/2023 8:49 PM EDT FASTING:YES FASTING: YES Rosanne Ortiz MD LAB BLOOD ORDERABLES Final Result [facility] [address], [place] [address] [facility] [place] [facility] [address] [place] [address] * HEPATITIS C AB W/REFL TO HCV RNA, QN, PCR (08/16/2021 11:08 AM EST) HEPATITIS C ANTIBODY NON-REACT VIOLETTA NON-REACT VIOLETTA [facility] INDEX 0.06 <1.00 [facility] Comment: ?? HCV antibody was non-reactive. There is no laboratory ?? evidence of HCV infection. ?? In most cases, no further action is required. However, if recent HCV exposure is suspected, a test for HCV RNA (test code 29717) is suggested. ?? For additional information please refer to http://Cosm[employer]it Home.Real Time Wine/faq/JBM40a6 (This link is being provided for informational/ educational purposes only.) ?? 08/16/2021 11:0 8 AM EST Yasmeen Saxena JAIL MANAGER HISTORICAL/NON ORDERABLE LABS Final Result [facility] [address] from Last 3 Months or Most Recently Relevant to Health Maintenance Insurance [facility] [address] [place] [address] [phone] [place] [phone] [place] [phone] Care Teams Electrocardiograph Operator Relationship Specialty Start Date End Date Name, MD Fausto [address] [place] [phone] PCP - General Internal Medicine 01/23/24 [place] [facility] 09/03/24
--- OUTSIDE RECORDS SUMMARY | 2024-11-15 08:55 | XMS_ITS | Encounter Summary ---
Author Organization [employer] Address [address] [place] [address] Care Team Providers Care Machine Chocolate Molder Name Role Phone Rosanne Lugo MD Primary Care Provide r Fausto Bangura MD Primary Care Provider [phone] Encounter Details Date Type Department Care Team (Latest Contact Info) Description 03/30/2019 Abstract [facility] CONVERSIONS Dental, Provider, DDS Social History Tobacco Use Types Packs/Day Years Used Date Smoking Tobacco: Never Assessed Comments Unknown Sex and Gender Information Value Date Recorded Sex Assigned at Female 07/29/2022 10:14 AM EDT Legal Sex Female 10:14 AM EDT Gender Identity Female 07/29/2022 10:14 AM EDT Sexual Orientation Choose not to disclose 2021 10:14 AM EDT documented as of this encounter Plan of Treatment Upcoming Encounters Date Type Department Care Team (Late st Contact Info) Description 11/17/2024 11:30 AM EST Clinical Support [address] [address] Shannan Borrego RN 11/25/2024 11:15 AM EST Office Visit [facility] [address] [place] [phone] Name, MD Fausto [address] [place] [address] [phone] documented as of this encounter Visit Diagnoses Not on filedocumented in this encounter Care Teams Machine Chocolate Molder Relationship Specialty Start Date End Date Rosanne Lugo MD [address] [place] [address] [phone] PCP - General Family Medicine 05/23/22 01/22/24 Name, MD Fausto [address] [place] [address] PCP - General Internal Medicine 01/23/24 [place] [facility] 09/03/24 documented as of this encounter
--- OUTSIDE RECORDS SUMMARY | 2024-11-15 08:55 | XMS_ITS | Encounter Summary ---
Author Organization [employer] Address [address] [facility] [address] [place] [address] Care Team Providers Care Cd Reactor Operator Head Name Role Phone Name, Fausto VEGAS Primary Care Provider [phone] Reason for Visit * Reason Comments Med Refill Encounter Details Date Type Department Care Team ([facility] st Contact Info) Description 10/18/2024 Refill [facility] [address] [place], [place] [phone] Khloe Ventura MD [address] [place] [address] Urinary tract infection without hematuria, site unspecified Social History Tobacco Use Types Packs/Day Years [...] Description 11/17/2024 11:30 AM EST Clinical Support [address] [address] Shannan Borrego RN 11/25/2024 11:15 AM EST Office Visit [address] [address] Name, MD Fausto [address] [place] [phone] documented as of this encounter Visit Diagnoses Diagnosis Urinary tract infection without hematuria, site unspecified documented in this encounter Additional Health Concerns Assessment Noted Time PHQ-9 Depression Total Score: 10 024 10:02 AM EDT documented as of this encounter Care Teams Cd Reactor Operator Head Relationship Specialty Start Date End Date NameFausto MD [address] [place] [phone] PCP - General Internal Medicine 01/23/24 [place] [facility] 09/03/24 documented as of this encounter
--- OUTSIDE RECORDS SUMMARY | 2024-11-15 08:55 | XMS_ITS | Data Portability ---
Author Organization [employer], [employer] in - Join[employer]@ Address [address] [place] [address] Care Team Providers Care Steel Layer Name Role Phone HIM CCA OTHER NAME, KALEE Primary Care Provider [facility] OTHER Assessment Encounter Date Assessment Date Assessment LastModified by Organization Details LastModified Time 09/07/2024 09/07/2024 I provided real -time medical direction via phone for this encounter, and was available for additional phone based assistance as needed. I have reviewed and agree with the Assessment and Plan as documented by the Continuing Education Specialist. We discussed the diagnostic uncertainty of home [...] her symptoms. Patient verbalizes understanding, via the translator/interpreter but states she feels okay and is [...] to call 911- verbalized understanding of instruction [email or web address] Not available 09/07/2024 19:03:29 Plan of Treatment Reminders Order Date Submit Date Provider Last Modified By Organization Details Last Modified Time Details Appointments None recorded. Lab culture, urine 12/10/ 2024 12/10/2 024 [place] [facility], [address] [facility], [place], [address], 18:05:48 urinalysis, dipstick 2023 [email or web address] 0 [facility], [address] [place] [address], [phone], 4 13:27:08 glucose, fingerstick , blood 2023 [email or web address] 0 [facility], [address] [place] [address], [phone], 4 19:02:51 Referral None recorded. Procedures None recorded. Surgeries None recorded. Imaging electrocard iogram 2023 [email or web address] 0 [facility], [address] [place] [address], [phone], 4 19:02:51 Medication Orders nitrofurant oin macrocrysta l 100 mg capsule 2023 [place] [id number], [address] [place], [address], 12:52:08 Patient TargetsNo targets recorded. Patient InstructionsNo instructions recorded. Reason for Referral None Reported. Results Created Date Observation Date Name Description Value Unit Range Abnormal Flag Note LastModifiedBy Organization Detail LastModifiedTime 09/07/20 24 09/09/2024 URINE CULTU RE,CO MPREH ENSIV E urine culture,comp rehensive Final report abnormal Not Available [facility] ([facility]) [address] [facility], [place], [address], 09/09/2024 10:06:04 09/07/20 24 09/09/2024 URINE CULTU [...] Prote us mirab ilis. Not Available [facility] ([facility]) [address] [facility], [place], [address], 09/09/2024 10:06:04 09/07/20 24 09/09/2024 URINE CULTU [...] , M100- S26, 2016) Not Available [facility] ([facility]) [address] [facility], [place], [address], 09/09/2024 10:06:04 09/07/20 24 09/09/2024 URINE CULTU [...] S Vanco mycin S Not Available [facility] ([facility]) [address], [place], [address], 09/09/2024 10:06:04 09/07/20 24 09/07/2024 gluco se, finge rstic k, blood Blood Glucose: mg/dl 256 Not Available [facility] [address] [place] [address], [phone], 09/07/2024 13:28:28 09/07/2009/07/2024 urina lysis , dipst ick Appearance clear Not Available [facility] [address] [place] [address], [address], 09/07/2024 13:21:44 09/07/20 24 09/07/2024 urina lysis , dipst ick Color yellow Not Available [facility] [address] [place] [address], [phone], 09/07/2024 13:21:44 09/07/20 24 09/07/2024 alex espinoza am No observ ation record ed[facility] [address] [place] [address], [phone], 09/07/2024 19:02:30 Result Notes None recorded. Procedures Surgical History None recorded. Imaging Results Imaging Date Name Status LastModified by Organization Details LastModified Time 09/07/2024 electrocardiogram completed [facility] [address] [place] [address], [phone], 09/07/2024 19:02:30 Procedure Notes None recorded. Medical [...] Updated DateTime 4 18 /min 98.7 [degF] 94371.1 76 g 165.1 cm 98 % 98 [...] SNOMED-CT Code Diagnosis ICD10 Code Diagnosis Note 10088 Whitney Prescott MD [facility] [address] [place] [address] 09/07/2024 13:09:49 09/07/2024 19:21:21 Urinary symptoms 624170596 R39.9 Urine is not indicative of infection [...] DVT but cannot rule it out completely 39[address] Hayden Huggins MD [facility] - [facility] [address] [place] [phone] 09/09/2024 12:50:55 09/13/2024 11:30:56 Urinary symptoms [id number] R39.9 Health Concerns Section Related Observation LastModified by Organization Detai ls LastModified Time None Recorded Concern Status LastModified by Organization Details LastModified Time None Recorded Advance Directives Directive None Recorded Payers Encounter Date Sequence Insurance Name Policy Number Policy Mcgrath Covered Member ID Mcgrath Member ID Guarantor Name 09/07/2024 1 [facility] - DOS ON OR AFTER 2022 - DUAL ELIGIBLE - LONGTERM OPTIONS AND ONE CARE (MEDICARE REPLACEMENT/ADV ANTAGE - HMO) Stephanie Dodd [id number] Stephanie Dodd 09/09/2024 1 [facility] - DOS ON OR AFTER 2022 - DUAL ELIGIBLE - LONGTERM OPTIONS AND ONE CARE (MEDICARE REPLACEMENT/ADV ANTAGE - HMO) Stephanie Dodd [id number] Stephanie Dodd Notes Date Note Type Note Provider Name and Address Organization Details Recorded Time 09/07/2024 text/html HPI: RN calling from [place] . She had a total knee replacement [...] PMH: Asthma, Hypertension, Diabetes Mellitus Type 2 Continuing Education Specialist Organization Information for Pilar Ann Business Legal Name: [employer]? Address: [address] [place] [address], Underground Roof Bolter: David TEJADA No.: [id number] Continuing Education Specialist POC Test Results from Pilar Ann Urine [...] .................. .................. .................. .................. .................. .................. ............... Continuing Education Specialist Note From Yari Annmaurice: [facility] makes pt contact after being admitted to the apartment where the pt is staying under the care of her son, who is her RUCHING MACHINE OPERATOR. She is conscious and alert and standing [...] may be starting another infection. Son informs [facility] the nurse and PT involved w/ [...] sob. Pt consents to evaluation and treatment today.[facility] gathers pt consent, vital signs, and provides castile soap and urinary cup for clean catch urine sample. After collecting urine sample, pt is assessed. Nothing remarkable is noted upon physical exam. [facility] contacts [facility] and discusses the above findings and pt complaint. [facility] is concerned about the pt's c/o sob and orders a 12-lead EKG. [facility] performs EKG and uploads findings for [facility] evaluation. [facility] and [facility] find EKG to be unremarkable at this time. [facility] orders urine be sent for culture and instructs [facility] to perform Eli's test, which [facility] finds negative. [facility] is concerned for PE since pt is post-surgical and recommends pt be transported via ambulance to the ED for further workup. [facility] informs pt and son and pt decides she will monitor her s&s and call 911 if she gets worse or feels she needs to go in. [facility] and [facility] inform pt of red flags including severe sob, lip cyanosis, severe cp, n/v/d that is uncontrollable, focal weakness, AMS, and syncope and advises immediate call to 911 if they occur. Pt and son both state they understand and thank [facility] for coming.[facility] is clear. Report completed by KEMAR Ann [id number]. [facility] Lab Orders: culture, urine: Performed .................. .................. .................. .................. .................. .................. .................. ............... [facility] Consulted: Whitney Prescott .................. .................. .................. .................. .................. .................. .................. ............... Disposition: Fulfilled Whitney Prescott MD [address] [place] [address],[address] [facility], [place], [address], [employer] InnovationsNIKOLAY MEYER 09/07/2024 19:03:38 OBGyn Episode No OBEpisode recorded.
--- OUTSIDE RECORDS SUMMARY | 2024-11-15 08:55 | XMS_ITS | Encounter Summary ---
Author Organization [employer] Address [address] [facility] 7t [place] [address] Care Team Providers Care Blogs Manager Name Role Phone Rosanne Lugo MD Primary Care Provide r Name, Fausto VEGAS Primary Care Provider [phone] Reason for Visit * Reason Onset Date Comments Med Refill 10/15/2022 Encounter Details Date Type Department Care Team (Late st Contact Info) Description 10/15/2022 Telephone [facility] MEDICINE [address] [place] [address] [phone] Rosanne Lugo MD [address] [place], [place] [phone] Med Refill Social History Tobacco Use Types Packs/Day Years [...] encounter Miscellaneous Notes * Telephone Encounter - Rosio Martin - 10/15/2022 12:30 PM EST Tc from pt requesting med refill on medication Ambien. documented in this encounter Plan of Treatment Upcoming Encounters Date Type Department Care Team (Late st Contact Info) Description 11/17/2024 11:30 AM EST Clinical Support [facility] MEDICINE [address] [place] [address] Shannan Borrego RN 11/25/2024 11:15 AM EST Office Visit [facility] MEDICINE [address] [place] [phone] NameFausto MD [address] [place] [address] documented as of this encounter Visit Diagnoses Diagnosis Arthritis of left knee documented in this encounter Care Teams Blogs Manager Relationship Specialty Start Date End Date Rosanne Lugo MD [address] [place] [address] PCP - General Family Medicine 05/23/22 01/22/24 Fausto Bangura MD [address] [place] [address] PCP - General Internal Medicine 01/23/24 Juan Daniel A 09/03/24 documented as of this encounter
--- OUTSIDE RECORDS SUMMARY | 2024-11-15 08:55 | XMS_ITS | Clinical Summary ---
Author Organization [facility] Address [address] [place] [address] Care Team Providers Care Digital Media Planner Name Role Phone Unavailable Primary Care Provider Unavailabl e Social History Tobacco Use Types Packs/Day Years Used Date Smoking Tobacco: Never Assessed Comments Unknown Sex and Gender Information Value Date Recorded Sex Assigned at Not on file Legal Sex Female 1:34 AM EST Gender Identity Not on file Sexual Orientation Not on file Plan of Treatment Health Maintenance Due Date Last Done Comments DTaP,Tdap,and Td Vaccines (1 - Tdap) 1977 Pneumococcal Vaccine: 50+ Ye ars (1 of 1 - PCV) 2008 Zoster Vaccines (1 of 2) 2008 Breast Cancer Screening 09/01/2021 09/01/2019 COVID-19 Vaccine (1 - 2023-2 5 season) 2024 Influenza Vaccine (#1) 2024 RSV Immunization Patients 60 + Years Old (1 - 1-dose 75+ series) 2033 HIB Vaccines Aged Out No longer eligi ble based on patient's age to complete this topic HPV Vaccines Aged Out No longer eligi ble based on patient's age to complete this topic Hepatitis A Vaccines Aged Out No long er eligible based on patient's age to complete this topic Hepatitis B Vaccines Aged Out No long er eligible based on patient's age to complete this topic IPV Vaccines Aged Out No longer eligi ble based on patient's age to complete this topic MMR Vaccines Aged Out No longer eligi ble based on patient's age to complete this topic Meningococcal ACWY Vaccine Aged Out N o longer eligible based on patient's age to complete this topic Meningococcal B Vacine Aged Out No lo nger eligible based on patient's age to complete this topic RSV Immunization Patients Un zoe 20 months Aged Out No longer eligible b ased on patient's age to complete this topic Varicella Vaccines Aged Out No longer eligible based on patient's age to complete this topic Procedures Procedure Name Priority Date/Time Associated Diagnosis Comments [facility] SCREENING DIGITAL Routine 09/01/2019 4:58 PM EST Encounter for screening mammogram for malignant neoplasm of breast from Last 3 Months or Most Recently Relevant to Health Maintenance Results * [facility] SCREENING DIGITAL (09/01/2019 4:58 PM EST) Anatomical Region Laterality Modality Mammography 09/01/2019 9:45 AM EST Narrative 09/01/2019 4:[address] [facility] Diagnostic Imaging Department [address] [place] [address] Patient: ??CULVER,STEPHANIE ?/Age/Sex: 1960 - 59 - F Unit#: ??[id number] ? Location/Status: ??SPDIMAM/REG CLI ? Mnemonic/Ordering Site: ??DIGSC/SPMAM Ordering Physician: ??Dajuan LUONG MD [facility] Screening Digital - 09/01/19 - 1015 EXAM: [facility] Screening Digital EXAM DATE AND TIME: 09/01/2019 10:15 AM HISTORY: ??Screening. COMPARISON: ??01/27/17, 01/24/16, 01/05/15, 12/08/13, 12/01/13 TECHNIQUE: CC and MLO views of both breasts were obtained using full field digital mammography. Bilateral digital breast tomosynthesis was performed in the MLO projection. Computer aided detection with the [employer] 7.2-H was employed. TISSUE DENSITY: a. The breasts are almost entirely fatty. FINDINGS: A faint, 1 mm poorly defined asymmetry is seen in the posteromedial left breast, CC view only, possibly summation artifact. Spot compression and CC tomosynthesis views are recommended for further assessment. No dominant mass or asymmetry is seen in the right breast. No grouped microcalcifications, or areas of architectural distortion are seen. The skin and vascularity are unremarkable. IMPRESSION: 1. Possible developing asymmetry in the left breast, for which additional views are recommended. The patient will be called back. 2. Stable mammographic appearance of the right breast. No evidence of malignancy is seen. BI-RADS: ??Category 0: Incomplete - Need Additional Imaging Evaluation RECOMMENDATION(S): 1: Special mammographic view(s) needed LEFT 66432, 24710 3340F, 7025F Dictating Physician: ??JAMEEL MARTINEZ MD Electronically Signed by: ??JAMEEL MARTINEZ MD Dic Date/Time: ??09/01/191656 Sign date/Time: ??09/01/191657 Procedure Note Jameel Martinez - 09/17/2022 [facility] Diagnostic Imaging Department [address] [place] [address] Patient: STEPHANIE CULVER /Age/Sex: 1960 - 59 - F Unit#: [id number] Location/Status: [facility]/REG CLI Mnemonic/Ordering Site: [facility] Ordering Physician: Dajuan LUONG MD [facility] Screening Digital - 09/01/19 - 1015 EXAM: [facility] Screening Digital EXAM DATE AND TIME: 09/01/2019 10:15 AM HISTORY: Screening. COMPARISON: 01/27/17, 01/24/16, 01/05/15, 12/08/13, 12/01/13 TECHNIQUE: CC and MLO views of both breasts were obtained using fullfield digital mammography. Bilateral digital breast tomosynthesis was performedin the MLO projection. Computer aided detection with the [employer]as employed. TISSUE DENSITY: a. The breasts are almost entirely fatty. FINDINGS: A faint, 1 mm poorly defined asymmetry is seen in the posteromedial left breast, CC view only, possibly summation artifact. Spot compression andCC tomosynthesis views are recommended for further assessment. No dominant mass or asymmetry is seen in the right breast. No grouped microcalcifications, or areas of architectural distortion are seen. Theskin and vascularity are unremarkable. IMPRESSION: 1. Possible developing asymmetry in the left breast, for which additionalviews are recommended. The patient will be called back. 2. Stable mammographic appearance of the right breast. No evidence of malignancy is seen. BI-RADS: Category 0: Incomplete - Need Additional Imaging Evaluation RECOMMENDATION(S): 1: Special mammographic view(s) needed LEFT 05413, 95089 3340F, 7025F Dictating Physician: JAMEEL MARTINEZ MD Electronically Signed by: JAMEEL MARTINEZ MD Dic Date/Time: 09/01/191656 Sign date/Time: 09/01/191657 us Daryn Luong MD IMG BI PROCEDURES Nayla l Result from Last 3 Months or Most Recently Relevant to Health Maintenance
--- OUTSIDE RECORDS SUMMARY | 2024-11-15 08:56 | XMS_ITS | Encounter Summary ---
Author Organization [employer] Address [address] [facility] 7t [place] [address] Care Team Providers Care Tie In Machine Operator Name Role Phone Name, Fausto VEGAS Primary Care Provider [phone] Reason for Visit * Reason Comments Med Refill Encounter Details Date Type Department Care Team ([facility] st Contact Info) Description 11/10/2024 Refill [facility] MEDICINE [address] [place], [place] [phone] Name, MD Fausto [address] [place] [address] Acquired hypothyroidism Social History Tobacco Use Types Packs/Day Years [...] Description 11/17/2024 11:30 AM EST Clinical Support [address] [address] Shannan Borrego RN 11/25/2024 11:15 AM EST Office Visit [address] [address] NameFausto MD [address] [place] [address] documented as of this encounter Visit Diagnoses Diagnosis Acquired hypothyroidism Unspecified hypothyroidism documented in this encounter Additional Health Concerns Assessment Noted Time PHQ-9 Depression Total Score: 10 024 10:02 AM EDT documented as of this encounter Care Teams Tie In Machine Operator Relationship Specialty Start Date End Date NameFausto MD [address] [place] [address] PCP - General Internal Medicine 01/23/24 [facility] documented as of this encounter
--- OUTSIDE RECORDS SUMMARY | 2024-11-15 08:56 | XMS_ITS | Encounter Summary ---
Author Organization [employer] Address [address] [facility] 7t [place] [address] Care Team Providers Care Strategy Intern Name Role Phone Rosanne Lugo MD Primary Care Provide r Name, Fausto VEGAS Primary Care Provider [phone] Reason for Visit * Reason Onset Date Comments Med Refill 02/04/2023 Encounter Details Date Type Department Care Team (Late st Contact Info) Description 02/04/2023 Telephone [facility] MEDICINE [address] [place] [address] Rosanne Lugo MD [address] [place], [place] [phone] Med Refill Social History Tobacco Use Types Packs/Day Years Used Date Smoking Tobacco: Former Cigarettes Q uit: 2002 Smokeless Tobacco: Never Alcohol Use Standard Drinks/Week Comments Never 0 (1 standard drink = 0.6 oz pur e alcohol) Depression Answer Date Recorded Patient Health Questionnaire-9 Score 15 10/28/2022 Comments Unknown Sex and Gender Information Value Date Recorded Sex Assigned at Female 07/29/2022 10:14 AM EDT Legal Sex Female 10:14 AM EDT Gender Identity Female 07/29/2022 10:14 AM EDT Sexual Orientation Choose not to disclose 2021 10:14 AM EDT documented as of this encounter Miscellaneous Notes * Telephone Encounter - Shannan Borrego RN - 02/04/2023 12:35 PM EDT Refill not due until 02/06/23. Has already been sent to PCP for approval. * Telephone Encounter - Rosio Martin - 02/04/2023 12:04 PM EDT Tc from pt requesting med refill for medication oxyCODONE (Roxicodone) 10 MG immediate release tablet. documented in this encounter Plan of Treatment Upcoming Encounters Date Type Department Care Team (Late st Contact Info) Description 11/17/2024 11:30 AM EST Clinical Support [address] [address] Shannan Borrego RN 11/25/2024 11:15 AM EST Office Visit [address] [address] Fausto Bangura MD [address] [place] [address] documented as of this encounter Visit Diagnoses Not on filedocumented in this encounter Additional Health Concerns Assessment Noted Time PHQ-9 Depression Total Score: 15 023 9:04 AM EST documented as of this encounter Care Teams Strategy Intern Relationship Specialty Start Date End Date Rosanne Lugo MD [address] [place] [address] PCP - General Family Medicine 05/23/22 01/22/24 Fausto Bangura MD [address] [place] [address] PCP - General Internal Medicine [facility] documented as of this encounter
--- OUTSIDE RECORDS SUMMARY | 2024-11-15 08:56 | XMS_ITS | Encounter Summary ---
Author Organization [employer] Address [address] [facility] 7t [place] [address] Care Team Providers Care Seed Cleaner Name Role Phone Rosanne Lugo MD Primary Care Provide r Name, Fausto VEGAS Primary Care Provider [phone] Encounter Details Date Type Department Care Team (Late Contact Info) Description 12/16/2022 Telephone [facility] MEDICINE [address] [place] [address] Rosanne Lugo MD [address] [place] [address] [phone] Social History Tobacco Use Types Packs/Day Years [...] not to disclose 2021 10:14 AM EDT COVID-19 Exposure Response Date Recorded In the last 10 days, have yo u been in contact with someone who was confirmed or suspected to have Coronavirus/COVID-19? No / Unsure 12/09/2022 9:50 AM EDT documented as of this encounter Plan of Treatment Upcoming Encounters Date Type Department Care Team ([facility] Contact Info) Description 11/17/2024 11:30 AM EST Clinical Support [address] [address] Shannan Borrego, ALISHA 11/25/2024 11:15 AM EST Office Visit [facility] MEDICINE [address] [place] [address] Fausto Bangura MD [address] [place] [address] documented as of this encounter Visit Diagnoses Not on filedocumented in this encounter Additional Health Concerns Assessment Noted Time PHQ-9 Depression Total Score: 15 023 9:04 AM EST documented as of this encounter Care Teams Seed Cleaner Relationship Specialty Start Date End Date Rosanne Lugo MD [address] [place] [address] PCP - General Family Medicine 05/23/22 01/22/24 NameFausto MD [address] [place] [address] PCP - General Internal Medicine 01/23/24 Juan Daniel A 09/03/24 documented as of this encounter
--- OUTSIDE RECORDS SUMMARY | 2024-11-15 08:56 | XMS_ITS | Encounter Summary ---
Author Organization [employer] Address [address] [facility] 7t [place] [address] Care Team Providers Care Mixed Crop And Livestock Farmer Name Role Phone Name, Fausot VEGAS Primary Care Provider [phone] Reason for Visit * Reason Onset Date Comments Med Refill 09/30/2024 Encounter Details Date Type Department Care Team ([facility] st Contact Info) Description 09/30/2024 Telephone [facility] MEDICINE [address] [place], [place] [phone] Name, MD Fausto [address] [place] [address] Med Refill Social History Tobacco Use Types [...] encounter Miscellaneous Notes * Telephone Encounter - Ariella Jimenez LPN - 09/30/2024 1:35 PM EST Lancets were sent to [id number] on 01/30/24 with 11 refills. * Telephone Encounter - Nikki Krishnamurthy - 09/30/2024 1:09 PM EST TC from pt requesting medication refill. Medications needing refill : [employer] Lancets 33G misc To be sent to: [id number] - [place] - [address] [place] [address] documented in this encounter Plan of Treatment Upcoming Encounters Date Type Department Care Team (Late st Contact Info) Description 11/17/2024 11:30 AM EST Clinical Support [facility] MEDICINE [address] [place] [address] Shannan Borrego RN 11/25/2024 11:15 AM EST Office Visit [facility] [address] [facility] [place] [address] Name, MD [facility] [place] [address] documented as of this encounter Visit Diagnoses Not on filedocumented in this encounter Additional Health Concerns Assessment Noted Time PHQ-9 Depression Total Score: 10 024 10:02 AM EDT documented as of this encounter Care Teams Mixed Crop And Livestock Farmer Relationship Specialty Start Date End Date Name, MD [facility] [place] [address] PCP - General Internal Medicine 01/23/24 Juan Daniel ALEX 09/03/24 documented as of this encounter
--- OUTSIDE RECORDS SUMMARY | 2024-11-15 08:56 | XMS_ITS | Encounter Summary ---
Author Organization [employer] Address [address] [facility] 7t [place] [address] Care Team Providers Care Band Leader Name Role Phone Rosanne Lugo MD Primary Care Provide r Name, Fausto VEGAS Primary Care Provider [phone] Reason for Visit * Reason Comments Med Refill Encounter Details Date Type Department Care Team (Late Contact Info) Description 04/26/2023 Refill [facility] MEDICINE [address] [place] [address] Rosanne Lugo MD [address] [place] [address] Acquired hypothyroidism Social History Tobacco Use Types Packs/Day Years Used Date Smoking Tobacco: Former Cigarettes Q uit: 2002 Smokeless Tobacco: Never Alcohol Use Standard Drinks/Week Comments Never 0 (1 standard drink = 0.6 oz pur e alcohol) PHQ-2 Answer Date Recorded Patient Health Questionnaire-2 Score 2 02/26/2023 Depression Answer Date Recorded Patient Health Questionnaire-9 Score 15 10/28/2022 Depression Answer Date Recorded Patient Health Questionnaire-2 Score 2 02/26/2023 Comments Unknown Sex and Gender Information Value Date Recorded Sex Assigned at Female 07/29/2022 10:14 AM EDT Legal Sex Female 10:14 AM EDT Gender Identity Female 07/29/2022 10:14 AM EDT Sexual Orientation Choose not to disclose 2021 10:14 AM EDT documented as of this encounter Plan of Treatment Upcoming Encounters Date Type Department Care Team (Late Contact Info) Description 11/17/2024 11:30 AM EST Clinical Support [facility] MEDICINE [address] [place] [address] Shannan Borrego, RN 11/25/2024 11:15 AM EST Office Visit [facility] MEDICINE [address] [place] [address] NameFausto MD [address] [place] [address] documented as of this encounter Visit Diagnoses Diagnosis Acquired hypothyroidism Unspecified hypothyroidism documented in this encounter Additional Health Concerns Assessment Noted Time PHQ-9 Depression Total Score: 15 023 9:04 AM EST documented as of this encounter Care Teams Band Leader Relationship Specialty Start Date End Date Rosanne Lugo MD [address] [place] [address] PCP - General Family Medicine 05/23/22 01/22/24 NameFausto MD [address] [place] [address] PCP - General Internal Medicine 01/23/24 Juan Daniel A 09/03/24 documented as of this encounter
--- OUTSIDE RECORDS SUMMARY | 2024-11-15 08:56 | XMS_ITS | Encounter Summary ---
Author Organization [employer] Address [address] [facility] 7t [place] [address] Care Team Providers Care Firer Locomotive Name Role Phone Name, Fausto VEGAS Primary Care Provider [phone] Encounter Details Date Type Department Care Team ([facility] st Contact Info) Description 11/02/2024 Telephone [facility] MEDICINE [address] [place] [address] Isatu Morales, ALISHA [address] [place] [address] Social History Tobacco Use Types Packs/Day Years [...] encounter Miscellaneous Notes * Telephone Encounter - Isatu Morales RN - 11/02/2024 1:43 PM EST T/C to pt via [employer] Director Of Infection Prevention Christiano to advise that Oxycodone was sent to [facility] yesterday. No answer, no option to leave voicemail as v/m full. If pt returns call, please advise med wassent to pharmacy. documented in this encounter Plan of Treatment Upcoming Encounters Date Type Department Care Team (Late st Contact Info) Description 11/17/2024 11:30 AM EST Clinical Support [facility] MEDICINE [address] [place] [address] Shannan Borrego RN 11/25/2024 11:15 AM EST Office Visit [facility] MED[facility]INE [address] [place] [address] Name, MD Fausto [address] [place] [address] documented as of this encounter Visit Diagnoses Not on filedocumented in this encounter Additional Health Concerns Assessment Noted Time PHQ-9 Depression Total Score: 10 024 10:02 AM EDT documented as of this encounter Care Teams Firer Locomotive Relationship Specialty Start Date End Date Name, MD Fausto [address] [place] [id number] PCP - General Internal Medicine 01/23/24 Juan Daniel ALEX 09/03/24 documented as of this encounter
--- OUTSIDE RECORDS SUMMARY | 2024-11-15 08:56 | XMS_ITS | Encounter Summary ---
Author Organization [employer] Address [address] [facility] 7t [place] [address] Care Team Providers Care Cam Milling Machine Operator Name Role Phone Name, Fausto VEGAS Primary Care Provider [phone] Reason for Visit * Reason Comments Med Refill Encounter Details Date Type Department Care Team ([facility] st Contact Info) Description 11/12/2024 Refill [facility] MEDICINE [address] [place], [place] [phone] Name, MD Fausto [address] [place] [address] Social History Tobacco Use Types Packs/Day Years [...] Description 11/17/2024 11:30 AM EST Clinical Support [address] [address] Shannan Borrego RN 11/25/2024 11:15 AM EST Office Visit [address] [address] Name, MD Fausto [address] [place] [address] documented as of this encounter Visit Diagnoses Not on filedocumented in this encounter Additional Health Concerns Assessment Noted Time PHQ-9 Depression Total Score: 10 024 10:02 AM EDT documented as of this encounter Care Teams Cam Milling Machine Operator Relationship Specialty Start Date End Date Name, MD Fausto [address] [place] [address] PCP - General Internal Medicine [facility] documented as of this encounter
--- OUTSIDE RECORDS SUMMARY | 2024-11-15 08:56 | XMS_ITS | Encounter Summary ---
Author Organization [employer] Address [address] [facility] 7t [place] [address] Care Team Providers Care Cardroom Attendant Name Role Phone Rosanne Lugo MD Primary Care Provide r Name, Fausto VEGAS Primary Care Provider [phone] Reason for Visit * Reason Onset Date Comments Med Refill 04/24/2023 Encounter Details Date Type Department Care Team (Late st Contact Info) Description 04/24/2023 Telephone [facility] MEDICINE [address] [place] [address] Rosanne Lugo MD [address] [place], [place] [phone] Med Refill Social History Tobacco Use Types [...] encounter Miscellaneous Notes * Telephone Encounter - Alka Badillo - 04/24/2023 11:09 AM EDT Tc from pt a med refill for oxyCODONE (Roxicodone) 10 MG immediate release tablet, would like script sent to [facility] on file documented in this encounter Plan of Treatment Upcoming Encounters Date Type Department Care Team (Late st Contact Info) Description 11/17/2024 11:30 AM EST Clinical Support [facility] MEDICINE [address] [place] [address] Shannan Borrego, ALISHA 11/25/2024 11:15 AM EST Office Visit [facility] MEDICINE [address] [place] [address] Name, MD Fausto [address] [place] [address] documented as of this encounter Visit Diagnoses Not on filedocumented in this encounter Additional Health Concerns Assessment Noted Time PHQ-9 Depression Total Score: 15 023 9:04 AM EST documented as of this encounter Care Teams Cardroom Attendant Relationship Specialty Start Date End Date Rosanne Lugo MD [address] [place] [address] PCP - General Family Medicine 05/23/22 01/22/24 Fausto Bangura MD [address] [place] [address] PCP - General Internal Medicine 01/23/24 [place] [facility] 09/03/24 documented as of this encounter
--- OUTSIDE RECORDS SUMMARY | 2024-11-15 08:56 | XMS_ITS | Encounter Summary ---
Author Organization [employer] Address [address] [facility] 7t [place] [address] Care Team Providers Care Gm/Svp Global Publisher Business Name Role Phone Name, Fausto VEGAS Primary Care Provider [phone] Reason for Visit * Reason Onset Date Comments Med Refill 10/26/2024 Encounter Details Date Type Department Care Team ([facility] st Contact Info) Description 10/26/2024 Refill [facility] MEDICINE [address] [place] [address] Name, MD Fausto [address] [place] [address] Arthritis of left knee Social History Tobacco [...] encounter Miscellaneous Notes * Telephone Encounter - Christen Carpenter - 10/26/2024 9:59 AM EST TC from pt requesting medication refill. Medications needing refill : oxyCODONE (Roxicodone) 10 MG immediate release tablet To be sent to: [facility]/pharmacy #[id number] documented in this encounter Plan of Treatment Upcoming Encounters Date Type Department Care Team (Late st Contact Info) Description 11/17/2024 11:30 AM EST Clinical Support [facility] MEDICINE [address] [place] [address] Shannan Borrego RN 11/25/2024 11:15 AM EST Office Visit [facility] MEDICINE [address] [place] [address] Name, MD Fausto [address] [place] [address] documented as of this encounter Visit Diagnoses Diagnosis Arthritis of left knee documented in this encounter Additional Health Concerns Assessment Noted Time PHQ-9 Depression Total Score: 10 024 10:02 AM EDT documented as of this encounter Care Teams Gm/Svp Global Publisher Business Relationship Specialty Start Date End Date Name, MD Fausto [address] [place] [address] PCP - General Internal Medicine 01/23/24 Juan Daniel Satya 09/03/24 documented as of this encounter
--- OUTSIDE RECORDS SUMMARY | 2024-11-15 08:56 | XMS_ITS | Encounter Summary ---
Author Organization [employer] Address [address] [facility] 7t [place] [address] Care Team Providers Care Environmental Engineering Assistant Name Role Phone Name, Fausto VEGAS Primary Care Provider [phone] Reason for Visit * Reason Onset Date Comments Med Refill 11/01/2024 Medication Question 11/01/2024 Encounter Details Date Type Department Care Team ([facility] st Contact Info) Description 11/01/2024 Telephone [facility] MEDICINE 230 [place], [place] [phone] Name, MD Fausto [address] [place] [address] Med Refill; Medication Question Social History Tobacco Use Types Packs/Day Years [...] Telephone Encounter - Shannan Borrego RN - 11/02/2024 3:05 PM EST Return TC to patient, LIGHTER [employer]TAIN Renewal appt scheduled for 11/17/24 @ 11:30am. * Telephone Encounter - Leonard Arrieta - 11/02/2024 9:52 AM EST Pt returning call * Telephone Encounter - Leeann Solis RN - 11/01/2024 12:18 PM EST Tc [place] pt via bls [place]: [id number] to let them know their Oxycodone was sent to the [facility] today by their PCP. No answer, unable to lvm due to mail box full. Pt can follow up with PCP as needed. * Telephone Encounter - Gold Lima - 11/01/2024 10:54 AM EST TC from pt stating that she is out of Med oxyCODONE (Roxicodone) 10 MG immediate release tablet Pt states that she started the Medication as soon as she got them and she said that she was told that she was gonna get more of the medication today. Contact pt at [phone] documented in this encounter Plan of Treatment Upcoming Encounters Date Type Department Care Team (Late st Contact Info) Description 11/17/2024 11:30 AM EST Clinical Support [address] [address] Shannan Borrego RN 11/25/2024 11:15 AM EST Office Visit [address] [address] Name, MD Fausto [address] [place] [address] documented as of this encounter Visit Diagnoses Not on filedocumented in this encounter Additional Health Concerns Assessment Noted Time PHQ-9 Depression Total Score: 10 024 10:02 AM EDT documented as of this encounter Care Teams Environmental Engineering Assistant Relationship Specialty Start Date End Date Name, MD Fausto [address] [place] [address] PCP - General Internal Medicine 01/23/24 Juan Daniel [facility] 09/03/24 documented as of this encounter
== END 2024-11-12 08:51 | disposition home or self-care (01) ==
LOC: HO.HOSX 08:50
PROVIDERS: Visit Provider Physician Assistant
DX: Z13.89 Encounter for screening for other disorder (principal)

== ENCOUNTER 2024-11-12 10:48 | Outpatient (RCR) | payer OTHER, SELFPAY ==
--- NOTE | 2024-09-17 12:45 | MHC.PT.EP ---
[facility] [place] Office [place] Office [place] Office [address] Quynh Maria [address] [phone] F: [phone] F: [phone] F: [phone] F: [phone] Physical Therapy Plan of Care Date of Evaluation: 09/17/24 Date of Surgery: 08/31/24 Diagnosis: S/P LEFT TKA Assessment: 64 YO FEMALE REF TO OUT-Pt PT S/P Lt TKA ON 08/31/24. SHE HAD HOME PT UNTIL 09/15/24 AND DEQUAN REMOVED/ STERI STRIPS APPLIED 09/16/24. SHE RESIDES W HER SON IN A 3RD FLOOR APT- HER SON IS HER MAIL DISTRIBUTION SCHEME EXAMINER. THE Pt IS MOTIVATED FOR PT AND WOULD BENEFIT FROM SKILLED PT TO ADDRESS PAIN/EDEMA, MAXIMIZE ROM AND STRENGTH, IMPROVE EFFICIENCY OF GAIT ON LEVEL GROUND AND STAIRS, AND DEV SELF-SX MANAGEMENT STRATEGIES. SHE IS CURRENTLY AMB W A W/WALKER. Frequency and Duration: The patient will be seen 2 x WK x 5 WKS Short Term Goals: *INITIATE HEP TO IMPROVE LEFT KNEE ROM AND PROPRIOCEPTION/ LUMBOPELVIC STABILITY *Pt'S LEFT KNEE PAIN DECR TO 2-310 *INCR FLEXIB IN PSOAS/HIP IR/ CALF MM TO IMPROVE EFFICIENCY OF GAIT ON LEVEL AND STAIRS *IMPROVE FUNCT SQUAT MECHANICS INCR ACTIV OF QUADS/ GLUTES *ADDRESS Lt ANT KNEE SCAR MOB HEALING OCCURS Vp Client Services Goals: *Pt WILL IMPROVE LUMBOPELVIC/ Lt LE STRENGTH TO AT LEAST 5-/5 *Pt REPORT INCREASED ADL/ ACTIVITY ANITA EVIDENT W IMPROVED LEFI SCORE *Pt INDEP W PROGRESSIVE HEP AND SELF-SX MGMT TECHN Pt RESUME REG ADLs / FITNESS WALKING , EVIDENT W IMPROVED OSWESTRY SCORE (AT EVAL 32/50 ) Treatment Plan: Modalities to reduce pain, spasms and effusion. Manual therapy to restore motion and function. Therapeutic exercise to improve strength and flexibility. Neuromuscular re-education for posture and balance. Therapeutic activities to return to functional activities of daily living. Electronically signed by: RITA PAZ,PT Please sign and return to therapist. Thank you for your referral.
--- NOTE | 2024-11-22 07:30 | MHC.PT.DC ---
[facility] [place] Office [place] Office [place] Office [address] Quynh Maria [address] [phone] F: [phone] F: [phone] F: [phone] F: [phone] Physical Therapy Discharge Report Diagnosis: S/P LEFT TKA Date of Surgery: 08/31/24 Date of Evaluation: 09/17/24 Date of Discharge: 11/22/24 Treatments to Date: 8 Cancellations to Date: 4 No Shows to Date: 2 Discharge Status: Achieved Goals Improved Function Independent with HEP Discharge Summary: ANGEL HAS PROGRESSED IN PT AND IS INDEP W HER HEP- WE HAVE EDUC HER AND HER SPOUSE REGARDING THE IMPORTANCE OF HEP CONTINUITY FOR OPTIMAL GAINS IN HER TKA POST OP COURSE. AT HER LAST ATTENDED APPT, ANGEL HAD (0*) -2* TO 118* (120*). SHE DISPLAYS DECENT FUNCTIONAL MOBILITY AND IS AGREEABLE W DISCHARGE FROM PT. Electronically signed by: Serenity Decker,PT Please sign and return to therapist. Thank you for your referral.
== END 2024-11-22 07:30 | disposition home or self-care (01) ==
LOC: HO.PT 10:48
PROVIDERS: PCP Internal Medicine Geriatric Medicine; Visit Provider Physician Assistant
DX: Z47.1 Aftercare following joint replacement surgery (principal); Z96.652 Presence of left artificial knee joint
CPT/HCPCS: 97110; 97140; 97162

== ENCOUNTER 2024-11-26 09:57 | Outpatient (REF) | payer OTHER, SELFPAY ==
--- OUTSIDE RECORDS SUMMARY | 2024-11-26 10:58 | XMS_ITS | Encounter Summary ---
Author Organization [employer] Address [address] [facility] 7t [place] [address] Care Team Providers Care Insole Doubler Name Role Phone Name, Fausto VEGAS Primary Care Provider [phone] Encounter Details Date Type Department Care Team (Latest Contact Info) Description 11/17/2024 Travel Social History Tobacco Use Types Packs/Day Years [...] as of this encounter Plan of Treatment Not on file documented as of this encounter Visit Diagnoses Not on filedocumented in this encounter Additional Health Concerns Assessment Noted Time PHQ-9 Depression Total Score: 10 024 10:02 AM EDT documented as of this encounter Care Teams Insole Doubler Relationship Specialty Start Date End Date Name, MD Fausto [address] [place] [address] PCP - General Internal Medicine 01/23/24 Juan Daniel ALEX 09/03/24 documented as of this encounter
--- OUTSIDE RECORDS SUMMARY | 2024-11-26 10:58 | XMS_ITS | Encounter Summary ---
Author Organization [employer] Address [address] [facility] 7[address] [place] [address] Care Team Providers Care Sport Psychologist Name Role Phone Name, Fausto VEGAS Primary Care Provider [phone] Reason for Visit * Reason Comments Diabetes Encounter Details Date Type Department Care Team (Latest Contact Info) Description 11/25/2024 11:15 AM EST Office Visit [facility] MEDICINE [address] [place] [address] [phone] Name, MD Fausto [address] [place], [place] [phone] Type 2 diabetes mellitus with hyperglycemia, without long-term current use of insulin ([facility]) (Primary Dx); Sore throat; Primary osteoarthritis of knee, unspecified laterality; Depression, unspecified depression type Social History Tobacco Use Types Packs/Day Years [...] Date Recorded Patient Health Questionnaire-9 Score 10 11/25/2024 Patient Health Questionnaire-9 Score 10 11/25/2024 Last PHQ-9: Questionnaire Data Not on file 0 11/25/2024 Housing Stability Answer Date Recorded What is [...] Answer Date Recorded Patient Health Questionnaire-2 Score 5 11/25/2024 Internet Access Answer Date Recorded Internet Access Q1 Yes 05/28/2024 Internet Access Q2 Not on file 05/28/2024 Comments Unknown Sex and Gender Information Value Date Recorded Sex Assigned at Female 07/29/2022 10:14 AM EDT Legal Sex Female 10:14 AM EDT Gender Identity Female 07/29/2022 10:14 AM EDT Sexual Orientation Choose not to disclose 2021 10:14 AM EDT documented as of this encounter Last Filed Vital Signs Vital Sign Reading Time Taken Comments Blood Pressure 117/63 11/25/2024 11:46 AM EST Pulse 77 11/25/2024 11:46 AM EST Temperature 36.3 ??C (97.3 ??F) 11/25/2024 11:[address] Respiratory Rate 16 11/25/2024 11:46 AM EST Oxygen Saturation 98% 11/25/2024 11:46 AM EST Inhaled Oxygen Concentration - - Weight 98 kg (216 lb) 11/25/2024 11:46 AM EST Height - - Body Mass Index 35.94 08/05/2024 10:36 AM EST documented in this encounter Progress Notes * Fausto Bangura MD - 11/25/2024 11:15 AM EST Subjective Patient ID: Stephanie Dodd is a 64 y.o. female who presents for Diabetes. Patient comes for a follow-up visit. She feels sick for the past 3 days. She describes sore throat,malaise, sensation of bilateral ear fullness for the past 3 days. She denies any cough, no wheezing, no shortness of breath, no fevers or chills. Her has similar symptoms. Blood sugars well-controlled based on her hemoglobin A1c. She does not bring her glucose meter. Sheis only on metformin for diabetes. She describes some stomach discomfort after using the medication. The patient had successful left knee replacement surgery last August. She describes significant improvement of the left knee pain since then. She also has DJD on the right knee and she has not decided if she will have it replaced or not. Review of Systems Constitutional: Positive for fatigue. Negative for chills and fever. HENT: Positive for sore throat. Respiratory: Negative for cough, shortness of breath and wheezing. Cardiovascular: Negative for chest pain, palpitations and leg swelling. Gastrointestinal: Negative for abdominal pain. Visit Vitals BP 117/63 (BP Location: Left arm, Patient Position: Sitting, BP Cuff Size: Large adult) Pulse 77 Temp 97.3 ??F (36.3 ??C) (Temporal) Resp 16 Wt 216 lb (98 kg) SpO2 98% BMI 35.94 kg/m?? Smoking Status Former BSA 2.12 m?? Objective Physical Exam Constitutional: Appearance: Normal appearance. HENT: Right Ear: Tympanic membrane and ear canal normal. There is no impacted cerumen. Left Ear: Tympanic membrane and ear canal normal. There is no impacted cerumen. Mouth/Throat: Pharynx: No oropharyngeal exudate or posterior oropharyngeal erythema. Cardiovascular: Rate and Rhythm: Normal rate and regular rhythm. Heart sounds: No murmur heard. No gallop. Pulmonary: Effort: Pulmonary effort is normal. No respiratory distress. Breath sounds: Normal breath sounds. No wheezing. Musculoskeletal: Comments: Trace bilateral lower extremity edema. Well-healed surgical scar on the left knee. Neurological: Mental Status: She is alert. Latest Reference Range & Units 11/25/24 11:47 11/25/24 11:48 11/25/24 12:24 Glucose Blood, POC 60 - 200 mg/dL 127 Hemoglobin A1c 4.0 - 6.0 % 6.5 ! Influenza A Negative, Indeterminate Negative Influenza B Negative, Indeterminate Negative QC Media Lot # [id number] Rapid COVID Ag Negative !: Data is abnormal Assessment/Plan Diagnoses and all orders for this visit: Type 2 diabetes mellitus with hyperglycemia, without long-term current use of insulin ([facility]) Comments: Well-controlled. I recommended to continue avoiding sweets and walk daily. I suggested to cut metformin in half and take one half in the morning and one half in the afternoons to decrease the GI sideeffects. Check fasting blood work listed below. Orders: - POCT Glucose - POCT HGB A1C - Comprehensive Metabolic Panel; Future - Lipid Panel, Standard; Future - Albumin, Random Urine W/Creatinine; Future Sore throat Comments: Patient tested negative for COVID and flu. She is recommended symptomatic treatment. I suggested torest, drink plenty of fluids, warm water and salt gargles Orders: - POCT Rapid Covid-19 BinaxNOW - POCT Rapid Influenza A PURDY ID NOW - POCT Rapid Influenza B PURDY ID NOW Primary osteoarthritis of knee, unspecified laterality Comments: Patient is doing well after left knee replacement surgery. She is recommended to stay physically active. As needed naproxen for right knee pain. The patient also has oxycodone at home that she is recommended to use sparingly for severe pain only. Depression, unspecified depression type Comments: At the end of the visit the patient told me that her therapist suggested that she talks to me so I take over her psychiatric medications. The patient prescribing psychiatrist is out of state. She requested that I continue prescribing her Paxil and trazodone. She has been using these medications for several years with symptomatic improvement. I agreed to refill the medications. Orders: - PARoxetine (Paxil) 40 MG tablet; Take 1 tablet (40 mg) by mouth Once per day. - traZODone (Desyrel) 50 MG tablet; Take 2 tablets (100 mg) by mouth if needed at bedtime for sleepor depression. documented in this encounter Plan of Treatment Scheduled Orders Name Type Priority Associated Diagnoses Orde r Schedule Comprehensive Metabolic Panel Lab Routine Type 2 diabetes mellitus with hyperglycemia, without long-term current use of insulin ([facility]) Expected: 11/25/2024 (Approximate), Expires: 11/25/2025 Lipid Panel, Standard Lab Routine Type 2 diabetes mellitus with hyperglycemia, without long-term current use of insulin ([facility]) Expected: 11/25/2024 (Approximate), Expires: 11/25/2025 Albumin, Random Urine W/Creatinine Lab Routine Type 2 diabetes mellitus with hyperglycemia, without long-term current use of insulin ([facility]) Expected: 11/25/2024 (Approximate), Expires: 11/25/2025 documented as of this encounter Procedures Procedure Name Priority Date/Time Associated Diagnosis Comments POCT INFLUENZA B (ID NOW RAPID MOLECULAR) Routine 11/25/2024 12:24 PM EST Sore throat POCT INFLUENZA A (ID NOW RAPID MOLECULAR) Routine 11/25/2024 12:24 PM EST Sore throat POCT RAPID COVID ANTIGEN Routine 11/25/2024 12:24 PM EST Sore throat POCT GLYCATED HEMOGLOBIN, TOTAL Routine 11/25/2024 11:48 AM EST Type 2 diabetes mellitus with hyperglycemia, without long-term current use of insulin ([facility]) POCT GLUCOSE Routine 11/25/2024 11:47 AM EST Type 2 diabetes mellitus with hyperglycemia, without long-term current use of insulin ([facility]) documented in this encounter Results * POCT Rapid Influenza B PURDY ID NOW (11/25/2024 12:24 PM EST) Influenza B Negative Negative, Indeterminate [facility] QC Media Lot # [id number] [facility] Lot# Expiration Date [id number] [facility] Swab 11/25/2024 12:2 4 PM EST us Fausto Bangura MD POINT OF CARE TEST ENTER/EDIT OR DERABLES Final Result [facility] [address] [place] [phone] * POCT Rapid Influenza A PURDY ID NOW (11/25/2024 12:24 PM EST) Pathologist [facility] Influenza A Negative Negative, Indeterminate [facility] QC Media Lot # [id number] [facility] Lot# Expiration Date 110 [facility] Swab 11/25/2024 12:2 4 PM EST us Fausto Bangura MD POINT OF CARE TEST ENTER/EDIT OR DERABLES Final Result Performing Organization Address [facility] Co de Phone Number [facility] [address] [place] [phone] * POCT Rapid Covid-19 BinaxNOW (11/25/2024 12:24 PM EST) [facility] Rapid COVID Ag Negative [facility] QC Media Lot # [id number] [facility] Lot# Expiration Date [facility] Nares 11/25/2024 12:2 4 PM EST us Fausto Bangura MD POINT OF CARE TEST ENTER/EDIT OR DERABLES Edited Result - Final Performing Organization Address [facility] de Phone Number [facility] [address] [place] [address] [phone] * (ABNORMAL) POCT HGB A1C (11/25/2024 11:48 AM EST) [facility] Hemoglobin A1C 6.5(A) 4.0 - 6.0 % QC Media Lot # [id number] Lot# Expiration Date [id number] Blood 11/25/2024 11:4 8 AM EST us Fausto Bangura MD POINT OF CARE TEST ENTER/EDIT OR DERABLES Edited Result - Final * POCT Glucose (11/25/2024 11:47 AM EST) [facility] Glucose Blood, POC 127 60 - 200 mg/dL QC Media Lot # [id number] Lot# Expiration Date Blood Capillary blood specimen / Unknown 11/25/2024 11:47 AM EST Fausto Bangura MD POINT OF CARE TEST ENTER/EDIT OR DERABLES Final Result documented in this encounter Visit Diagnoses Diagnosis Type 2 diabetes mellitus with hyperglycemia, without long-term current use of insulin ([facility])- Primary Sore throat Acute pharyngitis Primary osteoarthritis of knee, unspecified laterality Depression, unspecified depression type documented in this encounter Additional Health Concerns Assessment Noted Time PHQ-9 Depression Total Score: 10 025 11:49 AM EST documented as of this encounter Care Teams Sport Psychologist Relationship Specialty Start Date End Date Name, MD Fausto [address] [place] [id number] PCP - General Internal Medicine 01/23/24 Juan Daniel [facility] 09/03/24 documented as of this encounter
--- OUTSIDE RECORDS SUMMARY | 2024-11-26 10:58 | XMS_ITS | Encounter Summary ---
Author Organization [employer] Address [address] [facility] 7t [place] [address] Care Team Providers Care Assurance Sourcing Manager Name Role Phone Rosanne Lugo MD Primary Care Provide r Fausto Bangura MD Primary Care Provider [phone] Encounter Details Date Type Department Care Team (Latest Contact Info) Description 03/30/2019 [facility] Dental, Provider, DDS Social History Tobacco [...] on filedocumented in this encounter Care Teams Assurance Sourcing Manager Relationship Specialty Start Date End Date Rosanne Lugo MD [address] [place] [address] PCP - General Family Medicine 05/23/22 01/22/24 Fausto Bangura MD [address] [place] [address] PCP - General Internal Medicine 01/23/24 [facility] documented as of this encounter
--- OUTSIDE RECORDS SUMMARY | 2024-11-26 10:58 | XMS_ITS | Encounter Summary ---
Author Organization [employer] Address [address] [facility] 7t [place] [address] Care Team Providers Care Pharmacy Technician Instructor Name Role Phone Rosanne Lugo MD Primary Care Provide r NameFausto MD Primary Care Provider [phone] Reason for Visit * Reason Onset Date Comments Med Refill 10/15/2022 Encounter Details Date Type Department Care Team (Late st Contact Info) Description 10/15/2022 Telephone [facility] MEDICINE [address] [place] [address] Rosanne Lugo MD [address] [place], [place] [phone] Med Refill Social History Tobacco Use Types [...] documented in this encounter Plan of Treatment Not on file documented as of this encounter Visit Diagnoses Diagnosis Arthritis of left knee documented in this encounter Care Teams Pharmacy Technician Instructor Relationship Specialty Start Date End Date Rosanne Lugo MD [address] [place] [address] PCP - General Family Medicine 05/23/22 01/22/24 Fausto Bangura MD [address] [place] [address] PCP - General Internal Medicine 01/23/24 Juan Daniel [facility] 09/03/24 documented as of this encounter
--- OUTSIDE RECORDS SUMMARY | 2024-11-26 10:58 | XMS_ITS | Encounter Summary ---
Author Organization [employer] Address [address] [facility] 7t [place] [address] Care Team Providers Care Vat House Laborer Name Role Phone Rosanne Lugo MD Primary Care Provide r Name, Fausto VEGAS Primary Care Provider [phone] Reason for Visit * Reason Onset Date Comments Med Refill 02/04/2023 Encounter Details Date Type Department Care Team (Late st Contact Info) Description 02/04/2023 Telephone [facility] MEDICINE [address] [place] [address] Rosanne Lugo MD [address] [place], [place] [phone] Med Refill Social History Tobacco Use Types [...] documented as of this encounter Care Teams Vat House Laborer Relationship Specialty Start Date End Date Rosanne Lugo MD [address] [place] [address] PCP - General Family Medicine 05/23/22 01/22/24 Name, MD Fausto [address] [place] [address] PCP - General Internal Medicine 01/23/24 [facility] 09/03/24 documented as of this encounter
--- OUTSIDE RECORDS SUMMARY | 2024-11-26 10:58 | XMS_ITS | Encounter Summary ---
Author Organization [employer] Address [address] [facility] 7t [place] [address] Care Team Providers Care Pantry Goods Worker Name Role Phone Rosanne Lugo MD Primary Care Provide r Name, Fausto VEGAS Primary Care Provider [phone] Encounter Details Date Type Department Care Team ([facility] st Contact Info) Description 12/16/2022 Telephone [facility] MEDICINE [address] [place], [place] [phone] Rosanne Lugo MD [address] [place], [place] [phone] Social History Tobacco Use Types Packs/Day Years [...] Noted Time PHQ-9 Depression Total Score: 15 01/30/2 023 9:04 AM EST documented as of this encounter Care Teams Pantry Goods Worker Relationship Specialty Start Date End Date Rosanne Lugo MD [address] [place] [address] PCP - General Family Medicine 05/23/22 01/22/24 Name, MD Fausto [address] [place] [address] PCP - General Internal Medicine 01/23/24 [facility] 09/03/24 documented as of this encounter
--- OUTSIDE RECORDS SUMMARY | 2024-11-26 10:58 | XMS_ITS | Encounter Summary ---
Author Organization [employer] Address [address] [facility] 7t [place] [address] Care Team Providers Care Furniture Packer Name Role Phone Name, Fausto VEGAS Primary Care Provider [phone] Reason for Visit * Reason Onset Date Comments Med Refill 09/30/2024 Encounter Details Date Type Department Care Team ([facility] st Contact Info) Description 09/30/2024 Telephone [facility] MEDICINE [address] [place], [place] [phone] Name, MD Fausto [address] [place] [address] Med Refill Social History Tobacco Use Types [...] 1:35 PM EST Lancets were sent to [id number] on 01/30/24 with 11 refills. * Telephone Encounter - Nikki Krishnamurthy - 09/30/2024 1:09 PM EST TC from pt requesting medication refill. Medications needing refill : TRUE[employer] Lancets 33G misc To be sent to: [id number] - [address] documented in this encounter Plan of Treatment Not on file documented as of this encounter Visit Diagnoses Not on filedocumented in this encounter Additional Health Concerns Assessment Noted Time PHQ-9 Depression Total Score: 10 024 10:02 AM EDT documented as of this encounter Care Teams Furniture Packer Relationship Specialty Start Date End Date Name, MD Fausto [address] [place] [id number] PCP - General Internal Medicine 01/23/24 Juan Daniel [facility] 09/03/24 documented as of this encounter
--- OUTSIDE RECORDS SUMMARY | 2024-11-26 10:58 | XMS_ITS | Encounter Summary ---
Author Organization [employer] Address [address] [facility] 7t [place] [address] Care Team Providers Care Principal Strategist Name Role Phone Name, Fausto VEGAS Primary Care Provider Encounter Details Date Type Department Care Team (Latest Contact Info) Description 11/25/2024 Travel Social History Tobacco Use Types Packs/Day [...] documented as of this encounter Care Teams Principal Strategist Relationship Specialty Start Date End Date Name, MD Fausto [address] [place] [address] PCP - General Internal Medicine 01/23/24 Juan Daniel [facility] 09/03/24 documented as of this encounter
--- OUTSIDE RECORDS SUMMARY | 2024-11-26 10:58 | XMS_ITS | Encounter Summary ---
Author Organization [employer] Address [address] [facility] 7t [place] [address] Care Team Providers Care Bender Machine Operator Name Role Phone Name, Fausto VEGAS Primary Care Provider [phone] Reason for Visit * Reason Comments BACTERIOLOGIST INDUSTRIAL Renewal Encounter Details Date Type Department Care Team (Latest Contact Info) Description 11/17/2024 11:30 AM EST Clinical Support [facility] MEDICINE [address] [place] [address] Shannan Borrego RN Chronic low back pain, unspecified back pain laterality, unspecified whether sciatica present (Primary Dx) Social History Tobacco Use Types Packs/Day Years [...] AM EDT documented as of this encounter Progress Notes * Shannan Borrego RN - 11/17/2024 11:30 AM EST S: Pt here for BACTERIOLOGIST INDUSTRIAL Renewal Visit, translation provided by staff member Jazmyn Montes Prescribed Oxycodone 10mg Q6hr PRN. States she has been taking 4 doses per day. She last took a dose of Oxycodone this morning. She denies smoking cigarettes, ETOH use, Illicit drug use and marijuana use. Currently rates her pain a 6 and states medication is 85% effective at alleviating pain. Current pain sites are her lower back, shoulders, abdomen, knee's and her feet. She will use a heating pad at home with minimal relief as well as OTC pain relief creams. Patient last attended chronic pain group 08/10/24, cancelled appt 10/12/24. O: BACTERIOLOGIST INDUSTRIAL Tier 2. Pt currently prescribed Oxycodone 10mg Q6hr PRN. PLANNING AIDE verified today. Rx last filled on 11/02/24. Pill count performed. Pt has 0 pills at this time, 0 at least expected. Medication is notoverused by patient. UTOX completed. Positive for OXY, Negative for AMP, BAR, BUP, BZO, GORDON, FTY, MDMA, MET, MOP, MTD, PCP, TCA, THC. UTOX as expected. BPI updated, see scanned documents from this date. Pain severity score of 6.3, activity interference score of 3. Previous BPI completed 03/23/24 with pain severity score of 10, activity interference score of 0.7. Narcan medication reviewed, how it's administered and when it's used. Pt stated she understood and has it available. Will update PCP with BPI scoring and request Oxycodone refill. Last PCP visit was 07/14/24, scheduled next 11/25/24. A: BACTERIOLOGIST INDUSTRIAL Contract Renewal Visit: Chronic Opioid use related to pain. P: BACTERIOLOGIST INDUSTRIAL contract reviewed and signed, Pt provided copy. Pt to continue taking medication only as prescribed; Next appointment scheduled for chronic pain group 11/23/24 @ 11am, F/U sooner PRN. Appointment reminder given. Pt verbalized understanding and agreed to plan. documented in this encounter Plan of Treatment Not on file documented as of this encounter Procedures Procedure Name Priority Date/Time Associated Diagnosis Comments POCT JASMINE-14 URINE DRUG SCREEN Routine 11/17/2024 11:39 AM EST Chronic low back pain, unspecified back pain laterality, unspecified whether sciatica present documented in this encounter Results * POCT JASMINE-14 Urine Drug Screen (11/17/2024 11:39 AM EST) Oxycodone Screen, Urine Positive Urine Urine specimen obtained by clean catch procedure / Unknown 11/17/2024 11:39 AM EST Shannan Yepez RN - 11/17/2024 11:39 AM EST UTOX cup Lot#[id number] Exp. 05/18/26 Internal Pass Control us aFusto Bangura MD POINT OF CARE TEST ENTER/EDIT OR DERABLES Final Result documented in this encounter Visit Diagnoses Diagnosis Chronic low back pain, unspecified back pain laterality, unspecified whether sciatica present- Primary documented in this encounter Additional Health Concerns Assessment Noted Time PHQ-9 Depression Total Score: 10 024 10:02 AM EDT documented as of this encounter Care Teams Bender Machine Operator Relationship Specialty Start Date End Date Name, MD Fausto [address] [place] [address] PCP - General Internal Medicine 01/23/24 Juan Daniel [facility] 09/03/24 documented as of this encounter
--- OUTSIDE RECORDS SUMMARY | 2024-11-26 10:58 | XMS_ITS | Encounter Summary ---
Author Organization [employer] Address [address] [facility] 7t [place] [address] Care Team Providers Care Protocol Officer Name Role Phone Name, Fausto VEGAS Primary Care Provider [phone] Reason for Visit * Reason Onset Date Comments Recommend SEISMOGRAPH RECORDER Tier 2 11/17/2024 Encounter Details Date Type Department Care Team ([facility] Contact Info) Description 11/17/2024 Telephone [facility] MEDICINE [address] [place] [address] Shannan Borrego, ALISHA Recommend SEISMOGRAPH RECORDER Tier 2 Social History Tobacco Use Types Packs/Day Years [...] Telephone Encounter - Shannan Borrego RN - 11/17/2024 7:44 AM EST What SEISMOGRAPH RECORDER Tier would you like this patient to be? I recommend Tier 2, please let me know if you agree or would rather patient be in another SEISMOGRAPH RECORDER Tier. Tier 1 = HIGH RISK, Monthly SEISMOGRAPH RECORDER visits Tier 2 = MODerate RISK, Q3 Month visits Tier 3 = LOW RISK = Q4-6 month visits documented in this encounter Plan of Treatment Not on file documented as of this encounter Visit Diagnoses Not on filedocumented in this encounter Additional Health Concerns Assessment Noted Time PHQ-9 Depression Total Score: 10 024 10:02 AM EDT documented as of this encounter Care Teams Protocol Officer Relationship Specialty Start Date End Date Name, MD Fausto [address] [place] [id number] PCP - General Internal Medicine 01/23/24 Juan Daniel [facility] 09/03/24 documented as of this encounter
--- OUTSIDE RECORDS SUMMARY | 2024-11-26 10:58 | XMS_ITS | Clinical Summary ---
Author Organization [employer] Address [address] [place] [address] Care Team Providers Care Privacy Specialist Name Role Phone Name, Fausto VEGAS Primary Care Provider Allergies No known active allergies Medications Calcium [...] capsules by mouth every 12 (twelve) hours. 021 Active ketoconazole (NIZOral) 2 % creamIndications: Tinea Apply topically in the morning. 30 g 1 023 Active docusate sodium (Colace) 100 MG capsuleIndication s:Left upper quadrant abdominal pain,Slow transit constipation TAKE 1 CAPSULE BY MOUTH EVERYDAY AT BEDTIME 90 capsule 3 023 Active fluticasone furoate (Arnuity Ellipta) 100 MCG/ACT inhaler Inhale 1 puff Once per day. 1 each 024 2024 Active TRUEplus Lancets 33G misc TEST BLOOD SUGAR ONCE A DAY 100 each 024 Active estradiol (Estrace) 0.1 MG/GM vaginal cream PLACE 1 GM VAGINALLY DAILY AT BEDTIME EVERY NIGHT FOR TWO WEEKS THEN TWICE WEEKLY Active naproxen (Naprosyn) 500 MG tablet Take 500 mg by mouth 2 times daily. Active GaviLAX 17 GM/SCOOP powder 17 G BY MOUTH DAILY Active Senna-Time 8.6 MG tablet TAKE 2 TABLETS ORALLY BEDTIME FOR CONSTIPATION Active lidocaine (Lidoderm) 5 % patch Apply [...] hyperglycemia, without long-term current use of insulin ([facility]) Take 1 tablet (600 mg) [...] TO 6 HOURS NEEDED 18 g 3 Active albuterol (2.5 MG/3ML) 0.083% nebulizer solution INHALE 3 MILLILITER BY NEBULIZATION ROUTE EVERY 6 HOURS NEEDED 75 mL 2 10/16/2 024 Active acetaminophen (Tylenol) 500 MG tabletIndications :Acute maxillary sinusitis, recurrence not specified,Otitis of left ear Take 2 tablets (1,000 mg) by mouth every 6 (six) hours if needed for moderate pain or fever for up to 25 doses. 50 tablet Active dextran 70-hypromellose (artificial tears) 0.1-0.3 % ophthalmic solutionIndicatio ns:Dry eyes, bilateral Administer 1 drop into both eyes if needed in the morning, at noon, and at bedtime for dry eyes. 15 mL 6 024 2024 Active glucose blood (FREESTYLE LITE) test stripIndications: Type 2 diabetes mellitus with hyperglycemia, without long-term current use of insulin ([facility]) TEST BLOOD SUGAR ONCE A DAY 100 each 5 Active metFORMIN (Glucophage) 500 MG tabletIndications :Type 2 diabetes mellitus without complication, without long-term current use of insulin ([facility]) TAKE 2 TABLETS BY MOUTH WITH BREAKFAST AND EVENING MEAL 360 tablet 025 Active levothyroxine (Synthroid, Levoxyl) 125 MCG tabletIndications :Acquired hypothyroidism TAKE 1 TABLET BY MOUTH EVERY DAY BEFORE BREAKFAST 90 tablet 1 025 Active oxyCODONE (Roxicodone) 10 MG immediate release tabletIndications :Arthritis of left knee Take 1 tablet (10 mg) by mouth every 6 (six) hours if needed for severe pain for up to 28 days. 112 tablet 025 2024 Active PARoxetine (Paxil) 40 MG tabletIndications :Depression, unspecified depression type Take 1 tablet (40 mg) by mouth Once per day. 30 tablet 3 025 2024 Active traZODone (Desyrel) 50 MG tabletIndications :Depression, unspecified depression type Take 2 tablets (100 mg) by mouth if needed at bedtime for sleep or depression. 60 tablet 3 025 2024 Active PARoxetine (Paxil) 20 MG tablet Take 1 tablet (20 mg) by mouth in the morning. 90 tablet 1 023 2024 Discontinued(D uplicate order (will not trigger notification to Pharmacy)) traZODone (Desyrel) 50 MG tablet Take 50 mg by mouth if needed at bedtime. 024 2024 Discontinued(R eorder (will not trigger notification to Pharmacy)) levothyroxine (Synthroid, Levoxyl) 125 MCG tabletIndications :Acquired [...] November 01, 2024. 28 tablet 025 2024 Discontinued(R eorder (will not trigger notification to Pharmacy)) PARoxetine (Paxil) 40 MG tablet Take 1 tablet by mouth Once per day. 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 -prescribed Pyridium for pain. 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 2023 Overview (08/10/2024): Medication: oxycodone 10mg TID (short term increase to QID while pending TKA Aug 2024, increase started 07/14/24) Indication: Left knee OA, spondylosis of lumbosacral spine with radiculopathy Last MANAGER ENROLLMENT Agreement signed: 10/27/23 Assessment & Plan (08/10/2024 4:39 PM EST): -Good engagement and participation with Group Medical Visit model -Encouraged multifactorial approach to pain control including pharm and non- pharm modalities -UTOX and pill count WNL Timeline: 10/27/23: MANAGER ENROLLMENT renewal, sometimes using QID instead of TID 12/18/23: pt forgot medication 02/24/24: UTOX WNL, pill count not completed 03/23/24: pill count less than expected 05/25/24: WNL 07/06/24: UTOX WNL, pill count less than expected 07/14/24: PCP temporary increase of med frequency to QID 08/10/24: MANAGER ENROLLMENT group, WNL Assessment & Plan (07/06/2024 5:14 PM EDT): -Good engagement and participation with Group Medical Visit model -Encouraged multifactorial approach to pain control including pharm and non- pharm modalities -UTOX WNL, pill count not performed. See cognos bi administrator. 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 I will discuss with MANAGER ENROLLMENT team about previous w/u. Discussed with patient in length re compliance with MANAGER ENROLLMENT and all appts. I handed her and her son the appt card to fu with MANAGER ENROLLMENT nurse New rx for Oxycodone x 1w [...] EDT): Pt has been more compliant with MANAGER ENROLLMENT program. We have done [employer] education re [...] years for LBP. Recent non compliance with MANAGER ENROLLMENT program. New appt with MANAGER ENROLLMENT nurse handed today, she's aware that no [...] Encounters Date Type Department Care Team Description 11/25/2024 11:15 AM EST Office Visit [address] [address] Name, MD Fausto Type 2 diabetes mellitus with hyperglycemia, without long-term current use of insulin ([facility]) (Primary Dx); Sore throat; Primary osteoarthritis of knee, unspecified laterality; Depression, unspecified depression type 11/25/2024 Travel 11/23/2024 Telephone [facility] [address] [place], [place] [phone] Name, MD Fausto chartprep 11/17/2024 11:30 AM EST Clinical Support [address] [address] Shannan Borrego RN Chronic low back pain, unspecified back pain laterality, unspecified whether sciatica present (Primary Dx) 11/17/2024 Refill [facility] [address] [place] [address] Shannan Borrego RN Arthritis of left knee 11/17/2024 Travel 11/17/2024 Telephone [facility] [address] [place] [phone] Shannan Borrego RN Recommend MANAGER ENROLLMENT Tier 2 11/12/2024 Refill [facility] [address] [place] [phone] Fausto Bangura MD 11/10/2024 Refill [facility] [address] [place] [phone] NameFausto MD Acquired hypothyroidism 11/02/2024 Telephone [facility] [address] [place] [phone] Isatu Morales RN 11/01/2024 Telephone [facility] [address] [place] [phone] Fausto Bangura MD Med Refill; Medication Question 10/26/2024 Refill [facility] [address] [place] [phone] NameFausto MD Arthritis of left knee 10/25/2024 Refill [facility] [address] [place] [phone] Fausto Bangura MD Arthritis of left knee 10/18/2024 Refill [facility] [address] [place] [phone] Khloe Ventura MD Urinary tract infection without hematuria, site unspecified 10/13/2024 Refill [facility] [address] [place] [phone] NameFausto MD Type 2 diabetes mellitus without complication, without long-term current use of insulin ([facility]) 10/12/2024 Telephone [facility] [address] [place] [phone] Fausto Bangura MD Appointment Request 09/30/2024 Telephone [facility] [address] [place] [address] Fausto Bangura MD Med Refill 09/30/2024 Refill [facility] [address] [place] [phone] Fausto Bangura MD Type 2 diabetes mellitus with hyperglycemia, without long-term current use of insulin ([facility]) 09/23/2024 Telephone [facility] [address] [place] [phone] Jose Antonio Velásquez MA feb recall 09/17/[address] [address] Fausto Bangura MD Arthritis of left knee 09/09/2024 2:00 PM EST Office Visit [facility] [address] [place] [phone] Khloe Ventura MD Urinary tract infection without hematuria, site unspecified (Primary Dx) 09/09/[address] [address] Leeann Solis RN 09/08/[address] [address] Fausto Bangura MD Nurse Triage 09/07/[address] [address] Fausto Bangura MD Nurse Triage 09/02/2024 Orders Only GENERIC EXTERNAL DATA DEPARTMENT Provider, Generic External Data 09/01/2024 Orders Only GENERIC EXTERNAL DATA DEPARTMENT Provider, Generic External Data 08/31/2024 Orders Only GENERIC EXTERNAL DATA DEPARTMENT Provider, Generic External Data from Last 3 Months Immunizations Name Administration [...] (216 lb) 11/25/2024 11:46 AM EST Height 165.1 cm (5' 5 ) 08/05/2024 10:36 AM EST Body Mass Index 35.94 08/05/2024 10:36 AM EST Plan of Treatment Health Maintenance Due Date [...] 05/01/2022, 02/01/2021, 01/04/2021 Influenza Vaccine (#1) 2024 SDOH Screening 03/30/2025 03/30/2024 Alcohol/Substance Use Screening 04/06/2025 04/06/2024 Diabetes: Urine Protein Screening 04/06/2025 04/06/2024, 08/16/2021 Depression Monitoring (PHQ-9) 05/25/2025 11/25/2024, 11/25/2024 Diabetes: Hemoglobin A1C 05/25/2025 025, 07/29/2024, 04/06/2024, Additional history exists Mammogram 06/30/2025 06/30/2024, 06/25/2023 Depression Screening 11/25/2025 11/25/2024, 11/25/19 25 Tobacco Screening 11/25/2025 11/25/2024 Eye Exam 08/02/2026 08/02/2024, 11/0 12/2023, 08/02/2024, Additional history exists DTaP/Tdap/Td Vaccines [...] hyperglycemia, without long-term current use of insulin ([facility]) POCT GLUCOSE Routine 11/25/2024 11:47 AM EST Type 2 diabetes mellitus with hyperglycemia, without long-term current use of insulin ([facility]) POCT JASMINE-14 URINE DRUG SCREEN Routine 11/17/2024 11:39 AM EST Chronic low back pain, unspecified back pain laterality, unspecified whether sciatica present CULTURE, URINE, ROUTINE Routine 09/09/2024 2:00 PM [...] LEVEL 4 Routine 08/31/2024 11:43 AM EST BI MAMMOGRAM SCREENING TOMOSYNTHESIS BILATERAL Routine 06/30/2024 [...] Recently Relevant to Health Maintenance Results * POCT Rapid Influenza B PURDY ID NOW (11/25/2024 12:24 PM EST) Influenza B Negative Negative, Indeterminate [facility] QC Media Lot # [id number] [facility] Lot# Expiration Date [facility] Swab 11/25/2024 12:2 4 PM EST us Fausto Bangura MD POINT OF CARE TEST ENTER/EDIT OR DERABLES Final Result Performing Organization Address [facility]/ZIP Co de Phone Number [facility] [address] [place] [phone] * POCT Rapid Influenza A PURDY ID NOW (11/25/2024 12:24 PM EST) Influenza A Negative Negative, Indeterminate [facility] QC Media Lot # [id number] [facility] Lot# Expiration Date [facility] Swab 11/25/2024 12:2 4 PM EST us Fausto Bangura MD POINT OF CARE TEST ENTER/EDIT OR DERABLES Final Result Performing Organization Address [facility] Co de Phone Number [facility] [address] [place] [phone] * POCT Rapid Covid-19 BinaxNOW (11/25/2024 12:24 PM EST) Rapid COVID Ag Negative [facility] QC Media Lot # [id number] [facility] Lot# Expiration Date [facility] Nares 11/25/2024 12:2 4 PM EST us Fausto Bangura MD POINT OF CARE TEST ENTER/EDIT OR DERABLES Edited Result - Final Performing Organization Address [facility]/ZIP Co de Phone Number [facility] [address] [place] [phone] * (ABNORMAL) POCT HGB A1C (11/25/2024 11:48 AM EST) Hemoglobin A1C 6.5(A) 4.0 - 6.0 % QC Media Lot # [id number] Lot# Expiration Date [id number] Blood 11/25/2024 11:4 8 AM EST Fausto Name POINT OF CARE TEST ENTER/EDIT OR DERABLES Edited Result - Final * POCT Glucose (11/25/2024 11:47 AM EST) Glucose Blood, POC 127 60 - 200 mg/dL QC Media Lot # [id number] Lot# Expiration Date 530[address] Blood Capillary blood specimen / Unknown 11/25/2024 11:47 AM EST us Fausto Bangura MD POINT OF CARE TEST ENTER/EDIT OR DERABLES Final Result * POCT JASMINE-14 Urine Drug Screen (11/17/2024 11:39 AM EST) Oxycodone Screen, Urine Positive Urine Urine specimen obtained by clean catch procedure / Unknown 11/17/2024 11:39 AM EST Narrative Shannan Borrego RN - 11/17/2024 11:39 AM EST UTOX cup Lot#[id number] Exp. 05/18/26 Internal Pass Control Fausto Bangura MD POINT OF CARE TEST ENTER/EDIT OR DERABLES Final Result * Culture, Urine, Routine (09/09/2024 2:00 PM EST) Urine Urine specimen obtained by clean catch procedure / Unknown 09/09/2024 2:00 PM EST 09/09/2024 5:56 PM EST Comment:UACC Narrative [facility] - 09/11/2024 11:16 AM EST Urine Culture Report Result Urine Culture 10,000 to 50,000 cfu/ml Urine Culture Mixed bacterial kimberley characteristic of Urine Culture urogenital contamination. Specimen Source: Urine clean catch Khloe Ventura MD LAB MICROBIOLOGY - GENERAL ORDERABLES Final Result Performing Organization Address [facility] Co de Phone Number [facility] [address] [place] [phone] * POCT urinalysis dipstick manually resulted [...] of7 resultswithin the time period is included. Glucose, Whole Blood 182(H) 60 - 115 mg/dL [facility] Comment:METER #: [id number] 09/02/2024 7:13 AM EST 09/02/2024 7:29 AM EST Generic External Data Provider LAB BLOOD ORDERAB LES Final Result Performing Organization Address [facility] Co de Phone Number [facility] [address] [place] [address] [phone] * (ABNORMAL) Basic Metabolic Panel, Fasting (09/02/2024 5:41 AM EST) Only the most recent of2 resultswithin the time period is included. Sodium 135 135 - 145 mmol/L [facility] Potassium 3.7 3.3 - 5.1 mmol/L [facility] Chloride 100 96 - 108 mmol/L [facility] Carbon Dioxide 27 22 - 29 mmol/L [facility] Anion Gap 12 12 - 20 [facility] Urea Nitrogen (BUN) 7(L) 9 - 16 mg/dL [facility] Creatinine, Serum 0.70 0.5 - 1.4 mg/dL [facility] Creatinine Clr Calc Pharmacy 90.0 [facility] Comment:Provided height and weight: 165.1 cm,94.971 kg.eGFR (calculated from the MDRD study equation) and eCrCl(calculated from the Cockcroft-Gault equation) are based ondifferent parameters and may not yield comparable results.If eCrCl result is absurd, please check patient'sheight/weight. Estimated Glomerular Filt Rate >60 [facility] Comment:Chronic Kidney Disea se: Estimated GFR < 60 mL/min/1.85k8Colaul Kidney Disease: Estimated GFR < 15 mL/min/1.73m2 Glucose Fasting 172(H) 60 - 99 mg/dL [facility] Comment:A fasting glucose of 126 mg/dl or greater on more than oneoccasion is considered diagnostic of diabetes. Calcium 9.2 8.4 - 10.2 mg/dL [facility] 09/02/2024 5:41 AM EST 09/02/2024 7:34 AM EST us Generic External Data Provider LAB BLOOD ORDERAB LES Final Result [facility] [address] [place], [place] [phone] * (ABNORMAL) CBC auto differential (09/02/2024 5:41 AM EST) Only the most recent of2 resultswithin the time period is included. White Blood Count 12.4(H) 4.8 - 10.8 X10*3/uL [facility] Red Blood Count 3.78(L) 4.20 - 5.50 X10*6/uL [facility] Hemoglobin 11.3(L) 12.0 - 16.0 g/dl [facility] Hematocrit 32.9(L) 37.0 - 47.0 % [facility] Mean Corpuscular Volume 87.0 80.0 - 98.0 fL [facility] Mean Corpuscular Hemoglobin 29.9 27.0 - 33.0 pg [facility] Mean Corpuscular HGB Conc 34.3 31.0 - 35.0 g/dl [facility] Red Cell Distribution Width 13.3 11.0 - 16.0 % [facility] Platelet Count 267 160 - 400 X10*3/uL [facility] Mean Platelet Volume 9.5 9.4 - 12.3 fL [facility] Neutrophils Percent Auto 68.5 45 - 73 % [facility] Imm Gran Pct Auto 0.6(H) 0.0 - 0.4 % [facility] Lymphocytes Percent Auto 18.8(L) 20 - 40 % [facility] Monocytes Percent Auto 10.0 2 - 11 % [facility] Eosinophils Percent Auto 1.6 0 - 4 % [facility] Basophils Percent Auto 0.5 0 - 2 % [facility] NRBC Pct Auto 0.0 0.0 - 0.2 /100WBC [facility] Neutrophils Absolute Auto 8.5(H) 2.0 - 8.3 x10*3/uL [facility] Imm Gran Abs Auto 0.08(H) 0.00 - 0.03 X10*3/uL [facility] Lymphocytes Absolute Auto 2.3 1.2 - 4.9 X10*3/uL [facility] Monocytes Absolute Auto 1.2 0.1 - 1.2 X10*3/uL [facility] Eosinophils Absolute Auto 0.2 0.0 - 0.4 X10*3/uL [facility] Basophils Absolute Auto 0.1 0.0 - 0.2 X10*3/uL [facility] NRBC Abs Auto 0.000 0.0 - 0.012 X10*3/uL [facility] 09/02/2024 5:41 AM EST 09/02/2024 7:34 AM EST us Generic External Data Provider LAB BLOOD ORDERAB LES Final Result [facility] [address] [facility] [place] [address] [phone] * XR Knee 1-2 Views Left (08/31/2024 1:30 PM EST) Anatomical Region Laterality Modality Lower Extremities, Knee Left Radiogra phic Imaging 08/31/2024 1:30 PM EST Narrative 09/01/2024 8:04 AM EST ? [facility] ?[address] ?[place] [address] ?XRay Report ? Signed ? Patient: Dodd,Stephanie ?MR#: [id number] ? : 1960 ?Acct:[id number] ? Age/Sex: 64 / F ?ADM Date: 08/31/24 ? Loc: HO.S3 ?344-1 ? Attending Dr: Rashida Mccormick PA-C ? Ordering Physician: Rashida Mccormick PA-C ?? Date of Service: 08/31/24 ?? Procedure(s): XR knee LT 2V ?? Accession Number(s): [id number] ? cc: Rashida Mccormick PA-C; Name,Fausto VEGAS [...] DD/ 1330 ? TD/TT: 08/31/24 1531 ? Marine Service Station Attendant: ? Procedure Note Genesis, Cesia - 09/01/[address] [address] XRay Report Signed Patient: Cony Dodd#: [id number] : 1960cct:[id number] Age/Sex: 64 / FADM Date: 08/31/24 Loc: .S3 344-[address]: Rashida Mccormick PA-C Ordering Physician: Rashida Mccormick PA-C Date of Service: 08/31/24 Procedure(s): XR knee LT 2V Accession Number(s): [id number] cc: Rashida Mccormick PA-C; Name,Fausto VEGAS EXAMINATION: [...] Patito Peter MD 09/01/2024 08:01 AM EST RP Dictated By: Patito Peter MD Signed By: <Electronically signed by Patito Peter MD in OV> 09/01/24 0801 DD/ 1330 TD/TT: 08/31/24 1531 [employer] Service Station Attendant: [facility] External Provider IMG XR PROCEDURES Edited Result - Final * Gross and Microscopic Level 4 (08/31/2024 11:43 AM EST) 08/31/2024 11:4 3 AM EST 08/31/2024 1:45 PM EST [facility] - 09/02/2024 4:45 PM EST ----- ------- Name: Stephanie Dodd ? Age/Sex: 64/F ? : 1960 Unit#: [id number] ?? Attend Dr: Rashida Mccormick PA-C ?Re08/31/24 ?Status: DEP SDC ? Location: HO.SSS ?Disch: ? ----- ------- SPEC : [id number] ? RECD: 08/31/24 ? STATUS: ??SOUT ? REQ NUM: [id number] ? LIAM: 08/31/24 ? SUBM DR: Mike Garcia MD ? ENTERED: ??08/31/24 ?SP TYPE: Surgical ? OTHR DR: Rashida [...] dense, betts- yellow with wilder-yellow bone marrow. ??Environmental Compliance Officer sections are submitted in a cassette labeled A1 following decalcification. CEDS Copies To: ?? Mike Garcia MD ?? [facility] ?? [address] ?? [place] [address] ?? [phone] ?? Rashida Mccormick PA-C ?? [facility] ?? [address] ?? [place] [address] ?? [phone] ? CONTINUED ON NEXT PAGE ----- ------- Name: Stephanie Dodd ? Age/Sex: 64/F ? : 1960 Unit#: [id number] ?? Attend Dr: Rashida Mccormick PA-C ?Re08/31/24 ?Status: DEP VAC ? Location: HO.SSS ?Disch: ? ----- ------- SPEC : [id number] ? RECD: 08/31/24 ? STATUS: ??SOUT ? REQ NUM: [id number] ? LIAM: 08/31/24 ? SUBM DR: Mike Garcia MD ? ENTERED: ??08/31/24 ?SP TYPE: Surgical ? OTHR DR: Rashida Mccormick PA-C ?Name,Fausto VEGAS ORDERED: ??Gross Micro L4, Decal ? Copies To: ??(Continued) ?? Name,Fausto VEGAS ?? [address] ?? [place] [address] ?? [phone] ----- ------- Signed (signature on file) Wiliam Gasca MD 09/02/24 1645 ? ----- ------- ? END OF REPORT ? us Generic External Data Provider LAB CYTOLOGY ORDE ELISE Final Result [facility] [address] [place] [address] [phone] * BI Mammogram Screening Tomosynthesis Bilateral (06/30/2024 10:30 AM EDT) Anatomical Region Laterality Modality Breast Bilateral Mammography 06/30/2024 10:3 0 AM EDT Narrative 07/12/2024 12:45 PM EDT ? [facility] ? [address] ?[place] [address] ? Mammography Report ? Signed ? Patient: Dodd,Stephanie ?MR#: [id number] ? : 1960 ?Acct:[id number] ? Age/Sex: 63 / F ?ADM Date: 06/30/24 ? Loc: HO.MAMMO ? Attending Dr: Rosanne Ortiz MD ? Ordering Physician: Rosanne Lugo MD ?Results: ?? 1Negative ? Date of Service: 06/30/24 ?Follow Up: 1 Year From Orig ?? inal Mammogram ? Procedure(s): MM tomosynthesis screening BI ?? Accession Number(s): [id number] ? cc: Rosanne Lugo MD; Name,Fausto VEGAS [...] DD/ 1030 ? TD/TT: 06/30/24 1058 ? [employer] Service Station Attendant: ? Procedure Note Donotuseinterpreter, Image - [facility] [address] [place] [address] Mammography Report Signed Patient: Cony Dodd#: [id number] : 8Acct:[id number] Age/Sex: 63 / FADM Date: 06/30/24 Loc: HO.MAMMO Attending Dr: Rosanne Ortiz MD Ordering Physician: Rosanne Lugoesults: 1Negative Date of Service: 06/30/24Follow Up: 1 Year From Orig inal Mammogram Procedure(s): MM tomosynthesis screening BI Accession Number(s): [id number] cc: Rosanne Lugo MD; Name,Fausto VEGAS EXAMINATION: [...] Magaly Parks DO 07/12/2024 12:42 PM EDT RP Dictated By: Magaly Parks DO Signed By: <Electronically signed by Magaly Parks DO in OV> 07/12/24 1242 DD/ 1030 TD/TT: 06/30/24 1058 [employer] Attendant: Rosanne Ortiz MD IMG BI PROCEDURES Fin al Result * Albumin, Random Urine W/Creatinine (04/06/2024 4:07 PM EDT) Creatinine, Urine 350.09 mg/dL [facility] Microalbumin Urine 29.0 mg/L [facility] Microalbum Creatinine Ratio Ur 8.2 <30 ug/mg cr [facility] Comment:Albumin/Creatinine R atio Reference Ranges: Normal: < 30 ug/mg creatinine Microalbuminuria: 30 - 300 ug/mg creatinineClinical Albuminuria: > 300 ug/mg creatinine Urine (Urine, Random) 04/06/2024 4:07 PM EDT 04/06/2024 5:49 PM EDT Fausto Bangura MD LAB URINE ORDERABLES Final Resul t [facility] [address] [place] [phone] * Hm Colonoscopy (03/01/2024) Colonoscopy Normal Normal Rosanne Ortiz MD HEALTH MAINTENANCE nal Result * (ABNORMAL) Lipid Panel, Standard (03/03/2023 10:12 AM EDT) Cholesterol, Total 168 <200 mg/dL [employer] HDL Cholesterol 54 > OR = 50 mg/dL [employer] [facility] [employer] [facility] [facility] Triglycerides 156(H) <150 mg/dL [employer] [facility] [facility] LDL Cholesterol 89 mg/dL (calc) [employer] [facility] [employer] [facility] [facility] Comment: Reference range: <100 Desirable range <100 mg/dL for primary prevention; ?? <70 mg/dL for patients with CHD or diabetic patients with > or = 2 CHD risk factors. LDL-C is now calculated using the Jaime calculation, which is a validated novel method providing better accuracy than the Friedewald equation in the estimation of LDL-C. Anupam EDUARDO et al. TIMMY. 2013;310(19): 1348-7422 (http://[employer].iQuantifi.com/faq/TVX234) Chol/HDLC Ratio 3.1 <5.0 (calc) [facility] Non-HDL Cholesterol 114 <130 mg/dL (calc) [facility] Comment: For patients with diabetes plus 1 major ASCVD risk factor, treating to a non-HDL-C goal of <100 mg/dL (LDL-C of <70 mg/dL) is considered a therapeutic option. Blood Venous blood specimen / Unknown 03/03/2023 10:12 AM EDT 03/03/2023 10:12 AM EDT Narrative [facility] - 03/03/2023 8:49 PM EDT FASTING:YES FASTING: YES Rosanne Ortiz MD LAB BLOOD ORDERABLES Final Result [facility] [address], [facility] [place] [address] [employer] [facility] [address] [place] [address] * HEPATITIS C AB W/REFL TO HCV RNA, QN, PCR (08/16/2021 11:08 AM EST) HEPATITIS C ANTIBODY NON-REACT [facility] NON-REACT [facility] INDEX 0.06 <1.00 [facility] Comment: ?? HCV antibody was non-reactive. There is no laboratory ?? evidence of HCV infection. ?? In most cases, no further action is required. However, if recent HCV exposure is suspected, a test for HCV RNA (test code 39305) is suggested. ?? For additional information please refer to http://[employer].langtaojin/faq/MJG74h0 (This link is being provided for informational/ educational purposes only.) ?? 08/16/2021 11:0 8 AM EST Yasmeen Hemanth UX DEVELOPER HISTORICAL/NON ORDERABLE LABS Final Result [facility] [address] [place] [address], from Last 3 Months or Most Recently Relevant to Health Maintenance Insurance [facility] Care Teams Privacy Specialist Relationship Specialty Start Date End Date Name, MD Fausto [address] [place] [address] PCP - General Internal Medicine 01/23/24 Juan Daniel [facility] 09/03/24
--- OUTSIDE RECORDS SUMMARY | 2024-11-26 10:58 | XMS_ITS | Encounter Summary ---
Author Organization [employer] Address [address] [facility] 7t [place] [address] Care Team Providers Care Screen Print Operator Name Role Phone Name, Fausto VEGAS Primary Care Provider [phone] Reason for Visit * Reason Onset Date Comments chartprep 11/23/2024 Encounter Details Date Type Department Care Team ([facility] st Contact Info) Description 11/23/2024 Telephone [facility] [address] [place] [address] Name, MD Fausto [address] [place] [address] chartprep Social History Tobacco Use Types Packs/Day Years [...] encounter Miscellaneous Notes * Telephone Encounter - Mandy Neal [place] - 11/23/2024 9:48 AM EST Chart Prep Labs: done Images: done Vaccines due: yes Covid, hep b, pcv20, dlu and rsv. Referrals: complete Screenings: Foot Exam Overdue care gaps: A1C, Glucose, PHQ-9, KERRI-7 documented in this encounter Plan of Treatment Not on file documented as of this encounter Visit Diagnoses Not on filedocumented in this encounter Additional Health Concerns Assessment Noted Time PHQ-9 Depression Total Score: 10 024 10:02 AM EDT documented as of this encounter Care Teams Screen Print Operator Relationship Specialty Start Date End Date Name, MD Fausto [address] [place] [address] PCP - General Internal Medicine 01/23/24 [place] [facility] 09/03/24 documented as of this encounter
--- OUTSIDE RECORDS SUMMARY | 2024-11-26 10:58 | XMS_ITS | Clinical Summary ---
Author Organization [facility] Address [address] [place] [address] Care Team Providers Care Application Architect Name Role Phone Unavailable Primary Care Provider [...] Procedure Name Priority Date/Time Associated Diagnosis Comments [facility] SCREENING DIGITAL Routine 09/01/2019 4:58 PM EST Encounter for screening mammogram for malignant neoplasm of breast from Last 3 Months or Most Recently Relevant to Health Maintenance Results * [facility] SCREENING DIGITAL (09/01/2019 4:58 PM EST) Anatomical Region Laterality Modality Mammography 09/01/2019 9:45 AM EST Narrative 09/01/2019 4:58 PM EST [facility] Diagnostic Imaging Department [address] [place] [address] Patient: ??CULVER,STEPHANIE ?/Age/Sex: 1960 - 59 - F Unit#: ??[id number] ? Location/Status: ??SPDIMAM/REG CLI ? Mnemonic/Ordering Site: ??DIGSC/SPMAM Ordering Physician: ??Dajuan LUONG MD [place] Screening Digital - 09/01/19 - 1015 EXAM: [facility] Screening Digital EXAM DATE AND TIME: 09/01/2019 10:15 AM HISTORY: ??Screening. COMPARISON: ??01/27/17, 01/24/16, 01/05/15, 12/08/13, 12/01/13 TECHNIQUE: CC and MLO views of both breasts were obtained using full field digital mammography. Bilateral digital breast tomosynthesis was performed in the MLO projection. Computer aided detection with the [employer] 7.2-H was employed. TISSUE DENSITY: a. The [...] RECOMMENDATION(S): 1: Special mammographic view(s) needed LEFT 24577, 18731 3340F, 7025F Dictating Physician: ??JAMEEL MARTINEZ MD Electronically Signed by: ??JAMEEL MARTINEZ MD Dic Date/Time: ??09/01/191656 Sign date/Time: ??09/01/191657 Procedure Note Jameel Martinez - 09/17/2022 [facility] Diagnostic Imaging Department [address] [place] [address] Patient: STEPHANIE CULVER /Age/Sex: 1960 - 59 - F Unit#: [id number] Location/Status: [facility]/REG CLI Mnemonic/Ordering Site: [facility] Ordering Physician: Dajuan LUONG MD [facility] Screening Digital - 09/01/19 - 1015 EXAM: [facility] Screening Digital EXAM DATE AND TIME: 09/01/2019 10:15 AM HISTORY: Screening. COMPARISON: 01/27/17, 01/24/16, 01/05/15, 12/08/13, 12/01/13 TECHNIQUE: CC and MLO views of both breasts were obtained using fullfield digital mammography. Bilateral digital breast tomosynthesis was performedin the MLO projection. Computer aided detection with the [employer].2-Direct Access Softwareas employed. TISSUE DENSITY: a. The breasts are [...] RECOMMENDATION(S): 1: Special mammographic view(s) needed LEFT 79925, 55800 3340F, 7025F Dictating Physician: JAMEEL MARTINEZ MD Electronically Signed by: JAMEEL MARTINEZ MD Dic Date/Time: 09/01/191656 Sign date/Time: 09/01/191657 us Daryn Luong MD IMG BI PROCEDURES Nayla l Result from Last 3 Months or Most Recently Relevant to Health Maintenance
--- OUTSIDE RECORDS SUMMARY | 2024-11-26 10:58 | XMS_ITS | Encounter Summary ---
Author Organization [employer] Address [address] [facility] 7t [place] [address] Care Team Providers Care Director Of Product Management Name Role Phone NameFausto MD Primary Care Provider [phone] Reason for Referral * Medications - Closed Specialty Diagnoses / Procedures Referred By Amber lake Referred To Contact Diagnoses Arthritis of left knee Fausto Bangura MD [address] [place] [address] Phone: tel: fax: Referral ID Status Reason Start Date Expiration Date Visits Re quested Visits Authorized [id number] Closed 1 1 Reason for Visit * Reason Onset Date Comments Med Refill 11/17/2024 BURIAL AGENT Renewal today 11/17/2024 Encounter Details Date Type Department Care Team (Late st Contact Info) Description 11/17/2024 Refill [facility] [address] [place] [address] Shannan Borrego RN Arthritis of left knee Social History Tobacco [...] Encounter - Shannan Borrego RN - 11/17/2024 11:51 AM EST Pt had BURIAL AGENT Renewal appt today BPI updated Pain severity score of 6.3, activity interference score of 3. Previous BPI completed 03/23/24 with pain severity score of 10, activity interference score of 0.7. documented in this encounter Plan of Treatment Not on file documented as of this encounter Visit Diagnoses Diagnosis Arthritis of left knee documented in this encounter Additional Health Concerns Assessment Noted Time PHQ-9 Depression Total Score: 10 024 10:02 AM EDT documented as of this encounter Care Teams Director Of Product Management Relationship Specialty Start Date End Date Name, MD Fausto [address] [place] [address] PCP - General Internal Medicine 01/23/24 Juan Daniel [facility] 09/03/24 documented as of this encounter
--- OUTSIDE RECORDS SUMMARY | 2024-11-26 10:58 | XMS_ITS | Encounter Summary ---
Author Organization [employer] Address [address] [facility] 7t [place] [address] Care Team Providers Care Director Consumer Affairs Name Role Phone Name, Fausto VEGAS Primary Care Provider [phone] Reason for Visit * Reason Comments Med Refill Encounter Details Date Type Department Care Team ([facility] st Contact Info) Description 10/18/2024 Refill [facility] [address] [place], [place] [phone] Khloe Ventura MD [address] [place], [place] [phone] Urinary tract infection without hematuria, site unspecified [...] as of this encounter Care Teams Director Consumer Affairs Relationship Specialty Start Date End Date Name, MD Fausto [address] [place] [address] PCP - General Internal Medicine 01/23/24 [facility] 09/03/24 documented as of this encounter
--- OUTSIDE RECORDS SUMMARY | 2024-11-26 10:58 | XMS_ITS | Data Portability ---
Author Organization [employer] Address [address] [place] [address] Care Team Providers Care Diamond Die Driller Name Role Phone HIM CCA OTHER NAME, KALEE Primary Care Provider [facility] OTHER Assessment Encounter Date Assessment Date Assessment LastModified by Organization Details LastModified Time 09/07/2024 09/07/2024 I provided real -time medical direction via phone for this encounter, and was available for additional phone based assistance as needed. I have reviewed and agree with the Assessment and Plan as documented by the Concrete Tester. We discussed the diagnostic uncertainty of home [...] her symptoms. Patient verbalizes understanding, via the marketing finance specialist but states she feels okay and is [...] to call 911- verbalized understanding of instruction [email or web address] Not available 09/07/2024 19:03:29 Plan of Treatment Reminders Order Date Submit Date Provider Last Modified By Organization Details Last Modified Time Details Appointments None recorded. Lab culture, urine 12/10/ 2024 12/10/2 024 [place] [facility] (Centralized Electronic Ordering - All Locations), Patient Can Go To The Location Of Their Choice, [address] 4 18:05:48 urinalysis, dipstick 2023 [email or web address] 0 [facility], [address] [place], [address], 13:27:08 glucose, fingerstick , blood 2023 [email or web address] 0 [facility], [address] [place], [address], 4 19:02:51 Referral None recorded. Procedures None recorded. Surgeries None recorded. Imaging electrocard iogram 2023 [email or web address] 0 [facility], [address] [place], [address], 19:02:51 Medication Orders nitrofurant oin macrocrysta l 100 mg capsule 2023 [place] [id number], [address] [place], [address], 12:52:08 Patient TargetsNo targets recorded. Patient InstructionsNo instructions recorded. Reason for Referral None Reported. Results Created Date Observation Date Name Description Value Unit Range Abnormal Flag Note LastModifiedBy Organization Detail LastModifiedTime 09/07/2009/09/2024 URINE CULTU RE,CO MPREH ENSIV E urine culture,comp rehensive Final report abnormal Not Available [facility] ([facility]) [address] [facility], [place], [address], 09/09/2024 10:06:04 09/07/20 24 09/09/2024 URINE CULTU [...] Prote us mirab ilis. Not Available [facility] ([facility]) [address] [facility], [place], [address], 09/09/2024 10:06:04 09/07/20 24 09/09/2024 URINE CULTU [...] , M100- S26, 2016) Not Available [facility] ([facility]) [address] [facility], [place], [address], 09/09/2024 10:06:04 09/07/20 24 09/09/2024 URINE CULTU [...] S Vanco mycin S Not Available [facility] ([facility]) [address], [place], [address], 09/09/2024 10:06:04 09/07/20 24 09/07/2024 gluco se, finge rstic k, blood Blood Glucose: mg/dl 256 Not Available [facility] [address] [place] [address], [phone], 09/07/2024 13:28:28 09/07/20 24 09/07/2024 urina lysis , dipst ick Appearance clear Not Available [facility] [address] [place] [address], [phone], 09/07/2024 13:21:44 09/07/20 24 09/07/2024 urina lysis , dipst ick Color yellow Not Available [facility] [address] [place] [address], [phone], 09/07/2024 13:21:44 09/07/20 24 09/07/2024 elect an [email or web address] No observ ation record ed. [email or web address] [facility] [address] [place] [address], [phone], 09/07/2024 19:02:30 Result Notes None recorded. Procedures Surgical History None recorded. Imaging Results Imaging Date Name Status LastModified by Organization Details LastModified Time 09/07/2024 electrocardiogram completed [email or web address] [facility] [address] [place] [address], [phone], 09/07/2024 19:02:30 Procedure Notes None recorded. Medical [...] Updated DateTime 4 18 /min 98.7 [degF] 70668.1 76 g 165.1 cm 98 % 98 [...] SNOMED-CT Code Diagnosis ICD10 Code Diagnosis Note 89619 Whitney Prescott MD [facility] [address] [place] [phone] 09/07/2024 13:09:49 09/07/2024 19:21:21 Urinary symptoms 721223451 R39.9 Urine is not indicative of infection [...] DVT but cannot rule it out completely 16021 Hayden Huggins MD [facility] [address] [place] [phone] 09/09/2024 12:50:55 09/13/2024 11:30:56 Urinary symptoms 886811018 R39.9 Health Concerns Section Related Observation LastModified by Organization Detai ls LastModified Time None Recorded Concern Status LastModified by Organization Details LastModified Time None Recorded Advance Directives Directive None Recorded Payers Encounter Date Sequence Insurance Name Policy Number Policy Mcgrath Covered Member ID Mcgrath Member ID Guarantor Name 09/07/2024 1 [facility] - DOS ON OR AFTER 2022 - DUAL ELIGIBLE - RETIREMENT OPTIONS AND ONE CARE (MEDICARE REPLACEMENT/ADV ANTAGE - HMO) Stephanie Dodd [id number] Stephanie Dodd 09/09/2024 1 [facility] [employer] - DOS ON OR AFTER 2022 - DUAL ELIGIBLE - RETIREMENT OPTIONS AND ONE CARE (MEDICARE REPLACEMENT/ADV ANTAGE - HMO) Stephanie Dodd [id number] Stephanie Dodd Notes Date Note Type Note Provider Name and Address Organization Details Recorded Time 09/07/2024 text/html HPI: RN calling from [facility] . She had a total knee replacement [...] PMH: Asthma, Hypertension, Diabetes Mellitus Type 2 Concrete Tester Organization Information for Pilar Ann Business Legal Name: [employer]? Address: [address] [place] [address], [employer]ar[employer] Supervisor: David TEJADA No.: [id number] Concrete Tester POC Test Results from [facility] Urine [...] .................. .................. .................. .................. .................. .................. ............... Concrete Tester Note From Pilar Ann: [facility] makes pt contact after being admitted to the apartment where the pt is staying under the care of her son, who is her 1ST PRESSMAN. She is conscious and alert and standing [...] may be starting another infection. Son informs [facility] the nurse and PT involved w/ [...] sob. Pt consents to evaluation and treatment today.[facility] gathers pt consent, vital signs, and provides castile soap and urinary cup for clean catch urine sample. After collecting urine sample, pt is assessed. Nothing remarkable is noted upon physical exam. [facility] contacts [facility] and discusses the above findings and pt complaint. [facility] is concerned about the pt's c/o sob and orders a 12-lead EKG. [facility] performs EKG and uploads findings for [facility] evaluation. [facility] and [facility] find EKG to be unremarkable at this time. [facility] orders urine be sent for culture and instructs [facility] to perform Eli's test, which [facility] finds negative. [facility] is concerned for PE since pt is post-surgical and recommends pt be transported via ambulance to the ED for further workup. [facility] informs pt and son and pt decides she will monitor her s&s and call 911 if she gets worse or feels she needs to go in. [facility] and [facility] inform pt of red flags including severe sob, lip cyanosis, severe cp, n/v/d that is uncontrollable, focal weakness, AMS, and syncope and advises immediate call to 911 if they occur. Pt and son both state they understand and thank [facility] for coming.[facility] is clear. Report completed by KEMAR Ann [id number]. [facility] Orders: culture, urine: Performed .................. .................. .................. .................. .................. .................. .................. ............... [facility] Consulted: Whitney Prescott .................. .................. .................. .................. .................. .................. .................. ............... Disposition: Fulfilled Whitney Prescott MD [address] [facility], [place], [address], [employer] 09/07/2024 19:03:38 OBGyn Episode No OBEpisode recorded.
--- OUTSIDE RECORDS SUMMARY | 2024-11-26 10:59 | XMS_ITS | Encounter Summary ---
Author Organization [employer] Address [address] [facility] 7t [place] [address] Care Team Providers Care Baby Registry Sales Consultant Name Role Phone Rosanne Lugo MD Primary Care Provide r Fausto Bangura MD Primary Care Provider [phone] Reason for Visit * Reason Comments Med Refill Encounter Details Date Type Department Care Team (Late st Contact Info) Description 04/26/2023 Refill [facility] [address] [place], [place] [phone] Rosanne Lugo MD [address] [place], [place] [phone] Acquired hypothyroidism Social History Tobacco Use Types [...] documented as of this encounter Care Teams Baby Registry Sales Consultant Relationship Specialty Start Date End Date Rosanne Lugo MD [address] [place] [address] PCP - General Family Medicine 05/23/22 01/22/24 Name, MD Fausto [address] [place] [address] PCP - General Internal Medicine 01/23/24 [facility] 09/03/24 documented as of this encounter
--- OUTSIDE RECORDS SUMMARY | 2024-11-26 10:59 | XMS_ITS | Encounter Summary ---
Author Organization [employer] Address [address] [facility] 7t [place] [address] Care Team Providers Care Front Office Director Name Role Phone Name, Fausto VEGAS Primary Care Provider Reason for Visit * Reason Onset Date Comments Med Refill 11/01/2024 Medication Question 11/01/2024 Encounter Details Date Type Department Care Team ([facility] st Contact Info) Description 11/01/2024 Telephone [facility] [address] [place], [place] [phone] Name, MD Fausto [address] [place] [address] Med Refill; Medication Question Social History Tobacco [...] 3:05 PM EST Return TC to patient, WATER/WASTEWATER ENGINEER Renewal appt scheduled for 11/17/24 @ 11:30am. * Telephone Encounter - Leonard Arrieta - 11/02/2024 9:52 AM EST Pt returning call * Telephone Encounter - Leeann Solis RN - 11/01/2024 12:18 PM EST Tc [place] pt via bls id: [id number] to let them know their [facility]xycod[facility] by their PCP. No [...] of the medication today. Contact pt at [phone] documented in this encounter Plan of Treatment Not on file documented as of this encounter Visit Diagnoses Not on filedocumented in this encounter Additional Health Concerns Assessment Noted Time PHQ-9 Depression Total Score: 10 024 10:02 AM EDT documented as of this encounter Care Teams Front Office Director Relationship Specialty Start Date End Date Name, MD Fausto [address] [place] [address] PCP - General Internal Medicine [facility]/23/24 [facility] documented as of this encounter
--- OUTSIDE RECORDS SUMMARY | 2024-11-26 10:59 | XMS_ITS | Encounter Summary ---
Author Organization [employer] Address [address] [facility] 7t [place] [address] Care Team Providers Care Fiber Drier Operator Name Role Phone Name, Fausto VEGAS Primary Care Provider [phone] Encounter Details Date Type Department Care Team ([facility] st Contact Info) Description 11/02/2024 Telephone [facility] [address] [place] [address] Isatu Morales, RN [address] [place], [place] [phone] Social History Tobacco Use Types Packs/Day Years [...] 1:43 PM EST T/C to pt via [facility] Carburetor Specialist Christiano to advise that Oxycodone was sent to [facility] yesterday. No answer, no option to [...] documented as of this encounter Care Teams Fiber Drier Operator Relationship Specialty Start Date End Date Name, MD Fausto [address] [place] [address] PCP - General Internal Medicine 01/23/24 [facility] 09/03/24 documented as of this encounter
--- OUTSIDE RECORDS SUMMARY | 2024-11-26 10:59 | XMS_ITS | Encounter Summary ---
Author Organization [employer] Address [address] [facility] 7t [place] [address] Care Team Providers Care Cashier Credit Name Role Phone Name, Fausto VEGAS Primary Care Provider [phone] Reason for Visit * Reason Comments Med Refill Encounter Details Date Type Department Care Team ([facility] st Contact Info) Description 11/10/2024 Refill [facility] [address] [place], [place] [phone] Name, MD Fausto [address] [place] [address] Acquired hypothyroidism Social History Tobacco Use Types [...] documented as of this encounter Care Teams Cashier Credit Relationship Specialty Start Date End Date Name, MD Fausto [address] [place] [address] PCP - General Internal Medicine 01/23/24 [facility] 09/03/24 documented as of this encounter
--- OUTSIDE RECORDS SUMMARY | 2024-11-26 10:59 | XMS_ITS | Encounter Summary ---
Author Organization [employer] Address [address] [facility] [address] [place] [address] Care Team Providers Care Spool Maker Name Role Phone Name, Fausto VEGAS Primary Care Provider [phone] Reason for Visit * Reason Comments Med Refill Encounter Details Date Type Department Care Team ([facility] st Contact Info) Description 11/12/2024 Refill [facility] MEDICINE [address] [place], [place] [phone] Name, MD Fausto [address] [place] [address] Social History Tobacco Use Types Packs/Day Years [...] documented as of this encounter Care Teams Spool Maker Relationship Specialty Start Date End Date Name, MD Fausto [address] [place] [address] PCP - General Internal Medicine 01/23/24 [facility] 09/03/24 documented as of this encounter
[2024-11-26 11:31] LABS: Alanine Aminotransferase 25 U/L (0-31); Albumin Level 3.9 g/dL (3.5-5.0); Alkaline Phosphatase 92 U/L (39-117); Anion Gap 10 (12-20); Aspartate Amino Transferase 24 U/L (5-31); Bilirubin Total 0.3 mg/dL (0.0-1.0); Blood Urea Nitrogen 9 mg/dL (9-16); Calcium 9.4 mg/dL (8.4-10.2); Carbon Dioxide 32 mmol/L (22-29); Chloride 104 mmol/L (96-108); Cholesterol 162 mg/dL (<200); Estimated Glomerular Filt Rate > 60; Glucose Random 130 mg/dL (60-115); HDL Cholesterol 38 mg/dL (>40); LDL Cholesterol Calculated 80 mg/dL (<100); Potassium 3.7 mmol/L (3.3-5.1); Sodium 142 mmol/L (135-145); Total Protein 7.5 g/dL (6.5-8.0); Triglycerides 220 mg/dL (<150)
[2024-11-26 11:42] LABS: Creatinine Urine 207.88 mg/dL; Microalbum/Creatinine Ratio Ur 5.7 ug/mg cr (<30)
== END 2024-11-26 09:58 | disposition home or self-care (01) ==
LOC: HO.HHCL 09:57
PROVIDERS: Visit Provider Internal Medicine Geriatric Medicine
DX: E11.65 Type 2 diabetes mellitus with hyperglycemia (principal)
CPT/HCPCS: 36415; 80053; 80061; 82043; 82570

== ENCOUNTER 2024-12-23 12:47 | Outpatient (AMB) | payer OTHER, SELFPAY ==
--- NOTE | 2024-12-23 13:09 | A.OFFVIS_ITS ---
Intake Visit Reasons: OV-L TKA w/NE 08/31/24 Intake Note: Stephanie is a 64 year old female who presents today for a post operative visit s/p Left Knee Arthroplasty 08/31/2024. At her last visit she had some mild stiffness. Today she reports that she is doing very well, she has no concerns. Allergies egg Allergy (Intermediate, Verified 12/23/24 13:09) Vomiting HPI HPI OV-L TKA w/NE 08/31/24: Details: Stephanie is a 64 year old female who presents today for a post operative visit s/p Left Knee Arthroplasty 08/31/2024. At her last visit she had some mild stiffness. Today she reports that she is doing very well, she has no concerns. [facility] Medical History GERD (gastroesophageal reflux disease) Depression Asthma Osteoarthritis Hypothyroid Transaminitis HTN (hypertension) Diabetes Surgical History H/O colonoscopy Hx of tubal ligation Family History Mother HTN (hypertension) Diabetes High cholesterol Father Heart disease Social History Household Members: Children Household Members Other:: son hetal Are you a primary child care team lead to a significant other at home: No Do you presently have visiting nurse or other home services: Yes (FILE MACHINE OPERATOR) Alcohol intake: never Patient Tobacco Use Status: Former Tobacco user Tobacco use type: Cigarette Years Smoked: 10 service: No Physical Exam Extrem Other: Incision clean dry and intact. 0-125 degrees of motion. Normal gait. No effusion. Stable to varus and valgus stress. Assessment & Plan Assessment & Plan (1) Status post total knee replacement, left: Code(s): Z96.652 - Presence of left artificial knee joint Category: Surgical Plan: Stephanie is doing well status post left knee replacement. She may discontinue aspirin. She should take antibiotics if she goes to the dentist the next 2 years. She will see me back in approximately 1 year or sooner if any problems arise. Coding Level of Care Code Global (81140) Diagnoses Status post total knee replacement, left Z96.866
== END 2024-12-23 13:29 | disposition home or self-care (01) ==
LOC: HO.HOS 12:47
PROVIDERS: PCP Internal Medicine; Visit Provider Orthopaedic Surgery
DX: Z47.1 Aftercare following joint replacement surgery (principal); Z96.652 Presence of left artificial knee joint
CPT/HCPCS: 99213

== ENCOUNTER → 2024-12-23 12:47 | Outpatient (BNVA) | payer OTHER, SELFPAY | PROVIDERS: PCP Internal Medicine; Visit Provider Orthopaedic Surgery | DX: M25.662 Stiffness of left knee, not elsewhere classified (principal); Z47.1 Aftercare following joint replacement surgery; Z96.652 Presence of left artificial knee joint | CPT/HCPCS: 99212 ==

== ENCOUNTER 2025-02-09 06:01 | Emergency (ER) | payer OTHER, SELFPAY ==
[2025-02-09] VITALS (7 sets, daily range): BP systolic 146; BP diastolic 68; PULSE 84–99; RESP 16–20; TEMP 36.7–36.9; O2SAT 83–99; BMI 37.8
--- NOTE | ~2025-02-09 | XR_ITS ---
EXAMINATION: XR CHEST CLINICAL INFORMATION: cough COMPARISON: 08/08/2023 TECHNIQUE: 2 views of the chest were obtained. FINDINGS: The cardiac, hilar, and mediastinal contours are normal. The lungs are clear bilaterally. There is no pneumothorax or pleural effusion. There is no focal osseous or soft tissue abnormality. There are spinal degenerative changes. XR/XR chest 2V IMPRESSION: No active pulmonary disease. Electronically signed by: Alan Alvarado MD 02/09/2025 08:01 AM EDT
--- NOTE | 2025-02-09 06:14 | PC.NURSE ---
patient resting in stretcher, no wheezing noted. Resp swab obtained at this time
--- OUTSIDE RECORDS SUMMARY | 2025-02-09 06:39 | XMS_ITS | Clinical Summary ---
Author Organization [facility] Address [address] [place] [address] Care Team Providers Care Privacy Compliance Manager Name Role Phone Unavailable Primary Care Provider [...] Breast Cancer Screening 09/01/2021 09/01/2019 COVID-19 Vaccine ( - 2023-2 5 season) 2024 Influenza Vaccine (Season Ended) 2025 RSV Immunization Adult Patie nts (1 - 1-dose 75+ series) 2033 HIB [...] age to complete this topic Meningococcal B Vaccine Aged Out No l onger eligible based on patient's age to complete this topic RSV Immunization Patients Un zoe 20 months Aged Out No longer eligible b ased on patient's age to complete this topic Varicella Vaccines Aged Out No longer eligible based on patient's age to complete this topic Procedures Procedure Name Priority Date/Time Associated Diagnosis Comments [facility] SCREENING DIGITAL Routine 09/01/2019 4:58 PM EST Encounter for screening mammogram for malignant neoplasm of breast from Last 3 Months or Most Recently Relevant to Health Maintenance Results * SUE SCREENING DIGITAL (09/01/2019 4:58 PM EST) Anatomical Region Laterality Modality Mammography 09/01/2019 9:45 AM EST Narrative 09/01/2019 4:[address] [facility] Diagnostic Imaging Department [address] [place] [address] Patient: ??CULVER,STEPHANIE ?/Age/Sex: 1960 - 59 - F Unit#: ??[id number] ? Location/Status: ??SPDIMAM/REG CLI ? Mnemonic/Ordering Site: ??DIGSC/SPMAM Ordering Physician: ??Dajuan LUONG MD [facility] Screening Digital - 09/01/19 - 1015 EXAM: [facility] Screening Digital EXAM DATE AND TIME: 09/01/2019 10:15 AM HISTORY: ??Screening. COMPARISON: ??01/27/17, 01/24/16, 01/05/15, 12/08/13, 12/01/13 TECHNIQUE: CC and MLO views of both breasts were obtained using full field digital mammography. Bilateral digital breast tomosynthesis was performed in the MLO projection. Computer aided detection with the ReInnervate 7.2-H was employed. TISSUE DENSITY: a. The [...] RECOMMENDATION(S): 1: Special mammographic view(s) needed LEFT 07746, 05268 3340F, 7025F Dictating Physician: ??JAMEEL MARTINEZ MD Electronically Signed by: ??JAMEEL MARTINEZ MD Dic Date/Time: ??09/01/191656 Sign date/Time: ??09/01/191657 Procedure Note Jameel Martinez - 09/17/2022 [facility] Diagnostic Imaging Department [address] [place] [id number] Patient: PALOMOSTEPHANIE /Age/Sex: 1960 - 59 - F Unit#: [id number] Location/Status: [facility]/REG CLI Mnemonic/Ordering Site: [facility] Ordering Physician: Dajuan LUONG MD [facility] Screening Digital - 09/01/19 - 1015 EXAM: [facility] Screening Digital EXAM DATE AND TIME: 09/01/2019 10:15 AM HISTORY: Screening. COMPARISON: 01/27/17, 01/24/16, 01/05/15, 12/08/13, 12/01/13 TECHNIQUE: CC and MLO views of both breasts were obtained using fullfield digital mammography. Bilateral digital breast tomosynthesis was performedin the MLO projection. Computer aided detection with the [employer] Globalas employed. TISSUE DENSITY: a. The breasts are [...] RECOMMENDATION(S): 1: Special mammographic view(s) needed LEFT 10052, 07727 3340F, 7025F Dictating Physician: JAMEEL MARTINEZ MD Electronically Signed by: JAMEEL MARTINEZ MD Dic Date/Time: 09/01/191656 Sign date/Time: 09/01/191657 Daryn Luong MD IMG BI PROCEDURES Nayla l Result from Last 3 Months or Most Recently Relevant to Health Maintenance
[2025-02-09 06:54] LABS: Influenza A PCR NEGATIVE (Negative); Influenza B PCR NEGATIVE (Negative); Resp Syncy Virus RNA Qual PCR NEGATIVE (Negative); SARS COV2 PCR INHOUSE NEGATIVE (Negative)
--- NOTE | 2025-02-09 07:40 | ED.URI ---
HPI - URI/Sore Throat General Chief Complaint: Upper Respiratory Symptoms Stated Complaint: SOB, cough Time Seen by Provider: 02/09/25 07:19 Source: patient Mode of arrival: ambulatory Limitations: no limitations History of Present Illness HPI Narrative: This is a 64 years old the patient presented to the emergency department with a chief complaint of cough and congestion. She has a history of hypertension, diabetes osteoarthritis, also history of asthma she used inhaler at home she saw the primary care physician yesterday she was started on prednisone. MD elicited complaint: cough Pertinent past history: asthma Onset (ago): day(s) (3) Consistency: constant Severity: moderate Associated symptoms: denies other symptoms Related Data Home Medications ?Medication ?Instructions ?Recorded ?Confirmed oxycodone 10 mg tablet 10 mg PO QID PRN Pain (Scale Score 10/10/21 09/16/24 4-6) lovastatin 40 mg tablet 40 mg PO DAILY 12/04/21 09/16/24 metformin 500 mg tablet 1,000 mg PO BIDWM 01/29/22 09/16/24 gabapentin 600 mg tablet 600 mg PO BID 09/30/23 09/16/24 levothyroxine 125 mcg tablet 125 mcg PO QAM 09/30/23 09/16/24 paroxetine HCl 40 mg tablet (Paxil) 40 mg PO DAILY 09/30/23 09/16/24 trazodone 50 mg tablet 100 mg PO BEDTIME PRN Insomnia 09/30/23 09/16/24 fluticasone furoate 100 1 inh inhalation DAILY 03/16/24 09/16/24 mcg/actuation blister powder for inhalation (Arnuity Ellipta) amlodipine 2.5 mg tablet 2.5 mg PO DAILY 07/30/24 09/16/24 lisinopril 20 1 tab PO DAILY 07/30/24 09/16/24 mg-hydrochlorothiazide 25 mg tablet omeprazole 40 mg capsule,delayed 40 mg PO DAILY@0630 07/30/24 09/16/24 release albuterol sulfate 90 mcg/actuation 1 - 2 puff inhalation Q4-6H PRN 08/31/24 09/16/24 aerosol inhaler Shortness Of Breath Or Wheezing ammonium lactate 12 % topical cream 1 appl topical BID PRN Rash 08/31/24 09/16/24 estradiol 0.01% (0.1 mg/gram) 1 g vaginal MO 08/31/24 09/16/24 vaginal cream Previous Rx's ?Medication ?Instructions ?Recorded polyethylene glycol 3350 17 17 g PO DAILY #510 grams 09/30/23 gram/dose oral powder (Miralax) docusate sodium 100 mg capsule 200 mg (2 x 100 mg) PO BEDTIME 03/16/24 #180 caps sennosides 8.6 mg tablet (Natural 17.2 mg (2 x 8.6 mg) PO BEDTIME 03/16/24 Senna Laxative) constipation #180 tabs walker #1 ea 09/01/24 acetaminophen 325 mg tablet 325 mg PO Q4H PRN Pain, 09/02/24 Moderate(Pain Scale 4-6) 30 days #240 tabs enoxaparin 40 mg/0.4 mL 40 mg (0.4 mL) subcut Q24H 42 days 09/02/24 subcutaneous syringe #16.8 mL oxycodone 10 mg tablet 10 mg PO BID PRN Pain, 10/08/24 Moderate(Pain Scale 4-6) 21 days #42 tabs celecoxib 200 mg capsule 200 mg PO BID 30 days #60 caps 11/12/24 doxycycline monohydrate 100 mg 100 mg PO Q12H #14 caps 02/09/25 capsule (Monodox) Allergies Allergy/AdvReac Type Severity Reaction Status Date / Time egg Allergy Intermediate Vomiting Verified 02/09/25 06:08 Review of Systems Constitutional: Constitutional: Reports no additional constitutional complaints ENT: Reports system reviewed and no additional complaints, except as documented Respiratory: Respiratory: Reports chest congestion and Reports cough PMFSH Past Medical History Attestation statement: The following information was validated with the patient. Medical History GERD (gastroesophageal reflux disease) Depression Asthma Osteoarthritis Hypothyroid Transaminitis HTN (hypertension) Diabetes Surgical History H/O colonoscopy Hx of tubal ligation Family History Family History Mother HTN (hypertension) Diabetes High cholesterol Father Heart disease Social History Social History Household Members: Children Household Members Other:: son hetal Are you a primary patient centered care specialist to a significant other at home: No Do you presently have visiting nurse or other home services: Yes (FINANCE PROFESSIONAL) Alcohol intake: never Patient Tobacco Use Status: Former Tobacco user Tobacco use type: Cigarette Years Smoked: 10 Use of substances other than those prescribed or required for medical reasons: No Advance Directives: No Advance Directives Information Provided: Yes Do you have a plan to hurt others: No Plan service: No Physical Exam Vital Signs: Vital Signs: Last Vital Signs Temp 98.1 F 02/09/25 09:36 Pulse 90 02/09/25 09:36 Resp 20 02/09/25 09:36 BP 146/68 H 02/09/25 06:10 Pulse Ox 94 02/09/25 09:36 O2 Del Method Room Air 02/09/25 09:36 BMI result Body Mass Index 37.8 No acute distress Const: General: cooperative and comfortable Orientation/consciousness: patient oriented x3 Limitations: no limitations HEENT: Head: Yes normal to inspection Ears: hearing grossly normal bilaterally General nose exam: Normal external nose present Face and sinus: Yes normal facial exam Mouth: Normal oral and palatal mucosa present Teeth and gingiva: dentition normal Neck: Neck: Yes normal visual inspection and Yes full ROM Chest: Chest palpation & inspection: normal inspection of the chest Resp: Effort & Inspection: normal respiratory effort Auscultation: rhonchi and wheezes Cardio: Jugular venous distension: no JVD Rate: regular rate Rhythm: regular rhythm GI: Inspection: Yes normal to inspection Palpation (GI): Soft to palpation Skin: General skin exam: no rashes or lesions noted and elasticity normal Lesions: no lesions Rashes: no rashes Neuro: General: patient oriented x3 Cranial nerves: Yes CN's II-XII intact bilaterally Course Reevaluation(s) Reevaluation #1: She is feeling better, chest x-ray is negative no pneumonia, sat is 96% labs okay I think she can be discharged home and follow-up with primary care physician Time: 09:21 Medications Administered Discontinued Medications Generic Name Dose Route Start Last Admin Trade Name Freq PRN Reason Stop Dose Admin Albuterol/Ipratropium 3 ml 02/09/25 08:08 02/09/25 08:10 Albuterol/Iprat 2.5/0.5mg 3 Ml Ampul.Neb INHALE 02/09/25 08:09 3 ml ONCE ONE Administration Medical Decision Making Medical Decision Making [facility] Narrative: Patient is here with cough shortness of breath history of asthma wheezing little bit on exam we will give her bronch protocol Differential Diagnosis Differential Diagnoses: The differential diagnosis associated with the presentation includes COPD exacerbation/asthma exacerbation/bronchitis/pneumothorax Admission/Observation Consideration of admission/observation: Escalation of care including admission/observation considered Lab Data 02/09/25 07:58 02/09/25 07:58 Labs: Lab Results 02/09/25 02/09/25 Range/Units 06:13 07:58 WBC 12.3 H (4.8-10.8) X10*3/uL RBC 3.99 L (4.20-5.50) X10*6/uL Hgb 11.4 L (12.0-16.0) g/dl Hct 33.1 L (37.0-47.0) % MCV 83.0 (80.0-98.0) fL MCH 28.6 (27.0-33.0) pg MCHC 34.4 (31.0-35.0) g/dl RDW 13.7 (11.0-16.0) % Plt Count 250 (160-400) X10*3/uL MPV 8.6 L (9.4-12.3) fL Immature Gran % (Auto) 0.5 H (0.0-0.4) % Neut % (Auto) 66.3 (45-73) % Lymph % (Auto) 23.2 (20-40) % Isabela % (Auto) 7.6 (2-11) % Eos % (Auto) 1.9 (0-4) % Baso % (Auto) 0.5 (0-2) % Lymph # (Auto) 2.9 (1.2-4.9) X10*3/uL Isabela # (Auto) 0.9 (0.1-1.2) X10*3/uL Eos # (Auto) 0.2 (0.0-0.4) X10*3/uL Baso # (Auto) 0.1 (0.0-0.2) X10*3/uL Abs Immat Gran (auto) 0.06 H (0.00-0.03) X10*3/uL Absolute Neuts (auto) 8.2 (2.0-8.3) x10*3/uL Absolute Nucleated RBC 0.000 (0.0-0.012) X10*3/uL Nucleated RBC % (auto) 0.0 (0.0-0.2) /100WBC Sodium 140 (135-145) mmol/L Potassium 3.6 (3.3-5.1) mmol/L Chloride 102 (96-108) mmol/L Carbon Dioxide 29 (22-29) mmol/L Anion Gap 13 (12-20) BUN 14 (9-16) mg/dL Creatinine 0.77 (0.5-1.4) mg/dL Estim Creat Clear Calc 82.5 Estimated GFR > 60 Random Glucose 113 (60-115) mg/dL Calcium 9.1 (8.4-10.2) mg/dL Total Bilirubin 0.4 (0.0-1.0) mg/dL AST 34 H (5-31) U/L ALT 28 (0-31) U/L Alkaline Phosphatase 85 (39-117) U/L Total Protein 7.2 (6.5-8.0) g/dL Albumin 4.1 (3.5-5.0) g/dL Influenza Type A (PCR) NEGATIVE (Negative) Influenza Type B (PCR) NEGATIVE (Negative) RSV RNA Qual (PCR) NEGATIVE (Negative) SARS-CoV-2 RNA (RT-PCR) NEGATIVE (Negative) Discharge Plan Discharge Clinical Impression: Asthmatic bronchitis Qualifiers: Asthma severity: mild Asthma persistence: intermittent Asthma complication type: with acute exacerbation Qualified Code(s): J45.21 - Mild intermittent asthma with (acute) exacerbation Patient Disposition: Home, Self-Care Instructions: Acute Bronchitis (ED) Additional Instructions: Follow-up with your primary care physician and continue with the prednisone we also sent a prescription for doxycycline to your pharmacy Prescriptions: New doxycycline monohydrate [Monodox] 100 mg capsule 100 mg PO Q12H Qty: 14 0RF No Action celecoxib 200 mg capsule 200 mg PO BID 30 Days Qty: 60 0RF amlodipine 2.5 mg tablet 2.5 mg PO DAILY lisinopril-hydrochlorothiazide 20-25 mg tablet 1 tab PO DAILY omeprazole 40 mg capsule,delayed release(DR/EC) 40 mg PO DAILY@0630 ammonium lactate 12 % cream 1 appl topical BID PRN (Reason: Rash) estradiol 0.01 % (0.1 mg/gram) cream 1 g vaginal MO albuterol sulfate 90 mcg/actuation HFA aerosol inhaler 1 - 2 puff inhalation Q4-6H PRN (Reason: Shortness Of Breath Or Wheezing) acetaminophen 325 mg Tablet 325 mg PO Q4H PRN (Reason: Pain, Moderate(Pain Scale 4-6)) 30 Days Qty: 240 0RF enoxaparin 40 mg/0.4 mL Syringe 40 mg subcut Q24H 42 Days Qty: 16.8 0RF lovastatin 40 mg tablet 40 mg PO DAILY metformin 500 mg tablet 1,000 mg PO BIDWM oxycodone 10 mg tablet 10 mg PO QID PRN (Reason: Pain (Scale Score 4-6)) gabapentin 600 mg tablet 600 mg PO BID paroxetine HCl [Paxil] 40 mg tablet 40 mg PO DAILY levothyroxine 125 mcg tablet 125 mcg PO QAM trazodone 50 mg tablet 100 mg PO BEDTIME PRN (Reason: Insomnia) polyethylene glycol 3350 [Miralax] 17 gram/dose powder 17 g PO DAILY Qty: 510 2RF (DME) walker Misc See Rx Instructions .MEDSUPPLY Qty: 1 0RF Rx Instructions: Folding Front wheeled walker Arnuity Ellipta 100 mcg/actuation blister with device 1 inh inhalation DAILY sennosides [Natural Senna Laxative] 8.6 mg tablet 17.2 mg PO BEDTIME Qty: 180 3RF docusate sodium 100 mg capsule 200 mg PO BEDTIME Qty: 180 3RF oxycodone 10 mg tablet 10 mg PO BID PRN (Reason: Pain, Moderate(Pain Scale 4-6)) 21 Days Qty: 42 0RF Rx Instructions: Partial Fill upon patient request. Print Language: Yakut
[2025-02-09 08:02] LABS: MANUAL DIFF FLAG NO
[2025-02-09 08:05] LABS: Basophils Absolute Auto 0.1 X10*3/uL (0.0-0.2); Basophils Percent Auto 0.5 % (0-2); Eosinophils Absolute Auto 0.2 X10*3/uL (0.0-0.4); Eosinophils Percent Auto 1.9 % (0-4); Hematocrit 33.1 % (37.0-47.0); Hemoglobin 11.4 g/dl (12.0-16.0); Imm Gran Abs Auto 0.06 X10*3/uL (0.00-0.03); Imm Gran Pct Auto 0.5 % (0.0-0.4); Lymphocytes Absolute Auto 2.9 X10*3/uL (1.2-4.9); Lymphocytes Percent Auto 23.2 % (20-40); Mean Corpuscular HGB Conc 34.4 g/dl (31.0-35.0); Mean Corpuscular Hemoglobin 28.6 pg (27.0-33.0); Mean Platelet Volume 8.6 fL (9.4-12.3); Monocytes Absolute Auto 0.9 X10*3/uL (0.1-1.2); Monocytes Percent Auto 7.6 % (2-11); Neutrophils Absolute Auto 8.2 x10*3/uL (2.0-8.3); Neutrophils Percent Auto 66.3 % (45-73); Platelet Count 250 X10*3/uL (160-400); Red Blood Count 3.99 X10*6/uL (4.20-5.50); Red Cell Distribution Width 13.7 % (11.0-16.0); White Blood Count 12.3 X10*3/uL (4.8-10.8)
[2025-02-09] MEDS: Albuterol/Iprat 2.5/0.5MG 3 ML AMPUL.NEB INHALE (08:10)
--- NOTE | 2025-02-09 08:22 | PC.NURSE ---
PT A&O X4 VSS. receivingResp tx now. Pt able to speak in full sentences without difficulty. Loose cough non productive. No other complaints NAD
[2025-02-09 08:27] LABS: Alanine Aminotransferase 28 U/L (0-31); Albumin Level 4.1 g/dL (3.5-5.0); Alkaline Phosphatase 85 U/L (39-117); Anion Gap 13 (12-20); Aspartate Amino Transferase 34 U/L (5-31); Bilirubin Total 0.4 mg/dL (0.0-1.0); Blood Urea Nitrogen 14 mg/dL (9-16); Calcium 9.1 mg/dL (8.4-10.2); Carbon Dioxide 29 mmol/L (22-29); Chloride 102 mmol/L (96-108); Creatinine Clr Calc Pharmacy 82.5; Estimated Glomerular Filt Rate > 60; Glucose Random 113 mg/dL (60-115); Potassium 3.6 mmol/L (3.3-5.1); Sodium 140 mmol/L (135-145); Total Protein 7.2 g/dL (6.5-8.0)
== END 2025-02-09 09:45 | disposition home or self-care (01) ==
PROVIDERS: Emergency Provider Emergency Medicine; PCP Internal Medicine Geriatric Medicine
DX: J45.21 Mild intermittent asthma with (acute) exacerbation (principal); R06.02 Shortness of breath; R05.9 Cough, unspecified; Z03.818 Encounter for observation for suspected exposure to other biological agents ruled out; Z79.899 Other long term (current) drug therapy
CPT/HCPCS: 0241U; 36415; 71046; 80053; 85025; 94640; 99284; 99285

== ENCOUNTER → 2025-02-09 07:19 | Outpatient (BNV) | payer OTHER, SELFPAY | PROVIDERS: Emergency Provider Emergency Medicine; PCP Internal Medicine Geriatric Medicine; Visit Provider Radiology Diagnostic Radiology | DX: R05.9 Cough, unspecified (principal) | CPT/HCPCS: 71046 ==

== ENCOUNTER 2025-03-14 16:21 | Outpatient (REF) | payer OTHER, SELFPAY ==
--- OUTSIDE RECORDS SUMMARY | 2025-03-14 17:56 | XMS_ITS | Encounter Summary ---
Author Organization [employer] Address [address] [facility] [address] [place] [address] Care Team Providers Care Tile Power Shear Operator Name Role Phone Name, Fausto VEGAS Primary Care Provider [phone] Reason for Visit * Reason Comments Med Refill Encounter Details Date Type Department Care Team ([facility] st Contact Info) Description 10/18/2024 Refill [facility] WALK-IN CENTER [address] [place], [place] [phone] Khloe Ventura MD [address] [place], [place] [phone] Urinary tract infection without hematuria, site unspecified [...] Care Team (Late st Contact Info) Description 03/28/2025 9:00 AM EDT Clinical Support [facility] MEDICINE [address] [place] [phone] Shannan Borrego RN 04/05/2025 9:15 AM EDT Office Visit [facility] MEDICINE [address] [place] [phone] Name, MD Fausto [address] [place] [phone] documented as of this encounter Visit Diagnoses Diagnosis Urinary tract infection without hematuria, site unspecified documented in this encounter Additional Health Concerns Assessment Noted Time PHQ-9 Depression Total Score: 10 024 10:02 AM EDT documented as of this encounter Care Teams Tile Power Shear Operator Relationship Specialty Start Date End Date Fausto Bangura MD [address] [place] [id number] PCP - General Internal Medicine [facility] documented as of this encounter
[2025-03-15 11:31] LABS: Bacterial Vaginosis PCR NEGATIVE (Negative); Candida Group PCR NOT DETECTED (Not Detect); Candida glab krusei PCR NOT DETECTED (Not Detect); Trichomonas vaginalis PCR NOT DETECTED (Not Detect)
== END 2025-03-14 16:22 | disposition home or self-care (01) ==
LOC: HO.HHCLNP 16:21
PROVIDERS: Visit Provider Internal Medicine
DX: R30.0 Dysuria (principal)
CPT/HCPCS: 81515; 87086

== ENCOUNTER 2025-04-05 10:02 | Outpatient (REF) | payer OTHER, SELFPAY ==
--- OUTSIDE RECORDS SUMMARY | 2025-04-05 10:47 | XMS_ITS | Data Portability ---
Author Organization [facility], [facility] Address [address] [place] [address] Care Team Providers Care Trim Machine Operator Name Role Phone HIM CCA OTHER NAME, KALEE Primary Care Provider [facility] OTHER [phone] Assessment Encounter Date Assessment Date Assessment LastModified by Organization Details LastModified Time 09/07/2024 09/07/2024 I provided real -time medical direction via phone for this encounter, and was available for additional phone based assistance as needed. I have reviewed and agree with the Assessment and Plan as documented by the Journalism Professor. We discussed the diagnostic uncertainty of home [...] her symptoms. Patient verbalizes understanding, via the duplicator punch operator but states she feels okay and is [...] to call 911- verbalized understanding of instruction [email or web address] Not available 09/07/2024 19:03:29 Plan of Treatment Reminders Order Date Submit Date Provider Last Modified By Organization Details Last Modified Time Details Appointments None recorded. Lab culture, urine 2023 CHURDAN [facility] (Centralized Electronic Ordering - All Locations), Patient Can Go To The Location Of Their Choice, [address] 18:05:48 urinalysis, dipstick 2023 [email or web address] 0 [facility] - [facility], [address] [place] [address], [phone] 13:27:08 glucose, fingerstick , blood 2023 [email or web address] 0 [facility] - [facility], [address] [place], [phone] 19:02:51 Referral None recorded. Procedures None recorded. Surgeries None recorded. Imaging electrocard iogram 2023 [email or web address] 0 Main - [facility], [address] [place] [address], [phone] 19:02:51 Medication Orders nitrofurant oin macrocrysta l 100 mg capsule 2023 CHURDAN [id number], [address] [facility], [place], [address], 12:52:08 Patient TargetsNo targets recorded. Patient InstructionsNo instructions recorded. Reason for Referral None Reported. Results Created Date Observation Date Name Description Value Unit Range Abnormal Flag Note LastModifiedBy Organization Detail LastModifiedTime 09/07/2009/09/2024 URINE CULTU RE,CO MPREH ENSIV E urine culture,comp rehensive Final report abnormal Not Available [facility] ([facility]) [address] [facility], [place], [address], 09/09/2024 10:06:04 09/07/2009/09/2024 URINE CULTU RE,CO MPREH [...] Prote us mirab ilis. Not Available [facility] ([facility]) [address] [facility] [place], [place], [address], 09/09/2024 10:06:04 09/07/20 24 09/09/2024 URINE CULTU RE,CO MPREH ENSIV E result 2 Entero coccus faecal is abnormal 50,00 0-100 ,000 colon y formi ng units per mL For Enter ococc us speci es, amino glyco sides (exce pt for high- level resis tance screre pattong) , cepha lospo rins, clind amyci n, and trime thopr im-daniel lfame thoxa zole are not effec tive clini rickey . (CLSI , M100- S26, 2016) Not Available [facility] ([facility]) [address] [facility] [place], [place], [address], 09/09/2024 10:06:04 09/07/20 24 09/09/2024 URINE CULTU [...] S Vanco mycin S Not Available [facility] ([facility]) [address] [facility] [place], [place], [address], 09/09/2024 10:06:04 09/07/20 24 09/07/2024 gluco se, finge rstic k, blood Blood Glucose: mg/dl 256 Not Available [facility] [address] [place] [address], [phone] 09/07/2024 13:28:28 09/07/20 24 09/07/2024 urina lysis , dipst ick Appearance clear Not Available [facility] [address] [place] [address], [phone] 09/07/2024 13:21:44 09/07/2009/07/2024 urina lysis , dipst ick Color yellow Not Available [facility] - [facility] [address] [place] [address], [phone] 09/07/2024 13:21:44 09/07/20 24 09/07/2024 elect an espinoza am No observ ation record ed. Main - [facility] [address] [place] [address], [phone] 09/07/2024 19:02:30 Result Notes None recorded. Medical [...] blood by Pulse oximetry Heart rate Systolic And Diastolic Provider Name and Address Organization Details Last Updated DateTime 4 18 /min 98.7 [degF] 53506.1 76 g 165.1 cm 98 % 98 % 97 /min 168/98 mm[Hg] Not Available [facility] - production 4 [...] SNOMED-CT Code Diagnosis ICD10 Code Diagnosis Note [id number] Whitney Prescott MD Main - [address] [phone] 09/07/2024 13:09:49 09/07/2024 19:21:21 Urinary symptoms [id number] R39.9 Urine is not indicative of infection [...] DVT but cannot rule it out completely [id number] Hayden Huggins [facility] [address] [place] [phone] 09/09/2024 12:50:55 09/13/2024 11:30:56 Urinary symptoms [id number] R39.9 Health Concerns Section Related Observation LastModified by Organization Detai ls LastModified Time None Recorded Concern Status LastModified by Organization Details LastModified Time None Recorded Advance Directives Directive None Recorded Payers Insurance Date Sequence Insurance Name Policy Number Policy Mcgrath Covered Member ID Mcgrath Member ID Guarantor Name 09/13/2024 1 [facility]LY [facility] - DOS ON OR AFTER 2022 - DUAL ELIGIBLE - RESIDENTIAL OPTIONS AND ONE CARE (MEDICARE REPLACEMENT/ADV ANTAGE - HMO) Stephanie Dodd [id number] Stephanie Dodd Notes Date Note Type Note Provider Name and Address Organization Details Recorded Time 09/07/2024 text/html HPI: RN calling from [place] . She had a total knee replacement [...] PMH: Asthma, Hypertension, Diabetes Mellitus Type 2 Journalism Professor Organization Information for Pilar Ann [employer] [facility] Business Legal Name: [employer] Address: [address] [place] [address], Scalder: David Carter MD CLIA No.: [id number] Journalism Professor POC Test Results from [employer] [facility] Urine Dipstick (13:11:21) Urine leukocytes: - RACHAEL [...] .................. .................. .................. .................. .................. .................. ............... Journalism Professor Note From Pilar Ann: [facility] makes pt contact after being admitted to the apartment where the pt is staying under the care of her son, who is her TABLEAU REPORT DEVELOPER. She is conscious and alert and [...] may be starting another infection. Son informs [facility] the nurse and PT involved w/ [...] sob. Pt consents to evaluation and treatment today.[facility] gathers pt consent, vital signs, and provides castile soap and urinary cup for clean catch urine sample. After collecting urine sample, pt is assessed. Nothing remarkable is noted upon physical exam. [facility] contacts [facility] and discusses the above findings and pt complaint. [facility] is concerned about the pt's c/o sob and orders a 12-lead EKG. [facility] performs EKG and uploads findings for [facility] evaluation. [facility] and [facility] find EKG to be unremarkable at this time. [facility] orders urine be sent for culture and instructs [facility] to perform Eli's test, which [facility] finds negative. [facility] is concerned for PE since pt is post-surgical and recommends pt be transported via ambulance to the ED for further workup. [facility] informs pt and son and pt decides she will monitor her s&s and call 911 if she gets worse or feels she needs to go in. [facility] and [facility] inform pt of red flags including severe sob, lip cyanosis, severe cp, n/v/d that is uncontrollable, focal weakness, AMS, and syncope and advises immediate call to 911 if they occur. Pt and son both state they understand and thank [facility] for coming.[facility] is clear. Report completed by KEMAR Ann [id number]. [facility] Lab Orders: culture, urine: Performed .................. .................. .................. .................. .................. .................. .................. ............... [facility] Consulted: Whitney Prescott .................. .................. .................. .................. .................. .................. .................. ............... Disposition: Fulfilled Whitney Prescott MD [address] [facility] [facility], [place], [address], [place] - PriztagNIKOLAY MEYER 09/07/2024 19:03:38 OBGyn Episode No OBEpisode recorded.
--- OUTSIDE RECORDS SUMMARY | 2025-04-05 10:47 | XMS_ITS | Clinical Summary ---
Author Organization [facility] Address [address] [place] [address] Care Team Providers Care Port Traffic Manager Name Role Phone Unavailable Primary Care [...] 2023-2 5 season) 2024 Influenza Vaccine (#1) 2025 RSV Immunization Adult Patie nts (1 [...] Procedure Name Priority Date/Time Associated Diagnosis Comments [facility] SCREENING DIGITAL Routine 09/01/2019 4:58 PM EST Encounter for screening mammogram for malignant neoplasm of breast from Last 3 Months or Most Recently Relevant to Health Maintenance Results * [facility] SCREENING DIGITAL (09/01/2019 4:58 PM EST) Anatomical Region Laterality Modality Mammography 09/01/2019 9:45 AM EST Narrative 09/01/2019 4:58 PM EST [facility] Diagnostic Imaging Department [address] [place] [address] Patient: PALOMOSTEPHANIE /Age/Sex: 1960 - 59 - F Unit#: [id number] Location/Status: SPDIMA/REG CLI Mnemonic/Ordering Site: [facility] Ordering Physician: Dajuan LUONG MD [facility] Screening Digital - 09/01/19 - 1015 EXAM: [facility] Screening Digital EXAM DATE AND TIME: 09/01/2019 10:15 AM HISTORY: Screening. COMPARISON: 01/27/17, 01/24/16, 01/05/15, 12/08/13, 12/01/13 TECHNIQUE: CC and MLO views of both breasts were obtained using full field digital mammography. Bilateral digital breast tomosynthesis was performed in the MLO projection. Computer aided detection with the [employer] 7.2-H was employed. TISSUE DENSITY: a. The [...] RECOMMENDATION(S): 1: Special mammographic view(s) needed LEFT 22678, 36715 3340F, 7025F Dictating Physician: DEMETRA MARTINEZ MD Electronically Signed by: DEMETRA MARTINEZ MD Dic Date/Time: 09/01/191656 Sign date/Time: 09/01/191657 Procedure Note Demetra Martinez - 09/17/2022 [facility] Diagnostic Imaging Department [address] [place] [address] Patient: PALOMOSTEPHANIE /Age/Sex: 1960 - 59 - F Unit#: [id number] Location/Status: [facility] CLI Mnemonic/Ordering Site: [facility] Ordering Physician: Dajuan LUONG MD [facility] Screening Digital - 09/01/19 - 1015 EXAM: [facility] Screening Digital EXAM DATE AND TIME: 09/01/2019 10:15 AM HISTORY: Screening. COMPARISON: 01/27/17, 01/24/16, 01/05/15, 12/08/13, 12/01/13 TECHNIQUE: CC and MLO views of both breasts were obtained using fullfield digital mammography. Bilateral digital breast tomosynthesis was performedin the MLO projection. Computer aided detection with the [employer].2-Fi.ttas employed. TISSUE DENSITY: a. The breasts are [...] RECOMMENDATION(S): 1: Special mammographic view(s) needed LEFT 96213, 15134 3340F, 7025F Dictating Physician: DEMETRA MARTINEZ MD Electronically Signed by: DEMETRA MARTINEZ MD Dic Date/Time: 09/01/191656 Sign date/Time: 09/01/191657 Daryn Luong MD [facility] BI PROCEDURES Nayla l Result from Last 3 Months or Most Recently Relevant to Health Maintenance
--- OUTSIDE RECORDS SUMMARY | 2025-04-05 10:47 | XMS_ITS | Encounter Summary ---
Author Organization [employer] Address [address] [facility] [address] [place] [address] Care Team Providers Care Coffee Attendant Name Role Phone Name, Fausto VEGAS Primary Care Provider [phone] Reason for Visit * Reason Comments Med Refill Encounter Details Date Type Department Care Team ([facility] st Contact Info) Description 10/18/2024 Refill [facility] [address] [place], [place] [phone] Khloe Ventura MD [address] [place], [place] [phone] Urinary tract infection without hematuria, site unspecified [...] Care Team (Late st Contact Info) Description 06/20/2025 9:00 AM EDT Clinical Support [facility] [address] [place] [address] Shannan Borrego, ALISHA documented as of this encounter Visit Diagnoses Diagnosis Urinary tract infection without hematuria, site unspecified documented in this encounter Additional Health Concerns Assessment Noted Time PHQ-9 Depression Total Score: 10 024 10:02 AM EDT documented as of this encounter Care Teams Coffee Attendant Relationship Specialty Start Date End Date Name, MD Fausto [address] [place] [address] PCP - General Internal Medicine [facility] documented as of this encounter
[2025-04-05 12:23] LABS: MANUAL DIFF FLAG NO
[2025-04-05 12:27] LABS: Hematocrit 37.7 % (37.0-47.0); Hemoglobin 12.5 g/dl (12.0-16.0); Imm Gran Abs Auto 0.05 X10*3/uL (0.00-0.03); Imm Gran Pct Auto 0.4 % (0.0-0.4); Lymphocytes Absolute Auto 4.0 X10*3/uL (1.2-4.9); Mean Corpuscular HGB Conc 33.2 g/dl (31.0-35.0); Mean Corpuscular Hemoglobin 28.5 pg (27.0-33.0); Mean Corpuscular Volume 86.1 fL (80.0-98.0); NRBC Abs Auto 0.000 X10*3/uL (0.0-0.012); NRBC Pct Auto 0.0 /100WBC (0.0-0.2); Platelet Count 339 X10*3/uL (160-400); Red Blood Count 4.38 X10*6/uL (4.20-5.50); White Blood Count 11.1 X10*3/uL (4.8-10.8)
[2025-04-05 14:39] LABS: Alanine Aminotransferase 31 U/L (0-31); Albumin Level 4.2 g/dL (3.5-5.0); Alkaline Phosphatase 79 U/L (39-117); Anion Gap 11 (12-20); Aspartate Amino Transferase 23 U/L (5-31); Blood Urea Nitrogen 17 mg/dL (9-16); Calcium 9.4 mg/dL (8.4-10.2); Carbon Dioxide 31 mmol/L (22-29); Chloride 101 mmol/L (96-108); Estimated Glomerular Filt Rate > 60; Potassium 3.8 mmol/L (3.3-5.1); Sodium 139 mmol/L (135-145); Total Protein 7.0 g/dL (6.5-8.0)
== END 2025-04-05 10:03 | disposition home or self-care (01) ==
LOC: HO.HHCL 10:02
PROVIDERS: PCP Internal Medicine Geriatric Medicine; Visit Provider Internal Medicine Geriatric Medicine
DX: R53.83 Other fatigue (principal); R40.0 Somnolence; R30.0 Dysuria
CPT/HCPCS: 36415; 80053; 84443; 85025; 87086

== ENCOUNTER 2025-08-30 16:03 | Outpatient (REF) | payer OTHER, SELFPAY ==
--- OUTSIDE RECORDS SUMMARY | 2025-08-30 15:20 | XMS_ITS | Encounter Summary ---
Author Organization [employer] Address [address] [facility] 7t [place] [address] Care Team Providers Care Chief Operator Synthesis Name Role Phone Name, Fausto VEGAS Primary Care Provider [phone] Reason for Visit * Reason Comments UTI Encounter Details Date Type Department Care Team ([facility] st Contact Info) Description 08/30/2025 3:20 PM EST Office Visit [facility] [address] [place] [address] Jocelyn Lacy FNP [address] [place] [address] UTI symptoms Social History Tobacco Use Types Packs/Day Years [...] housing situation today? I have amy daley 04/05/[address] you li ve. Do you have problems with any of the following? None of the above 04/05/2025 Food Insecurity Answer Date Recorded Within the past 12 months, y ou worried that your food would run out before you got money to buy more: Sometimes True 2024 Within the past 12 months,th e food you bought just didn't last and you didn't have enough money to get more: Sometimes True 04/05/2025 Transportation Answer Date Recorded In the past 12 months, has l ack of transportation kept you from medical appts, meetings, work or from getting things needed for daily living? No 04/05/2025 Utilities Answer Date Recorded In the past 12 months, has t he electric, gas, oil or water company threatened to shut off services in your home? No 04/05/2025 Depression Answer Date Recorded Patient Health Questionnaire-2 Score 5 11/25/2024 Internet Access Answer Date Recorded Internet Access Q1 Yes 04/05/2025 Internet Access Q2 Not on file 04/05/2025 Comments Unknown Sex and Gender Information Value Date Recorded Sex Assigned at Female 07/29/2022 10:14 AM EDT Legal Sex Female 10:14 AM EDT Gender Identity Female 07/29/2022 10:14 AM EDT Sexual Orientation Choose not to disclose 2021 10:14 AM EDT documented as of this encounter Last Filed Vital Signs Vital Sign Reading Time Taken Comments Blood Pressure 137/81 08/30/2025 3:07 PM EST Pulse 84 08/30/2025 3:07 PM EST Temperature 36.7 C (98 F) 08/30/2025 3:07 PM EST Respiratory Rate 18 08/30/2025 3:07 PM EST Oxygen Saturation 97% 08/30/2025 3:07 PM EST Inhaled Oxygen Concentration - - Weight 101 kg (223 lb) 08/30/2025 3:07 PM EST Height - - Body Mass Index 38.28 07/07/2025 2:23 PM EDT documented in this encounter Plan of Treatment Upcoming Encounters Date Type Department Care Team (Late st Contact Info) Description 09/13/2025 9:15 AM EST Office Visit [facility] MEDIC[facility] [address] [place], [place] [phone] Name, MD Fausto [address] [place] [address] 10/07/2025 9:00 AM EST Office Visit [facility] OPTOMETRY [address] [place] [address] Rosmery Holm, OD [address] [place] [address] Scheduled Orders Name Type Priority Associated Diagnoses Orde r Schedule Culture, Urine, Routine Microbiology Routine UTI symptoms Ordered: 08/30/2025 documented as of this encounter Goals Goal Patient Goal Type Associated Problems Recent Progress Patient-Stated? Author Help patients manage their type 2 diabetes Care Plan Help patients manage their type 2 diabetes No Esther Causey Weekly blood pressure task Care Plan Weekly blood pressure task No CauseySantoshEsther Help patients manage their type 2 diabetes Care Plan Help patients manage their type 2 diabetes No Jett Causeya Patient has chronic kidney disease Care Plan Patient has chronic kidney disease No Jett Causeya Weekly blood pressure task Care Plan Weekly blood pressure task No CauseySantoshEsther Patient has chronic kidney disease Care Plan Patient has chronic kidney disease No Jett Causeya Weekly blood pressure task Care Plan Weekly blood pressure task No Santiagoaguil George segovia Weekly blood pressure task Care Plan Weekly blood pressure task No Santiagoaguil George segovia Patient has chronic kidney disease Care Plan Patient has chronic kidney disease No SantiagoaguiGeorge michaels Patient has chronic kidney disease Care Plan Patient has chronic kidney disease No PrettyuiGeorge michaels Weekly blood pressure task Care Plan Weekly blood pressure task No Santiagoaguil George segovia Weekly blood pressure task Care Plan Weekly blood pressure task No Santiagoaguil George segovia Patient has chronic kidney disease Care Plan Patient has chronic kidney disease No SantmookiegoaguiGeorge michaels Patient has chronic kidney disease Care Plan Patient has chronic kidney disease No Santiagoaguil George segovia Weekly blood pressure task Care Plan Weekly blood pressure task No Mario Otoole [place] Weekly blood pressure task Care Plan Weekly blood pressure task No Mario Otoole [place] Patient has chronic kidney disease Care Plan Patient has chronic kidney disease No Mario Otoole [place] Patient has chronic kidney disease Care Plan Patient has chronic kidney disease No Mario Otoole [place] documented as of this encounter Procedures Procedure Name Priority Date/Time Associated Diagnosis Comments POCT URINALYSIS DIPSTICK Routine 08/30/2025 3:17 PM EST UTI symptoms documented in this encounter Results * (ABNORMAL) POCT urinalysis dipstick manually resulted (CPT 56808) (08/30/2025 3:17 PM EST) Color, UA Humphreys Comment:Bright Clarity, UA Clear Glucose, UA Many Comment:250 Bilirubin, UA Few 15 Ketones, UA Positive Comment:15Mg Spec Grav, UA 1.010 Blood, UA Negative Negative, None Detected pH, UA 5.0 Protein, UA 1+ 70+ Comment:100Mg Urobilinogen, UA 4.0 Leukocytes, UA Many(A) Negative, Rare, Trace, 1+ (17), 2+ (35), 3+ (70), Trace (15) Comment:Large Nitrite, UA Positive(A) Negative, None Detected Appearance, UA OK Urine (Urine, Random) 08/30/2025 3:17 PM EST Jocelyn Chancedeannajoselin [facility] POINT OF CARE TEST ENTER/EDIT ORDERABLES Final Result documented in this encounter Visit Diagnoses Diagnosis UTI symptoms documented in this encounter Additional Health Concerns Active Problems Noted Date Diagnosed Date Help patients manage their type 2 diabetes 08/10 Weekly blood pressure task 08/10/2025 Help patients manage their type 2 diabetes 08/10 Patient has chronic kidney disease 08/10/2025 Weekly blood pressure task 08/10/2025 Patient has chronic kidney disease 08/10/2025 Weekly blood pressure task 08/23/2025 Weekly blood pressure task 08/23/2025 Patient has chronic kidney disease 08/23/2025 Patient has chronic kidney disease 08/23/2025 Weekly blood pressure task 08/29/2025 Weekly blood pressure task 08/29/2025 Patient has chronic kidney disease 08/29/2025 Patient has chronic kidney disease 08/29/2025 Weekly blood pressure task 08/30/2025 Weekly blood pressure task 08/30/2025 Patient has chronic kidney disease 08/30/2025 Patient has chronic kidney disease 08/30/2025 Assessment Noted Time PHQ-9 Depression Total Score: 10 025 11:49 AM EST documented as of this encounter Care Teams Chief Operator Synthesis Relationship Specialty Start Date End Date Name, MD Fausto [address] [place] [address] PCP - General Internal Medicine 01/23/24 Juan Daniel ALEX 09/03/24 documented as of this encounter
--- OUTSIDE RECORDS SUMMARY | 2025-08-30 17:14 | XMS_ITS | Clinical Summary ---
Author Organization [facility] Address [address] [place] [address] Care Team Providers Care Data Analyst Report Writer Name Role Phone Unavailable Primary Care Provider [...] 2) 2008 Breast Cancer Screening 09/01/2021 09/01/2019 Depression Screening 09/29/2024 COVID-19 Vaccine (1 - 2024-2 6 season) 2025 Influenza Vaccine (#1) 2025 RSV Immunization Adult [...] Procedure Name Priority Date/Time Associated Diagnosis Comments [facility] SCREENING DIGITAL Routine 09/01/2019 4:58 PM EST Encounter for screening mammogram for malignant neoplasm of breast from Last 3 Months or Most Recently Relevant to Health Maintenance Results * [facility] SCREENING DIGITAL (09/01/2019 4:58 PM EST) Anatomical Region Laterality Modality Mammography 09/01/2019 9:45 AM EST Narrative 09/01/2019 4:58 PM EST [facility] Diagnostic Imaging Department [address] [place] [address] Patient: STEPHANIE CULVER /Age/Sex: 1960 - 59 - F Unit#: [id number] [facility]ing [facility] Ordering Physician: Dajuan LUONG MD [facility] Screening Digital - 09/01/19 - 1015 EXAM: [facility] Screening Digital EXAM DATE AND TIME: 09/01/2019 10:15 AM HISTORY: Screening. COMPARISON: 01/27/17, 01/24/16, 01/05/15, 12/08/13, 12/01/13 TECHNIQUE: CC and MLO views of both breasts were obtained using full field digital mammography. Bilateral digital breast tomosynthesis was performed in the MLO projection. Computer aided detection with the [employer] 7.2-H was employed. TISSUE DENSITY: a. The [...] RECOMMENDATION(S): 1: Special mammographic view(s) needed LEFT 61854, 93559 3340F, 7025F Dictating Physician: JAMEEL MARTINEZ MD Electronically Signed by: JAMEEL MARTINEZ MD Dic Date/Time: 09/01/191656 Sign date/Time: 09/01/191657 Procedure Note Jameel Martinez - 09/17/2022 [facility] Diagnostic Imaging Department [address] [place] [address] Patient: STARR CULVERSY /Age/Sex: 1960 - 59 - F Unit#: [id number] Location/Status: [facility]/REG CLI Mnemonic/Ordering Site: [facility] Ordering Physician: Dajuan LUONG MD [facility] Screening Digital - 09/01/19 - 1015 EXAM: [facility] Screening Digital EXAM DATE AND TIME: 09/01/2019 10:15 AM HISTORY: Screening. COMPARISON: 01/27/17, 01/24/16, 01/05/15, 12/08/13, 12/01/13 TECHNIQUE: CC and MLO views of both breasts were obtained using fullfield digital mammography. Bilateral digital breast tomosynthesis was performedin the MLO projection. Computer aided detection with the [employer] employed. TISSUE DENSITY: a. The breasts are [...] RECOMMENDATION(S): 1: Special mammographic view(s) needed LEFT 46734, 23675 3340F, 7025F Dictating Physician: JAMEEL MARTINEZ MD Electronically Signed by: JAMEEL MARTINEZ MD Dic Date/Time: 09/01/191656 Sign date/Time: 09/01/191657 Daryn Luong MD IMG BI PROCEDURES Nayla l Result from Last 3 Months or Most Recently Relevant to Health Maintenance
--- OUTSIDE RECORDS SUMMARY | 2025-08-30 17:14 | XMS_ITS | Encounter Summary ---
Author Organization [employer] Address 75 [facility] 7t [place] [address] Care Team Providers Care Corrugator Supervisor Name Role Phone Name, Fausto VEGAS Primary Care Provider [phone] Reason for Visit * Reason Comments Med Refill Encounter Details Date Type Department Care Team ([facility] st Contact Info) Description 02/20/2025 Refill [facility] MED[facility] [address] [place], [place] [phone] Name, MD Fausto [address] [place], [place] [phone] Depression, unspecified depression type Social History Tobacco [...] is your housing situation today? I have may daley 03/30/[address] you [...] Description 09/13/2025 9:15 AM EST Office Visit [facility] MED[facility]INE [address] [place] [address] NameFausto MD [address] [place] [address] 10/07/2025 9:00 AM EST Office Visit [facility] OPTOMETRY [address] [place] [address] Rosmery Holm, OD [address] [place] [address] documented as of this encounter Visit Diagnoses Diagnosis Depression, unspecified depression type documented in this encounter Additional Health Concerns Assessment Noted Time PHQ-9 Depression Total Score: 10 025 11:49 AM EST documented as of this encounter Care Teams Corrugator Supervisor Relationship Specialty Start Date End Date Fausto Bangura MD [address] [place] [address] PCP - General Internal Medicine 01/23/24 Juan Daniel ALEX 09/03/24 documented as of this encounter
--- OUTSIDE RECORDS SUMMARY | 2025-08-30 17:14 | XMS_ITS | Data Portability ---
Author Organization [employer] [facility], [facility] Address [address] [place] [address] Care Team Providers Care Software Implementation Project Manager Name Role Phone HIM CCA OTHER NAME, KALEE Primary Care Provider Unavailable OTHER Assessment Encounter Date Assessment Date Assessment LastModified by Organization Details LastModified Time 09/07/2024 09/07/2024 I provided real -time medical direction via phone for this encounter, and was available for additional phone based assistance as needed. I have reviewed and agree with the Assessment and Plan as documented by the Senior Technologist. We discussed the diagnostic uncertainty of home [...] her symptoms. Patient verbalizes understanding, via the control systems designer but states she feels okay and is [...] to call 911- verbalized understanding of instruction [email or web address] Not available 09/07/2024 19:03:29 Plan of Treatment Reminders Order Date Submit Date Provider Last Modified By Organization Details Last Modified Time Details Appointments None recorded. Lab culture, urine 2023 [place]LE[place] [facility] (Centralized Electronic Ordering - All Locations), Patient Can Go To The Location Of Their Choice, [id number] 18:05:48 urinalysis, dipstick 2023 [email or web address] 0 [facility], [address] [place] [address], [id number] 13:27:08 glucose, fingerstick , blood 2023 [email or web address] 0 [facility], [address] [place], [address] 19:02:51 Referral None recorded. Procedures None recorded. Surgeries None recorded. Imaging electrocard iogram 2023 [email or web address] 0 [facility], [address] [place] [address], [id number] 19:02:51 Medication Orders nitrofurant oin macrocrysta l 100 mg capsule 2023 [place] [id number], [address] [place], [address], 12:52:08 Patient TargetsNo targets recorded. Patient InstructionsNo instructions recorded. Reason for Referral None Reported. Results Created Date Observation Date Name Description Value Unit Range Abnormal Flag Note LastModifiedBy Organization Detail LastModifiedTime 09/07/2009/09/2024 URINE CULTU RE,CO MPREH ENSIV E urine culture,comp rehensive Final report abnormal Not Available [facility] ([facility]) [address] [facility], [place], [address], 09/09/2024 10:06:04 09/07/2009/09/2024 URINE CULTU RE,CO MPREH [...] Prote us mirab ilis. Not Available [facility] ([facility]) [address] [facility], [place], [address], 09/09/2024 10:06:04 09/07/20 24 09/09/2024 URINE CULTU [...] , M100- S26, 2016) Not Available [facility] ([facility]) [address] [facility], [place], [address], 09/09/2024 10:06:04 09/07/20 24 09/09/2024 URINE CULTU [...] S Vanco mycin S Not Available [facility] ([facility]) [address], [place], [address], 09/09/2024 10:06:04 09/07/20 24 09/07/2024 gluco se, finge rstic k, blood Blood Glucose: mg/dl 256 Not Available [facility] [address] [place] [address], [phone] 09/07/2024 13:28:28 09/07/20 24 09/07/2024 urina lysis , dipst ick Appearance clear Not Available [facility] [address] [place] [address], [id number] 09/07/2024 13:21:44 09/07/20 24 09/07/2024 urina lysis , dipst ick Color yellow Not Available [facility] [address] [place] [address], [id number] 09/07/2024 13:21:44 09/07/20 24 09/07/2024 elect an espinoza am No observ ation record ed. [email or web address] [facility] [address] [place] [address], [id number] 09/07/2024 19:02:30 Result Notes None recorded. Medical [...] temperature Body weight Body height Oxygen saturation Heart rate Systolic And Diastolic Provider Name and Address Organization Details Last Updated DateTime 4 18 /min 98.7 [degF] 07441.1 76 g 165.1 cm 98 % 97 /min 168/98 mm[Hg] Not [...] Diagnosis SNOMED-CT Code Diagnosis ICD10 Code Diagnosis IMO Codes Diagnosis Note 78182 Whitney Prescott MD Main - [address] [phone] 09/07/2024 13:09:49 09/07/2024 19:21:21 Urinary symptoms 683310559 R39.9 Urine is not indicative of infection [...] DVT but cannot rule it out completely 12279 Hayden Huggins MD [facility] [address] [place] [phone] 09/09/2024 12:50:55 09/13/2024 11:30:56 Urinary symptoms 208147849 R39.9 Health Concerns Section Related Observation LastModified by Organization Detai ls LastModified Time None Recorded Concern Status LastModified by Organization Details LastModified Time None Recorded Advance Directives Directive None Recorded Payers Insurance Date Sequence Insurance Name Policy Number Policy Mcgrath Covered Member ID Mcgrath Member ID Guarantor Name 09/13/2024 1 [facility] - DOS ON OR AFTER 2022 - DUAL ELIGIBLE - NURSING HOME OPTIONS AND ONE CARE (MEDICARE REPLACEMENT/ADV ANTAGE - HMO) Stephanie Rdzron [id number] Stephaniejaci Dodd Notes Date Note Type Note Provider Name and Address Organization Details Recorded Time 09/07/2024 text/html ROS as noted in the HPI HPI: RN calling from [place] . She had a total knee replacement [...] PMH: Asthma, Hypertension, Diabetes Mellitus Type 2 Senior Technologist Organization Information for [employer] Name: [employer] Address: [address] [place] [address], [employer] Specialist: David Carter MD CLIA No.: [id number] Senior Technologist POC Test Results from [email or web address] Urine Dipstick (13:11:21) Urine leukocytes: - RACHAEL [...] .................. .................. .................. .................. .................. .................. ............... Senior Technologist Note From Pilar Ann: [facility] makes pt contact after being admitted to the apartment where the pt is staying under the care of her son, who is her MANAGER TRADING. She is conscious and alert and standing [...] may be starting another infection. Son informs [facility] the nurse and PT involved w/ [...] sob. Pt consents to evaluation and treatment today.[facility] gathers pt consent, vital signs, and provides castile soap and urinary cup for clean catch urine sample. After collecting urine sample, pt is assessed. Nothing remarkable is noted upon physical exam. [facility] contacts [facility] and discusses the above findings and pt complaint. [facility] is concerned about the pt's c/o sob and orders a 12-lead EKG. [facility] performs EKG and uploads findings for [facility] evaluation. [facility] and [facility] find EKG to be unremarkable at this time. [facility] orders urine be sent for culture and instructs [facility] to perform Eli's test, which [facility] finds negative. [facility] is concerned for PE since pt is post-surgical and recommends pt be transported via ambulance to the ED for further workup. [facility] informs pt and son and pt decides she will monitor her s&s and call 911 if she gets worse or feels she needs to go in. [facility] and [facility] inform pt of red flags including severe sob, lip cyanosis, severe cp, n/v/d that is uncontrollable, focal weakness, AMS, and syncope and advises immediate call to 911 if they occur. Pt and son both state they understand and thank [facility] for coming.[facility] is clear. Report completed by KEMAR Ann [id number]. [facility] Lab Orders: culture, urine: Performed .................. .................. .................. .................. .................. .................. .................. ............... [facility] Consulted: Whitney Prescott .................. .................. .................. .................. .................. .................. .................. ............... Disposition: Fulfilled Whitney Prescott MD [address] [place] [address],[facility] [facility], [place], [address], [facility] 09/07/2024 19:03:38 OBGyn Episode No OBEpisode recorded.
--- OUTSIDE RECORDS SUMMARY | 2025-08-30 17:14 | XMS_ITS | Encounter Summary ---
Author Organization [employer] [facility] Address [address] [facility] 7t [place] [address] Care Team Providers Care Global Logistics Analyst Name Role Phone Rosanne Lugo MD Primary Care Provide r Fausto Bangura MD Primary Care Provider [phone] Encounter Details Date Type Department Care Team (Latest Contact Info) Description 03/30/2019 Abstract [facility] CONVERSIONS Dental, Provider, DDS Social History [...] Description 09/13/2025 9:15 AM EST Office Visit [facility] MEDICINE [address] [place] [address] NameFausto MD [address] [place] [address] 10/07/2025 9:00 AM EST Office Visit [facility] OPTOMETRY [address] [place], [place] [phone] Rosmery Holm, OD [address] [place] [address] documented as of this encounter Visit Diagnoses Not on filedocumented in this encounter Care Teams Global Logistics Analyst Relationship Specialty Start Date End Date Rosanne Lugo MD [address] [place] [address] PCP - General Family Medicine 05/23/22 01/22/24 Willem, MD Fausto [address] [place] [address] PCP - General Internal Medicine 01/23/24 Juan Daniel [facility] 09/03/24 documented as of this encounter
--- OUTSIDE RECORDS SUMMARY | 2025-08-30 17:14 | XMS_ITS | Encounter Summary ---
Author Organization [employer] Address [address] [facility] 7t [place] [address] Care Team Providers Care Ballpoint Pens Assembler Name Role Phone Name, Fausto VEGAS Primary Care Provider [phone] Reason for Visit * Reason Comments Med Refill Encounter Details Date Type Department Care Team ([facility] st Contact Info) Description 10/18/[address] [facility] [address] [place], [place] [phone] Khloe Ventura MD [address] [place], [place] [phone] Urinary tract infection without hematuria, site unspecified [...] Description 09/13/2025 9:15 AM EST Office Visit [facility] MEDICINE [address] [place] [address] Fausto Bangura MD [address] [place] [address] 10/07/2025 9:00 AM EST Office Visit [facility] OPTOMETRY [address] [place] [address] Rosmery Holm, OD [address] [place] [address] documented as of this encounter Visit Diagnoses Diagnosis Urinary tract infection without hematuria, site unspecified documented in this encounter Additional Health Concerns Assessment Noted Time PHQ-9 Depression Total Score: 10 024 10:02 AM EDT documented as of this encounter Care Teams Ballpoint Pens Assembler Relationship Specialty Start Date End Date Fausto Bangura MD [address] [place] [address] PCP - General Internal Medicine 01/23/24 Juan Daniel ALEX 09/03/24 documented as of this encounter
--- OUTSIDE RECORDS SUMMARY | 2025-08-30 17:14 | XMS_ITS | Encounter Summary ---
Author Organization [employer] Address [address] [facility] 7t [place] [address] Care Team Providers Care French Folder Name Role Phone Name, Fausto VEGAS Primary Care Provider [phone] Reason for Visit * Reason Onset Date Comments Med Refill 08/29/2025 Encounter Details Date Type Department Care Team ([facility] st Contact Info) Description 08/29/2025 Refill [facility] MEDICINE [address] [place], [place] [phone] Name, MD Fausto [address] [place] [address] Primary osteoarthritis of knee, unspecified laterality Social History Tobacco Use Types Packs/Day Years [...] encounter Miscellaneous Notes * Telephone Encounter - George Guzman - 08/29/2025 9:53 AM EST TC from pt requesting medication refill. Medications needing refill : oxyCODONE (Roxicodone) 10 MG immediate release tablet To be sent to: [facility]/pharmacy [address] [place] [address] documented in this encounter Plan of Treatment Upcoming Encounters Date Type Department Care Team ([facility] st Contact Info) Description 09/13/2025 9:15 AM EST Office Visit [facility] [address] [place] [address] Name, MD Fausto [address] [place] [address] 10/07/2025 9:00 AM EST Office Visit [facility] OPTOMETRY [address] [place] [address] Rosmery Holm, OD [address] [place] [address] documented as of this encounter Goals Goal Patient Goal Type Associated Problems Recent Progress Patient-Stated? Author Help patients manage their type 2 diabetes Care Plan Help patients manage their type 2 diabetes No Esther Causey Weekly blood pressure task Care Plan Weekly blood pressure task No Jett Causeya Help patients manage their type 2 diabetes Care Plan Help patients manage their type 2 diabetes No Esther Causey Patient has chronic kidney disease Care Plan Patient has chronic kidney disease No CauseySantosh vanceEsther Weekly blood pressure task Care Plan Weekly blood pressure task No CauseySantoshEsther Patient has chronic kidney disease Care Plan Patient has chronic kidney disease No Esther Causey Weekly blood pressure task Care Plan Weekly blood pressure task No SantiagoaguiGeorge michaels Weekly blood pressure task Care Plan Weekly blood pressure task No Santiagoaguil George segovia Patient has chronic kidney disease Care Plan Patient has chronic kidney disease No George Hopkins Patient has chronic kidney disease Care Plan Patient has chronic kidney disease No SantiaGeorge camejo Weekly blood pressure task Care Plan Weekly blood pressure task No Santiagoaguil George segovia Weekly blood pressure task Care Plan Weekly blood pressure task No Santiagoaguil George segovia Patient has chronic kidney disease Care Plan Patient has chronic kidney disease No SantlaurauiGeorge michaels Patient has chronic kidney disease Care Plan Patient has chronic kidney disease No George Hopkins documented as of this encounter Visit Diagnoses Diagnosis Primary osteoarthritis of knee, unspecified laterality documented in this encounter Additional Health Concerns [...] 08/29/2025 Patient has chronic kidney disease 08/29/2025 Assessment Noted Time PHQ-9 Depression Total Score: 10 025 11:49 AM EST documented as of this encounter Care Teams French Folder Relationship Specialty Start Date End Date Name, MD Fausto [address] [place] [address] PCP - General Internal Medicine 01/23/24 [facility] 09/[facility] documented as of this encounter
--- OUTSIDE RECORDS SUMMARY | 2025-08-30 17:14 | XMS_ITS | Encounter Summary ---
Author Organization [employer] Address [address] [facility] 7t [place] [address] Care Team Providers Care Transition Advisor Name Role Phone Name, Fausto VEGAS Primary Care Provider [phone] Reason for Visit * Reason Onset Date Comments Durable Medical Equipment 07/25/2025 Encounter Details Date Type Department Care Team ([facility] st Contact Info) Description 07/25/2025 Telephone [facility] MED[facility]INE [address] [place], [place] [phone] Name, MD Fausto [address] [place] [address] Durable Medical Equipment Social History Tobacco Use Types Packs/Day Years [...] encounter Miscellaneous Notes * Telephone Encounter - Esther Causey - 08/10/2025 4:25 PM EST Pt requesting DME Recliner. If agree, please addend note to include need and benefit of recliner for pt condition in order to meet insurance requirements. Thank you * Telephone Encounter - George Guzman - 07/25/2025 1:24 PM EDT Tc from pt requesting a DME order for a recliner Contact pt at [phone] (latvian) documented in this encounter Plan of Treatment Upcoming Encounters Date Type Department Care Team (Late st Contact Info) Description 09/13/2025 9:15 AM EST Office Visit [facility] MEDICINE [address] [place] [address] Name, MD Fausto [address] [place], [place] [phone] 10/07/2025 9:00 AM EST Office Visit [facility] [address] [place], [place] [phone] Rosmery Holm, OD [address] [place], [place] [phone] documented as of this encounter Visit Diagnoses Not on filedocumented in this encounter Additional Health Concerns Assessment Noted Time PHQ-9 Depression Total Score: 10 025 11:49 AM EST documented as of this encounter Care Teams Transition Advisor Relationship Specialty Start Date End Date Name, MD Fausto [address] [place], [place] [phone] PCP - General Internal Medicine [facility]24 [facility] documented as of this encounter
--- OUTSIDE RECORDS SUMMARY | 2025-08-30 17:14 | XMS_ITS | Encounter Summary ---
Author Organization [employer] Address 75 [facility] 7t [place] [address] Care Team Providers Care Rv Mechanic Name Role Phone Name, Fausto VEGAS Primary Care Provider [phone] Encounter Details Date Type Department Care Team (Latest Contact Info) Description 08/30/2025 Travel Social History Tobacco Use Types Packs/Day [...] Description 09/13/2025 9:15 AM EST Office Visit [facility] MEDICINE [address] [address] Name, MD Fausto [address] [place] [address] 10/07/2025 9:00 AM EST Office Visit [facility] OPTOMETRY [address] [place] [address] Rosmery Holm, OD [address] [place] [address] documented as of this encounter Goals Goal Patient Goal Type Associated Problems Recent Progress Patient-Stated? Author Help patients manage their type 2 diabetes Care Plan Help patients manage their type 2 diabetes No Estehr Causey Weekly blood pressure task Care Plan Weekly blood pressure task No Esther Causey Help patients manage their type 2 diabetes Care Plan Help patients manage their type 2 diabetes No Esther Causey Patient has chronic kidney disease Care Plan Patient has chronic kidney disease No Esther Causey Weekly blood pressure task Care Plan Weekly blood pressure task No Esther Causey Patient has chronic kidney disease Care Plan Patient has chronic kidney disease No Esther Causey Weekly blood pressure task Care Plan Weekly blood pressure task No George Hopkins Weekly blood pressure task Care Plan Weekly blood pressure task No George Hopkins Patient has chronic kidney disease Care Plan Patient has chronic kidney disease No George Hopkins Patient has chronic kidney disease Care Plan Patient has chronic kidney disease No George Hopkins Weekly blood pressure task Care Plan Weekly blood pressure task No George Hopkins Weekly blood pressure task Care Plan Weekly blood pressure task No George Hopkins Patient has chronic kidney disease Care Plan Patient has chronic kidney disease No George Hopkins Patient has chronic kidney disease Care Plan Patient has chronic kidney disease No George Hopkins Weekly blood pressure task Care Plan Weekly blood pressure task No Katja Otoolesmo CT Weekly blood pressure task Care Plan Weekly blood pressure task No Bni Henry [place], [place] Patient has chronic kidney disease Care Plan Patient has chronic kidney disease No Steward Henry, [place], [place] Patient has chronic kidney disease Care Plan Patient has chronic kidney disease No Bin Henry, [facility] documented as of this encounter Visit Diagnoses Not on filedocumented in this encounter Additional Health Concerns Active [...] Noted Time PHQ-9 Depression Total Score: 10 11/25/ 025 11:49 AM EST documented as of this encounter Care Teams Rv Mechanic Relationship Specialty Start Date End Date Name, MD Fausto [address] [place] [address] PCP - General Internal Medicine 01/23/24 Juan Daniel ALEX 09/03/24 documented as of this encounter
--- OUTSIDE RECORDS SUMMARY | 2025-08-30 17:14 | XMS_ITS | Encounter Summary ---
Author Organization [employer] Address 75 [facility] 7t [place] [address] Care Team Providers Care Guidance Services Coordinator Name Role Phone Rosanne Lugo MD Primary Care Provide r NameFausto MD Primary Care Provider [phone] Reason for Visit * Reason Onset Date Comments Med Refill 10/15/2022 Encounter Details Date Type Department Care Team (Late st Contact Info) Description 10/15/2022 Telephone [facility] MEDICINE [address] [place] [address] Rosanne Lugo MD [address] [place] [address] [phone] Med Refill Social History Tobacco Use Types [...] Description 09/13/2025 9:15 AM EST Office Visit [facility] MEDICINE [address] [place] [address] Name, MD Fausto [address] [place] [address] 10/07/2025 9:00 AM EST Office Visit [facility] OPTOMETRY [address] [place], [place] [phone] Michaelben Rosmery, OD [address] [place], [place] [phone] documented as of this encounter Visit Diagnoses Diagnosis Arthritis of left knee documented in this encounter Care Teams Guidance Services Coordinator Relationship Specialty Start Date End Date Rosanne Lugo MD [address] [place] [address] PCP - General Family Medicine 05/23/22 01/22/24 Name, MD Fausto [address] [place] [address] PCP - General Internal Medicine [facility]23[facility] documented as of this encounter
--- OUTSIDE RECORDS SUMMARY | 2025-08-30 17:15 | XMS_ITS | Encounter Summary ---
Author Organization [employer] Address [address] [facility] [address] [place] [address] Care Team Providers Care Foster Care Worker Name Role Phone Rosanne Lugo MD Primary Care Provide r NameFausto MD Primary Care Provider [phone] Reason for Visit * Reason Comments Med Refill Encounter Details Date Type Department Care Team (Late st Contact Info) Description 04/26/[address] [facility] [address] [place] [address] [phone] Rosanne Lugo MD [address] [place] [address] [phone] Acquired hypothyroidism Social History Tobacco Use Types [...] Department Care Team (Late Contact Info) Description 09/13/2025 9:15 AM EST Office Visit [facility] [address] [place] [address] Fausto Bangura MD [address] [place] [address] 10/07/2025 9:00 AM EST Office Visit [facility] [address] [place] [address] Alta Rosmery, OD [address] [place] [address] documented as of this encounter Visit Diagnoses Diagnosis Acquired hypothyroidism Unspecified hypothyroidism documented in this encounter Additional Health Concerns Assessment Noted Time PHQ-9 Depression Total Score: 15 023 9:04 AM EST documented as of this encounter Care Teams Foster Care Worker Relationship Specialty Start Date End Date Rosanne Lugo MD [address] [place] [phone] PCP - General Family Medicine 05/23/22 01/22/24 Fausto Bangura MD [address] [place] [phone] PCP - General Internal Medicine 01/23/24 [facility] 09/03/24 documented as of this encounter
--- OUTSIDE RECORDS SUMMARY | 2025-08-30 17:15 | XMS_ITS | Encounter Summary ---
Author Organization [employer] Address [address] [facility] [address] [place] [address] Care Team Providers Care Rn Licensed Practical Name Role Phone Rosanne Lugo MD Primary Care Provide r Name, Fausto VEGAS Primary Care Provider [phone] Reason for Visit * Reason Onset Date Comments Med Refill 02/04/2023 Encounter Details Date Type Department Care Team (Late st Contact Info) Description 02/04/2023 Telephone [facility] [address] [place], [place] [phone] Rosanne Lugo MD [address] [place], [place] [phone] Med Refill Social History Tobacco Use Types [...] Description 09/13/2025 9:15 AM EST Office Visit [facility] [address] [place] [address] Fausto Bangura MD [address] [place] [address] 10/07/2025 9:00 AM EST Office Visit [facility] [address] [place], [place] [phone] Rosmery Holm, OD [address] [place] [address] documented as of this encounter Visit Diagnoses Not on filedocumented in this encounter Additional Health Concerns Assessment Noted Time PHQ-9 Depression Total Score: 15 023 9:04 AM EST documented as of this encounter Care Teams Rn Licensed Practical Relationship Specialty Start Date End Date Rosanne Lugo MD [address] [place] [phone] PCP - General Family Medicine 05/23/22 01/22/24 Fausto Bangura MD [address] [place] [phone] PCP - General Internal Medicine [facility] documented as of this encounter
--- OUTSIDE RECORDS SUMMARY | 2025-08-30 17:15 | XMS_ITS | Clinical Summary ---
Author Organization [employer] Address [address] [facility] [address] [place] [address] Care Team Providers Care Head Athletic Trainer Name Role Phone Name, Fausto VEGAS Primary Care Provider [phone] Allergies No known active allergies Medications Calcium Carb-Cholecalcife rol (Calcium+D3) 600-20 MG-MCG tablet Take 1 tablet by mouth every 12 (twelve) hours. Active Alpha-Lipoic Acid 300 MG capsule Take [...] AT BEDTIME 90 capsule 3 023 Active TRUEplus Lancets 33G misc TEST BLOOD SUGAR ONCE A DAY 100 each 11 024 Active estradiol (Estrace) 0.1 MG/GM vaginal cream PLACE 1 GM VAGINALLY DAILY AT BEDTIME EVERY NIGHT FOR TWO WEEKS THEN TWICE WEEKLY Active naproxen (Naprosyn) 500 MG tablet Take 500 mg by mouth 2 times daily. 023 Active Senna-Time 8.6 MG tablet TAKE 2 TABLETS ORALLY BEDTIME FOR CONSTIPATION 024 Active glucose blood (FREESTYLE LITE) test stripIndications: Type 2 diabetes mellitus with hyperglycemia, without long-term current use of insulin ([facility]) TEST BLOOD SUGAR ONCE A DAY 100 each 5 025 Active traZODone (Desyrel) 50 MG tabletIndications :Depression, unspecified depression type Take 2 tablets (100 mg) by mouth if needed at bedtime for sleep or depression. 60 tablet 3 025 Active albuterol (2.5 MG/3ML) 0.083% nebulizer solutionIndicatio ns:Moderate persistent asthma with acute exacerbation INHALE 3 M[address]ITER [address] NEBULIZATION ROUTE EVERY 6 HOURS NEEDED 75 mL 2 025 Active lisinopril-hydroC HLOROthiazide 20-25 MG tabletIndications :Hypertension, unspecified type TAKE 1 TABLET BY MOUTH EVERY DAY 90 tablet 3 025 Active ascorbic acid (Vitamin C) 500 MG chewable tablet CHEW 1 TABLET BY MOUTH TWICE A DAY FOR 30 DAYS 025 Active polyvinyl alcohol (Liquifilm Tears) 1.4 % ophthalmic solution INSTILL 1 DROP IN EACH EYE THREE TIMES DAILY IN THE MORNING, AT NOON, AND AT BEDTIME NEEDED FOR DRY EYES Active omeprazole (PriLOSEC) [address] capsule Take 1 capsule by mouth Once per day. Active mirabegron ER (Myrbetriq) 50 MG 24 hr tablet Take 1 tablet by mouth Once per day. Active methenamine mandelate (Mandelamine) 1 g tablet TAKE 1 TABLET BYMOUTH 2 TIMES A DAY FOR 30 DAYS. TAKE WITH 500 MG VITAMIN C Active lisinopril 5 MG tablet Take 1 tablet by mouth Once per day. Active hydroCHLOROthiazi de (HYDRODiuril) 25 MG tablet Take 1 tablet by mouth Once per day. Active fluocinolone (DermOtic) 0.01 % ear drops INSTILL 3 TO 4 DROPS IN BOTH EARS EVERY DAY Active celecoxib (CeleBREX) 200 MG capsule Take 200 mg by mouth 2 times daily. Active loratadine (Claritin) 10 MG tabletIndications :Moderate persistent asthma with acute exacerbation Take 1 tablet (10 mg) by mouth Once per day. 90 tablet 3 025 2025 Active PARoxetine (Paxil) 40 MG tabletIndications :Depression, unspecified depression type Take 1 tablet (40 mg) by mouth Once per day. 90 tablet 3 025 2025 Active hydrOXYzine HCl (Atarax) 25 MG tabletIndications :Pruritus Take 1 tablet (25 mg) by mouth if needed in the morning, at noon, and at bedtime for itching. 30 tablet 025 Active budesonide-formot ilene (Symbicort) 160-4.5 MCG/ACT inhalerIndication s:Moderate persistent asthma with acute exacerbation Inhale 2 puffs in the morning and at bedtime. Rinse mouth with water after use to reduce aftertaste and incidence of candidiasis. Do not swallow. 1 each 3 025 2025 Active albuterol (Ventolin HFA) 108 (90 Base) MCG/ACT inhaler TAKE 1 TO 2 PUFFS INHALED BY MOUTH EVERY 4 TO 6 HOURS NEEDED 18 g 3 Active Spacer/Aero-Holdi ng Chambers (OptiChamber Kim) misc 1 each every 4 (four) hours if needed (asthma). 2 each Active levothyroxine (Synthroid, Levoxyl) 125 MCG tabletIndications :Acquired hypothyroidism TAKE 1 TABLET BY MOUTH EVERY DAY BEFORE BREAKFAST 90 tablet 1 Active senna-docusate (Senokot S) 8.6-50 MG tablet Take 1 tablet by mouth Once per day. 30 tablet 11 025 2025 Active lovastatin (Mevacor) 40 MG tablet TAKE 1 TABLET BY MOUTH EVERY DAY WITH EVENING MEAL 90 tablet 025 Active metFORMIN (Glucophage) 500 MG tabletIndications :Type 2 diabetes mellitus without complication, without long-term current use of insulin (HCC) TAKE 2 TABLETS BY MOUTH WITH BREAKFAST AND WITH EVENING MEAL 360 tablet 1 025 Active fluticasone (Flonase) 50 MCG/ACT nasal sprayIndications: Moderate persistent asthma with acute exacerbation SPRAY 1 SPRAY INTO EACH NOSTRIL ONCE A DAY. SHAKE GENTLY. BEFORE FIRST USE, PRIME PUMP. AFTER USE, CLEAN TIP AND REPLACE. 48 mL Active acetaminophen (Tylenol) 500 MG tablet Take 2 tablets (1,000 mg) by mouth every 6 (six) hours if needed for moderate pain or fever for up to 25 doses. 50 tablet 10/09/2 025 Active gabapentin (Neurontin) 600 MG tabletIndications :Type 2 diabetes mellitus with hyperglycemia, without long-term current use of insulin ([facility]) TAKE 1 TABLET BY MOUTH THREE TIMES A DAY 90 tablet 1 Active amLODIPine (Norvasc) 2.5 MG tablet TAKE 1 TABLET (2.5 MG) BY MOUTH ONCE PER DAY. 90 tablet 1 Active oxyCODONE (Roxicodone) 10 MG immediate release tabletIndications :Primary osteoarthritis of knee, unspecified laterality Take 1 tablet (10 mg) by mouth every 6 (six) hours if needed for severe pain for up to 7 days. Do not start before August 31, 2025. 28 tablet 025 2024 Active nitrofurantoin, macrocrystal-mono hydrate, (Macrobid) 100 MG capsule Take 1 capsule (100 mg) by mouth 2 times daily for 5 days. 10 capsule 08/30/20 25 4:13 PM EST 2024 Active amLODIPine (Norvasc) 2.5 MG tablet Take 1 tablet (2.5 mg) by mouth Once per day. 30 tablet 11 024 2024 Discontinued dextran 70-hypromellose (artificial tears) 0.1-0.3 % ophthalmic solutionIndicatio ns:Dry eyes, bilateral Administer 1 drop into both eyes if needed in the morning, at noon, and at bedtime for dry eyes. 15 mL 6 024 2024 gabapentin (Neurontin) 600 MG tabletIndications :Type 2 diabetes mellitus with hyperglycemia, without long-term current use of insulin ([facility]) TAKE 1 TABLET BY MOUTH 3 TIMES DAILY. 90 tablet 1 025 2024 Discontinued oxyCODONE (Roxicodone) 10 MG immediate release tabletIndications :Primary osteoarthritis of knee, unspecified laterality Take 1 tablet (10 mg) by mouth every 6 (six) hours if needed for severe pain for up to 28 days. 112 tablet 025 2024 Discontinued(R eorder (will not trigger notification to Pharmacy)) oxyCODONE (Roxicodone) 10 MG immediate release tabletIndications :Primary osteoarthritis of knee, unspecified laterality Take 1 tablet (10 mg) by mouth every 6 (six) hours if needed for severe pain for up to 7 days. 28 tablet 025 2024 Discontinued(R eorder (will not trigger notification to Pharmacy)) nitrofurantoin, macrocrystal-mono hydrate, (Macrobid) 100 MG capsule Take 1 capsule (100 mg) by mouth 2 times daily for 5 days. 10 capsule 025 2024 Discontinued(O ther) Active Problems Problem Noted Date Diagnosed Date History of left knee replacement 11/25/2024 Urinary tract infection without hematuria 2023 Assessment & Plan (06/04/2025 10:32 AM EDT): Unclear if she has pyelonephritis, I will Rx Cipro x 5 days and follow-up urine culture. Use Pyridium x 1 to 2 days, increase water intake and relieve constipation Patient to go to ED if fever, chills did not improve after 48 hours of antibiotics or symptoms get any worse. Assessment & Plan (09/09/2024 2:59 PM EST): Called pharmacy and pt will go machine operator picker abx. -prescribed Pyridium for pain. -Potential [...] EST): Rx Macrobid x 7d, I called [facility], spoke with Jyotsna re patient's UTI [...] of sxs, severe nausea, change on MS. retirement current use of opiate analgesic 2023 Overview (08/10/2024): Medication: oxycodone 10mg TID (short term increase to QID while pending TKA Aug 2024, increase started 07/14/24) Indication: Left knee OA, spondylosis of lumbosacral spine with radiculopathy Last MANAGER REIMBURSEMENT Agreement signed: 10/27/23 Assessment & Plan (08/10/2024 4:39 PM EST): -Good engagement and participation with Group Medical Visit model -Encouraged multifactorial approach to pain control including pharm and non- pharm modalities -UTOX and pill count WNL Timeline: 10/27/23: MANAGER REIMBURSEMENT renewal, sometimes using QID instead of TID 12/18/23: pt forgot medication 02/24/24: UTOX WNL, pill count not completed 03/23/24: pill count less than expected 05/25/24: WNL 07/06/24: UTOX WNL, pill count less than expected 07/14/24: PCP temporary increase of med frequency to QID 08/10/24: MANAGER REIMBURSEMENT group, WNL Assessment & Plan (07/06/2024 5:14 PM EDT): -Good engagement and participation with Group Medical Visit model -Encouraged multifactorial approach to pain control including pharm and non- pharm modalities -UTOX WNL, pill count not performed. See respiratory medicine physician. Timeline: 10/27/23: MANAGER REIMBURSEMENT renewal, sometimes using QID instead of TID [...] post-op pain medication Lumbar back pain 04/05/2024 Depression with anxiety 05/14/2023 Assessment & Plan (05/14/2023 2:00 PM EDT): I explain to patient she should follow with her therapist and psychiatrist, I explain I prefer specialist to continue prescribing her medication to avoid confusions Slow transit constipation 05/14/2023 Assessment & Plan (06/04/2025 10:32 AM EDT): Advised to increase water intake, she will hold off on calcium and vitamin C this week. Start senna plus docusate daily and MiraLAX as needed constipation greater than 2 days. Assessment & Plan (05/14/2023 1:55 PM EDT): Drink plenty of water increase fiber on diet Colon cancer screening 05/14/2023 Encounter for screening mamm ogram for malignant neoplasm of breast 05/14/2023 Trigger finger of right thumb 02/26/2023 Dysuria 02/26/2023 Assessment & Plan (03/14/2025 10:13 AM EDT): No evidence of UTI at this time, will send urine for culture Order vaginal swab and follow-up results, I will treat for vaginal candidiasis due to recent use of antibiotics and history of diabetes. 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 I will discuss with MANAGER REIMBURSEMENT team about previous w/u. Discussed with patient in length re compliance with MANAGER REIMBURSEMENT and all appts. I handed her and her son the appt card to fu with MANAGER REIMBURSEMENT nurse New rx for Oxycodone x 1w this coming 2/2 Continue Gabapentin tid, encouraged to fu closely with MH provider. Counseled to come to acupuncture clinic. Depressive disorder 09/25/2022 Assessment & Plan (10/28/2022 8:43 PM EST): Encouraged re importance of compliance with Paxil and close fu with her MH team. Continue Paxil and Ambien at bedtime. Hyperlipidemia 09/25/2022 Hypothyroidism 09/25/2022 Assessment & Plan (05/14/2023 1:55 PM EDT): TSH will be check with labs Insomnia 09/25/2022 Assessment & Plan (12/23/2022 5:49 PM EDT): Most likely due to underlying depression, needs to FU with psychiatry next month and with counselor every 2 weeks, no medication changes. Obesity 09/25/2022 Hypertension associated with diabetes 09/25/2022 Assessment & Plan (03/14/2025 10:04 AM EDT): >>ASSESSMENT AND PLAN FOR HYPERTENSIVE DISORDER WRITTEN ON 10/28/2022 8:26 PM BY MELLY QUINTERO MD Uncontrolled today. Patient hasn't taken meds today Counseled re importance of med compliance, taking meds at the same time. FU in 2m. Continue hydrochlorothiazide 25mg + lisinopril 5mg Assessment & Plan (03/14/2025 10:04 AM EDT): >>ASSESSMENT AND PLAN FOR HYPERTENSIVE DISORDER WRITTEN ON 02/26/2023 11:20 AM BY CORI ORTIZ MD Patient forgot to take her BP medications today I advise to be compliant with her medications Assessment & Plan (03/14/2025 10:04 AM EDT): >>ASSESSMENT AND PLAN FOR HYPERTENSIVE DISORDER WRITTEN ON 05/14/2023 1:55 PM BY CORI ORTIZ MD - Aerobic exercise to reduce BP. Initial [...] consulting health care provider Assessment & Plan (03/14/2025 10:04 AM EDT): >>ASSESSMENT AND PLAN FOR HYPERTENSIVE DISORDER WRITTEN ON 02/27/2024 9:30 AM BY TEETEE CONTI MD BP not controlled today, she thinks it [...] consulting health care provider Assessment & Plan (03/14/2025 10:04 AM EDT): >>ASSESSMENT AND PLAN FOR HYPERTENSIVE DISORDER WRITTEN ON 05/13/2024 7:08 PM BY CORI CAMPA MD Home BP states lately BP <140/90 Today elevated possible reactive? -has apt already scheduled w PCP -advised to bring home BP readings at apt Gastroesophageal reflux disease 09/04/2022 Irritable bowel syndrome without diarrhea 2021 Moderate persistent asthma 09/08/2021 Assessment & Plan (06/04/2025 10:33 AM EDT): Has an acute exacerbation, will do albuterol updraft today Continue Symbicort twice daily and follow-up with PCP Assessment & Plan (02/10/2025 6:20 AM EDT): -Acute exacerbation of asthma -Start prednisone 20mg daily x 5 days -Change maintenance inhaler: Symbicort 2 puffs BID, and PRN per updated SHA / SMART guidelines. Advised to rinse mouth after every use. 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 Resolved Problems Problem Noted Date Diagnosed Date Resolved Date Acute maxillary sinusitis 07/23/2024 Otitis of left ear 07/23/2024 Abdominal pain 04/05/2024 04/06/2024 COVID-19 04/05/2024 04/20/2024 Toothache 04/05/2024 04/06/2024 Acute UTI 04/05/2024 04/06/2024 Urinary tract infection 04/05/2024 07/0 05/2024 Obese 04/05/2024 03/14/2025 Left upper quadrant abdominal pain 05/14/2023 03/14/2025 Pruritus 05/14/2023 04/06/2024 Continuous opioid dependence ([facility]/HCC) 09/25/2022 05/24/2024 Assessment & Plan (12/23/2022 5:48 PM EDT): Pt has been more compliant with MANAGER REIMBURSEMENT program. We have done [employer] education re [...] for LBP. Recent non compliance with MANAGER REIMBURSEMENT program. New appt with MANAGER REIMBURSEMENT nurse handed today, she's aware that no [...] Encounters Date Type Department Care Team Description 08/30/2025 3:20 PM EST Office Visit [facility] [address] [place] [phone] Jocelyn Lacy, HEAD FIELD HOCKEY COACH UTI symptoms 08/30/2025 Travel 08/29/2025 Refill [facility] [address] [place] [phone] Fausto Bangura MD Primary osteoarthritis of knee, unspecified laterality 08/23/2025 Refill [facility] [address] [place] [address] Fausto Bangura MD Primary osteoarthritis of knee, unspecified laterality 08/05/2025 Refill [facility] [address] [place] [address] Fausto Bangura MD 08/04/2025 Telephone [facility] [address] [place] [phone] Fausto Bangura MD Nurse Triage 07/31/2025 Refill [facility] [address] [place] [phone] Fausto Bangura MD Type 2 diabetes mellitus with hyperglycemia, without long-term current use of insulin ([facility]) 07/25/2025 Telephone [facility] [address] [place] [phone] Fausto Bangura MD Durable Medical Equipment 07/25/[address] [phone] Fausto Bangura MD Med Refill 07/22/2025 Refill [facility] [address] [place] [phone] Fausto Bangura MD Primary osteoarthritis of knee, unspecified laterality 07/07/2025 3:00 PM EDT Office Visit [facility] [address] [place] [phone] Jocelyn Lacy FNP Moderate persistent asthma with acute exacerbation (Primary Dx); Hypertension associated with diabetes ([facility]) 07/07/2025 Travel 07/05/2025 1:30 PM EDT Clinical Support [address] [address] Shannan Borrego RN retirement current use of opiate analgesic (Primary Dx) 07/05/[address] [address] Shannan Borrego, ALISHA Oxycodone count discrepancy 07/05/2025 Travel 06/25/[address] [phone] Fausto Bangura MD Type 2 diabetes mellitus without complication, without long-term current use of insulin ([facility]) 06/23/2025 Refill [facility] [address] [place] [phone] Fausto Bangura MD Primary osteoarthritis of knee, unspecified laterality 06/22/[address] [address] Jose Antonio Velásquez [place] november recalls 06/20/[address] [phone] Shannan Borrego, RN [place] MANAGER REIMBURSEMENT RV today 06/09/2025 Refill [facility] [address] [place] [phone] Melly Quintero MD 06/05/2025 Refill [facility] [address] [place] [address] Name, MD Fausto Type 2 diabetes mellitus with hyperglycemia, without long-term current use of insulin ([facility]) 06/04/2025 10:20 AM EDT Office Visit [facility] [address] [place] [address] Melly Quintero MD Urinary tract infection without hematuria, site unspecified (Primary Dx); Slow transit constipation; Moderate persistent asthma with acute exacerbation; UTI symptoms 06/04/2025 Travel from Last 3 Months Immunizations Immunization Administration Dates Next Due Hep B, adult [...] (223 lb) 08/30/2025 3:07 PM EST Height 162.6 cm (5' 4 ) 07/07/2025 2:23 PM EDT Body Mass Index 38.28 07/07/2025 2:23 PM EDT Plan of Treatment Upcoming Encounters Date Type Department Care Team (Late st Contact Info) Description 09/13/2025 9:15 AM EST Office Visit [facility] [address] [place] [address] Name, MD Fausto [address] [place] [address] 10/07/2025 9:00 AM EST Office Visit [facility] [address] [place] [address] Rosmery Holm, OD [address] [place] [address] Health Maintenance Due Date Last Done Comments CT Colonography 1958 FIT DNA/Cologuard 1958 FIT 1958 FOBT 1958 Sigmoidoscopy 1958 Diabetes: Foot Exam 1968 Alcohol/Substance Use Screening 1970 Pneumococcal Vaccine: 50+ Years (1 of 2 - PCV) 1977 RSV Patients and Patients Aged 60 years or older (1 - Risk 50-74 years 1-dose series) 2008 Hepatitis B Vaccines (2 of 3 - 19+ 3-dose series) 05/16/2022 04/18/2022 Depression Monitoring 05/25/2025 11/25/2024, 025 COVID-19 Vaccine ( season) 2025 05/01/2022, 02/01/2021, 01/04/2021 Influenza Vaccine (#1) 2025 Mammogram 06/30/2025 06/30/2024, 06/25/2023 Diabetes: Hemoglobin A1C 10/06/2025 025, 11/25/2024, 07/29/2024, Additional history exists Diabetes: Urine Protein Screening 11/26/2025 11/26/2024, 04/06/2024, 08/16/2021 Lipid Panel 11/26/2025 11/26/2024, 06/0 01/2023, 08/16/2021 SDOH Screening 04/05/2026 04/05/2025 Eye Exam 08/02/2026 08/02/2024, 110 12/2023, 08/02/2024, Additional history exists Tobacco Screening 08/30/2026 08/30/2025 DTaP/Tdap/Td Vaccines (2 - Td or Tdap) [...] on patient's age to complete this topic Goals Goal Patient Goal Type Associated Problems [...] Care Plan Weekly blood pressure task No SantGeorge villalobos Patient has chronic kidney disease Care Plan [...] Care Plan Patient has chronic kidney disease Mario Montoya MA Procedures Procedure Name Priority Date/Time Associated Diagnosis Comments POCT URINALYSIS DIPSTICK Routine 08/30/2025 3:17 PM EST UTI symptoms POCT JASMINE-14 URINE DRUG SCREEN Routine 07/05/2025 10:14 AM EDT retirement current use of opiate analgesic POCT URINALYSIS DIPSTICK Routine 06/04/2025 9:56 AM EDT UTI symptoms POCT GLYCATED HEMOGLOBIN, TOTAL Routine 04/05/2025 9:30 AM EDT Type 2 diabetes mellitus with hyperglycemia, without long-term current use of insulin (CMS/HCC) ALBUMIN, RANDOM URINE W/CREATININE Routine 11/26/2024 9:59 AM EST Type 2 diabetes mellitus with hyperglycemia, without long-term current use of insulin (CMS/HCC) LIPID PANEL, STANDARD Routine 11/26/2024 9:59 AM EST Type 2 diabetes mellitus with hyperglycemia, without long-term current use of insulin (CMS/HCC) BI MAMMOGRAM SCREENING TOMOSYNTHESIS BILATERAL Routine 06/30/2024 10:30 AM EDT HM COLONOSCOPY Routine 03/01/2024 ZZZ HISTORICAL HEPATITIS C AB W/REFL TO HCV RNA, QN, PCR Routine 08/16/2021 11:08 AM EST from Last 3 Months or Most Recently Relevant to Health Maintenance Results * (ABNORMAL) POCT urinalysis dipstick manually resulted (CPT 82189) (08/30/2025 3:17 PM EST) Only the most recent of2 resultswithin the time period is included. Color, UA Cobb Comment:Bright Clarity, UA Clear Glucose, UA Many [...] (Urine, Random) 08/30/2025 3:17 PM EST Jocelyn Lacy HEAD FIELD HOCKEY COACH POINT OF CARE TEST ENTER/EDIT ORDERABLES Final Result * (ABNORMAL) POCT JASIMNE-14 Urine Drug Screen (07/05/2025 10:14 AM EDT) THC Negative Negative Cocaine Screen, Urine Negative Negative Opiate Screen, Urine Negative Negative Methamphetamine Screen Urine Negative Negative Amphetamine Screen, Urine Negative Negative Benzodiazepines Screen, Urine Negative Negative Barbiturate Screen, Urine Negative Negative Methadone Screen, Urine Negative Negative Buprenophine Screen, Urine Negative Negative TCA, Urine Negative Negative MDMA Urine Negative Negative ng/mL Oxycodone Screen, Urine Positive(A) Negative Comment:MANAGER REIMBURSEMENT pt, on oxycodone Phencyclidine (PCP), Urine Negative Negative Propoxyphene, Urine Negative Negative Fentanyl, Urine Negative Negative Urine Urine specimen obtained by clean catch procedure / Unknown 07/05/2025 10:14 AM EDT Narrative Shannan Borrego RN - 07/05/2025 10:14 AM EDT UTOX cup Lot#[id number] Exp. 07/05/26 Internal Pass Control Fausto Bangura MD POINT OF CARE TEST ENTER/EDIT OR DERABLES Final Result * (ABNORMAL) POCT HGB A1C (04/05/2025 9:30 AM EDT) Hemoglobin A1C 6.7(A) 4.0 - 5.7 % QC Media Lot # [id number] Lot# Expiration Date Blood 04/05/2025 9:30 AM EDT us Fausto Bangura MD POINT OF CARE TEST ENTER/EDIT OR DERABLES Final Result * Albumin, Random Urine W/Creatinine (11/26/2024 9:59 AM EST) Creatinine, Urine 207.88 mg/dL [facility] Microalbumin Urine 12.0 mg/L [facility] Microalbum Creatinine Ratio Ur 5.7 <30 ug/mg cr [facility] Comment:Albumin/Creatinine R atio Reference Ranges: Normal: < 30 ug/mg creatinine Microalbuminuria: 30 - 300 ug/mg creatinineClinical Albuminuria: > 300 ug/mg creatinine Urine (Urine, Random) 11/26/2024 9:59 AM EST 11/26/2024 10:52 AM EST us Fausto Bangura MD LAB URINE ORDERABLES Final Resul t Performing Organization Address City/State/[facility] Co de Phone Number [facility] [address] [place] [phone] * (ABNORMAL) Lipid Panel, Standard (11/26/2024 9:59 AM EST) Triglycerides 220(H) <150 mg/dL [facility] Comment:Desirable Triglyceri de: less than 150 mg/dLBorderline High Triglyceride 150-199 mg/dLHigh Triglyceride: 200-499 mg/dLVery High Triglyceride: greater than or equal to 5OO mg/dL Cholesterol 162 <200 mg/dL [facility] Comment:Desirable Cholestero l: less than 200 mg/dLBorderline High Cholesterol: 200-239 mg/dLHigh Cholesterol: greater than 239 mg/dL LDL Cholesterol Calculated 80 <100 mg/dL [facility] Comment:Desirable LDL: less than 100 mg/dLNear Optimal/Above Optimal LDL: 110- 129 mg/dLBorderline High LDL: 130-159 mg/dLHigh LDL: 160-189 mg/dLVery High LDL: greater than or equal to 190 mg/dL HDL Cholesterol 38(L) >40 mg/dL [facility] Comment:Desirable HDL: great er than 40 mg/dL Note: This HDL assay may give artificially low results in patients with liver disease. Blood Venous blood specimen / Unknown 11/26/2024 9:59 AM EST 11/26/2024 10:54 AM EST Fausto Bangura MD LAB BLOOD ORDERABLES Final Resul t [facility] [address] [place] [phone] * BI Mammogram Screening Tomosynthesis Bilateral (06/30/2024 10:30 AM EDT) Anatomical Region Laterality Modality Breast Bilateral Mammography 06/30/2024 10:3 0 AM EDT Narrative 07/12/2024 12:45 PM EDT [address] [place] [address] Mammography Report Signed Patient: Stephanie Dodd MR#: [id number] : 1960 Acct:[id number] Age/Sex: 63 / F ADM Date: 06/30/24 Loc: HO.MAMMO Attending Dr: Cori Ortiz MD Ordering Physician: Cori Lugo MD Results: 1Negative Date of Service: 06/30/24 Follow Up: 1 Year From [facility] Mammogram Procedure(s): MM tomosynthesis screening BI Accession Number(s): [id number] cc: Cori Lugo MD; Name,Fausto VEGAS EXAMINATION: MM SCREENING [...] 07/12/24 1242 DD/ 1030 TD/TT: 06/30/24 1058 Health Services Information Specialist: Procedure Note Donotuseinterpreter, Image - 07/12/2024 [facility] [address] [place] [address] Mammography Report Signed Patient: Stephanie DoddMR#: [id number] : 1960cct:[id number] Age/Sex: 63 / FADM Date: 06/30/24 Loc: HO.MAMMO Attending Dr: Cori Ortiz MD Ordering Physician: Cori Lugo MDResults: 1Negative Date of Service: 06/30/24Follow Up: 1 Year From Orig inal Mammogram Procedure(s): MM tomosynthesis screening BI Accession Number(s): [id number] cc: Cori Lugo MD; Name,Fausto VEGAS EXAMINATION: MM SCREENING [...] 07/12/24 1242 DD/ 1030 TD/TT: 06/30/24 1058 Health Services Information Specialist: Cori Ortiz MD IMG BI PROCEDURES Fin al Result * Hm Colonoscopy (03/01/2024) Colonoscopy Normal Normal Cori Ortiz MD [facility] Fi nal Result * HEPATITIS C AB W/REFL TO HCV RNA, QN, PCR (08/16/2021 11:08 AM EST) HEPATITIS C ANTIBODY NON-REACT VIOLETTA NON-REACT VIOLETTA [facility] INDEX 0.06 <1.00 [facility] Comment: HCV antibody was non-reactive. There is no laboratory evidence of HCV infection. In most cases, no further action is required. However, if recent HCV exposure is suspected, a test for HCV RNA (test code 80104) is suggested. For additional information please refer to http://education.Adore Me.InstallMonetizer/faq/GLB42e9 (This link is being provided for informational/ educational purposes only.) 08/16/2021 11:0 8 AM EST Yasmeen TILLEY HISTORICAL/NON ORDERABLE LABS Final Result [facility]where [address] from Last 3 Months or Most Recently Relevant to Health Maintenance Additional Health Concerns Active Problems Noted Date [...] 08/30/2025 Patient has chronic kidney disease 08/30/2025 Insurance [facility] CORRECTION OPTIONS (O D-SNP) DIAMANTE KATZ [id number] Care Teams Head Athletic Trainer Relationship Specialty Start Date End Date Name, MD Fausto [address] [place] [address] PCP - General Internal Medicine 01/23/24 Juan Daniel A 09/03/24
--- OUTSIDE RECORDS SUMMARY | 2025-08-30 17:15 | XMS_ITS | Encounter Summary ---
Author Organization [employer] Address 75 [facility] 7t [place] [address] Care Team Providers Care Psychometrist Name Role Phone Name, Fausto VEGAS Primary Care Provider [phone] Reason for Visit * Reason Comments Med Refill Encounter Details Date Type Department Care Team ([facility] st Contact Info) Description 11/12/2024 Refill [facility] [address] [place], [place] [phone] Name, MD Fausto [address] [place], [place] [phone] Social History Tobacco Use Types Packs/Day Years [...] Description 09/13/2025 9:15 AM EST Office Visit [facility] [address] [place] [address] NameFausto MD [address] [place] [address] 10/07/2025 9:00 AM EST Office Visit [facility] OPTOMETRY [address] [place] [address] Rosmery Holm, OD [address] [place] [address] documented as of this encounter Visit Diagnoses Not on filedocumented in this encounter Additional Health Concerns Assessment Noted Time PHQ-9 Depression Total Score: 10 024 10:02 AM EDT documented as of this encounter Care Teams Psychometrist Relationship Specialty Start Date End Date Fausto Bangura MD [address] [place] [address] PCP - General Internal Medicine 01/23/24 Juan Daniel ALEX 09/03/24 documented as of this encounter
--- OUTSIDE RECORDS SUMMARY | 2025-08-30 17:15 | XMS_ITS | Encounter Summary ---
Author Organization [employer] Address 75 [facility] 7t [place] [address] Care Team Providers Care Child Welfare Caseworker Name Role Phone Rosanne Lugo MD Primary Care Provide r Name, Fausto VEGAS Primary Care Provider [phone] Encounter Details Date Type Department Care Team (Late Contact Info) Description 12/16/2022 Telephone [facility] MEDICINE [address] [place] [address] Rosanne Lugo MD [address] [place] [address] Social History Tobacco Use Types Packs/Day Years [...] Upcoming Encounters Date Type Department Care Team ([facility] Contact Info) Description 09/13/2025 9:15 AM EST Office Visit [facility] MEDICINE [address] [place] [address] NameFausto MD [address] [place] [address] 10/07/2025 9:00 AM EST Office Visit [facility] OPTOMETRY [address] [place] [address] Rosmery Holm, OD [address] [place] [address] documented as of this encounter Visit Diagnoses Not on filedocumented in this encounter Additional Health Concerns Assessment Noted Time PHQ-9 Depression Total Score: 15 023 9:04 AM EST documented as of this encounter Care Teams Child Welfare Caseworker Relationship Specialty Start Date End Date Rosanne Lugo MD [address] [place] [address] PCP - General Family Medicine 05/23/22 01/22/24 Fausto Bangura MD [address] [place] [address] PCP - General Internal Medicine 01/23/24 Juan Daniel A 09/03/24 documented as of this encounter
--- OUTSIDE RECORDS SUMMARY | 2025-08-30 17:15 | XMS_ITS | Encounter Summary ---
Author Organization [employer] Address 75 [facility] 7t [place] [address] Care Team Providers Care Insurance Claims Processor Name Role Phone Name, Fausto VEGAS Primary Care Provider [phone] Reason for Visit * Reason Onset Date Comments Med Refill 09/30/2024 Encounter Details Date Type Department Care Team ([facility] st Contact Info) Description 09/30/2024 Telephone [facility] [address] [place], [place] [phone] Name, MD Fausto [address] [place] [address] Med Refill Social History Tobacco Use Types [...] Lancets were sent to [id number] on 01/30/24 with 11 refills. * Telephone Encounter - Nikki Krishnamurthy - 09/30/2024 1:09 PM EST TC from pt requesting medication refill. Medications needing refill : TRUEplus Lancets 33G misc To be sent to: [id number] - [place] - [address] [place] [address] documented in this encounter Plan of Treatment Upcoming Encounters Date Type Department Care Team ([facility] st Contact Info) Description 09/13/2025 9:15 AM EST Office Visit [facility] [address] [place] [address] Name, MD Fausto [address] [place] [address] 10/07/2025 9:00 AM EST Office Visit [facility] [address] [place], [place] [phone] Rosmery Holm, OD [address] [place], [place] [phone] documented as of this encounter Visit Diagnoses Not on filedocumented in this encounter Additional Health Concerns Assessment Noted Time PHQ-9 Depression Total Score: 10 024 10:02 AM EDT documented as of this encounter Care Teams Insurance Claims Processor Relationship Specialty Start Date End Date Name, MD Fausto [address] [place] [address] PCP - General Internal Medicine 01/23/24 [facility] 09/03/24 documented as of this encounter
== END 2025-08-30 16:04 | disposition home or self-care (01) ==
LOC: HO.HHCLNP 16:03
PROVIDERS: Visit Provider Nurse Practitioner Family
DX: R39.9 Unspecified symptoms and signs involving the genitourinary system (principal)
CPT/HCPCS: 87086

== ENCOUNTER 2025-09-10 08:52 | Emergency (ER) | payer OTHER, SELFPAY ==
--- NOTE | ~2025-09-10 | CT_ITS ---
CLINICAL HISTORY: BL flank pain, urinary sxs CT abdomen and pelvis without contrast Comparison: CR/SR - XR CHEST 2V - 02/09/25 07:[address]/REG/SR - CT ABDOMEN PELVIS W IV CON - 11/12/23 11:37 EST Findings: No consolidation or effusion. Unremarkable gallbladder and solid organs. No urolithiasis. No bowel obstruction, pneumoperitoneum, or pneumatosis. Appendix is normal. Uterus and bladder are unremarkable. Lumbar spine degenerative changes. No acute osseous findings. Small fat containing umbilical hernia unchanged. IMPRESSION: No acute intra-abdominal or pelvic findings. This document has been electronically signed by: Bandar Harris MD on 09/10/2025 12:35:18
[2025-09-10 09:04] VITALS: BP 130/63; PULSE 76; RESP 16; TEMP 36; O2SAT 92; BMI 37.6
[2025-09-10 09:35] LABS: MANUAL DIFF FLAG NO
[2025-09-10 09:37] LABS: Appearance Urine Clear; Glucose Urine UA Negative (Negative); PH 6.5 (5.0-9.0); Specific Gravity - Urine 1.020 (1.005-1.025); UMIC TRIGGER UACC YES
[2025-09-10 09:39] LABS: Hematocrit 37.9 % (37.0-47.0); Hemoglobin 12.9 g/dl (12.0-16.0); Imm Gran Abs Auto 0.02 X10*3/uL (0.00-0.03); Imm Gran Pct Auto 0.3 % (0.0-0.4); Lymphocytes Absolute Auto 2.4 X10*3/uL (1.2-4.9); Mean Corpuscular HGB Conc 34.0 g/dl (31.0-35.0); Mean Corpuscular Hemoglobin 29.4 pg (27.0-33.0); Mean Corpuscular Volume 86.3 fL (80.0-98.0); NRBC Abs Auto 0.000 X10*3/uL (0.0-0.012); NRBC Pct Auto 0.0 /100WBC (0.0-0.2); Platelet Count 290 X10*3/uL (160-400); Red Blood Count 4.39 X10*6/uL (4.20-5.50); White Blood Count 7.3 X10*3/uL (4.8-10.8)
--- OUTSIDE RECORDS SUMMARY | 2025-09-10 09:40 | XMS_ITS | Encounter Summary ---
Author Organization [employer] Address 75 [facility] 7t [place] [address] Care Team Providers Care Package Sealer Name Role Phone Rosanne Lugo MD Primary Care Provide r NameFausto MD Primary Care Provider [phone] Reason for Visit * Reason Onset Date Comments Med Refill 10/15/2022 Encounter Details Date Type Department Care Team (Late st Contact Info) Description 10/15/2022 Telephone [facility] MEDICINE [address] [place] [address] Rosanne Lugo MD [address] [place] [address] [phone] Med Refill Social History Tobacco Use Types [...] Description 09/13/2025 9:15 AM EST Office Visit [facility] MEDICINE 230 [place] [address] Name, MD Fausto [address] [place] [address] 10/07/2025 9:00 AM EST Office Visit [facility] OPTOMETRY 267 [place], [place] [phone] Michaelben Rosmery, OD [address] [place], [place] [phone] documented as of this encounter Visit Diagnoses Diagnosis Arthritis of left knee documented in this encounter Care Teams Package Sealer Relationship Specialty Start Date End Date Rosanne Lugo MD [address] [place] [address] PCP - General Family Medicine 05/23/22 01/22/24 Name, MD Fausto [address] [place] [address] PCP - General Internal Medicine [facility] documented as of this encounter
--- OUTSIDE RECORDS SUMMARY | 2025-09-10 09:40 | XMS_ITS | Data Portability ---
Author Organization [employer] [facility], [email or web address] Address [address] [place] [address] Care Team Providers Care Ceo And Founder Name Role Phone HIM CCA OTHER NAME, KALEE Primary Care Provider [phone] Unavailable OTHER Assessment Encounter Date Assessment Date Assessment LastModified by Organization Details LastModified Time 09/07/2024 09/07/2024 I provided real -time medical direction via phone for this encounter, and was available for additional phone based assistance as needed. I have reviewed and agree with the Assessment and Plan as documented by the Software Support Technician. We discussed the diagnostic uncertainty of home [...] her symptoms. Patient verbalizes understanding, via the child care associate but states she feels okay and is [...] to call 911- verbalized understanding of instruction [email or web address] Not available 09/07/2024 19:03:29 Plan of Treatment Reminders Order Date Submit Date Provider Last Modified By Organization Details Last Modified Time Details Appointments None recorded. Lab culture, urine 2023 [place] [facility] (Centralized Electronic Ordering - All Locations), Patient Can Go To The Location Of Their Choice, [address] 18:05:48 urinalysis, dipstick 2023 [email or web address] 0 [facility], [address] [place] [address], [phone] 13:27:08 glucose, fingerstick , blood 2023 [email or web address] 0 [facility], [address] [place], [phone] 19:02:51 Referral None recorded. Procedures None recorded. Surgeries None recorded. Imaging electrocard iogram 2023 [email or web address] 0 [facility], [address] [place] [address], [phone] 19:02:51 Medication Orders nitrofurant oin macrocrysta l 100 mg capsule 2023 [id number], [address] [place], [address], 12:52:08 Patient TargetsNo targets recorded. Patient InstructionsNo instructions recorded. Reason for Referral None Reported. Results Created Date Observation Date Name Description Value Unit Range Abnormal Flag Note LastModifiedBy Organization Detail LastModifiedTime 09/07/2009/09/2024 URINE CULTU RE,CO MPREH ENSIV E urine culture,comp rehensive Final report abnormal Not Available [facility] ([facility]) [address] [facility], [place], [address], 09/09/2024 10:06:04 09/07/2009/09/2024 URINE CULTU RE,CO MPREH [...] Prote us mirab ilis. Not Available [facility] ([facility]) [address] [facility], [place], [address], 09/09/2024 10:06:04 09/07/20 24 09/09/2024 URINE CULTU [...] , M100- S26, 2016) Not Available [facility] ([facility]) [address] [facility], [place], [address], 09/09/2024 10:06:04 09/07/20 24 09/09/2024 URINE CULTU [...] S Vanco mycin S Not Available [facility] ([facility]) [address], [place], [address], 09/09/2024 10:06:04 09/07/20 24 09/07/2024 gluco se, finge rstic k, blood Blood Glucose: mg/dl 256 Not Available [facility] [address] [place] [address], [phone] 09/07/2024 13:28:28 09/07/20 24 09/07/2024 urina lysis , dipst ick Appearance clear Not Available [facility] [address] [place] [address], [phone] 09/07/2024 13:21:44 09/07/20 24 09/07/2024 urina lysis , dipst ick Color yellow Not Available [facility] [address] [place] [address], [phone] 09/07/2024 13:21:44 09/07/20 24 09/07/2024 elect an espinoza am No observ ation record ed. [email or web address] [facility] [address] [place] [address], [phone] 09/07/2024 19:02:30 Result Notes None recorded. Medical [...] Updated DateTime 4 18 /min 98.7 [degF] 02452.1 76 g 165.1 cm 98 % 97 [...] ICD10 Code Diagnosis IMO Codes Diagnosis Note 27935 Whitney Prescott MD Main - [address] [phone] 09/07/2024 13:09:49 09/07/2024 19:21:21 Urinary symptoms [id number] R39.9 Urine is not indicative of infection [...] DVT but cannot rule it out completely [id number] Hayden Huggins MD [facility] [address] [place] [phone] 09/09/2024 12:50:55 09/13/2024 11:30:56 Urinary symptoms [id number] R39.9 Health Concerns Section Related Observation LastModified by Organization Detai ls LastModified Time None Recorded Concern Status LastModified by Organization Details LastModified Time None Recorded Advance Directives Directive None Recorded Payers Insurance Date Sequence Insurance Name Policy Number Policy Mcgrath Covered Member ID Mcgrath Member ID Guarantor Name 09/13/2024 1 [facility]LY [facility] - DOS ON OR AFTER 2022 - DUAL ELIGIBLE - JAIL OPTIONS AND ONE CARE (MEDICARE REPLACEMENT/ADV ANTAGE - HMO) Stephanie Rdzron [id number] Stephaniejaci Dodd Notes Date Note Type Note Provider Name and Address Organization Details Recorded Time 09/07/2024 text/html ROS as noted in the HPI HPI: RN calling from [place] . She had a total knee replacement [...] PMH: Asthma, Hypertension, Diabetes Mellitus Type 2 Software Support Technician Organization Information for [employer] Name: [employer] Address: [address] [place] [address], Director Of Emergency Nursing: David Carter MD CLIA No.: [id number] Software Support Technician POC Test Results from [employer] Urine Dipstick (13:11:21) Urine leukocytes: - RACHAEL [...] .................. .................. .................. .................. .................. .................. ............... Software Support Technician Note From Pilar Ann: [facility] makes pt contact after being admitted to the apartment where the pt is staying under the care of her son, who is her MOLD MAINTENANCE TECHNICIAN. She is conscious and alert and standing [...] physical exam. [facility] contacts [facility] and discusses the above findings and pt complaint. [facility] is concerned about the pt's c/o sob and orders a 12-lead EKG. [facility] performs EKG and uploads findings for [facility] evaluation. [facility] and [facility] find EKG to be unremarkable at this time. [facility] orders urine be sent for culture and instructs [facility] to perform Eli's test, which [facility] finds negative. [facility] is concerned for PE since pt is post-surgical and recommends pt be transported via ambulance to the ED for further workup. [facility] informs pt and son and pt decides she will monitor her s&s and call 911 if she gets worse or feels she needs to go in. [facility] and [facility] inform pt of red flags including severe sob, lip cyanosis, severe cp, n/v/d that is uncontrollable, focal weakness, AMS, and syncope and advises immediate call to 911 if they occur. Pt and son both state they understand and thank [facility] for coming.[facility] is clear. Report completed by KEMAR Ann [id number]. [facility] Lab Orders: culture, urine: Performed .................. .................. .................. .................. .................. .................. .................. ............... [facility] Consulted: Whitney Perscott .................. .................. .................. .................. .................. .................. .................. ............... Disposition: Fulfilled Whitney Prescott MD [address] [place] [address],[address] [facility], [place], [address], [facility] 09/07/2024 19:03:38 OBGyn Episode No OBEpisode recorded.
--- OUTSIDE RECORDS SUMMARY | 2025-09-10 09:40 | XMS_ITS | Encounter Summary ---
Author Organization [employer] Address 75 [facility] 7t [place] [address] Care Team Providers Care Enterprise Software Developer Name Role Phone Name, Fausto VEGAS Primary Care Provider [phone] Reason for Visit * Reason Onset Date Comments Durable Medical Equipment 07/25/2025 Encounter Details Date Type Department Care Team ([facility] st Contact Info) Description 07/25/2025 Telephone [facility] [address] [place], [place] [phone] Name, MD Fausto [address] [place] [address] Durable Medical Equipment Social History Tobacco Use [...] order for a recliner Contact pt at [phone] ([email or web address]) documented in this encounter Plan of Treatment Upcoming Encounters Date Type Department Care Team (Late st Contact Info) Description 09/13/2025 9:15 AM EST Office Visit [facility] [address] [place] [address] Name, MD Fausto [address] [place], [place] [phone] 10/07/2025 9:00 AM EST Office Visit [facility] [address] [place], [place] [phone] Rosmery Holm, OD [address] [place], [place] [phone] documented as of this encounter Visit Diagnoses Not on filedocumented in this encounter Additional Health Concerns Assessment Noted Time PHQ-9 Depression Total Score: 10 025 11:49 AM EST documented as of this encounter Care Teams Enterprise Software Developer Relationship Specialty Start Date End Date Name, MD Fausto [address] [place], [place] [phone] PCP - General Internal Medicine [facility]23[facility]24 [facility] documented as of this encounter
--- OUTSIDE RECORDS SUMMARY | 2025-09-10 09:40 | XMS_ITS | Encounter Summary ---
Author Organization [employer] Address 75 [facility] 7t [place] [address] Care Team Providers Care Craps Manager Name Role Phone Name, Fausto VEGAS Primary Care Provider [phone] Reason for Visit * Reason Comments Med Refill Encounter Details Date Type Department Care Team ([facility] st Contact Info) Description 02/20/2025 Refill [facility]INE 230 [place], [place] [phone] Name, MD Fausto [address] [place], [place] [phone] Depression, unspecified depression type Social History Tobacco [...] Description 09/13/2025 9:15 AM EST Office Visit [facility] MEDICINE [address] [place] [address] NameFausto MD [address] [place] [address] 10/07/2025 9:00 AM EST Office Visit [facility] OPTOMETRY [address] [place] [address] Rosmery Holm, OD [address] [place] [address] documented as of this encounter Visit Diagnoses Diagnosis Depression, unspecified depression type documented in this encounter Additional Health Concerns Assessment Noted Time PHQ-9 Depression Total Score: 10 025 11:49 AM EST documented as of this encounter Care Teams Craps Manager Relationship Specialty Start Date End Date Fausto Bangura MD [address] [place] [address] PCP - General Internal Medicine 01/23/24 Juan Daniel ALEX 09/03/24 documented as of this encounter
--- OUTSIDE RECORDS SUMMARY | 2025-09-10 09:40 | XMS_ITS | Encounter Summary ---
Author Organization [employer] [facility] Address 75 [facility] 7t [place] [address] Care Team Providers Care Mini Shifter Name Role Phone Rosanne Lugo MD Primary Care Provide r Fausto Bangura MD Primary Care Provider [phone] Encounter Details Date Type Department Care Team (Latest Contact Info) Description 03/30/2019 Abstract [facility] CONVERSIONS Dental, Provider, DDS Social History Tobacco [...] Description 09/13/2025 9:15 AM EST Office Visit [facility] MEDICINE [address] [place] [address] NameFausto MD [address] [place] [address] 10/07/2025 9:00 AM EST Office Visit [facility] OPTOMETRY [address] [place], [place] [phone] Rosmery Holm, OD [address] [place] [address] documented as of this encounter Visit Diagnoses Not on filedocumented in this encounter Care Teams Mini Shifter Relationship Specialty Start Date End Date Rosanne Lugo MD [address] [place] [address] PCP - General Family Medicine 05/23/22 01/22/24 Willem, MD Fausto [address] [place] [address] PCP - General Internal Medicine 01/23/24 Juan Daniel [facility] 09/03/24 documented as of this encounter
--- OUTSIDE RECORDS SUMMARY | 2025-09-10 09:40 | XMS_ITS | Clinical Summary ---
Author Organization [facility] ity Address [address] [place] [address] Care Team Providers Care Patrol Mother Name Role Phone Unavailable Primary Care Provider [...] Procedure Name Priority Date/Time Associated Diagnosis Comments [facility] SCREENING DIGITAL Routine 09/01/2019 4:58 PM EST Encounter for screening mammogram for malignant neoplasm of breast from Last 3 Months or Most Recently Relevant to Health Maintenance Results * [facility] SCREENING DIGITAL (09/01/2019 4:58 PM EST) Anatomical Region Laterality Modality Mammography 09/01/2019 9:45 AM EST Narrative 09/01/2019 4:58 PM EST [facility] Diagnostic Imaging Department [address] [place] [address] Patient: STEPHANEI CULVER /Age/Sex: 1960 - 59 - F Unit#: [id number] [facility]/Ordering Site: [facility] Ordering Physician: Dajuan LUONG MD [facility] Screening Digital - 09/01/19 - 1015 EXAM: [facility] Screening Digital EXAM DATE AND TIME: 09/01/2019 10:15 AM HISTORY: Screening. COMPARISON: 01/27/17, 01/24/16, 01/05/15, 12/08/13, 12/01/13 TECHNIQUE: CC and MLO views of both breasts were obtained using full field digital mammography. Bilateral digital breast tomosynthesis was performed in the MLO projection. Computer aided detection with the Ecoviate 7.2-H was employed. TISSUE DENSITY: a. The [...] RECOMMENDATION(S): 1: Special mammographic view(s) needed LEFT 07095, 28687 3340F, 7025F Dictating Physician: JAMEEL MARTINEZ MD Electronically Signed by: JAMEEL MARTINEZ MD Dic Date/Time: 09/01/191656 Sign date/Time: 09/01/191657 Procedure Note Jameel Martinez - 09/17/2022 [facility] Diagnostic Imaging Department [address] [place] [address] Patient: STARR CULVERSY /Age/Sex: 1960 - 59 - F Unit#: [id number] Location/Status: [facility]/REG CLI Mnemonic/Ordering Site: [facility] Ordering Physician: Dajuan LUONG MD [facility] Screening Digital - 09/01/19 - 1015 EXAM: [facility] Screening Digital EXAM DATE AND TIME: 09/01/2019 10:15 AM HISTORY: Screening. COMPARISON: 01/27/17, 01/24/16, 01/05/15, 12/08/13, 12/01/13 TECHNIQUE: CC and MLO views of both breasts were obtained using fullfield digital mammography. Bilateral digital breast tomosynthesis was performedin the MLO projection. Computer aided detection with the Pandoo TEK.2-ID Quantiqueas employed. TISSUE DENSITY: a. The breasts are [...] RECOMMENDATION(S): 1: Special mammographic view(s) needed LEFT 52012, 43327 3340F, 7025F Dictating Physician: JAMEEL MARTINEZ MD Electronically Signed by: JAMEEL MARTINEZ MD Dic Date/Time: 09/01/191656 Sign date/Time: 09/01/191657 Daryn Luong MD IMG BI PROCEDURES Nayla l Result from Last 3 Months or Most Recently Relevant to Health Maintenance
--- OUTSIDE RECORDS SUMMARY | 2025-09-10 09:40 | XMS_ITS | Encounter Summary ---
Author Organization [employer] Address [address] [facility] 7t [place] [address] Care Team Providers Care Curing Room Worker Name Role Phone Name, Fausto VEGAS Primary Care Provider [phone] Reason for Visit * Reason Comments Med Refill Encounter Details Date Type Department Care Team ([facility] st Contact Info) Description 10/18/2024 Refill [facility] [address] [place], [place] [phone] Khloe Ventura MD [address] [place], [place] [phone] Urinary tract infection without hematuria, site unspecified [...] Description 09/13/2025 9:15 AM EST Office Visit [facility] [address] [place] [address] Fausto Bangura MD [address] [place] [address] 10/07/2025 9:00 AM EST Office Visit [facility] [address] [place] [address] Rosmery Holm, OD [address] [place] [address] documented as of this encounter Visit Diagnoses Diagnosis Urinary tract infection without hematuria, site unspecified documented in this encounter Additional Health Concerns Assessment Noted Time PHQ-9 Depression Total Score: 10 024 10:02 AM EDT documented as of this encounter Care Teams Curing Room Worker Relationship Specialty Start Date End Date Fausto Bangura MD [address] [place] [address] PCP - General Internal Medicine 01/23/24 Juan Daniel [facility]LEX 09/03/24 documented as of this encounter
--- OUTSIDE RECORDS SUMMARY | 2025-09-10 09:41 | XMS_ITS | Encounter Summary ---
Author Organization [employer] Address [address] [facility] 7t [place] [address] Care Team Providers Care Canary Raiser Name Role Phone Name, Fausto VEGAS Primary Care Provider [phone] Reason for Visit * Reason Onset Date Comments Med Refill 09/05/2025 Encounter Details Date Type Department Care Team ([facility] st Contact Info) Description 09/05/2025 Refill [facility] [address] [place], [place] [phone] Name, MD Fausto [address] [place] [address] Primary osteoarthritis of knee, unspecified laterality Social [...] encounter Miscellaneous Notes * Telephone Encounter - Shaq Gutierrez - 09/05/2025 9:54 AM EST TC from pt requesting medication refill. Medications needing refill: oxyCODONE (Roxicodone) 10 MG immediate release tablet To be sent to: [facility]/pharmacy [address] [place] [address] documented in this encounter Plan of Treatment Upcoming Encounters Date Type Department Care Team (Late st Contact Info) Description 09/13/2025 9:15 AM EST Office Visit [facility] [address] [place] [phone] Name, MD Fausto [address] [place] [address] 10/07/2025 9:00 AM EST Office Visit [facility] OPT[facility]ETRY [address] [place] [address] Rosmery Holm, OD [address] [place] [address] documented as of this encounter Goals Goal [...] Plan Patient has chronic kidney disease No CauseyJett vancea Weekly blood pressure task Care Plan Weekly blood pressure task No CauseySantoshEsther Patient has chronic kidney disease Care Plan Patient has chronic kidney disease No Esther Causey Weekly blood pressure task Care Plan Weekly blood pressure task No SantiagoaguiGeorge michaels Weekly blood pressure task Care Plan Weekly blood pressure task No SantiagoaguiGeorge michaels Patient has chronic kidney disease Care Plan Patient has chronic kidney disease No George Hopkins Patient has chronic kidney disease Care Plan Patient has chronic kidney disease No George Hopkins Weekly blood pressure task Care Plan Weekly blood pressure task No Prettyuil George seg[place] Weekly blood pressure task Care Plan Weekly blood pressure task No PrettyuiGeorge michaels Patient has chronic kidney disease Care Plan Patient has chronic kidney disease No George Hopkins Patient has chronic kidney disease Care Plan Patient has chronic kidney disease No George Hopkins Weekly blood pressure task Care Plan Weekly blood pressure task No Bin Henry [place], [place] Weekly blood pressure task Care Plan Weekly blood pressure task No Bin Henry [place], [place] Patient has chronic kidney disease Care Plan Patient has chronic kidney disease No Bin Henry, [place], [place] Patient has chronic kidney disease Care Plan Patient has chronic kidney disease No Bin Henry [place], [place] Weekly blood pressure task Care Plan Weekly blood pressure task No Shaq Gutierrez Weekly blood pressure task Care Plan Weekly blood pressure task No Shaq Gutierrez Patient has chronic kidney disease Care Plan Patient has chronic kidney disease No Shaq Gutierrez Patient has chronic kidney disease Care Plan Patient has chronic kidney disease No Shaq Gutierrez documented as of this encounter Visit Diagnoses [...] 08/30/2025 Patient has chronic kidney disease 08/30/2025 Weekly blood pressure task 09/05/2025 Weekly blood pressure task 09/05/2025 Patient has chronic kidney disease 09/05/2025 Patient has chronic kidney disease 09/05/2025 Assessment Noted Time PHQ-9 Depression Total Score: 10 025 11:49 AM EST documented as of this encounter Care Teams Canary Raiser Relationship Specialty Start Date End Date Name, MD Fausto [address] [place] [address] PCP - General Internal Medicine 01/23/24 [facility] 09/03/24 documented as of this encounter
--- OUTSIDE RECORDS SUMMARY | 2025-09-10 09:41 | XMS_ITS | Encounter Summary ---
Author Organization [employer] Address 75 [facility] 7t [place] [address] Care Team Providers Care Dice Spotter Name Role Phone Rosanne Lugo MD Primary Care Provide r NameFausto MD Primary Care Provider [phone] Reason for Visit * Reason Comments Med Refill Encounter Details Date Type Department Care Team (Late st Contact Info) Description 04/26/2023 Refill [facility] [address] [place] [phone] Rosanne Lugo MD [address] [place] [address] [phone] Acquired hypothyroidism Social History Tobacco Use Types [...] Description 09/13/2025 9:15 AM EST Office Visit [facility] [address] [place] [address] Fausto Bangura MD [address] [place] [address] 10/07/2025 9:00 AM EST Office Visit [facility] OPTOMETRY [address] [place] [address] Alta Rosmery, OD [address] [place] [address] documented as of this encounter Visit Diagnoses Diagnosis Acquired hypothyroidism Unspecified hypothyroidism documented in this encounter Additional Health Concerns Assessment Noted Time PHQ-9 Depression Total Score: 15 023 9:04 AM EST documented as of this encounter Care Teams Dice Spotter Relationship Specialty Start Date End Date Rosanne Lugo MD [address] [place] [address] PCP - General Family Medicine 05/23/22 01/22/24 Fausto Bangura MD [address] [place] [id number] PCP - General Internal Medicine 01/23/24 [facility] 09/03/24 documented as of this encounter
--- OUTSIDE RECORDS SUMMARY | 2025-09-10 09:41 | XMS_ITS | Encounter Summary ---
Author Organization [employer] Address [address] [facility] 7t [place] [address] Care Team Providers Care Manager Of Internal Audit Name Role Phone Name, Fausto VEGAS Primary Care Provider [phone] Reason for Visit * Reason Onset Date Comments Durable Medical Equipment 09/06/2025 Encounter Details Date Type Department Care Team ([facility] st Contact Info) Description 09/06/2025 Telephone [facility] [address] [place], [place] [phone] Name, MD Fausto [address] [place] [address] Durable Medical Equipment Social History Tobacco Use [...] * Telephone Encounter - Esther Causey - 09/06/2025 4:05 PM EST Received req for DME diabetic supplies from [employer]. Disregarding as pt obtains test strips supplies from [facility], prescription current. documented in this encounter Plan of Treatment Upcoming Encounters Date Type Department Care Team (Late st Contact Info) Description 09/13/2025 9:15 AM EST Office Visit [facility] [address] [place] [address] Name, MD Fausto [address] [place] [address] 10/07/2025 9:00 AM EST Office Visit [facility] [address] [place] [address] Rosmery Holm, OD [address] [place] [address] documented as of this encounter Goals Goal Patient Goal Type Associated Problems Recent Progress Patient-Stated? Author Help patients manage their type 2 diabetes Care Plan Help patients manage their type 2 diabetes No Esther Causey Weekly blood pressure task Care Plan Weekly blood pressure task No CauseyEsther vance Help patients manage their type 2 diabetes Care Plan Help patients manage their type 2 diabetes No CauseySantosh vanceEsther Patient has chronic kidney disease Care Plan Patient has chronic kidney disease No Jett Causeya Weekly blood pressure task Care Plan Weekly blood pressure task No CauseyeJtt vancea Patient has chronic kidney disease Care Plan Patient has chronic kidney disease No Esther Causey Weekly blood pressure task Care Plan Weekly blood pressure task No PrettyuiGeorge michaels Weekly blood pressure task [...] Care Plan Weekly blood pressure task No [place], [place] Weekly blood pressure task Care Plan Weekly blood pressure task No [place] Patient has chronic kidney disease Care Plan Patient has chronic kidney disease No [place], [place] Patient has chronic kidney disease Care Plan Patient has chronic kidney disease No [place] Weekly blood pressure task Care Plan Weekly blood pressure task No Shaq Gutierrez Weekly blood pressure task Care Plan Weekly blood pressure task No Shaq Gutierrez Patient has chronic kidney disease Care Plan Patient has chronic kidney disease No Shaq Gutierrez Patient has chronic kidney disease Care Plan Patient has chronic kidney disease No Shaq Gutierrez Weekly blood pressure task Care Plan Weekly blood pressure task No Esther Causey Weekly blood pressure task Care Plan Weekly blood pressure task No Esther Causey Patient has chronic kidney disease Care Plan Patient has chronic kidney disease No Esther Causey Patient has chronic kidney disease Care Plan Patient has chronic kidney disease No Esther Causey documented as of this encounter Visit Diagnoses [...] 09/05/2025 Patient has chronic kidney disease 09/05/2025 Weekly blood pressure task 09/06/2025 Weekly blood pressure task 09/06/2025 Patient has chronic kidney disease 09/06/2025 Patient has chronic kidney disease 09/06/2025 Assessment Noted Time PHQ-9 Depression Total Score: 10 025 11:49 AM EST documented as of this encounter Care Teams Manager Of Internal Audit Relationship Specialty Start Date End Date Name, MD Fausto [address] [place] [address] PCP - General Internal Medicine 01/23/24 [facility] 09/03/24 documented as of this encounter
--- OUTSIDE RECORDS SUMMARY | 2025-09-10 09:41 | XMS_ITS | Encounter Summary ---
Author Organization [employer] Address 75 [facility] 7t [place] [address] Care Team Providers Care District Sales Leader Name Role Phone Rosanne Lugo MD Primary Care Provide r Name, Fausto VEGAS Primary Care Provider [phone] Reason for Visit * Reason Onset Date Comments Med Refill 02/04/2023 Encounter Details Date Type Department Care Team (Late st Contact Info) Description 02/04/2023 Telephone [facility] [address] [place], [place] [phone] Rosanne Lugo MD [address] [place], [place] [phone] Med Refill Social History Tobacco Use Types [...] Description 09/13/2025 9:15 AM EST Office Visit [facility] [address] [place] [address] Fausto Bangura MD [address] [place] [address] 10/07/2025 9:00 AM EST Office Visit [facility] OPTOMET[facility] [address] [place], [place] [phone] Rosmery Holm, OD [address] [place] [address] documented as of this encounter Visit Diagnoses Not on filedocumented in this encounter Additional Health Concerns Assessment Noted Time PHQ-9 Depression Total Score: 15 023 9:04 AM EST documented as of this encounter Care Teams District Sales Leader Relationship Specialty Start Date End Date Rosanne Lugo MD [address] [place] [address] PCP - General Family Medicine 05/23/22 01/22/24 Fausto Bangura MD [address] [place] [address] PCP - General Internal Medicine 01/23/24 [facility] documented as of this encounter
--- OUTSIDE RECORDS SUMMARY | 2025-09-10 09:41 | XMS_ITS | Clinical Summary ---
Author Organization [employer] Address [address] [facility] 7t [place] [address] Care Team Providers Care Process Coach Name Role Phone Name, Fausto VEGAS Primary Care Provider [phone] Allergies No known active allergies Medications Calcium [...] hyperglycemia, without long-term current use of insulin ([facility]) TEST BLOOD SUGAR ONCE A DAY [...] hyperglycemia, without long-term current use of insulin (HCC) TAKE 1 TABLET BY MOUTH THREE TIMES [...] needed for severe pain for up to 5 days. Do not start before September 07, 2025. 20 tablet 025 2024 Active oxyCODONE (Roxicodone) 10 MG immediate release [...] August 31, 2025. 28 tablet 025 2024 Discontinued(R eorder (will not trigger notification to Pharmacy)) nitrofurantoin, macrocrystal-mono hydrate, (Macrobid) 100 MG capsule Take 1 capsule (100 mg) by mouth 2 times daily for 5 days. 10 capsule 025 2024 Discontinued(O ther) nitrofurantoin, macrocrystal-mono hydrate, (Macrobid) 100 MG capsule Take 1 capsule (100 mg) by mouth 2 times daily for 5 days. 10 capsule 08/30/20 25 4:13 PM EST 025 2024 Active Problems Problem Noted Date [...] EST): Called pharmacy and pt will go picker tender helper abx. -prescribed Pyridium for pain. -Potential adverse [...] EST): Rx Macrobid x 7d, I called [facility], spoke with Jyotsna re patient's UTI [...] of sxs, severe nausea, change on MS. longterm current use of opiate analgesic 2023 Overview (08/10/2024): Medication: oxycodone 10mg TID (short term increase to QID while pending TKA Aug 2024, increase started 07/14/24) Indication: Left knee OA, spondylosis of lumbosacral spine with radiculopathy Last SATELLITE DISH TECHNICIAN Agreement signed: 10/27/23 Assessment & Plan (08/10/2024 4:39 PM EST): -Good engagement and participation with Group Medical Visit model -Encouraged multifactorial approach to pain control including pharm and non- pharm modalities -UTOX and pill count WNL Timeline: 10/27/23: SATELLITE DISH TECHNICIAN renewal, sometimes using QID instead of TID 12/18/23: pt forgot medication 02/24/24: UTOX WNL, pill count not completed 03/23/24: pill count less than expected 05/25/24: WNL 07/06/24: UTOX WNL, pill count less than expected 07/14/24: PCP temporary increase of med frequency to QID 08/10/24: SATELLITE DISH TECHNICIAN group, WNL Assessment & Plan (07/06/2024 5:14 PM EDT): -Good engagement and participation with Group Medical Visit model -Encouraged multifactorial approach to pain control including pharm and non- pharm modalities -UTOX WNL, pill count not performed. See installer metal flooring. Timeline: 10/27/23: SATELLITE DISH TECHNICIAN renewal, sometimes using QID instead of TID [...] upcoming left TKA in Aug 2024 through [facility] -post-op pain medication through Surgeon Assessment & Plan (07/06/2024 5:05 PM EDT): -Plan for upcoming left TKA in Jul 2024 through [facility] -See HPI for discussion regarding post-op [...] -UTOX as expected, pill count abnormal (see installer metal flooring) Assessment & Plan (02/27/2024 9:29 AM EDT): [...] 11:19 AM EDT): I will send message SATELLITE DISH TECHNICIAN nurse for her prescription to be renew every 28 days, I extensibly health counselor patient she needs to be complaint [...] more than 6m. I will discuss with SATELLITE DISH TECHNICIAN team about previous w/u. Discussed with patient in length re compliance with SATELLITE DISH TECHNICIAN and all appts. I handed her and her son the appt card to fu with SATELLITE DISH TECHNICIAN nurse New rx for Oxycodone x 1w [...] 03/14/2025 Pruritus 05/14/2023 04/06/2024 Continuous opioid dependence (CMS/HCC) 09/25/2022 05/24/2024 Assessment & Plan (12/23/2022 5:48 PM EDT): Pt has been more compliant with SATELLITE DISH TECHNICIAN program. We have done [employer] education re [...] years for LBP. Recent non compliance with SATELLITE DISH TECHNICIAN program. New appt with SATELLITE DISH TECHNICIAN nurse handed today, she's aware that no [...] Encounters Date Type Department Care Team Description 09/06/2025 Telephone [facility] [address] [place] [address] Fausto Bangura MD Durable Medical Equipment 09/05/2025 Refill [facility] [address] [place] [address] Fausto Bangura MD Primary osteoarthritis of knee, unspecified laterality 08/30/2025 3:20 PM EST Office Visit [facility] [address] [place] [address] Jocelyn Lacy, JAREK Acute cystitis without hematuria (Primary Dx); UTI symptoms 08/30/2025 Travel 08/29/2025 Refill [facility] [address] [place] [address] Fausto Bangura MD Primary osteoarthritis of knee, unspecified laterality 08/23/2025 Refill [facility] [address] [place] [address] Fausto Bangura MD Primary osteoarthritis of knee, unspecified laterality 08/05/2025 Refill [facility] [address] [place] [address] Fausto Bangura MD 08/04/2025 Telephone [facility] [address] [place] [address] Fausto Bangura MD Nurse Triage 07/31/2025 Refill [facility] [address] [place] [address] Fausto Bangura MD Type 2 diabetes mellitus with hyperglycemia, without long-term current use of insulin ([facility]) 07/25/2025 Telephone [facility] [address] [place] [address] Fausto Bangura MD Durable Medical Equipment 07/25/[address] [address] Fausto Bangura MD Med Refill 07/22/[address] [address] Fausto Bangura MD Primary osteoarthritis of knee, unspecified laterality 07/07/2025 3:00 PM EDT Office Visit [facility] [address] [place] [address] Jocelyn Lacy FNP Moderate persistent asthma with acute exacerbation (Primary Dx); Hypertension associated with diabetes (HCC) 07/07/2025 Travel 07/05/2025 1:30 PM EDT Clinical Support [address] [address] Shannan Borrego RN longterm current use of opiate analgesic (Primary Dx) 07/05/[address] [address] Shannan Borrego, RN Oxycodone count discrepancy 07/05/2025 Travel 06/25/[address] [address] Fausto Bangura MD Type 2 diabetes mellitus without complication, without long-term current use of insulin ([facility]) 06/23/2025 Refill [facility] [address] [place] [address] Fausto Bangura MD Primary osteoarthritis of knee, unspecified laterality 06/22/[address] [address] Jose Antonio Velásquez [place] november recalls 06/20/[address] [address] Shannan Borrego, RN NCNS SATELLITE DISH TECHNICIAN RV today from Last 3 Months Immunizations Immunization Administration [...] 9:15 AM EST Office Visit [facility] [address] [place] [address] Name, MD Fausto [address] [place] [address] 10/07/2025 9:00 AM EST Office Visit [facility] OPT[facility] [address] [place] [address] Rosmery Holm, OD [address] [place] [address] Health Maintenance Due Date Last Done Comments [...] series) 05/16/2022 04/18/2022 Depression Monitoring 05/25/2025 11/25/2024, 02/27/2 025 COVID-19 Vaccine (4 - 2025-26 season) 2025 05/01/2022, 02/01/2021, 01/04/2021 Influenza Vaccine (#1) 2025 Mammogram 06/30/2025 06/30/2024, 06/25/2023 Diabetes: Hemoglobin A1C 10/06/2025 07/ 025, 11/25/2024, 07/29/2024, Additional history exists Diabetes: Urine Protein Screening 11/26/2025 11/26/2024, 04/06/2024, 08/16/2021 Lipid Panel 11/26/2025 11/26/2024, 060 01/2023, 08/16/2021 SDOH Screening 04/05/2026 04/05/2025 Eye Exam 08/02/2026 08/02/2024, 1112/2023, 08/02/2024, Additional history exists Tobacco Screening 08/30/2026 [...] Help patients manage their type 2 diabetes Esther Francisco Weekly blood pressure task Care Plan Weekly blood pressure task No CauseyJett vancea Help patients manage their type 2 diabetes Care Plan Help patients manage their type 2 diabetes No Jett Causeya Patient has chronic kidney disease Care Plan Patient has chronic kidney disease No Jett Causeya Weekly blood pressure task Care Plan Weekly blood pressure task No Causey, Esther Patient has chronic kidney disease Care Plan [...] Care Plan Weekly blood pressure task No [place] Weekly blood pressure task Care Plan Weekly blood pressure task No [place] Patient has chronic kidney disease Care Plan Patient has chronic kidney disease No [place] Patient has chronic kidney disease Care Plan Patient has chronic kidney disease No [place] Weekly blood pressure task Care Plan [...] has chronic kidney disease No Esther Causey Procedures Procedure Name Priority Date/Time Associated Diagnosis Comments URINALYSIS, COMPLETE, WITH REFLEX TO CULTURE Routine 09/10/2025 9:25 AM EST CULTURE, URINE, ROUTINE Routine 08/30/2025 3:26 PM EST UTI symptoms POCT URINALYSIS DIPSTICK Routine 08/30/2025 3:17 PM EST UTI symptoms POCT JASMINE-14 URINE DRUG SCREEN Routine 07/05/2025 10:14 AM EDT longterm current use of opiate analgesic POCT GLYCATED HEMOGLOBIN, TOTAL Routine 04/05/2025 9:30 AM EDT Type 2 diabetes mellitus with hyperglycemia, without long-term current use of insulin ([facility]/HCC) ALBUMIN, RANDOM URINE W/CREATININE Routine 11/26/2024 9:59 AM EST Type 2 diabetes mellitus with hyperglycemia, without long-term current use of insulin ([facility]) LIPID PANEL, STANDARD Routine 11/26/2024 9:59 AM EST Type 2 diabetes mellitus with hyperglycemia, without long-term current use of insulin ([facility]/H[facility]) BI MAMMOGRAM SCREENING TOMOSYNTHESIS BILATERAL Routine 06/30/2024 10:30 AM EDT HM COLONOSCOPY Routine 03/01/2024 ZZZ HISTORICAL HEPATITIS C AB W/REFL TO HCV RNA, QN, PCR Routine 08/16/2021 11:08 AM EST from Last 3 Months or Most Recently Relevant to Health Maintenance Results * (ABNORMAL) Urinalysis, Complete, with Reflex to Culture (09/10/2025 9:25 AM EST) Color Urine Dark Yellow [facility] Appearance Urine Clear [facility] PH 6.5 5.0 - 9.0 [facility] Glucose Urine UA Negative Negative mg/dL [facility] Urine Blood Negative Negative [facility] Specific Dorena - Urine 1.020 1.005 - 1.025 [facility] Urine Protein Negative Neg-Trace mg/dL [facility] Urine Ketones Negative Negative mg/dL [facility] Nitrite Urine Positive(A) Negative [facility] Leukocyte Esterase Urine Trace(A) Negative [facility] 09/10/2025 9:25 AM EST 09/10/2025 9:33 AM EST Narrative [facility] - 09/10/2025 9:38 AM EST [id number], Clean Catch us Generic External Data Provider LAB URINE ORDERAB LES Final Result Performing Organization Address [facility]/ZIP Co de Phone Number [facility] [address] [place] [phone] * Culture, Urine, Routine (08/30/2025 3:26 PM EST) Urine Urine specimen obtained by clean catch procedure / Unknown 08/30/2025 3:26 PM EST 08/30/2025 4:05 PM EST Comment:UACC Narrative [facility] - 08/31/2025 12:04 PM EST Urine Culture Report Result Urine Culture < 10,000 cfu/ml Specimen Source: Urine clean catch us Jocelyn Lacy [facility] MICROBIOLOGY - GENERAL ORD ERABLES Final Result Performing Organization Address [facility] Co de Phone Number [facility] [address] [place] [phone] * (ABNORMAL) POCT urinalysis dipstick manually resulted (CPT 75880) (08/30/2025 3:17 PM EST) Color, UA [place] Comment:Bright Clarity, UA Clear Glucose, UA Many [...] Urine (Urine, Random) 08/30/2025 3:17 PM EST Result [facility] Jocelyn Lacy [facility] POINT OF CARE TEST ENTER/EDIT ORDERABLES Final Result * (ABNORMAL) POCT JASMINE-14 Urine Drug Screen (07/05/2025 10:14 AM EDT) [...] Negative ng/mL Oxycodone Screen, Urine Positive(A) Negative Comment:SATELLITE DISH TECHNICIAN pt, on oxycodone Phencyclidine (PCP), Urine Negative Negative Propoxyphene, Urine Negative Negative Fentanyl, Urine Negative Negative Urine Urine specimen obtained by clean catch procedure / Unknown 07/05/2025 10:14 AM EDT Narrative Shannan Borrego RN - 07/05/2025 10:14 AM EDT UTOX cup Lot#[id number] Exp. 07/05/26 Internal Pass Control Result [facility] us Fausto Bangura MD POINT OF CARE TEST ENTER/EDIT OR DERABLES Final Result * (ABNORMAL) POCT HGB A1C (04/05/2025 9:30 AM EDT) Hemoglobin A1C 6.7(A) 4.0 - 5.7 % QC Media Lot # [id number] Lot# Expiration Date Blood 04/05/2025 9:30 AM EDT Result [facility] us Fausto Bangura MD POINT OF CARE TEST ENTER/EDIT OR DERABLES Final Result * Albumin, Random Urine W/Creatinine (11/26/2024 9:59 AM EST) Creatinine, Urine 207.88 mg/dL [facility] Microalbumin Urine 12.0 mg/L H [facility] Microalbum Creatinine Ratio Ur 5.7 <30 ug/mg cr [facility] Comment:Albumin/Creatinine R atio Reference Ranges: Normal: < 30 ug/mg creatinine Microalbuminuria: 30 - 300 ug/mg creatinineClinical Albuminuria: > 300 ug/mg creatinine Urine (Urine, Random) 11/26/2024 9:59 AM EST 11/26/2024 10:52 AM EST us Fausto Name LAB URINE ORDERABLES Final Resul t [facility] [address] [place] [phone] * (ABNORMAL) Lipid Panel, Standard (11/26/2024 9:59 AM EST) Triglycerides 220(H) <150 mg/dL [facility] Comment:Desirable Triglyceri de: less than 150 mg/dLBorderline High Triglyceride 150-199 mg/dLHigh Triglyceride: 200-499 mg/dLVery High Triglyceride: greater than or equal to 5OO mg/dL Cholesterol 162 <200 mg/dL [facility] Comment:Desirable Cholestero l: less than 200 mg/dLBorderline High Cholesterol: 200-239 mg/dLHigh Cholesterol: greater than 239 mg/dL LDL Cholesterol Calculated 80 <100 mg/dL [facility] Comment:Desirable LDL: less than 100 mg/dLNear Optimal/Above Optimal LDL: 110- 129 mg/dLBorderline High LDL: 130-159 mg/dLHigh LDL: 160-189 mg/dLVery High LDL: greater than or equal to 190 mg/dL HDL Cholesterol 38(L) >40 mg/dL [facility] Comment:Desirable HDL: great er than 40 mg/dL Note: This HDL assay may give artificially low results in patients with liver disease. Blood Venous blood specimen / Unknown 11/26/2024 9:59 AM EST 11/26/2024 10:54 AM EST us Fausto Bangura MD LAB BLOOD ORDERABLES Final Resul t [facility] [address] [facility] [place] [address] [phone] * BI Mammogram Screening Tomosynthesis Bilateral (06/30/2024 10:30 AM EDT) Anatomical Region Laterality Modality Breast Bilateral Mammography 06/30/2024 10:3 0 AM EDT Narrative 07/12/2024 12:45 PM EDT [facility] [address] [place] [address] Mammography Report Signed Patient: Stephanie Dodd MR#: [id number] : 1960 Acct:[id number] Age/Sex: 63 / F ADM Date: 06/30/24 Loc: NEREYDAO Attending Dr: Cori Ortiz MD Ordering Physician: Cori Lugo MD Results: 1Negative Date of Service: 06/30/24 Follow Up: 1 Year From Orig ina Mammogram Procedure(s): MM tomosynthesis screening BI Accession Number(s): [id number] cc: Cori Lugo MD; Name,Fausto VEGAS EXAMINATION: [...] 07/12/24 1242 DD/ 1030 TD/TT: 06/30/24 1058 Funeral Attendant: Procedure Note Donotuseinterpreter, Image - [facility]/12/20[facility] [address] [place], [place] [address] Mammography Report Signed Patient: Cony Dodd#: [id number] : 8Acct:[id number] Age/Sex: 63 / FADM Date: 06/30/24 Loc: HO.MAMMO Attending Dr: Cori Ortiz MD Ordering Physician: Cori Lugo MDResults: 1Negative Date of Service: 06/30/24Follow Up: 1 Year From Orig inal Mammogram Procedure(s): MM tomosynthesis screening BI Accession Number(s): [id number] cc: Cori Lugo MD; Name,Fausto VEGAS EXAMINATION: [...] 07/12/24 1242 DD/ 1030 TD/TT: 06/30/24 1058 Funeral Attendant: Cori Ortiz MD IMG BI PROCEDURES Fin al Result * Hm Colonoscopy (03/01/2024) Colonoscopy Normal Normal us Cori Ortiz MD HEALTH MAINTENANCE Fi nal Result * HEPATITIS C AB [...] a test for HCV RNA (test code 94283) is suggested. For additional information please refer to http://education.[employer]/faq/NFE76l6 (This link is being provided for informational/ educational purposes only.) 08/16/2021 11:0 8 AM EST us Yasmeen [facility] HISTORICAL/NON ORDERABLE LABS Final Result [facility] [address] [place] [address], from Last 3 Months or Most Recently [...] 09/06/2025 Patient has chronic kidney disease 09/06/2025 Insurance [facility] D-SNP) DIAMANTE KATZ [id number] Care Teams Process Coach Relationship Specialty Start Date End Date Name, MD Fausto [address] [place] [phone] PCP - General Internal Medicine [facility]
--- OUTSIDE RECORDS SUMMARY | 2025-09-10 09:41 | XMS_ITS | Encounter Summary ---
Author Organization [employer] Address [address] [facility] 7t [place] [address] Care Team Providers Care Spinning Frame Tender Name Role Phone Name, Fausto VEGAS Primary Care Provider [phone] Reason for Visit * Reason Comments Med Refill Encounter Details Date Type Department Care Team ([facility] st Contact Info) Description 11/12/[address] [facility] [address] [place], [place] [phone] Name, MD Fausto [address] [place], [place] [phone] Social History Tobacco Use Types Packs/Day Years [...] Description 09/13/2025 9:15 AM EST Office Visit [facility] [address] [place] [phone] NameFausto MD [address] [place] [address] 10/07/2025 9:00 AM EST Office Visit [facility] OPT[facility] [address] [place] [address] Rosmery Holm, OD [address] [place] [address] documented as of this encounter Visit Diagnoses Not on filedocumented in this encounter Additional Health Concerns Assessment Noted Time PHQ-9 Depression Total Score: 10 024 10:02 AM EDT documented as of this encounter Care Teams Spinning Frame Tender Relationship Specialty Start Date End Date Fausto Bangura MD [address] [place] [address] PCP - General Internal Medicine 01/23/24 Juan Daniel ALEX 09/03/24 documented as of this encounter
--- OUTSIDE RECORDS SUMMARY | 2025-09-10 09:41 | XMS_ITS | Encounter Summary ---
Author Organization [employer] Address [address] [facility] [address]t [place] [address] Care Team Providers Care Hospital Housekeeper Name Role Phone Name, Fausto VEGAS Primary Care Provider [phone] Reason for Visit * Reason Onset Date Comments Med Refill 09/30/2024 Encounter Details Date Type Department Care Team ([facility] st Contact Info) Description 09/30/2024 Telephone [facility] [address] [place], [place] [phone] Name, MD Fausto [address] [place] [address] Med Refill Social History Tobacco Use Types [...] 1:35 PM EST Lancets were sent to [id number] on 01/30/24 with 11 refills. * Telephone Encounter - Nikki Krishnamurthy - 09/30/2024 1:09 PM EST TC from pt requesting medication refill. Medications needing refill : TRUEplus Lancets 33G misc To be sent to: [id number] - [place] - [address] [place] [address] documented in this encounter Plan of Treatment Upcoming Encounters Date Type Department Care Team ([facility] st Contact Info) Description 09/13/2025 9:15 AM EST Office Visit [facility] [address] [place] [address] Name, MD Fausto [address] [place] [address] 10/07/2025 9:00 AM EST Office Visit [facility] [address] [place], [place] [phone] Rosmery Holm, OD [address] [place], [place] [phone] documented as of this encounter Visit Diagnoses Not on filedocumented in this encounter Additional Health Concerns Assessment Noted Time PHQ-9 Depression Total Score: 10 024 10:02 AM EDT documented as of this encounter Care Teams Hospital Housekeeper Relationship Specialty Start Date End Date Name, MD Fausto [address] [place] [address] PCP - General Internal Medicine 01/23/24 [facility] 09/03/24 documented as of this encounter
--- OUTSIDE RECORDS SUMMARY | 2025-09-10 09:41 | XMS_ITS | Encounter Summary ---
Author Organization [employer] Address [address] [facility] 7t [place] [address] Care Team Providers Care Oil Well Cable Tool Operator Name Role Phone Rosanne Lugo MD Primary Care Provide r Name, Fausto VEGAS Primary Care Provider [phone] Encounter Details Date Type Department Care Team (Late Contact Info) Description 12/16/2022 Telephone [facility] [address] [place] [address] Rosanne Lugo MD [address] [place] [address] Social History Tobacco Use Types Packs/Day Years [...] Upcoming Encounters Date Type Department Care Team ([facility] Contact Info) Description 09/13/2025 9:15 AM EST Office Visit [facility] [address] [place] [address] NameFausto MD [address] [place] [address] 10/07/2025 9:00 AM EST Office Visit [facility] OPT[facility] [address] [place] [address] Rosmery Holm, OD [address] [place] [address] documented as of this encounter Visit Diagnoses Not on filedocumented in this encounter Additional Health Concerns Assessment Noted Time PHQ-9 Depression Total Score: 15 023 9:04 AM EST documented as of this encounter Care Teams Oil Well Cable Tool Operator Relationship Specialty Start Date End Date Rosanne Lugo MD [address] [place] [phone] PCP - General Family Medicine 05/23/22 01/22/24 Fausto Bangura MD [address] [place] [phone] PCP - General Internal Medicine 01/23/24 Juan Daniel A 09/03/24 documented as of this encounter
[2025-09-10 09:50] LABS: UACC Culture Trigger YES
[2025-09-10 09:53] LABS: Alanine Aminotransferase 34 U/L (0-31); Albumin Level 4.5 g/dL (3.5-5.0); Alkaline Phosphatase 68 U/L (39-117); Anion Gap 12 (12-20); Aspartate Amino Transferase 32 U/L (5-31); Blood Urea Nitrogen 12 mg/dL (9-16); Calcium 10.0 mg/dL (8.4-10.2); Carbon Dioxide 30 mmol/L (22-29); Chloride 103 mmol/L (96-108); Creatinine Clr Calc Pharmacy 82.3; Estimated Glomerular Filt Rate > 60; Potassium 4.0 mmol/L (3.3-5.1); Sodium 141 mmol/L (135-145); Total Protein 7.5 g/dL (6.5-8.0)
--- NOTE | 2025-09-10 10:20 | ED_ITS ---
HPI - Abdominal Pain General Chief Complaint: Abdominal Pain Stated Complaint: Lower abd pain Time Seen by Provider: 09/10/25 09:28 Source: patient, RN notes reviewed and bilingual interpreter Mode of arrival: ambulatory Limitations: language barrier History of Present Illness ED Provider: Radha Long PA-C HPI narrative: This is a 65-year-old Bahraini-speaking female, with a past medical history of GERD, hypothyroidism, hypertension, diabetes, who presents emergency department with concerns of dysuria, lower abdominal pain, bilateral flank pain, urinary frequency and urgency x 4 days. Patient reports that she was recently diagnosed with a urinary tract infection, and was prescribed a course of antibiotics, unsure of which, which she completed on Friday. She states that she had symptomatic improvement while she was on antibiotics however the pain in urinary symptoms return the following day. She endorses nausea, no vomiting. She also reports new dry cough,. No history of kidney stones. She also has been taking Pyridium for her bladder spasms. She is not taking any medications today. She also reports since yesterday she has had a dry cough. MD elicited complaint: abdominal pain Exacerbating factors: nothing Relieving factors: nothing Associated symptoms: denies other symptoms Related Data Home Medications ?Medication ?Instructions ?Recorded ?Confirmed oxycodone 10 mg tablet 10 mg PO QID PRN Pain (Scale Score 10/10/21 09/16/24 4-6) lovastatin 40 mg tablet 40 mg PO DAILY 12/04/2108/29 metformin 500 mg tablet 1,000 mg PO BIDWM 01/29/22 1 11/17/23 gabapentin 600 mg tablet 600 mg PO BID 09/30/2309/16 levothyroxine 125 mcg tablet 125 mcg PO QAM 09/30/23 1 11/17/23 paroxetine HCl 40 mg tablet (Paxil) 40 mg PO DAILY 11/2209/16/24 trazodone 50 mg tablet 100 mg PO BEDTIME PRN Insomn ia 09/30/23 09/16/24 fluticasone furoate 100 1 inh inhalation DAILY 03/1609/16/24 mcg/actuation blister powder for inhalation (Arnuity Ellipta) amlodipine 2.5 mg tablet 2.5 mg PO DAILY 07/30/24 lisinopril 20 1 tab PO DAILY 07/30/2408/29 mg-hydrochlorothiazide 25 mg tablet omeprazole 40 mg capsule,delayed 40 mg PO DAILY@0630 1 09/29/23 09/16/24 release albuterol sulfate 90 mcg/actuation 1 - 2 puff inhalati on Q4-6H PRN 08/31/24 09/16/24 aerosol inhaler Shortness Of Breath Or Wheez ing ammonium lactate 12 % topical cream 1 appl topical BID PRN Rash 08/31/24 09/16/24 estradiol 0.01% (0.1 mg/gram) 1 g vaginal MO 08/31/24 09/16/24 vaginal cream Previous Rx's ?Medication ?Instructions ?Recorded polyethylene glycol 3350 17 17 g PO DAILY #510 grams 0 09/30/23 gram/dose oral powder (Miralax) docusate sodium 100 mg capsule 200 mg (2 x 100 mg) PO BEDTIME 03/16/24 #180 caps sennosides 8.6 mg tablet (Natural 17.2 mg (2 x 8.6 mg) PO BEDTIME 03/16/24 Senna Laxative) constipation #180 tabs walker #1 ea 09/01/24 acetaminophen 325 mg tablet 325 mg PO Q4H PRN Pain, Moderate(Pain Scale 4-6) 30 days #240 tabs enoxaparin 40 mg/0.4 mL 40 mg (0.4 mL) subcut Q24H 4 2 days 09/02/24 subcutaneous syringe #16.8 mL oxycodone 10 mg tablet 10 mg PO BID PRN Pain, 10/08 Moderate(Pain Scale 4-6) 21 days #42 tabs celecoxib 200 mg capsule 200 mg PO BID 30 days #60 ca ps 11/12/24 doxycycline monohydrate 100 mg 100 mg PO Q12H #14 caps 02/09/25 capsule (Monodox) cefpodoxime 200 mg tablet 200 mg PO BID 10 days #20 ta bs 09/10/25 Allergies Allergy/AdvReac Type Severity Reaction Status Date / Time egg Allergy Intermediate Vomiting Verified 09/10/25 09:05 Review of Systems Review of Systems Constitutional : No Fever, No Chills ENT/Mouth : No sore throat, No Rhinorrhea Eyes: No Eye Pain, No Swelling, No Redness Cardiovascular : No Chest Pain, No SOB Respiratory : No Cough, No Sputum Gastrointestinal : + Nausea, No Vomiting, No Diarrhea, + abdominal Pain Genitourinary :+Dysuria, No Hematuria Musculoskeletal : No joint pain, No Myalgias, No Joint Swelling Skin : No Skin Lesions, positive skin rash Neuro : No Weakness, No Numbness, No Headache All other systems reviewed and are negative Yes all other systems are reviewed and are negative Constitutional: Reports as per [facility] Past Medical History Attestation statement: The following information was validated with the patient. Medical History GERD (gastroesophageal reflux disease) Depression Asthma Osteoarthritis Hypothyroid Transaminitis HTN (hypertension) Diabetes Surgical History H/O colonoscopy Hx of tubal ligation Family History Family History Mother HTN (hypertension) Diabetes High cholesterol Father Heart disease Social History Social History Household Members: Children Household Members Other:: jenifer fong Are you a primary in home caregiver to a significant other at home: No Do you presently have visiting nurse or other home services: Yes ([facility] [employer] [facility]) Alcohol intake: never Patient Tobacco Use Status: Former Tobacco user Tobacco use type: Cigarette Years Smoked: 10 Smoked in Last 30 Days: No Use of substances other than those prescribed or required for medical reasons: No Advance Directives: No Advance Directives Information Provided: Yes service: No Physical Exam ED Vital Signs: Vital Signs - 24 hr 09/10/25 09:04 09/10/25 11:27 Temperature 96.8 F 98.1 F Pulse Rate 76 71 Respiratory Rate 16 18 Blood Pressure 130/63 120/67 Pulse Oximetry 92 95 Oxygen Delivery Method Room Air Room Air BMI result Body Mass Index 37.6 Const General: cooperative, comfortable and no acute distress Orientation/consciousness: patient oriented x3 Limitations: no limitations HENMT Head: Yes normal to inspection, Yes normocephalic and Yes atraumatic Ears: hearing grossly normal bilaterally General nose exam: Normal external nose present Face and sinus: Yes normal facial exam Mouth: Normal oral and palatal mucosa present, oropharynx normal and moist mucous membranes Throat: Yes posterior oropharynx normal Eyes General: appearance normal, both eyes and all related structures Eyelids: Yes eyelids normal Conjunctivae: conjunctivae normal Sclerae: sclerae normal Pupils: Equal, round and reactive pupils present EOM: EOMs intact bilaterally Neck Neck: Yes normal visual inspection, Yes full ROM and Yes no lymphadenopathy Lymphatic: no lymphadenopathy noted Chest Chest palpation & inspection: normal inspection of the chest Resp Effort & Inspection: normal respiratory effort and able to speak in complete sentences Auscultation: clear to auscultation bilaterally, no crackles, no rales, no rhonchi and no wheezes Cardio Rate: regular rate Rhythm: regular rhythm Heart sounds: S1 normal heart sound present and S2 normal heart sound present GI Other: Mild tenderness palpation in the suprapubic region extending into bilateral flanks. Inspection: Yes normal to inspection Back/Spine/Pelvis Other: Positive CVA tenderness bilaterally. Skin General skin exam: no rashes or lesions noted Trauma: no lacerations or abrasions Wounds: no wounds Neuro General: patient oriented x3 and moves all extremities Cranial nerves: Yes Equal, round and reactive pupils present Extrem General: Yes normal to inspection Right upper extremity: normal to inspection Left upper extremity: normal to inspection Right lower extremity: normal to inspection Left lower extremity: normal to inspection Medical Decision Making Medical Decision Making MDM Narrative: This is a 65-year-old [place]i-speaking female, with a past medical history of GERD, hypothyroidism, hypertension, diabetes, who presents emergency department with concerns of dysuria, lower abdominal pain, bilateral flank pain, urinary frequency and urgency x 4 days. On arrival, vital signs within normal limits. She is speaking full sentences under no acute distress. Differential diagnoses including urinary tract infection with possible progression towards pyelonephritis. Obstructing stone, hydronephrosis. We will obtain labs to rule out any leukocytosis, or electrolyte derangement. CT abdomen and pelvis also ordered given recent antibiotic course with no significant improvement,. Evaluating for obstructive stone or structural causes of complicated pyelonephritis inpatient with diabetes and persistent symptoms after antibiotics. 1:01 PM 09/10/2025 (Radha Long PA-C): Labs returned, she has no leukocytosis, stable H&H, chemistry with no significant electrolyte derangement. AST and ALT slightly elevated at 32 and 34, nonspecific. Urine is dark, with positive nitrites and leuk esterases. This does appear to be a contaminated sample however patient is symptomatic. She was given a dose of ceftriaxone in the department today. Her vital signs remained stable. She is well-appearing. CT abdomen and pelvis revealed no acute findings, no evidence of pyelonephritis or obstructive uropathy. I attempted to call over to patient's pharmacy, [facility] on [address], they state that she was treated with Macrobid in June. reports that she filled her most recent antibiotic at [facility] which is unfortunately closed today. Given positive CVA tenderness bilaterally, with UA positive for infection, will treat with cefpodoxime for coverage of possible early pyelonephritis. Patient was given strict return precautions. She will follow-up with her PCP. Patient understands and agrees with plan. Patient stable for discharge. Differential Diagnosis Differential Diagnoses: The differential diagnosis associated with the presentation includes See above Lab Data [facility] Lab Attestation statement: I reviewed the patient's lab results. See [facility] 09/10/25 09:25 09/10/25 09:25 Labs: Lab Results 09/10/25 Range/Units 09:25 WBC 7.3 (4.8-10.8) X10*3/uL RBC 4.39 (4.20-5.50) X10*6/uL Hgb 12.9 (12.0-16.0) g/dl Hct 37.9 (37.0-47.0) % MCV 86.3 (80.0-98.0) fL MCH 29.4 (27.0-33.0) pg MCHC 34.0 (31.0-35.0) g/dl RDW 13.2 (11.0-16.0) % Plt Count 290 (160-400) X10*3/uL MPV 9.0 L (9.4-12.3) fL Immature Gran % (Auto) 0.3 (0.0-0.4) % Neut % (Auto) 53.0 (45-73) % Lymph % (Auto) 32.6 (20-40) % Hettinger % (Auto) 8.0 (2-11) % Eos % (Auto) 5.1 H (0-4) % Baso % (Auto) 1.0 (0-2) % Lymph # (Auto) 2.4 (1.2-4.9) X10*3/uL [place]tinger # (Auto) 0.6 (0.1-1.2) X10*3/uL Eos # (Auto) 0.4 (0.0-0.4) X10*3/uL Baso # (Auto) 0.1 (0.0-0.2) X10*3/uL Abs Immat Gran (auto) 0.02 (0.00-0.03) X10*3/uL Absolute Neuts (auto) 3.9 (2.0-8.3) x10*3/uL Absolute Nucleated RBC 0.000 (0.0-0.012) X10*3/uL Nucleated RBC % (auto) 0.0 (0.0-0.2) /100WBC Sodium 141 (135-145) mmol/L Potassium 4.0 (3.3-5.1) mmol/L Chloride 103 (96-108) mmol/L Carbon Dioxide 30 H (22-29) mmol/L Anion Gap 12 (12-20) BUN 12 (9-16) mg/dL Creatinine 0.76 (0.5-1.4) mg/dL Estim Creat Clear Calc 82.3 Estimated GFR > 60 Random Glucose 148 H (60-115) mg/dL Lactic Acid 1.5 (0.5-2.0) mmol/L Calcium 10.0 D (8.4-10.2) mg/dL Total Bilirubin 0.5 (0.0-1.0) mg/dL AST 32 H (5-31) U/L ALT 34 H (0-31) U/L Alkaline Phosphatase 68 (39-117) U/L Total Protein 7.5 (6.5-8.0) g/dL Albumin 4.5 (3.5-5.0) g/dL Urine Color Dark Yellow Urine Appearance Clear Urine pH 6.5 (5.0-9.0) Ur Specific Norman 1.020 (1.005-1.025) Urine Protein Negative (Neg-Trace) mg/dL Urine Glucose (UA) Negative (Negative) mg/dL Urine Ketones Negative (Negative) mg/dL Urine Blood Negative (Negative) Urine Nitrite Positive H (Negative) Ur Leukocyte Esterase Trace H (Negative) Urine RBC 0-2 (0-2) /HPF Urine WBC 0-5 (0-5) /HPF Ur Squamous Epith Cells 6-10 (0-2) /HPF Urine Bacteria None Seen (None Seen) Hyaline Casts 0-2 (0-2) /LPF Radiology Impression Discussion of test interpretation with radiology: I have reviewed the radiologist's reading. Radiologist Impression: Findings: No consolidation or effusion. Unremarkable gallbladder and solid organs. No urolithiasis. No bowel obstruction, pneumoperitoneum, or pneumatosis. Appendix is normal. Uterus and bladder are unremarkable. Lumbar spine degenerative changes. No acute osseous findings. Small fat containing umbilical hernia unchanged. IMPRESSION: No acute intra-abdominal or pelvic findings. This document has been electronically signed by: Bandar Harris MD on 09/10/2025 12:35:18 Dictated By: Bandar Harris MD Signed By: <Electronically sign Medications Administered Discontinued Medications Generic Name Dose Route Start Last Admin Trade Name Freq PRN Reason Stop Dose Admin Acetaminophen 1,000 mg in 100 mls @ 400 mls/hr 09/10/25 10:22 09/10/25 11:19 Ofirmev IV 09/10/25 10:36 Infused ONCE ONE Infusion Ceftriaxone Sodium 1 gm/ 50 mls @ 100 mls/hr 09/10/25 10:22 09/10/25 11:30 Sodium Chloride IV 09/10/25 10:51 Infused ONCE ONE Infusion Ondansetron HCl 4 mg 09/10/25 10:22 09/10/25 10:56 Ondansetron Hcl 4 Mg/2 Ml Vial IVPUSH 09/10/25 10:23 4 mg ONCE ONE Administration Discharge Plan Discharge Clinical Impression: Acute UTI Instructions: Urinary Tract Infection in Women (ED) Additional Instructions: You were seen in the emergency department in you were found to have a urinary tract infection. We are unable to contact your pharmacy as your pharmacy is closed, therefore we are unsure what you were prescribed for your most recent urinary tract infection. Given that you do have some back pain, this may be the early start of a kidney infection therefore we are treating you with an antibiotic to be taken twice a day for the next 10 days. Please finish the entire course even if your symptoms improve. Drink plenty of fluids get plenty of rest. Follow-up with your primary care physician. If any new or worsening symptoms occur including but not limited to severe chest pain, shortness of breath, abdominal pain, please seek emergent care. Prescriptions: New cefpodoxime 200 mg tablet 200 mg PO BID 10 Days Qty: 20 0RF Rx Instructions: must administer with a meal/food No Action celecoxib 200 mg capsule 200 mg PO BID 30 Days Qty: 60 0RF doxycycline monohydrate [Monodox] 100 mg capsule 100 mg PO Q12H Qty: 14 0RF amlodipine 2.5 mg tablet 2.5 mg PO DAILY lisinopril-hydrochlorothiazide 20-25 mg tablet 1 tab PO DAILY omeprazole 40 mg capsule,delayed release(DR/EC) 40 mg PO DAILY@0630 ammonium lactate 12 % cream 1 appl topical BID PRN (Reason: Rash) estradiol 0.01 % (0.1 mg/gram) cream 1 g vaginal MO albuterol sulfate 90 mcg/actuation HFA aerosol inhaler 1 - 2 puff inhalation Q4-6H PRN (Reason: Shortness Of Breath Or Wheezing) acetaminophen 325 mg Tablet 325 mg PO Q4H PRN (Reason: Pain, Moderate(Pain Scale 4-6)) 30 Days Qty: 240 0RF enoxaparin 40 mg/0.4 mL Syringe 40 mg subcut Q24H 42 Days Qty: 16.8 0RF lovastatin 40 mg tablet 40 mg PO DAILY metformin 500 mg tablet 1,000 mg PO BIDWM oxycodone 10 mg tablet 10 mg PO QID PRN (Reason: Pain (Scale Score 4-6)) gabapentin 600 mg tablet 600 mg PO BID paroxetine HCl [Paxil] 40 mg tablet 40 mg PO DAILY levothyroxine 125 mcg tablet 125 mcg PO QAM trazodone 50 mg tablet 100 mg PO BEDTIME PRN (Reason: Insomnia) polyethylene glycol 3350 [Miralax] 17 gram/dose powder 17 g PO DAILY Qty: 510 2RF (DME[place] [facility] [place] .MEDSUPPLY Qty: 1 0RF Rx Instructions: Folding Front wheeled walker Arnuity Ellipta 100 mcg/actuation blister with device 1 inh inhalation DAILY sennosides [Natural Senna Laxative] 8.6 mg tablet 17.2 mg PO BEDTIME Qty: 180 3RF docusate sodium 100 mg capsule 200 mg PO BEDTIME Qty: 180 3RF oxycodone 10 mg tablet 10 mg PO BID PRN (Reason: Pain, Moderate(Pain Scale 4-6)) 21 Days Qty: 42 0RF Rx Instructions: Partial Fill upon patient request. Print Language: Bahraini
[2025-09-10 11:27] VITALS: BP 120/67; PULSE 71; RESP 18; TEMP 36.7; O2SAT 95
[2025-09-10 13:27] VITALS: BP 121/56; PULSE 68; RESP 16; TEMP 36.6; O2SAT 94
[2025-09-10 14:14] VITALS: BP 121/56; PULSE 68; RESP 16; TEMP 36.6; O2SAT 94
== END 2025-09-10 14:15 | disposition home or self-care (01) ==
PROVIDERS: Emergency Provider Emergency Medicine; PCP Internal Medicine Geriatric Medicine
DX: N39.0 Urinary tract infection, site not specified (principal); R10.30 Lower abdominal pain, unspecified; R30.0 Dysuria; R35.0 Frequency of micturition; R39.15 Urgency of urination; I10 Essential (primary) hypertension; E11.9 Type 2 diabetes mellitus without complications; Z87.891 Personal history of nicotine dependence
CPT/HCPCS: 36415; 74176; 80053; 81001; 83605; 85025; 87040; 87086; 96365; 96375; 99284; J0131; J0696; J2405

== ENCOUNTER → 2025-09-10 10:42 | Outpatient (BNV) | payer OTHER, SELFPAY | PROVIDERS: Emergency Provider Emergency Medicine; PCP Internal Medicine Geriatric Medicine; Visit Provider Radiology Vascular & Interventional Radiology | DX: R10.A3 Flank pain, bilateral (principal) | CPT/HCPCS: 74176 ==